=== PATIENT | female | born 1950 | race Caucasian/White ===

== ENCOUNTER 2020-04-20 20:45 | Emergency (ER) | payer MEDICARE, SELFPAY ==
--- NOTE | ~2020-04-20 | XR_ITS ---
EXAMINATION: XR chest 1V portable 04/20/2020 21:25 INDICATION: Dizziness. History of asthma. COPD. Hypertension. PROCEDURE: AP portable chest COMPARISON: Comparison to multiple prior studies sequentially, with oldest reviewed study dated 04/07. FINDINGS: The lungs are clear. Status post median sternotomy for CABG. The cardiomediastinal silhouet te is within normal limits. There are no pleural effusions. There is no pneumothorax suspected. IMPRESSION: 1: NO ACUTE CARDIOPULMONARY DISEASE. Reviewed, dictated and finalized at location A.
--- NOTE | ~2020-04-20 | CT_ITS ---
EXAMINATION: CT BRAIN W/O DATE: 04/20/2020 21:22 INDICATION: Dizziness TECHNIQUE: Computed tomography (CT) of the head was performed without intravenous contrast. The dose- length product was 605.33 mGy-cm. The mA was adjusted according to patient size. Iterative reconstruc tion technique was employed. COMPARISON: CT dated 10/24/2009 FINDINGS: Normal brain parenchymal volume for age. Normal soria-white differentiation. No acute intrac ranial hemorrhage, infarction, mass or mass effect. There is persistent cavum of septum pellucidum. No ventriculomegaly or midline shift. Midline sagittal images demonstrate a normal corpus callosum, c raniovertebral junction and sella turcica. Basilar cisterns are patent. There is intracranial atheros clerosis. Paranasal sinuses and mastoids are pneumatized. No depressed skull fractures. IMPRESSION: 1. No acute intracranial abnormality. Reviewed, dictated and finalized at location A.
[2020-04-20 20:48] VITALS: BP 115/81; PULSE 65; RESP 18; TEMP 35.9; O2SAT 97
[2020-04-20 20:59] VITALS: BP 154/85; PULSE 65; RESP 21; O2SAT 92
--- NOTE | 2020-04-20 21:01 | ECG_ITS ---
Measurements Intervals [place] Rate: 62 P: 0 CA: 162 QRS: -13 QRSD: 166 T: 57 QT: 487 QTc: 495 Interpretive Statements SINUS RHYTHM RIGHT BUNDLE BRANCH BLOCK BASELINE WANDER- I, II, III ABNORMAL ECG Electronically Signed On 04-21-2020 7:29:26 CDT by Jimbo Balderas D.O.
--- NOTE | 2020-04-20 21:03 | ED.DIZZY ---
HPI - Dizziness General Chief Complaint: Dizziness Stated Complaint: dizziness, nausea, double vision Time Seen by Provider: 04/20/20 20:56 Source: RN notes reviewed History of Present Illness HPI Narrative: Patient presents emergency department from home for dizziness. Patient states that this evening she had a short episode of shortness of breath that lasted approximately 2 to 3 minutes and resolved on its own patient states that approximately an hour after that she began to have an episode of dizziness patient states that she felt dizzy and lightheaded with near syncopal episode. States that with this she experienced double vision and a mild headache. Patient states symptoms are improved at this time though she still feels mildly dizzy she denies any fevers or chills numbness or tingling in the extremities chest pain abdominal pain vomiting or any other symptoms she does note mild nausea with the symptoms Related Data Home Medications Medication Instructions Recorded Confirmed albuterol sulfate 90 mcg/actuation 2 inhalation INHALATION Q4-6H gm 10/23/19 aerosol inhaler budesonide 90 mcg/actuation breath 1 inhalation INHALATION Q12H 10/23/19 activated powder inhaler carvedilol 6.25 mg tablet 6.25 mg PO BID tablet 10/23/19 cyanocobalamin (vitamin B-12) 1,000 mcg PO DAILY 10/23/19 1,000 mcg capsule epinephrine 0.3 mg/0.3 mL 0.3 mg IM ONCE 10/23/19 injection, auto-injector Allergies Allergy/AdvReac Type Severity Reaction Status Date / Time codeine Allergy Mild HIVES AND Verified 10/19/16 11:46 FACIAL SWELLING erythromycin base Allergy Mild HIVES Verified 10/19/16 11:46 oxycodone Allergy Mild HIVES Verified 10/19/16 11:46 propoxyphene Allergy Mild DOES NOT Verified 10/19/16 11:46 KNOW levofloxacin Allergy Unknown Unknown Verified 10/23/19 07:53 acetaminophen AdvReac Unknown Verified 10/23/19 07:54 BEE STINGS Allergy Severe Unknown Uncoded 10/23/19 07:53 PROPOXYPHENE HCL Allergy Unknown DOES NOT Uncoded 10/19/16 11:46 KNOW Review of Systems Review of Systems: Narrative: Gen.: Denies fevers or chills Eyes: Denies eye pain reports double vision ENT: Denies congestion Respiratory: Reports mild shortness of breath CV: Denies chest pain or palpitations GI: Denies abdominal pain emesis or diarrhea reports nausea denies burning, urgency, frequency or hematuria Musculoskeletal: Denies back pain or muscle pain Neuro: Denies numbness, tingling, weakness or focal weakness reports dizziness Skin: Denies rash Except as documented, all other systems reviewed and negative [facility] Past Medical History Medical History (Updated 04/21/20 @ 00:45 by Patrice Small DO) CAD (coronary artery disease) Chronic obstructive pulmonary disease, unspecified Diabetes mellitus Family History Family History (Updated 01/19/18 @ 09:38 by DOCTOR UNKNOWN) Mother Family history of malignant neoplasm Family history of lung cancer Family history of lymphoma Sibling Family history of diabetes mellitus in first degree relative Family history of malignant neoplasm Family history of heart disease in male family member before age 55 Father Hypertension Family history of cardiovascular disease Family history of primary malignant neoplasm of liver Family history of heart disease in male family member before age 55 Family history of congenital heart disease Other Carcinoma of colon Cerebrovascular accident Diabetes mellitus Family history of allergic disorder Family history of cardiac disorder Family history of emphysema Social History Social History Smoking status: Former smoker Smoking end date: 11/22/09 Alcohol intake: never Exam Narrative: Exam Narrative: APPEARANCE: No acute distress, nontoxic, resting in bed HEENT: Normocephalic, atraumatic, OMM, TMs clear bilaterally EYES: PERRL, EOMI NECK: Supple, nontender, full
[2020-04-20 21:29] LABS: Basophils Absolute Auto 0.1 K/mm3 (0.0-0.1); Basophils Percent Auto 0.9 % (0.2-1.2); Eosinophils Absolute Auto 0.4 K/mm3 (0-0.3); Eosinophils Percent Auto 6.2 % (0-4.4); Hematocrit 43.2 % (37.0-47.0); Hemoglobin 14.7 g/dL (12.0-15.0); Immature Granulocyte Absolute 0.04 K/mm3 (0.00-0.031); Immature Granulocyte Percent A 0.7 % (0-0.5); Lymphocytes Absolute Auto 2.03 K/mm3 (0.9-3.2); Mean Corpuscular Hemoglobin 30.8 pg (26-34); Mean Corpuscular Volume 90.4 fl (80-100); Mean Platelet Volume 9.7 fl (7.4-10.4); Monocytes Absolute Auto 0.4 K/mm3 (0.1-0.6); Monocytes Percent Auto 6.7 % (2.6-8.5); Neutrophils Absolute Auto 2.9 K/mm3 (1.3-6.7); Neutrophils Percent Auto 50.5 % (45.5-73.1); Platelet Count Result 199 k/mm3 (150-375); Red Blood Count 4.78 M/mm3 (4.2-5.4); Red Cell Distribution Width 13.1 % (11.5-14.5); White Blood Count 5.8 K/mm3 (4.5-10.0)
[2020-04-20 21:30] VITALS: BP 137/88; PULSE 62
[2020-04-20 21:32] VITALS: BP 145/94; PULSE 68
[2020-04-20 21:34] VITALS: BP 120/77; PULSE 79
[2020-04-20] MEDS: SODIUM CHLORIDE 0.9% IV 1,000 ML 999 ML IV CONT (21:35)
[2020-04-20 21:39] LABS: Prothrombin Time 12.6 Seconds (11.1-14.7)
[2020-04-20 21:40] LABS: Partial Thromboplastin Time 24.4 SECONDS (22.3-36.8)
[2020-04-20 21:41] LABS: Alanine Aminotransferase 26 U/L (4-35); Albumin Level 4.6 g/dL (3.5-5.1); Alkaline Phosphatase 74 U/L (38-126); Aspartate Amino Transferase 25 U/L (14-36); Bilirubin,Total 0.8 mg/dL (0.2-1.3); Blood Urea Nitrogen 22 mg/dL (7-17); Calcium 9.3 mg/dL (8.4-10.2); Carbon Dioxide 23 mmol/L (22-30); Chloride 108 mmol/L (98-107); Estimated CRCL calculation 71 ml/min; Estimated Glomerular Filt Rate > 60; Glucose 132 mg/dL (65-105); Potassium 3.9 mmol/L (3.4-5.0); Sodium 140 mmol/L (137-145)
[2020-04-20 21:45] LABS: Add Urine Microscopic? YES; Appearance Urine Clear (Clear); Bacteria Urine 2+ /hpf; Bilirubin Urine Negative (Negative); Blood Urine Negative (Negative); Color Urine Yellow (Yellow); Glucose Urine UA Negative (Negative); Ketones Urine Negative (Negative); Leukocyte Esterase Ur Negative LEU/UL (Negative); Mucus Urine Few /lpf; Nitrate Urine Positive (Negative); Protein Urine Negative (Negative); RBC Urine 0-2 /hpf (0-2); Specific Grav Ur 1.027 (1.001-1.035); Squamous Epithelial Cell Urine Many /hpf (Few); Urobilinogen Urine Negative mg/dL (<2.0); WBC Urine 0-3 /hpf
[2020-04-20 21:52] LABS: Troponin I < 0.012 ng/mL (0.000-0.034)
[2020-04-20 22:48] VITALS: BP 149/87; PULSE 57; RESP 15; TEMP 36.2; O2SAT 99
[2020-04-21 00:39] VITALS: BP 124/78; PULSE 55; RESP 18; O2SAT 100
[2020-04-21 00:39] LABS: Troponin I < 0.012 ng/mL (0.000-0.034)
[2020-04-21] MEDS: NITROFURANTOIN MONOHYD MACROCR 100 MG CAP PO (00:46)
[2020-04-21 00:47] VITALS: BP 124/78; PULSE 60; RESP 18; TEMP 37; O2SAT 100
== END 2020-04-21 00:48 | disposition home or self-care (01) ==
PROVIDERS: Emergency Provider Emergency Medicine
DX: R55 Syncope and collapse (principal); N39.0 Urinary tract infection, site not specified; E11.9 Type 2 diabetes mellitus without complications; I25.10 Atherosclerotic heart disease of native coronary artery without angina pectoris; J44.9 Chronic obstructive pulmonary disease, unspecified; Z87.891 Personal history of nicotine dependence
CPT/HCPCS: 36415; 70450; 71045; 80053; 81001; 84484; 85025; 85610; 85730; 93005; 96360; 99284; A9270; J7030

== ENCOUNTER 2020-06-13 07:51 | Outpatient (CLI) | payer MEDICARE, SELFPAY ==
--- NOTE | ~2020-06-13 | MM_ITS ---
EXAMINATION: MM screening dwaine BI w saul HISTORY: Screening TECHNIQUE: Craniocaudal and mediolateral oblique 3-D tomosynthesis images were obtained and synthetic 2-D images were generated. CAD analysis was submitted and interpreted. COMPARISON: No prior mammogram is available for comparison at this institution. BREAST PARENCHYMAL COMPOSITION: There are scattered areas of fibroglandular density. FINDINGS: There are developing asymmetries in the outer aspect of the right breast on CC view. The le ft breast is stable without evidence for malignancy. IMPRESSION: 1. Developing right breast asymmetries. 2. Additional mammographic views and possible breast ultrasound are recommended. BI-RADS Category 0: Incomplete: Needs additional imaging evaluation. Reviewed, dictated and finalized at location A. IMPRESSION: 1. Developing right breast asymmetries. 2. Additional mammographic views and possible breast ultrasound are recommended . BI-RADS Category 0: Incomplete: Needs additional imaging evaluation.
--- NOTE | ~2020-06-13 | DEXA_ITS ---
Bone Density Report Name: Ale Soto Age: 70 Sex: Female Ethnicity: White Date of : 1950 Indication: postmenopausal; prior fracture; asthma or emphysema; Referring Provider: Karen Coleman Study: Bone densitometry was performed. Exam Date: June 13, 2020 Accession number: [id number] Bone Density: Region BMD T-score Z-score Classification AP Spine (L1-L4) 1.183 1.2 3.4 Normal Femoral Neck (Left) 1.068 2.0 3.8 Normal Total Hip (Left) 1.253 2.5 4.1 Normal Total Hip Bilateral Avg 1.227 2.3 3.8 Normal Femoral Neck (Right) 0.973 1.1 2.9 Normal Total Hip (Right) 1.199 2.1 3.6 Normal World Health Organization criteria for BMD impression classify patients as: Normal (T-score at or above -1.0), Osteopenia (T-score between -1.0 and -2.5), or Osteoporosis (T-score at or below -2.5). 10-year Fracture Risk: FRAX not reported because: All T-scores for Spine Total, Hip Total, Femoral Neck at or above -1.0 Previous Exams: Region Exam Age BMD T-score BMD Change BMD Change Date g/cm2 vs Baseline vs Previous AP Spine(L1-L4) 06/13/2020 70 1.183 1.2 0.008(0.7%) 0.008(0.7%) 05/05/2017 67 1.175 1.2 Total Hip(Left) 06/13/2020 70 1.253 2.5 0.003(0.3%) 0.003(0.3%) 05/05/2017 67 1.249 2.5 Total Hip(Right) 06/13/2020 70 1.199 2.1 -0.102(-7.8%)* -0.102(-7.8%)* 05/05/2017 67 1.301 2.9 *Denotes significance at 95% confidence level, LSC for AP Spine = 0.022 g/cm2, LSC for Total Hip = 0.027 g/cm2 Clinical Information Provided by Patient: Has had a low trauma fracture Has used the following medications: Vitamin D Has the following medical conditions: Asthma or Emphysema Patient maximum height was 63.5 Menopause Age: 54 No regular weight bearing exercise Drinks caffeinated beverages Onset of menses at age 13 Number of children 4 Impression: The patient has normal bone mass. The patient has risk factors, including: previous fracture. The BMD for the Total Hip(Right) decreased, changing by -7.8% since the last DXA exam. Discussion: LOW RISK OF FRACTURE; BONE DENSITY IS WELL ABOVE THE MINIMUM DESIRABLE LEVEL AND ABOVE AVERAGE FOR AGE AND SEX AT ALL SKELETAL SITES TESTED. This person's bone density is above expected limits for age and sex. This is rarely clinically significant, but should be pursued if there are significant musculoskeletal complaints. The patient should follow a healthful lifestyle (good nutrition with adequate tad
== END 2020-06-13 07:52 | disposition home or self-care (01) ==
LOC: ANHIMG 07:53
PROVIDERS: PCP Family Medicine; Visit Provider Nurse Practitioner
DX: Z12.31 Encounter for screening mammogram for malignant neoplasm of breast (principal); Z78.0 Asymptomatic menopausal state; R92.8 Other abnormal and inconclusive findings on diagnostic imaging of breast
CPT/HCPCS: 77063; 77067; 77080

== ENCOUNTER 2020-07-05 13:31 | Outpatient (CLI) | payer MEDICARE, SELFPAY ==
--- NOTE | ~2020-07-05 | MMUS_ITS ---
EXAMINATION: MM diagnostic mammo unilat RT, US breast RT limited HISTORY: Follow-up right breast asymmetry TECHNIQUE: Additional 3-D tomosynthesis images of the right breast were performed and synthetic 2-D i mages were generated. CAD analysis was submitted and interpreted. High resolution right breast ultras ound was performed. COMPARISON: Comparison to multiple prior studies sequentially, with oldest reviewed study dated 06/2020. BREAST PARENCHYMAL COMPOSITION: Breast composed of scattered areas of fibroglandular density FINDINGS: MAMMOGRAPHIC FINDINGS: There is persistent focal asymmetry in the upper outer quadrant of the right breast. No discrete mass or abnormal cluster of calcifications. Right breast ultrasound: At 6:00, 1 cm from the nipple, there is an oval hypoechoic mass measuring 3 mm without posterior feat ures or significant internal vascularity. At 11:00, 2 cm from the nipple, there is a small oval hypoe choic mass with central echogenicity measuring 3.5 mm maximum dimension, likely an intramammary lymph node. IMPRESSION: 1. Probable benign right breast masses. 2. Recommend 6 month follow-up diagnostic right mammogram and ultrasound BI-RADS category 3, probably benign findings. Reviewed, dictated and finalized at location A. IMPRESSION: 1. Probable benign right breast masses. 2. Recommend 6 month follow-up diagnostic right mammogram and ultrasound BI-RADS category 3, probably benign findings.
== END 2020-07-05 13:32 | disposition home or self-care (01) ==
PROVIDERS: PCP Family Medicine; Visit Provider Nurse Practitioner Family
DX: R92.8 Other abnormal and inconclusive findings on diagnostic imaging of breast (principal)
CPT/HCPCS: 76642; 77065

== ENCOUNTER 2020-11-12 10:54 | Observation (INO) | payer MEDICARE, SELFPAY ==
[2020-11-12] VITALS (37 sets, daily range): BP systolic 102–139; BP diastolic 73–99; PULSE 54–69; RESP 11–26; TEMP 36–37.2; O2SAT 92–100; BMI 42.9
--- NOTE | ~2020-11-12 | XR_ITS ---
EXAMINATION: XR chest 2V DATE: 11/12/2020 11:31 INDICATION: Acute midsternal chest pain. TECHNIQUE: Frontal and lateral views of the chest were obtained on 3 radiographs. COMPARISON: Chest single view 04/20/2020 FINDINGS: A calcified right lung nodules consistent with old granulomatous disease. There is mild ate lectasis in left lower lung zone. No pleural effusion or pneumothorax. The heart size is normal. Ther e are prominent paracardial fat pads. Median sternotomy wires and mediastinal surgical clips are seen , likely from prior coronary artery bypass grafting. IMPRESSION: 1. Mild atelectasis in left lower lung zone. Reviewed, dictated and finalized at location A. 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
--- NOTE | 2020-11-12 11:00 | ECG_ITS ---
Measurements Intervals [place] Rate: 65 P: -12 [place]: 166 QRS: 9 QRSD: 154 T: 94 QT: 455 QTc: 475 Interpretive Statements SINUS RHYTHM RIGHT BUNDLE BRANCH BLOCK BASELINE ARTIFACT- I, II, III, AVF, V4-V6 ABNORMAL ECG Electronically Signed On 11-12-2020 14:40:03 STYRENE DEHYDRATION REACTOR OPERATOR by Jimbo Balderas D.O.
[2020-11-12] MEDS: ASPIRIN 81 MG CHEWABLE TABLET 324 MG PO (11:04)
[2020-11-12] MEDS: MORPHINE SULFATE (*CRX) 4 MG/ML INJ IV PUSH (11:18)
[2020-11-12 11:22] LABS: Basophils Absolute Auto 0.1 K/mm3 (0.0-0.1); Eosinophils Absolute Auto 0.3 K/mm3 (0-0.3); Eosinophils Percent Auto 6.5 % (0-4.4); Hematocrit 42.1 % (37.0-47.0); Hemoglobin 14.6 g/dL (12.0-15.0); Immature Granulocyte Absolute 0.03 K/mm3 (0.00-0.031); Immature Granulocyte Percent A 0.6 % (0-0.5); Lymphocytes Absolute Auto 1.58 K/mm3 (0.9-3.2); Mean Corpuscular HGB Conc 34.7 g/dl (32-36); Mean Corpuscular Hemoglobin 30.7 pg (26-34); Mean Corpuscular Volume 88.6 fl (80-100); Mean Platelet Volume 9.6 fl (7.4-10.4); Monocytes Absolute Auto 0.4 K/mm3 (0.1-0.6); Monocytes Percent Auto 7.7 % (2.6-8.5); Neutrophils Absolute Auto 2.7 K/mm3 (1.3-6.7); Neutrophils Percent Auto 53.2 % (45.5-73.1); Platelet Count Result 195 k/mm3 (150-375); Red Blood Count 4.75 M/mm3 (4.2-5.4); Red Cell Distribution Width 13.4 % (11.5-14.5); White Blood Count 5.1 K/mm3 (4.5-10.0)
[2020-11-12 11:32] LABS: INR 1.1; Prothrombin Time 14.3 Seconds (11.1-14.7)
[2020-11-12 11:33] LABS: Partial Thromboplastin Time 22.7 SECONDS (22.3-36.8)
[2020-11-12 11:34] LABS: Anion Gap 10 mmol/L (8-16); Blood Urea Nitrogen 23 mg/dL (7-17); Calcium 9.3 mg/dL (8.4-10.2); Carbon Dioxide 23 mmol/L (22-30); Chloride 106 mmol/L (98-107); Estimated CRCL calculation 70 ml/min; Estimated Glomerular Filt Rate > 60; Glucose 141 mg/dL (65-105); Potassium 4.4 mmol/L (3.4-5.0); Sodium 139 mmol/L (137-145)
[2020-11-12 11:46] LABS: Troponin I < 0.012 ng/mL (0.000-0.034)
--- NOTE | 2020-11-12 12:30 | PC.NURSE ---
C/o dizziness and nausea after Morphine. ERP aware.
[2020-11-12] MEDS: PROMETHAZINE HCL 25 MG/ML AMPUL 12.5 MG IV PUSH (13:01)
[2020-11-12] MEDS: MECLIZINE HCL 25 MG TABLET PO (13:54)
[2020-11-12 14:48] LABS: Troponin I < 0.012 ng/mL (0.000-0.034)
--- NOTE | 2020-11-12 15:23 | ED.CHESTPAIN ---
HPI - Chest Pain General Chief Complaint: Chest Pain Stated Complaint: CP Time Seen by Provider: 11/12/20 10:59 History of Present Illness HPI narrative: Patient is a 70-year-old female who presents to the ER with concerns for chest pain. She was sitting at her computer drinking some tea when she developed some discomfort in her left arm going into her neck. She then proceeded to develop some mild left chest pain. 2/10 and 3/10 in intensity. No resolution with nitroglycerin by EMS. No fevers or chills or sweats. No new diaphoresis or dyspnea with this. She is found no aggravating or alleviating factors. Has history of 5 vessel bypass. She sees Dr. Ryan with the [facility]. Related Data Home Medications Medication Instructions Recorded Confirmed albuterol sulfate 90 mcg/actuation 2 inhalation INHALATION Q4-6H gm 10/23/19 11/12/20 aerosol inhaler budesonide 90 mcg/actuation breath 1 inhalation INHALATION Q12H 10/23/19 11/12/20 activated powder inhaler carvedilol 6.25 mg tablet 6.25 mg PO BID tablet 10/23/19 11/12/20 amlodipine 5 mg PO DAILY 11/12/20 11/12/20 bupropion HCl 150 mg PO BID 11/12/20 11/12/20 citalopram 10 mg PO DAILY 11/12/20 11/12/20 lisinopril 10 mg PO DAILY 11/12/20 11/12/20 Allergies Allergy/AdvReac Type Severity Reaction Status Date / Time codeine Allergy Mild HIVES AND Verified 11/12/20 11:00 FACIAL SWELLING erythromycin base Allergy Mild HIVES Verified 11/12/20 11:00 oxycodone Allergy Mild HIVES Verified 11/12/20 11:00 propoxyphene Allergy Mild DOES NOT Verified 11/12/20 11:00 KNOW levofloxacin Allergy Unknown Unknown Verified 11/12/20 11:00 acetaminophen AdvReac Unknown Verified 11/12/20 11:00 BEE STINGS Allergy Severe Unknown Uncoded 04/24/20 09:01 Review of Systems Review of Systems: All systems reviewed & are unremarkable except as noted in HPI and below Constitutional: Constitutional: Denies chills, Denies fever(s) and Denies weakness ENT: Denies nasal congestion and Denies sore throat Cardiovascular: Cardiovascular: Reports chest pain, Denies rapid heart rate and Reports radiating jaw, neck or arm pain Respiratory: Respiratory: Denies cough, Denies dyspnea and Denies wheezing Gastrointestinal: Gastrointestinal: Denies abdominal pain, Denies nausea and Denies vomiting Neurologic: Denies focal weakness and Denies numbness PMF Past Medical History Medical History (Updated 11/12/20 @ 20:13 by Priyank Moreno MD) CAD (coronary artery disease) Chronic obstructive pulmonary disease, unspecified Diabetes mellitus Obstructive sleep apnea (adult) (pediatric) Surgical History Surgical History (Updated 11/12/20 @ 15:49 by Priyank Moreno MD) Hx of CABG Family History Family History Mother Family history of malignant neoplasm Family history of lung cancer Family history of lymphoma Sibling Family history of diabetes mellitus in first degree relative Family history of malignant neoplasm Family history of heart disease in male family member before age 55 Father Hypertension Family history of cardiovascular disease Family history of primary malignant neoplasm of liver Family history of heart disease in male family member before age 55 Family history of congenital heart disease Other Carcinoma of colon Cerebrovascular accident Diabetes mellitus Family history of allergic disorder Family history of cardiac disorder Family history of emphysema Social History Social History Smoking status: Former smoker Tobacco type: cigarettes Second hand tobacco smoke exposure: Yes Smoking end date: 11/22/09 Alcohol intake: never Substance use: never Substance use type: does not use Gender identity (if verbalized by the patient): Female Spiritual care concerns: No Exam Narrative: Exam Narrative: GENERAL: Well-a
[2020-11-12 17:49] LABS: Troponin I < 0.012 ng/mL (0.000-0.034)
--- NOTE | 2020-11-12 18:03 | ADMGEN ---
This patient, Ale Soto, was admitted to [facility]. Patient/family oriented to hospital policies and general routines including ID bracelet, bed and alarms, visiting hours, pain management, procedures, bathroom and other care routines, personal items, smoking policy, room service/diet, and visiting hours. Information on how to activate the Rapid Response Team has been discussed. Patient/Family are encouraged to report perceived risks to care and to ask questions if they do not understand what they are told or what they should do.
[2020-11-12] MEDS: ACETAMINOPHEN 325 MG TABLET 650 MG PO (20:11)
[2020-11-13] VITALS: PULSE 51
[2020-11-13 04:00] VITALS: PULSE 54
[2020-11-13 06:00] VITALS: BP 125/78; PULSE 53; RESP 16; TEMP 37.1; O2SAT 94
[2020-11-13 07:39] VITALS: BP 139/83; PULSE 54; RESP 16; TEMP 36.2; O2SAT 99
[2020-11-13 07:43] VITALS: PULSE 54; RESP 16; O2SAT 99
--- NOTE | 2020-11-13 08:04 | PM.IMHP ---
H&P: HPI History of Present Illness Date/Time: 11/13/20 08:04 Chief Complaint: Chest Pain Narrative: Ale Soto is a 70 year old female HPI narrative: Patient is a 70-year-old female who presents to the ER with concerns for chest pain. She was sitting at her computer drinking some tea when she developed some discomfort in her left arm going into her neck. She then proceeded to develop some mild left chest pain. 2/10 and 3/10 in intensity. No resolution with nitroglycerin by EMS. No fevers or chills or sweats. No new diaphoresis or dyspnea with this. She is found no aggravating or alleviating factors. Has history of 5 vessel bypass. She sees Dr. Ryan with the heart care [facility]. At present patient is feeling better and patient is pain-free. Patient denies any shortness of breath fever and chills. Patient does not have any swelling of the lower extremity and denies any abdominal pain nausea and vomiting. Review of Systems Review of Systems: All systems reviewed & are unremarkable except as noted in HPI and below Constitutional: Constitutional: Reports as per HPI Eyes: Eyes: Reports as per HPI ENT: Reports system reviewed and no additional complaints, except as documented Cardiovascular: Cardiovascular: Reports as per HPI Respiratory: Respiratory: Reports as per HPI Gastrointestinal: Gastrointestinal: Reports as per HPI Musculoskeletal: Musculoskeletal: Reports no additional musculoskeletal complaints Neurologic: Reports system reviewed and no additional complaints, except as documented and Reports as per HPI Psychiatric: Psychiatric: Reports no additional psychiatric complaints and Reports as per HPI Endocrine: Endocrine: Reports as per HPI [facility] Past Medical History Medical History CAD (coronary artery disease) Chronic obstructive pulmonary disease, unspecified Diabetes mellitus Obstructive sleep apnea (adult) (pediatric) Surgical History Surgical History (Updated 11/12/20 @ 15:49 by Priyank Moreno MD) Hx of CABG Family History Family History Mother Family history of malignant neoplasm Family history of lung cancer Family history of lymphoma Sibling Family history of diabetes mellitus in first degree relative Family history of malignant neoplasm Family history of heart disease in male family member before age 55 Father Hypertension Family history of cardiovascular disease Family history of primary malignant neoplasm of liver Family history of heart disease in male family member before age 55 Family history of congenital heart disease Other Carcinoma of colon Cerebrovascular accident Diabetes mellitus Family history of allergic disorder Family history of cardiac disorder Family history of emphysema Social History Social History Smoking status: Former smoker Tobacco type: cigarettes Second hand tobacco smoke exposure: Yes Smoking end date: 11/22/09 Alcohol intake: never Substance use: never Substance use type: does not use Gender identity (if verbalized by the patient): Female Spiritual care concerns: No Meds Home Medications and Allergies Home Medications Medication Instructions Recorded Confirmed Type albuterol sulfate 90 mcg/actuation 2 inhalation INHALATION Q4-6H gm 10/23/19 11/12/20 History aerosol inhaler budesonide 90 mcg/actuation breath 1 inhalation INHALATION Q12H 10/23/19 11/12/20 History activated powder inhaler carvedilol 6.25 mg tablet 6.25 mg PO BID tablet 10/23/19 11/12/20 History amlodipine 5 mg PO DAILY 11/12/20 11/12/20 History bupropion HCl 150 mg PO BID 11/12/20 11/12/20 History citalopram 10 mg PO DAILY 11/12/20 11/12/20 History lisinopril 10 mg PO DAILY 11/12/20 11/12/20 History Allergies Allergy/AdvReac Type Severity Reaction Status Date / Omid
[2020-11-13] MEDS: amLODIPine BESYLATE 5 MG TABLET PO (09:24)
[2020-11-13 09:25] VITALS: PULSE 60
[2020-11-13] MEDS: lisinopriL 10 MG TABLET PO (09:25)
[2020-11-13] MEDS: HEPARIN SODIUM 5,000 UNITS/ML VIAL 5000 UNITS SUB-Q (09:25)
[2020-11-13] MEDS: carvediloL 6.25 MG TABLET PO (09:25)
--- NOTE | 2020-11-13 09:45 | PM.CNCAR ---
Assessment and Plan Assessment and plan (1) Chest pain: Code(s): R07.9 - Chest pain, unspecified Status: Acute Assessment and Plan: Somewhat atypical, occurring at rest lasting 5-6 hours, mild in severity ruled out for myocardial infarction with negative serial enzymes, no significant new EKG changes. Known history of CAD with prior CABG without ischemic evaluation since 2013. Recommend outpatient ischemic evaluation Lexiscan nuclear stress test although patient reluctant due to history of transient AV block during prior stress testing. Continue home medical therapy. Symptoms were not relieved with nitroglycerin and have resolved completely. Offered ischemic evaluation prior to discharge and/or follow-up as an outpatient patient prefer to be discharged home to follow up for testing as an outpatient and follow up in our office. Stressed importance of compliance with follow-up and recommendations to reduce risk for cardiovascular complications including myocardial infarction as she has not been seen in our office since 2016. Patient verbalized understanding and agreed. S patient is completely asymptomatic, has ruled out for myocardial infarction and is otherwise stable she may be discharged home from a cardiovascular perspective per the hospitalist service. (2) CAD (coronary artery disease): Qualifiers: Coronary Disease-Associated Artery/Lesion type: [place] artery [place] vs. transplanted heart: [place] heart Associated angina: without angina Qualified Code(s): I25.10 - Atherosclerotic heart disease of [place] coronary artery without angina pectoris Code(s): I25.10 - Atherosclerotic heart disease of [place] coronary artery without angina pectoris Status: Acute Assessment and Plan: Aggressive medical therapy. Patient is statin intolerant due to myopathy unfortunately. Will discuss additional management options including PCSK9 inhibitor and or Zetia as an outpatient. (3) Diabetes mellitus: Code(s): E11.9 - Type 2 diabetes mellitus without complications Status: Acute (4) Dyslipidemia: Code(s): E78.5 - Hyperlipidemia, unspecified Status: Acute Assessment and Plan: As above. LDL April 2019 156 poorly controlled. 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 (6) Obstructive sleep apnea (adult) (pediatric): Code(s): G47.33 - Obstructive sleep apnea (adult) (pediatric) Status: Chronic Assessment and Plan: Compliance with CPAP. Follow-up with pulmonology as scheduled Dr. Montelongo (7) Chronic obstructive pulmonary disease, unspecified: Qualifiers: COPD type: unspecified COPD Qualified Code(s): J44.9 - Chronic obstructive pulmonary disease, unspecified Code(s): J44.9 - Chronic obstructive pulmonary disease, unspecified Status: Chronic Assessment and Plan: Follow-up with Dr. Montelongo. History of Present Illness History of Present Illness Consult date/time: Date of service: 11/13/20 09:45 Cardiology consultation at the request of Dr. Berkowitz of the [facility] service for our opinion regarding chest pain CAD history. Requesting physician: Doroteo Berkowitz MD Consult reason: chest pain Reason For Visit: Chest Pain/Vertigo Narrative: Patient is a very pleasant 70-year-old female with a past medical history significant for 4 vessel CABG with SAAVEDRA to LAD, SVG to diagonal, SVG to ramus and SVG to PDA and PLB 2005, hypertension, diabetes mellitus, dyslipidemia, history tobacco abuse, COPD, obstructive sleep apnea on CPAP, and obesity previously followed in our office but not seen since 2016 who presents the emergency department complaints of chest pain. Patient states she was seated to playing on her computer around 10:30 a.m. when she developed
--- NOTE | 2020-11-13 10:58 | PM.DS ---
DS: Admitting Diagnosis Admitting Diagnosis Admitting Diagnosis: 1. Chest pain DS: Discharge Diagnosis Discharge Diagnosis (1) Chest pain: Code(s): R07.9 - Chest pain, unspecified Status: Acute (2) Obstructive sleep apnea (adult) (pediatric): Code(s): G47.33 - Obstructive sleep apnea (adult) (pediatric) Status: Chronic (3) Chronic obstructive pulmonary disease, unspecified: Qualifiers: COPD type: unspecified COPD Qualified Code(s): J44.9 - Chronic obstructive pulmonary disease, unspecified Code(s): J44.9 - Chronic obstructive pulmonary disease, unspecified Status: Chronic (4) Diabetes mellitus: Code(s): E11.9 - Type 2 diabetes mellitus without complications Status: Acute (5) Chronic respiratory failure with hypoxia: Code(s): J96.11 - Chronic respiratory failure with hypoxia Status: Acute (6) Tobacco abuse: Code(s): Z72.0 - Tobacco use Status: Acute DS: Summary Hospital Course Reason for hospitalization: Chest pain Hospital Course: 70 years old female admitted with chest pain. Patient has history of coronary artery disease COPD diet-controlled diabetes. Patient was given rule out CT protocol and Cardiology was consulted. Patient cardiac enzymes are negative, after consultation with lead generation representative patient is discharged home in stable condition. Workup CAD as an outpatient. Time spent discussing smoking cessation with patient: 3 to 10 minutes Status at Discharge Cognitive/behavioral status at discharge: Stable Functional status at discharge: independent ambulation Overall status at discharge: patient is back to baseline Time Spent with Patient Time attestation: Total time spent providing and/or coordinating discharge services: Time spent: Less than 30 minutes Specific discharge activities: as tolerated Exam Const: General: cooperative and no acute distress Orientation/consciousness: oriented to person, oriented to place, oriented to time and patient oriented x3 HENMT: Head: normal to inspection Ears: hearing grossly normal bilaterally and external ears normal General nose exam: Normal external nose present Face and sinus: normal facial exam Mouth: Yes Normal oral and palatal mucosa present Eyes: General: appearance normal, both eyes and all related structures Neck: Neck: normal visual inspection and full ROM Chest: Chest palpation & inspection: normal inspection of the chest and normal palpation of entire chest wall Resp: Effort & Inspection: normal respiratory effort Auscultation: clear to auscultation bilaterally Cardio: Jugular venous distension: no JVD Palpation: normal PMI Rate: regular rate Heart sounds: S1 normal heart sound present and S2 normal heart sound present GI: Inspection: normal to inspection GI Palp: No abdominal tenderness Neuro: General: oriented to person, oriented to place, oriented to time and patient oriented x3 Cranial nerves: Yes CN's II-XII intact bilaterally Speech: normal speech Gait exam (Neuro): Normal gait present Motor exam (neuro): 5/5 motor strength present throughout Sensory Exam: normal sensation Psych: Appearance: grossly normal DS: Data Data Completed and Pending Labs on day of discharge: Labs from last 24 hours 11/12/20 11/12/20 11/12/20 17:19 14:18 11:18 WBC RBC Hgb Hct MCV MCH MCHC RDW Plt Count MPV Immature Gran % (Auto) Neut % (Auto) Lymph % (Auto) [place] % (Auto) Eos % (Auto) Baso % (Auto) Lymph # (Auto) [place] # (Auto) Eos # (Auto) Baso # (Auto) Abs Immat Gran (auto) Absolute Neuts (auto) Absolute Nucleated RBC Nucleated RBC % PT INR APTT Sodium 139 Potassium 4.4 Chloride 106 Carbon Dioxide 23 Anion Gap 10 BUN 23 H Creatinine 0.80 Estim Creat Clear Calc 70 Estimated GFR > 60 Glucose 141 H Calcium 9.3 Troponin I < 0.012 < 0.01
== END 2020-11-13 12:43 | disposition home or self-care (01) ==
LOC: ANHED 11:05 → ANHCPC 16:53
PROVIDERS: Admitting Provider Family Medicine; Emergency Provider Emergency Medicine; PCP Family Medicine; Visit Provider Internal Medicine
DX: R07.9 Chest pain, unspecified (principal); R42 Dizziness and giddiness; E66.9 Obesity, unspecified; E78.5 Hyperlipidemia, unspecified; E11.9 Type 2 diabetes mellitus without complications; G72.0 Drug-induced myopathy; G47.33 Obstructive sleep apnea (adult) (pediatric); I25.10 Atherosclerotic heart disease of native coronary artery without angina pectoris; J44.9 Chronic obstructive pulmonary disease, unspecified; J96.11 Chronic respiratory failure with hypoxia; T46.6X5A Adverse effect of antihyperlipidemic and antiarteriosclerotic drugs, initial encounter; Z95.1 Presence of aortocoronary bypass graft; Z87.891 Personal history of nicotine dependence; Z68.41 Body mass index [BMI] 40.0-44.9, adult
CPT/HCPCS: 36415; 71046; 80048; 84484; 85025; 85610; 85730; 93005; 96374; 96375; 99285; A9270; G0378; J1644; J2270; J2550

== ENCOUNTER 2021-04-11 13:34 | Emergency (ER) | payer MEDICARE, SELFPAY ==
--- NOTE | ~2021-04-11 | XR_ITS ---
XR knee RT 3V DATE: 04/11/2021 14:56 INDICATION: Fall. Inferomedial patellar area pain unstable feeling. TECHNIQUE: 3 views COMPARISON: 08/18/2017 right knee FINDINGS: There is tricompartment osteoarthritis, severe at the medial compartment where there is sev ere loss of joint space and mild periarticular spurring. There is moderate periarticular spurring of the patella and minimal periarticular spurring of the lateral tibial plateau. No fracture or dislocation, periosteal reaction or bone destruction. Mild suprapatellar knee joint ef fusion is suggested. Distal femoral and popliteal and trifurcation artery calcifications are noted. IMPRESSION: Tricompartment osteoarthritis, most prominent at the medial and then patellofemoral princess rtments Mild suprapatellar knee joint effusion Reviewed, dictated and finalized at location B. IMPRESSION: Tricompartment osteoarthritis, most prominent at the medial and the n patellofemoral compartments Mild suprapatellar knee joint effusion
[2021-04-11 13:45] VITALS: BP 145/82; PULSE 65; RESP 16; TEMP 36.4; O2SAT 97
--- NOTE | 2021-04-11 15:45 | PC.NURSE ---
Pt resting on stretcher with family at bedside. Awaiting further orders or disposition.
--- NOTE | 2021-04-11 16:07 | PC.NURSE ---
PA at bedside.
--- NOTE | 2021-04-11 16:15 | ED.LOWEXIN ---
HPI - Extremity Injury (Lower) General Chief Complaint: Extremity Injury, Lower Stated Complaint: ongoing right knee pain Time Seen by Provider: 04/11/21 14:42 Source: patient Mode of arrival: wheelchair Limitations: no limitations History of Present Illness HPI Narrative: Patient is a 70 year old female who presents complaining of right knee pain x 2 plus weeks. She denies injury. She reports using multiple over the counter medications without relief. She reports pain is 8/10. Patient has medical history that includes CA, COPD and DM. She also reports numerous medication allergies which she reports has been difficult to treat pain. She has not seen PCP in some time and reports PCP is Dr. Greene. Related Data Home Medications Medication Instructions Recorded Confirmed albuterol sulfate 90 mcg/actuation 2 inhalation INHALATION Q4-6H gm 10/23/19 11/12/20 aerosol inhaler budesonide 90 mcg/actuation breath 1 inhalation INHALATION Q12H 10/23/19 11/12/20 activated powder inhaler carvedilol 6.25 mg tablet 6.25 mg PO BID tablet 10/23/19 11/12/20 amlodipine 5 mg PO DAILY 11/12/20 11/12/20 bupropion HCl 150 mg PO BID 11/12/20 11/12/20 citalopram 10 mg PO DAILY 11/12/20 11/12/20 Allergies Allergy/AdvReac Type Severity Reaction Status Date / Time codeine Allergy Mild HIVES AND Verified 11/12/20 11:00 FACIAL SWELLING erythromycin base Allergy Mild HIVES Verified 11/12/20 11:00 oxycodone Allergy Mild HIVES Verified 11/12/20 11:00 propoxyphene Allergy Mild DOES NOT Verified 11/12/20 11:00 KNOW levofloxacin Allergy Unknown Unknown Verified 11/12/20 11:00 acetaminophen AdvReac Unknown Verified 11/12/20 11:00 BEE STINGS Allergy Severe Unknown Uncoded 04/24/20 09:01 Review of Systems Review of Systems: Narrative: CONSTITUTIONAL: Denies fever, chills, or sweats. EYES: Denies visual changes, redness, or discharge. ENT: Denies rhinorrhea, congestion, sore throat, or otalgia. CARDIOVASCULAR: Denies chest pain, palpitations, or edema. RESPIRATORY: Denies cough or dyspnea. GASTROINTESTINAL: Denies abdominal pain, nausea, vomiting, or diarrhea. GENITOURINARY: Denies dysuria or hematuria. SKIN: Denies rash or itching. MUSCULOSKELETAL: Reports right knee pain NEUROLOGIC: Denies headache, numbness, dizziness, or weakness. PSYCHIATRIC: Denies anxiety or depression. [facility] Past Medical History Medical History CAD (coronary artery disease) Chronic obstructive pulmonary disease, unspecified Diabetes mellitus Obstructive sleep apnea (adult) (pediatric) Surgical History Surgical History Hx of CABG Family History Family History Mother Family history of malignant neoplasm Family history of lung cancer Family history of lymphoma Sibling Family history of diabetes mellitus in first degree relative Family history of malignant neoplasm Family history of heart disease in male family member before age 55 Father Hypertension Family history of cardiovascular disease Family history of primary malignant neoplasm of liver Family history of heart disease in male family member before age 55 Family history of congenital heart disease Other Carcinoma of colon Cerebrovascular accident Diabetes mellitus Family history of allergic disorder Family history of cardiac disorder Family history of emphysema Social History Social History Smoking status: Former smoker Tobacco type: cigarettes Second hand tobacco smoke exposure: Yes Smoking end date: 11/22/09 Alcohol intake: never Substance use: never Substance use type: does not use Gender identity (if verbalized by the patient): Female Spiritual care concerns: No Comments At the time of signature, I have reviewed and agree with nursing
[2021-04-11] MEDS: KETOROLAC 30 MG/ML VIAL (*BKC) IM (16:33)
[2021-04-11 17:44] VITALS: BP 130/89; PULSE 61; RESP 18; O2SAT 97
== END 2021-04-11 17:45 | disposition home or self-care (01) ==
PROVIDERS: Emergency Provider Nurse Practitioner
DX: M17.11 Unilateral primary osteoarthritis, right knee (principal); J44.9 Chronic obstructive pulmonary disease, unspecified; E11.9 Type 2 diabetes mellitus without complications; I25.10 Atherosclerotic heart disease of native coronary artery without angina pectoris; G47.33 Obstructive sleep apnea (adult) (pediatric); Z95.1 Presence of aortocoronary bypass graft; Z87.891 Personal history of nicotine dependence; I10 Essential (primary) hypertension
CPT/HCPCS: 73562; 96372; 99283; J1885

== ENCOUNTER 2021-05-24 18:53 | Emergency (ER) | payer MEDICARE, MEDICAID, SELFPAY ==
--- NOTE | ~2021-05-24 | XR_ITS ---
EXAMINATION: XR chest 2V EXAM DATE: 05/24/2021 19:31 INDICATION: SOB; hx of COPD, bypass surg 12 yrs ago . TECHNIQUE: Frontal and lateral projections of the chest obtained and reviewed. Comparison is made to prior examination from 11/12/2020. FINDINGS: Sternotomy wires are present without findings to suggest sternal dehiscence. Heart is bord rama enlarged. There is aortic arteriosclerosis. There is tortuosity of the aorta. No confluent con solidation, pneumothorax or pleural effusion suspected. There are mild bony degenerative changes. IMPRESSION: Borderline cardiomegaly. Reviewed, dictated and finalized at location G. IMPRESSION: Borderline cardiomegaly.
[2021-05-24 19:04] VITALS: BP 129/80; PULSE 73; RESP 16; TEMP 37.1; O2SAT 97
--- NOTE | 2021-05-24 19:12 | ED.SOB ---
HPI - SOB/Dyspnea General Chief Complaint: Shortness of Breath/Dyspnea Stated Complaint: SOB Time Seen by Provider: 05/24/21 19:13 Source: patient and RN notes reviewed Mode of arrival: ambulatory Limitations: no limitations History of Present Illness HPI Narrative: 71-year-old female with history of COPD presents with concern for shortness of breath. Reports at baseline she occasionally has shortness of breath with exertion, reports her recovery time with those episodes is longer in the past several days. She reports over the last 2 to 3 days she has had the feeling of not being able to fully fill her lungs when she breathes. She denies new cough, fever, chills, body aches, sweats. She reports her CPAP machine is broken and she has not been able to use it in the past several days. Reports poor sleeping. MD elicited complaint: shortness of breath Related Data Home Medications Medication Instructions Recorded Confirmed albuterol sulfate 90 mcg/actuation 2 inhalation INHALATION Q4-6H gm 10/23/19 05/24/21 aerosol inhaler budesonide 90 mcg/actuation breath 1 inhalation INHALATION Q12H 10/23/19 05/24/21 activated powder inhaler carvedilol 6.25 mg tablet 6.25 mg PO BID tablet 10/23/19 05/24/21 amlodipine 5 mg PO DAILY 11/12/20 05/24/21 citalopram 10 mg PO DAILY 11/12/20 05/24/21 Allergies Allergy/AdvReac Type Severity Reaction Status Date / Time codeine Allergy Mild HIVES AND Verified 05/24/21 19:05 FACIAL SWELLING erythromycin base Allergy Mild HIVES Verified 05/24/21 19:05 oxycodone Allergy Mild HIVES Verified 05/24/21 19:05 propoxyphene Allergy Mild DOES NOT Verified 05/24/21 19:05 KNOW levofloxacin Allergy Unknown Unknown Verified 05/24/21 19:05 acetaminophen AdvReac Unknown Verified 05/24/21 19:05 BEE STINGS Allergy Severe Unknown Uncoded 05/24/21 19:05 Review of Systems Review of Systems: Narrative: CONSTITUTIONAL: Denies malaise, chills, sweats, or fever. EYES: Denies visual changes, redness, or discharge. ENT: Denies rhinorrhea, congestion, sinus pain, otalgia or sore throat. CARDIOVASCULAR: Denies chest pain, palpitations, or edema. RESPIRATORY: Denies cough. Reports dyspnea. MUSCULOSKELETAL: Denies myalgia. NEUROLOGIC: Denies numbness, weakness, or headache. All systems reviewed & are unremarkable except as noted in HPI and below PMFSH Past Medical History Medical History CAD (coronary artery disease) Chronic obstructive pulmonary disease, unspecified Diabetes mellitus Obstructive sleep apnea (adult) (pediatric) Surgical History Surgical History Hx of CABG Family History Family History Mother Family history of malignant neoplasm Family history of lung cancer Family history of lymphoma Sibling Family history of diabetes mellitus in first degree relative Family history of malignant neoplasm Family history of heart disease in male family member before age 55 Father Hypertension Family history of cardiovascular disease Family history of primary malignant neoplasm of liver Family history of heart disease in male family member before age 55 Family history of congenital heart disease Other Carcinoma of colon Cerebrovascular accident Diabetes mellitus Family history of allergic disorder Family history of cardiac disorder Family history of emphysema Social History Social History Smoking status: Former smoker Tobacco type: cigarettes Second hand tobacco smoke exposure: Yes Smoking end date: 11/22/09 Alcohol intake: never Substance use: never Substance use type: does not use Gender identity (if verbalized by the patient): Female Spiritual care concerns: No Comments At time of signature, agree with nursing past medical, surgi
== END 2021-05-24 19:49 | disposition home or self-care (01) ==
PROVIDERS: Emergency Provider Nurse Practitioner
DX: J44.1 Chronic obstructive pulmonary disease with (acute) exacerbation (principal); Z87.891 Personal history of nicotine dependence; I25.10 Atherosclerotic heart disease of native coronary artery without angina pectoris; E11.9 Type 2 diabetes mellitus without complications; G47.33 Obstructive sleep apnea (adult) (pediatric); Z95.1 Presence of aortocoronary bypass graft
CPT/HCPCS: 71046; 99213; G0463

== ENCOUNTER 2021-06-17 10:13 | Outpatient (CLI) | payer MEDICARE, MEDICAID, SELFPAY ==
[2021-06-17 10:41] LABS: Basophils Absolute Auto 0.1 K/mm3 (0.0-0.1); Basophils Percent Auto 0.9 % (0.2-1.2); Eosinophils Absolute Auto 0.5 K/mm3 (0-0.3); Hematocrit 42.7 % (37.0-47.0); Hemoglobin 14.3 g/dL (12.0-15.0); Immature Granulocyte Absolute 0.05 K/mm3 (0.00-0.031); Immature Granulocyte Percent A 0.9 % (0-0.5); Lymphocytes Absolute Auto 1.94 K/mm3 (0.9-3.2); Lymphocytes Percent Auto 33.6 % (18.3-44.2); Mean Corpuscular HGB Conc 33.5 g/dl (32-36); Mean Corpuscular Hemoglobin 30.3 pg (26-34); Mean Corpuscular Volume 90.5 fl (80-100); Mean Platelet Volume 9.3 fl (7.4-10.4); Monocytes Absolute Auto 0.5 K/mm3 (0.1-0.6); Monocytes Percent Auto 8.5 % (2.6-8.5); Neutrophils Absolute Auto 2.8 K/mm3 (1.3-6.7); Neutrophils Percent Auto 48.1 % (45.5-73.1); Platelet Count Result 210 k/mm3 (150-375); Red Blood Count 4.72 M/mm3 (4.2-5.4); Red Cell Distribution Width 13.4 % (11.5-14.5); White Blood Count 5.8 K/mm3 (4.5-10.0)
[2021-06-17 10:56] LABS: Hemoglobin A1C 6.4 % (<5.7)
[2021-06-17 10:58] LABS: Alanine Aminotransferase 25 U/L (4-35); Albumin Level 4.6 g/dL (3.5-5.1); Alkaline Phosphatase 67 U/L (38-126); Anion Gap 11 mmol/L (8-16); Aspartate Amino Transferase 25 U/L (14-36); Bilirubin,Total 0.8 mg/dL (0.2-1.3); Blood Urea Nitrogen 20 mg/dL (7-17); Calcium 9.4 mg/dL (8.4-10.2); Carbon Dioxide 23 mmol/L (22-30); Chloride 110 mmol/L (98-107); Cholesterol 208 mg/dL (0-200); Estimated Glomerular Filt Rate > 60; Glucose 120 mg/dL (65-110); HDL Direct 35 mg/dL; Potassium 4.5 mmol/L (3.4-5.0); Sodium 144 mmol/L (137-145); Triglycerides 145 mg/dL (<150)
[2021-06-17 11:09] LABS: LDL Cholesterol Direct 120 mg/dL
[2021-06-17 12:14] LABS: Vitamin D 25 Hydroxy 15.8 ng/mL
== END 2021-06-17 10:14 | disposition home or self-care (01) ==
LOC: ANHLAB 10:18
PROVIDERS: PCP Nurse Practitioner; Visit Provider Nurse Practitioner
DX: E78.5 Hyperlipidemia, unspecified (principal); E55.9 Vitamin D deficiency, unspecified; E11.9 Type 2 diabetes mellitus without complications; I10 Essential (primary) hypertension
CPT/HCPCS: 36415; 80053; 80061; 82306; 83036; 85025

== ENCOUNTER → 2021-07-10 12:39 | Outpatient (CLI) | payer MEDICARE, MEDICAID, SELFPAY ==
--- NOTE | ~2021-07-10 | MM_ITS ---
EXAMINATION: MM screening dwaine BI w saul HISTORY: Screening mammogram TECHNIQUE: Craniocaudal and mediolateral oblique 3-D tomosynthesis images were obtained and synthetic 2-D images were generated. CAD analysis was submitted and interpreted. COMPARISON: 07/05/2020, 06/13/2020, 05/12/2017, 05/05/1970 BREAST PARENCHYMAL COMPOSITION: There are scattered areas of fibroglandular density. FINDINGS: There is no evidence of suspicious mass, calcification, or architectural distortion to sugg est malignancy in either breast. Of note, patient was due for diagnostic mammogram six months ago. Th ere has been no suspicious interval change. IMPRESSION: 1. No mammographic evidence of malignancy. 2. Recommend routine screening mammography in one year. BI-RADS Category 1: Negative Reviewed, dictated and finalized at location A.
--- NOTE | ~2021-07-10 | US_ITS ---
EXAMINATION: US breast RT limited HISTORY: Six-month follow-up for probably benign right breast masses TECHNIQUE: Limited right breast ultrasound is performed. COMPARISON: 07/05/2020 FINDINGS: The previously described mass at the 6:00 location is no longer identified. There is a 2 mm round, circumscribed, hypoechoic mass with no posterior features or internal vascularity at the 11:0 0 location 2 cm from the nipple which is decreased in size since the comparison examination. IMPRESSION: Result mass at the 6:00 location and decrease in size of the 11:00 mass 2 cm from the nipple, consist ent with benign findings. Routine screening mammography is recommended. BI-RADS Category 2: Benign finding(s). Reviewed, dictated and finalized at location A. IMPRESSION: Result mass at the 6:00 location and decrease in size of the 11:00 mass 2 cm fr om the nipple, consistent with benign findings. Routine screening mammography i s recommended. BI-RADS Category 2: Benign finding(s).
== END ==
PROVIDERS: Visit Provider Nurse Practitioner
DX: Z12.31 Encounter for screening mammogram for malignant neoplasm of breast (principal); R92.8 Other abnormal and inconclusive findings on diagnostic imaging of breast
CPT/HCPCS: 76642; 77063; 77067

== ENCOUNTER 2021-09-21 12:35 | Emergency (ER) | payer MEDICARE, MEDICAID, SELFPAY ==
--- NOTE | ~2021-09-21 | XR_ITS ---
EXAMINATION: XR chest 2V EXAM DATE: 09/21/2021 13:12 INDICATION: Pain anterior chest, top of CABG (2016) scar;onset x 2 wks . TECHNIQUE: Frontal and lateral projections of the chest obtained and reviewed. Comparison is made to prior examination from 05/24/2021. FINDINGS: Sternotomy wires are present without findings to suggest sternal dehiscence. There is card iomegaly. No confluent consolidation, pneumothorax or pleural effusion suspected. There is aortic art eriosclerosis. There are cholecystectomy clips. There are mild bony degenerative changes. There is n o significant interval change. IMPRESSION: 1. Cardiomegaly. Reviewed, dictated and finalized at location A. IMPRESSION: 1. Cardiomegaly.
[2021-09-21 12:43] VITALS: BP 141/90; PULSE 70; RESP 20; TEMP 36.7; O2SAT 97
--- NOTE | 2021-09-21 13:06 | ED.GENADULT ---
HPI - General Adult General Chief complaint: Chest Pain Stated complaint: chest pain Time Seen by Provider: 09/21/21 12:48 Source: patient and RN notes reviewed Mode of arrival: ambulatory Limitations: no limitations History of Present Illness HPI narrative: Patient presents today with a 2-week history of pain in the superior for CABG scar. Denies any injury or trauma to the area. She describes the pain as searing . Pain also increases with movement of the arms and chest. She has tried no interventions for pain prior to arrival. States she touches the area and pain persist for at least 10 or 15 minutes afterwards. She believes it may have something to do with her sternotomy wires. She denies any shortness of breath or any additional symptoms. MD complaint: Chest tenderness Related Data Home Medications Medication Instructions Recorded Confirmed albuterol sulfate 90 mcg/actuation 2 inhalation INHALATION Q4-6H gm 10/23/19 06/17/21 aerosol inhaler carvedilol 6.25 mg tablet 6.25 mg PO BID tablet 10/23/19 06/17/21 amlodipine 5 mg PO DAILY 11/12/20 06/17/21 aspirin 81 mg tablet,delayed 81 mg PO DAILY 06/13/21 06/17/21 release fluticasone propionate 50 1 spray INTRANASAL DAILY 06/13/21 06/17/21 mcg/actuation nasal spray,suspension loratadine 10 mg tablet 10 mg PO DAILY 06/13/21 06/17/21 Allergies Allergy/AdvReac Type Severity Reaction Status Date / Time codeine Allergy Mild HIVES AND Verified 06/17/21 09:23 FACIAL SWELLING erythromycin base Allergy Mild HIVES Verified 06/17/21 09:23 oxycodone Allergy Mild HIVES Verified 06/17/21 09:23 propoxyphene Allergy Mild DOES NOT Verified 06/17/21 09:23 KNOW levofloxacin Allergy Unknown Unknown Verified 06/17/21 09:23 acetaminophen AdvReac Unknown Verified 06/17/21 09:23 BEE STINGS Allergy Severe Unknown Uncoded 06/17/21 09:23 Review of Systems Review of Systems: CONSTITUTIONAL: Denies body aches, fever, chills, or sweats. EYES: Denies visual changes, redness, or discharge. ENT: Denies rhinorrhea, congestion, sore throat, or otalgia. CARDIOVASCULAR: Denies pain, palpitations, or edema. RESPIRATORY: Denies cough or dyspnea. GASTROINTESTINAL: Denies abdominal pain, nausea, vomiting, or diarrhea. GENITOURINARY: Denies dysuria or hematuria. SKIN: Denies rash, itching, or wounds. + Chest tenderness MUSCULOSKELETAL: Denies back pain, joint pain, or myalgia. NEUROLOGIC: Denies headache, numbness, tingling, or weakness. PSYCH: Denies depression or anxiety. [facility] Past Medical History Medical History (Updated 09/21/21 @ 13:40 by Марина Martinez, MAHENDRA, BC) CAD (coronary artery disease) Chronic obstructive pulmonary disease, unspecified Chronic respiratory failure with hypoxia Diabetes mellitus Obstructive sleep apnea (adult) (pediatric) Statin myopathy Tobacco abuse Vertigo Surgical History Surgical History (Updated 09/21/21 @ 13:09 by Марина Martinez, MAHENDRA, BC) Hx of CABG Family History Family History Mother Family history of malignant neoplasm Family history of lung cancer Family history of lymphoma Sibling Family history of diabetes mellitus in first degree relative Family history of malignant neoplasm Family history of heart disease in male family member before age 55 Father Hypertension Family history of cardiovascular disease Family history of primary malignant neoplasm of liver Family history of heart disease in male family member before age 55 Family history of congenital heart disease Other Carcinoma of colon Cerebrovascular accident Diabetes mellitus Family history of allergic disorder Family history of cardiac disorder Family history of emphysema Social History Social History Smoking status: Former smoker Tobacco type: cigarettes Second hand tobacco smoke exposure: Yes Smoking end
== END 2021-09-21 13:47 | disposition home or self-care (01) ==
LOC: EXPGLEN 12:40
PROVIDERS: Emergency Provider Nurse Practitioner; PCP Nurse Practitioner
DX: R07.89 Other chest pain (principal); Z87.891 Personal history of nicotine dependence; I25.10 Atherosclerotic heart disease of native coronary artery without angina pectoris; J44.9 Chronic obstructive pulmonary disease, unspecified; E11.9 Type 2 diabetes mellitus without complications; G47.33 Obstructive sleep apnea (adult) (pediatric); Z95.1 Presence of aortocoronary bypass graft; Z79.82 Long term (current) use of aspirin
CPT/HCPCS: 71046; 99213; G0463

== ENCOUNTER → 2021-11-29 00:47 | Outpatient (CLI) | payer MEDICARE, MEDICAID, SELFPAY ==
[2021-11-30 16:24] LABS: SARS-CoV-2 RNA PCR Positive
== END ==
PROVIDERS: Visit Provider Nurse Practitioner
DX: U07.1 COVID-19 (principal)
CPT/HCPCS: C9803; U0003; U0005

== ENCOUNTER 2022-01-07 09:10 | Outpatient (CLI) | payer MEDICARE, MEDICAID, SELFPAY ==
[2022-01-07 09:31] LABS: Basophils Absolute Auto 0.1 K/mm3 (0.0-0.1); Basophils Percent Auto 0.9 % (0.2-1.2); Eosinophils Absolute Auto 0.4 K/mm3 (0-0.3); Eosinophils Percent Auto 5.5 % (0-4.4); Hematocrit 42.6 % (37.0-47.0); Hemoglobin 14.2 g/dL (12.0-15.0); Immature Granulocyte Absolute 0.07 K/mm3 (0.00-0.031); Immature Granulocyte Percent A 1.1 % (0-0.5); Lymphocytes Absolute Auto 2.05 K/mm3 (0.9-3.2); Lymphocytes Percent Auto 32.2 % (18.3-44.2); Mean Corpuscular HGB Conc 33.3 g/dl (32-36); Mean Corpuscular Hemoglobin 30.9 pg (26-34); Mean Corpuscular Volume 92.6 fl (80-100); Mean Platelet Volume 9.6 fl (7.4-10.4); Monocytes Absolute Auto 0.4 K/mm3 (0.1-0.6); Monocytes Percent Auto 6.9 % (2.6-8.5); Neutrophils Absolute Auto 3.4 K/mm3 (1.3-6.7); Neutrophils Percent Auto 53.4 % (45.5-73.1); Platelet Count Result 197 k/mm3 (150-375); Red Cell Distribution Width 13.5 % (11.5-14.5); White Blood Count 6.4 K/mm3 (4.5-10.0)
[2022-01-07 09:40] LABS: Alanine Aminotransferase 23 U/L (4-35); Albumin Level 4.6 g/dL (3.5-5.1); Alkaline Phosphatase 70 U/L (38-126); Anion Gap 8 mmol/L (8-16); Aspartate Amino Transferase 25 U/L (14-36); Bilirubin,Total 0.9 mg/dL (0.2-1.3); Blood Urea Nitrogen 19 mg/dL (7-17); Calcium 9.6 mg/dL (8.4-10.2); Carbon Dioxide 26 mmol/L (22-30); Chloride 109 mmol/L (98-107); Cholesterol 205 mg/dL (0-200); Estimated Glomerular Filt Rate > 60; Glucose 152 mg/dL (65-110); HDL Direct 34 mg/dL; Potassium 4.5 mmol/L (3.4-5.0); Sodium 143 mmol/L (137-145); Triglycerides 127 mg/dL (<150)
[2022-01-07 09:49] LABS: Hemoglobin A1C 6.2 % (<5.7)
[2022-01-07 09:51] LABS: LDL Cholesterol Direct 136 mg/dL
[2022-01-07 10:31] LABS: Creatinine Urine 151.8 mg/dL
[2022-01-07 10:36] LABS: MALB Creatinine Ratio 9.4 mg/g (0-30); Microalbumin Urine Random 14.2 mg/L (0-16.7)
== END 2022-01-07 09:11 | disposition home or self-care (01) ==
PROVIDERS: PCP Family Medicine; Visit Provider Nurse Practitioner
DX: E78.5 Hyperlipidemia, unspecified (principal); E11.9 Type 2 diabetes mellitus without complications; I10 Essential (primary) hypertension
CPT/HCPCS: 36415; 80053; 80061; 82043; 83036; 85025

== ENCOUNTER 2022-02-17 12:20 | Emergency (ER) | payer MEDICARE, MEDICAID, SELFPAY ==
--- NOTE | ~2022-02-17 | XR_ITS ---
EXAMINATION: XR knee LT min 4V DATE: 02/17/2022 12:51 INDICATION: Left knee pain. TECHNIQUE: 5 views of left knee including standing views were obtained. COMPARISON: Left knee radiographs 08/18/2017 FINDINGS: There is varus angulation at the knee. No fracture. There is severe osteoarthritis of media l compartment and mild osteoarthritis of lateral and patellofemoral compartments. There is a small kn ee joint effusion. There are surgical clips in the medial soft tissues. IMPRESSION: 1. Severe left knee osteoarthritis. 2. Small left knee joint effusion. Reviewed, dictated and finalized at location A.
--- NOTE | 2022-02-17 12:23 | ED.LOWEXIN ---
HPI - Extremity Injury (Lower) General Chief Complaint: Extremity Injury, Lower Stated Complaint: Left knee pain Time Seen by Provider: 02/17/22 12:23 Source: patient, family and RN notes reviewed History of Present Illness HPI Narrative: Patient is a 71-year-old female who presents the urgent care with her family member with complaints of left knee pain after hearing a pop last night . Reports that at the time she was attempting to climb into bed. Patient states that she does have osteoarthritis in the right knee. Patient states that she called her orthopedic, Dr. Faye, and he recommended that she come to the urgent care to get an x-ray and he will call her with results and a plan of care. Patient is currently on phentermine to get her BMI down in order to do the right knee surgery. Patient states that she is unable to bear weight on the knee without extreme pain. Patient did take a dose of her hydrocodone. No other acute complaints. No acute distress noted. Patient aware of the plan of care. Some parts of this dictation were generated by voice recognition software and may contain typographical and/or grammatical inaccuracies. Related Data Home Medications Medication Instructions Recorded Confirmed albuterol sulfate 90 mcg/actuation 2 inhalation INHALATION Q4-6H gm 10/23/19 02/16/22 aerosol inhaler amlodipine 5 mg PO DAILY 11/12/20 02/16/22 aspirin 81 mg tablet,delayed 81 mg PO DAILY 06/13/21 02/16/22 release fluticasone propionate 50 1 spray INTRANASAL DAILY 06/13/21 02/16/22 mcg/actuation nasal spray,suspension loratadine 10 mg tablet 10 mg PO DAILY 06/13/21 02/16/22 ezetimibe 10 mg tablet 10 mg PO DAILY tablet 12/12/21 02/16/22 citalopram 10 mg tablet 10 mg PO DAILY tablet 01/07/22 02/16/22 lisinopril 20 mg tablet 20 mg PO DAILY tablet 01/07/22 02/16/22 rosuvastatin 10 mg tablet 10 mg PO DAILY tablet 01/07/22 02/16/22 Allergies Allergy/AdvReac Type Severity Reaction Status Date / Time codeine Allergy Mild HIVES AND Verified 09/24/21 09:08 FACIAL SWELLING erythromycin base Allergy Mild HIVES Verified 09/24/21 09:08 oxycodone Allergy Mild HIVES Verified 09/24/21 09:08 propoxyphene Allergy Mild DOES NOT Verified 09/24/21 09:08 KNOW levofloxacin Allergy Unknown Unknown Verified 09/24/21 09:08 acetaminophen AdvReac Unknown Verified 09/24/21 09:08 BEE STINGS Allergy Severe Unknown Uncoded 09/24/21 09:08 Review of Systems Review of Systems: CONSTITUTIONAL: Denies fever, chills, or sweats. EYES: Denies visual changes, redness, or discharge. ENT: Denies rhinorrhea, congestion, sore throat, or otalgia. CARDIOVASCULAR: Denies chest pain, palpitations, or edema. RESPIRATORY: Denies cough or dyspnea. GASTROINTESTINAL: Denies abdominal pain, nausea, vomiting, or diarrhea. GENITOURINARY: Denies dysuria or hematuria. SKIN: Denies rash or itching. MUSCULOSKELETAL: Reports of left knee pain after hearing a pop NEUROLOGIC: Denies headache, numbness, or weakness. All other systems reviewed are negative, except as documented in HPI. [facility] Past Medical History Medical History CAD (coronary artery disease) Chronic obstructive pulmonary disease, unspecified Chronic respiratory failure with hypoxia Diabetes mellitus Obstructive sleep apnea (adult) (pediatric) Statin myopathy Tobacco abuse Vertigo Surgical History Surgical History Hx of CABG Family History Family History Mother Family history of malignant neoplasm Family history of lung cancer Family history of lymphoma Sibling Family history of diabetes mellitus in first degree relative Family history of malignant neoplasm Family history of heart disease in male family member before age 55 COVID Father Hypertension Family history of cardiovascular disease Family history of
[2022-02-17 12:26] VITALS: BP 162/95; PULSE 65; RESP 20; TEMP 35.7; O2SAT 98
== END 2022-02-17 13:12 | disposition home or self-care (01) ==
PROVIDERS: Emergency Provider Nurse Practitioner Family; PCP Family Medicine
DX: M25.462 Effusion, left knee (principal); M17.12 Unilateral primary osteoarthritis, left knee; Z87.891 Personal history of nicotine dependence; I25.10 Atherosclerotic heart disease of native coronary artery without angina pectoris; J44.9 Chronic obstructive pulmonary disease, unspecified; E11.9 Type 2 diabetes mellitus without complications; G47.30 Sleep apnea, unspecified; Z95.1 Presence of aortocoronary bypass graft
CPT/HCPCS: 73564; 99213; G0463

== ENCOUNTER 2022-04-16 06:09 | Emergency (ER) | payer MEDICARE, MEDICAID, SELFPAY ==
--- NOTE | ~2022-04-16 | XR_ITS ---
EXAMINATION: XR chest 2V DATE: 04/16/2022 06:49 INDICATION: Chest pain. TECHNIQUE: Frontal and lateral views of the chest were obtained. COMPARISON: Chest 2 views 09/21/2021, chest CT 01/12/2018 FINDINGS: There is mild atelectasis in the lower lung zones. No pleural effusion or pneumothorax. The heart size is normal. Median sternotomy wires and mediastinal surgical clips are seen, likely from p rior coronary artery bypass grafting. IMPRESSION: 1. Mild atelectasis in the lower lung zones. Reviewed, dictated and finalized at location A.
[2022-04-16 06:14] VITALS: BP 141/88; PULSE 78; RESP 14; TEMP 36.7; O2SAT 98
[2022-04-16] MEDS: methylPREDNISolone SOD SUCC 125 MG VIAL IV PUSH (06:26)
[2022-04-16] MEDS: FAMOTIDINE 20 MG/2 ML VIAL IV PUSH (06:27)
--- NOTE | 2022-04-16 06:28 | ED.ALLEREA ---
HPI - Allergic Reaction General Chief complaint: Allergic Reaction <Patrice Hodges MD - Last Filed: 04/16/22 06:33> Stated complaint: allergic reaction-swollen lips, itching <Patrice Hodges MD - Last Filed: 04/16/22 06:33> Time Seen by Provider: 04/16/22 06:21 <Patrice Hodges MD - Last Filed: 04/16/22 06:33> History of Present Illness HPI narrative: Patient is a 71-year-old female complaining of feels like my lip is swelling, I am itching all over accompanied by tightness in her chest, midsternal, moderate, nonradiating started after taking tramadol this morning which was recently prescribed to her for pain by her PCP. Patient denies any tongue, throat or facial swelling. Patient denies any shortness of breath, abdominal pain, nausea, vomiting, diaphoresis, fever or chills. <Patrice Hodges MD - Last Filed: 04/16/22 06:33> Related Data Home medications: Home Medications Medication Instructions Recorded Confirmed albuterol sulfate 90 mcg/actuation 2 inhalation inhalation Q4-6H 10/23/19 04/10/22 aerosol inhaler (ProAir HFA) amlodipine 5 mg tablet 5 mg PO DAILY 11/12/20 04/10/22 aspirin 81 mg tablet,delayed 81 mg PO DAILY 06/13/21 04/10/22 release fluticasone propionate 50 1 spray intranasal DAILY 06/13/21 04/10/22 mcg/actuation nasal spray,suspension (Flonase Allergy Relief) loratadine 10 mg tablet (Claritin) 10 mg PO DAILY 06/13/21 04/10/22 ezetimibe 10 mg tablet 10 mg PO DAILY 12/12/21 04/10/22 lisinopril 20 mg tablet 20 mg PO DAILY 01/07/22 04/10/22 rosuvastatin 10 mg tablet 10 mg PO DAILY 01/07/22 04/10/22 <Patrice Hodges MD - Last Filed: 04/16/22 06:33> Allergies/adverse reactions: Allergies Allergy/AdvReac Type Severity Reaction Status Date / Time codeine Allergy Mild HIVES AND Verified 04/16/22 06:19 FACIAL SWELLING erythromycin base Allergy Mild HIVES Verified 04/16/22 06:19 oxycodone Allergy Mild HIVES Verified 04/16/22 06:19 propoxyphene Allergy Mild DOES NOT Verified 04/16/22 06:19 KNOW levofloxacin Allergy Unknown Unknown Verified 04/16/22 06:19 acetaminophen AdvReac Unknown Verified 04/16/22 06:19 BEE STINGS Allergy Severe Unknown Uncoded 04/16/22 06:19 <Patrice Hodges MD - Last Filed: 04/16/22 06:33> Review of Systems Review of Systems: All systems reviewed & are unremarkable except as noted in HPI and below <Patrice Hodges MD - Last Filed: 04/16/22 06:33> Constitutional: Constitutional: Denies body ache(s), Denies chills, Denies excessive sweating, Denies fatigue, Denies fever(s), Denies headache(s), Denies lethargy, Denies malaise, Denies weakness and Denies weight loss <Patrice Hodges MD - Last Filed: 04/16/22 06:33> Eyes: Eyes: Denies blurry vision, Denies change in vision and Denies loss of vision <Patrice Hodges MD - Last Filed: 04/16/22 06:33> ENT: Denies dizziness, Denies ear discharge, Denies headache(s), Denies lip swelling, Denies epistaxis, Denies nasal congestion, Denies neck pain, Denies throat swelling and Denies tongue swelling <Patrice Hodges MD - Last Filed: 04/16/22 06:33> Cardiovascular: Cardiovascular: Denies chest pain with activity, Denies diaphoresis, Denies rapid heart rate, Denies edema, Denies irregular heart rhythm, Denies lightheadedness, Denies palpitations, Denies dyspnea and Denies dyspnea on exertion <Patrice Hodges MD - Last Filed: 04/16/22 06:33> Respiratory: Respiratory: Denies chest congestion, Denies cough, Denies hemoptysis, Denies dyspnea and Denies dyspnea on exertion <Patrice Hodges MD - Last Filed: 04/16/22 06:33> Gastrointestinal: Gastrointestinal: Denies abdominal pain, Denies melena, Denies hematochezia, Denies diarrhea, Denies nausea, Denies vomiting and Denies hematemesis <Patrice Hodges MD - Last Filed: 04/16/22 06:33> Musculoskeletal: Musculoskeletal: Denies abnormal gait, Denies deformity, Denies joint swelling, Denies limited rang
[2022-04-16] MEDS: ASPIRIN 81 MG CHEWABLE TABLET 324 MG PO (06:34)
[2022-04-16 06:42] LABS: Basophils Absolute Auto 0.1 K/mm3 (0.0-0.1); Eosinophils Absolute Auto 0.4 K/mm3 (0-0.3); Eosinophils Percent Auto 5.9 % (0-4.4); Hematocrit 44.2 % (37.0-47.0); Hemoglobin 14.5 g/dL (12.0-15.0); Immature Granulocyte Absolute 0.07 K/mm3 (0.00-0.031); Immature Granulocyte Percent A 1.2 % (0-0.5); Lymphocytes Absolute Auto 2.08 K/mm3 (0.9-3.2); Lymphocytes Percent Auto 35.1 % (18.3-44.2); Mean Corpuscular HGB Conc 32.8 g/dl (32-36); Mean Corpuscular Hemoglobin 30.5 pg (26-34); Mean Corpuscular Volume 93.1 fl (80-100); Mean Platelet Volume 9.7 fl (7.4-10.4); Monocytes Absolute Auto 0.6 K/mm3 (0.1-0.6); Monocytes Percent Auto 10.3 % (2.6-8.5); Neutrophils Absolute Auto 2.8 K/mm3 (1.3-6.7); Neutrophils Percent Auto 46.5 % (45.5-73.1); Platelet Count Result 223 k/mm3 (150-375); Red Blood Count 4.75 M/mm3 (4.2-5.4); Red Cell Distribution Width 13.7 % (11.5-14.5); White Blood Count 5.9 K/mm3 (4.5-10.0)
[2022-04-16 06:55] LABS: Anion Gap 11 mmol/L (8-16); Blood Urea Nitrogen 27 mg/dL (7-17); Calcium 9.7 mg/dL (8.4-10.2); Carbon Dioxide 24 mmol/L (22-30); Chloride 106 mmol/L (98-107); Estimated Glomerular Filt Rate > 60; Glucose 123 mg/dL (65-110); Potassium 4.6 mmol/L (3.4-5.0); Sodium 141 mmol/L (137-145)
[2022-04-16 07:00] VITALS: BP 131/82; PULSE 73; RESP 18; O2SAT 98
[2022-04-16 07:07] LABS: Troponin I < 0.012 ng/mL (0.000-0.034)
--- NOTE | 2022-04-16 07:10 | PC.NURSE ---
pt resting comfortably on stretcher. states is feeling better. denies difficulty breathing. room darkened for comfort.
[2022-04-16 08:33] VITALS: BP 154/93; PULSE 66; RESP 16; O2SAT 93
== END 2022-04-16 08:33 | disposition home or self-care (01) ==
PROVIDERS: Emergency Provider Emergency Medicine; PCP Family Medicine
DX: T78.40XA Allergy, unspecified, initial encounter (principal); R07.2 Precordial pain; I25.10 Atherosclerotic heart disease of native coronary artery without angina pectoris; J44.9 Chronic obstructive pulmonary disease, unspecified; J96.11 Chronic respiratory failure with hypoxia; E11.9 Type 2 diabetes mellitus without complications; G47.33 Obstructive sleep apnea (adult) (pediatric); Z95.1 Presence of aortocoronary bypass graft; Z79.82 Long term (current) use of aspirin; Z87.891 Personal history of nicotine dependence
CPT/HCPCS: 36415; 71046; 80048; 84484; 85025; 96374; 96375; 99284; A9270; J2930

== ENCOUNTER 2023-03-04 01:14 | Day surgery (SDC) | payer MEDICARE, SELFPAY ==
[2023-03-04] VITALS (20 sets, daily range): BP systolic 121–156; BP diastolic 39–90; PULSE 54–65; RESP 12–18; TEMP 36.3–36.5; O2SAT 95–100; BMI 42.7
[2023-03-04 07:40] LABS: Basophils Absolute Auto 0.1 K/mm3 (0.0-0.1); Basophils Percent Auto 0.9 % (0.2-1.2); Eosinophils Absolute Auto 0.6 K/mm3 (0-0.3); Eosinophils Percent Auto 9.9 % (0-4.4); Hematocrit 39.5 % (37.0-47.0); Hemoglobin 13.5 g/dL (12.0-15.0); Immature Granulocyte Absolute 0.05 K/mm3 (0.00-0.031); Immature Granulocyte Percent A 0.8 % (0-0.5); Lymphocytes Absolute Auto 1.85 K/mm3 (0.9-3.2); Mean Corpuscular HGB Conc 34.2 g/dl (32-36); Mean Corpuscular Hemoglobin 30.2 pg (26-34); Mean Corpuscular Volume 88.4 fl (80-100); Mean Platelet Volume 9.6 fl (7.4-10.4); Monocytes Absolute Auto 0.4 K/mm3 (0.1-0.6); Monocytes Percent Auto 5.6 % (2.6-8.5); Neutrophils Absolute Auto 3.4 K/mm3 (1.3-6.7); Neutrophils Percent Auto 53.8 % (45.5-73.1); Platelet Count Result 176 k/mm3 (150-375); Red Blood Count 4.47 M/mm3 (4.2-5.4); Red Cell Distribution Width 13.2 % (11.5-14.5); White Blood Count 6.4 K/mm3 (4.5-10.0)
[2023-03-04 07:52] LABS: Anion Gap 7 mmol/L (8-16); Blood Urea Nitrogen 20 mg/dL (7-17); Calcium 9.1 mg/dL (8.4-10.2); Carbon Dioxide 29 mmol/L (22-30); Chloride 105 mmol/L (98-107); Estimated CRCL calculation 74 ml/min; Estimated Glomerular Filt Rate > 60; Glucose 106 mg/dL (65-110); Potassium 4.1 mmol/L (3.4-5.0); Sodium 141 mmol/L (137-145)
--- NOTE | 2023-03-04 08:56 | WPDHPUPDATE1 ---
History and Physical Update Update Date/Time: 03/04/23 08:56 History and Physical has been reviewed, including an updated exam of the patient. There are NO changes in the patient's condition. Risks, benefits, and alternatives have been discussed and questions answered. Patient agrees to proceed with procedure.
--- NOTE | 2023-03-04 08:56 | WPDMODSED ---
Moderate Sedation Note-Pt Data Patient Data Diagnosis: Abnormal stress test, preoperative evaluation, history of CABG Present Complaint: none history and physical update: Patient is a very pleasant 72-year-old past medical history seen for hypertension dyslipidemia history of tobacco abuse status post 5 vessel CABG ta to LAD SVG to diagonal SVG to ramus SVG to PDA PL 2 6 patent grafts cardiac catheterization March 2012 who is considering elective knee replacement surgery with exertional dyspnea and underwent Lexiscan nuclear stress test which revealed EF 64% mid anteroseptal hypokinesis with small fixed apical anterior defect, mild mid and basal anterior ischemia, moderate size moderate to severe inferior fixed defect apex to the base possible diaphragmatic attenuation however prone imaging was not performed. Patient was subsequently referred for left heart catheterization for delineation of her coronary anatomy. Given her arthritis patient has poor exercise tolerance and reported exertional dyspnea although unchanged can not exclude anginal equivalent. Impression: -Abnormal stress test on preoperative basis with exertional dyspnea - CAD status post 5 vessel CABG - Hypertension - hyperlipidemia - history tobacco abuse plan of care: Coronary angiography with bypass graft angiography recommendations to follow. Procedure to be performed/Plan: left heart catheterization with selective left and right coronary angiography, bypass graft angiography, left ventriculography with hemodynamics Allergies Allergy/AdvReac Type Severity Reaction Status Date / Time codeine Allergy Mild HIVES AND Verified 03/04/23 07:20 FACIAL SWELLING erythromycin base Allergy Mild HIVES Verified 03/04/23 07:20 oxycodone Allergy Mild HIVES Verified 03/04/23 07:20 propoxyphene Allergy Mild DOES NOT Verified 03/04/23 07:20 KNOW levofloxacin Allergy Unknown Unknown Verified 03/04/23 07:20 tramadol Allergy Swelling Verified 03/04/23 07:20 of Lip/Tongue/Throat BEE STINGS Allergy Severe Unknown Uncoded 01/27/23 15:27 Home Medications Medication Instructions Recorded Confirmed Type aspirin 81 mg tablet,delayed 81 mg PO DAILY 06/13/21 03/04/23 History release epinephrine 0.3 mg/0.3 mL 0.3 mg (0.3 mL) IM ONCE #1 ea 06/13/21 03/04/23 Rx injection, auto-injector (EpiPen) loratadine 10 mg tablet (Claritin) 10 mg PO DAILY 06/13/21 03/04/23 History nitroglycerin 400 mcg/spray 1 spray translingual Q5M PRN chest 06/13/21 03/04/23 Rx translingual (Nitrolingual) pain #4.9 grams bupropion HCl 150 mg tablet,12 hr 150 mg PO BID #180 tabs 08/03/22 03/04/23 Rx sustained-release ezetimibe 10 mg tablet 10 mg PO DAILY #90 tabs 08/03/22 03/04/23 Rx lisinopril 20 mg tablet 20 mg PO DAILY #90 tabs 08/03/22 03/04/23 Rx rosuvastatin 10 mg tablet 10 mg PO DAILY #30 tabs 02/09/23 03/04/23 Rx citalopram 10 mg tablet 10 mg PO DAILY #90 tabs 02/22/23 03/04/23 Rx semaglutide 0.25 mg or 0.5 mg (2 0.25 mg (0.2 mL) subcut WEEKLY #3 02/26/23 03/04/23 Rx mg/1.5 mL) subcutaneous pen mL injector (Ozempic) Current Medications: Active Medications Sodium Chloride (Normal Saline Iv) 500 mls @ 100 mls/hr IV CONT .Q5H LIONEL Sedation/Anesthesia: No previous sedation/anesthesia problems (including family history). [facility] Past Medical History Medical History CAD (coronary artery disease) Chronic obstructive pulmonary disease, unspecified Chronic respiratory failure with hypoxia Diabetes mellitus Obstructive sleep apnea (adult) (pediatric) Statin myopathy Tobacco abuse Vertigo Surgical History Surgical History Hx of CABG (~2009) Family History Family History Mother Family history of malignant neoplasm Family history of lung cancer Family history of lymphom
--- NOTE | 2023-03-04 09:02 | PM.OP ---
Procedure Note - Brief Procedure Note - Brief Date of procedure: 03/04/23 Abnormal Stress Test, Pre-op Clearance Procedure performed: left heart catheterization with selective left and right coronary angiography, bypass graft angiography, left ventriculography with hemodynamics Surgeon: Srikanth Ryan MD Description of procedure: BRIEF HISTORY OF PRESENT ILLNESS: Patient is a very pleasant 72-year-old past medical history seen for hypertension dyslipidemia history of tobacco abuse status post 5 vessel CABG ta to LAD SVG to diagonal SVG to ramus SVG to PDA PL 2 6 patent grafts cardiac catheterization March 2012 who is considering elective knee replacement surgery with exertional dyspnea and underwent Lexiscan nuclear stress test which revealed EF 64% mid anteroseptal hypokinesis with small fixed apical anterior defect, mild mid and basal anterior ischemia, moderate size moderate to severe inferior fixed defect apex to the base possible diaphragmatic attenuation however prone imaging was not performed.? Patient was subsequently referred for left heart catheterization for delineation of her coronary anatomy. Given her arthritis patient has poor exercise tolerance and reported exertional dyspnea although unchanged can not exclude anginal equivalent. PROCEDURES PERFORMED: 1. Left heart catheterization 2. Selective left and right coronary angiography 3. Left ventriculography and hemodynamics 4. Moderate/conscious sedation administration 5. Bypass graft angiography CATHETERS UTILIZED: Left coronary system- 5 [place] JL4 catheter Right coronary system- 5 [place] JR4 catheter Left ventriculography and hemodynamics- 5 [place] angled pigtail catheter PROCEDURE IN DETAIL: After verbal and written informed consent was obtained the patient, risks, benefits, and alternatives explained in detail the patient agreed to proceed with the plan of care as outlined above. The patient was subsequently brought to the cardiac catheterization lab, placed on the cardiac catheterization table, and prepped and draped in the usual sterile fashion. Utilizing approximately 19cc of 1% subcutaneous Lidocaine, the right groin was then locally anesthetized. Utilizing the modified Seldinger technique, a 5 [place] arterial vascular access sheath was inserted in the right common femoral artery easily and without complications. Through this access, coronary angiography was subsequently obtained in multiple standard re-projections. of note there was difficulty advancing the guidewire initially secondary to marked tortuosity the distal and mid thoracic aorta. As result a Wooly wire was utilized to initially to traverse the ectatic aorta successfully. catheter exchanges were then performed over a long length exchange wire without difficulty. The [place] RCA and the SVG to RCA graft was easily cannulated with the 5 [place] FR4 catheter. 5 [place] LCB catheter was required to cannulate the SVG to ramus bypass graft without significant difficulty. However, despite multiple catheters including 5 [place] LCB, 5 [place] FR4 catheter, 5 [place] AL1 oral and successful. I discussed the case with Dr. Gutierrez my interventional colleague who also scrubbed and attempted to cannulate this vein graft with the 5 [place] LCB, 5 [place] FR4, 5 [place] Hola right all without success. Due to the difficulty with maneuvering the catheter and inability to adequately torque due to resistance secondary to the ectatic aorta further attempts were abandoned in the interest of safety. Following this, a 5 [place] KATIA catheter was attempted but despite multiple attempts unable to successfully traverse the subclavian artery due to lack of support again secondary to ectatic aorta. This was also abandoned in the interest of safety. Subsequently, a 5 [place] angled pigtail catheter was advanced retrograde across aortic valve into the cavity of the left ventricle. Left ventriculography was not performed to limited additi
[2023-03-04] MEDS: SODIUM CHLORIDE 0.9% IV 1,000 ML 175 ML IV CONT (13:27)
== END 2023-03-04 17:30 | disposition home or self-care (01) ==
PROVIDERS: PCP Family Medicine; Visit Provider Internal Medicine Cardiovascular Disease
PROC: 4A023N7 Measurement of Cardiac Sampling and Pressure, Left Heart, Percutaneous Approach (ICD-10-PCS; CPT 93459; principal; 2023-03-04 08:30)
DX: Z01.810 Encounter for preprocedural cardiovascular examination (principal); I25.10 Atherosclerotic heart disease of native coronary artery without angina pectoris; I25.810 Atherosclerosis of coronary artery bypass graft(s) without angina pectoris; R94.39 Abnormal result of other cardiovascular function study; I10 Essential (primary) hypertension; E78.5 Hyperlipidemia, unspecified; J44.9 Chronic obstructive pulmonary disease, unspecified; J96.11 Chronic respiratory failure with hypoxia; E11.9 Type 2 diabetes mellitus without complications; G47.33 Obstructive sleep apnea (adult) (pediatric); G72.0 Drug-induced myopathy; Z95.1 Presence of aortocoronary bypass graft; Z79.82 Long term (current) use of aspirin; Z79.899 Other long term (current) drug therapy; Z87.891 Personal history of nicotine dependence
CPT/HCPCS: 36415; 80048; 85025; 93459; C1769; C1887; C1894; J1644; J2250; J3010; J7030; J7040

== ENCOUNTER 2023-03-14 17:49 | Inpatient (IN) | payer MEDICARE, SELFPAY ==
--- NOTE | ~2023-03-14 | CT_ITS ---
EXAMINATION: CTA chest PE protocol DATE: 03/16/2023 09:01 INDICATION: Shortness of breath TECHNIQUE: Computed tomography angiography (CTA) of the chest was performed with 100 mL Omnipaque-350 intravenous contrast timed to evaluate the pulmonary arteries. Coronal maximum intensity projection 3D-reconstructions were created by the technologist. The dose-length product (DLP) was 919.66 mGy-cm. Automated exposure control and iterative reconstruction technique were employed. COMPARISON: 01/12/2018 FINDINGS: The pulmonary arteries are well-opacified. No pulmonary embolism is identified. There is mi ld atelectasis of the lung bases. No pleural effusion or pneumothorax. Changes of coronary artery byp ass grafting are noted. The heart size is normal. There are no pathologically enlarged thoracic lymph nodes. The gallbladder is surgically absent. There is severe thoracic spondylosis. IMPRESSION: 1. No pulmonary embolism or acute cardiopulmonary abnormality. Reviewed, dictated and finalized at location L.
--- NOTE | ~2023-03-14 | US_ITS ---
EXAMINATION: US venous doppler [facility] DATE: 03/16/2023 09:34 INDICATION: Lower limb swelling. TECHNIQUE: Grayscale ultrasound images without and with compression and Doppler ultrasound images of the bilateral lower extremity veins were obtained. COMPARISON: None. FINDINGS: The visualized portions of right common femoral vein, profunda (deep) femoral vein, femoral vein, pop liteal vein, peroneal veins, posterior tibial veins, and greater saphenous vein outflow are patent. The visualized portions of left common femoral vein, profunda femoral vein, femoral vein, popliteal v ein, peroneal veins, posterior tibial veins, and greater saphenous vein outflow are patent. IMPRESSION: 1. No deep venous thrombosis. Reviewed, dictated and finalized at location A.
--- NOTE | ~2023-03-14 | XR_ITS ---
EXAMINATION: XR chest 2V Exam Date/Time: 03/14/2023 18:05 CDT HISTORY: shortness of breath UPON EXERTION CAD COPD Comparison: 04/16/2022. RESULT: Lines, tubes, and devices: Intact sternotomy wires. Mediastinal surgical clips and ostial markers. A bandoned epicardial pacing wires. Lungs and pleura: Bibasilar scar/atelectasis. Cardiomediastinal silhouette: Stable. Other: No acute osseous or upper abdominal finding. IMPRESSION: No acute cardiopulmonary process. Reviewed, dictated and finalized at location K.
--- NOTE | 2023-03-14 17:51 | ECG_ITS ---
Measurements Intervals Raphine Rate: 70 P: 25 ID: 159 QRS: 6 QRSD: 152 T: 67 QT: 430 QTc: 465 Interpretive Statements SINUS RHYTHM RIGHT BUNDLE BRANCH BLOCK [120+ ms QRS DURATION, UPRIGHT V1, 40+ ms S IN I/aVL/V4/V5/V6] NONSPECIFIC T-WAVE ABNORMALITY ABNORMAL ECG COMPARED TO ECG 11/12/2020 10:57:49 NO SIGNIFICANT CHANGES Electronically Signed On 03-15-2023 7:05:47 CDT by Abhi Mata M.D.
[2023-03-14 17:53] VITALS: BP 142/78; PULSE 68; RESP 18; TEMP 36.1; O2SAT 97
[2023-03-14 18:15] VITALS: BP 153/88; PULSE 70; RESP 18; O2SAT 96
[2023-03-14 18:32] VITALS: BP 141/91; PULSE 70; RESP 17; O2SAT 96
[2023-03-14 18:43] LABS: Basophils Percent Auto 0.3 % (0.2-1.2); Eosinophils Absolute Auto 0.7 K/mm3 (0-0.3); Eosinophils Percent Auto 9.9 % (0-4.4); Hematocrit 39.4 % (37.0-47.0); Hemoglobin 13.4 g/dL (12.0-15.0); Immature Granulocyte Absolute 0.03 K/mm3 (0.00-0.031); Immature Granulocyte Percent A 0.4 % (0-0.5); Lymphocytes Absolute Auto 2.14 K/mm3 (0.9-3.2); Lymphocytes Percent Auto 31.5 % (18.3-44.2); Mean Corpuscular Hemoglobin 30.9 pg (26-34); Mean Platelet Volume 9.7 fl (7.4-10.4); Monocytes Absolute Auto 0.4 K/mm3 (0.1-0.6); Monocytes Percent Auto 5.4 % (2.6-8.5); Neutrophils Absolute Auto 3.6 K/mm3 (1.3-6.7); Neutrophils Percent Auto 52.5 % (45.5-73.1); Platelet Count Result 190 k/mm3 (150-375); Red Blood Count 4.33 M/mm3 (4.2-5.4); Red Cell Distribution Width 13.7 % (11.5-14.5); White Blood Count 6.8 K/mm3 (4.5-10.0)
[2023-03-14 19:00] LABS: Alanine Aminotransferase 19 U/L (6-35); Albumin Level 4.6 g/dL (3.5-5.1); Alkaline Phosphatase 64 U/L (38-126); Anion Gap 9 mmol/L (8-16); Aspartate Amino Transferase 21 U/L (14-36); Bilirubin,Total 1.1 mg/dL (0.2-1.3); Blood Urea Nitrogen 22 mg/dL (7-17); Calcium 9.4 mg/dL (8.4-10.2); Carbon Dioxide 24 mmol/L (22-30); Chloride 108 mmol/L (98-107); Estimated CRCL calculation 65 ml/min; Estimated Glomerular Filt Rate > 60; Glucose 127 mg/dL (65-110); Magnesium 2.1 mg/dL (1.6-2.3); Potassium 3.9 mmol/L (3.4-5.0); Sodium 141 mmol/L (137-145)
--- NOTE | 2023-03-14 19:05 | ED.GENADULT ---
HPI - General Adult General Chief complaint: Shortness of Breath/Dyspnea <Bonilla Carlson PA-C - Last Filed: 03/15/23 02:39> Stated complaint: short of breath <NIRAV Woods Last Filed: 03/15/23 02:39> Time Seen by Provider: 03/14/23 18:18 <Bonilla Carlson PA-C - Last Filed: 03/15/23 02:39> Source: patient <NIRAV Woods Last Filed: 03/15/23 02:39> Mode of arrival: ambulatory <NIRAV Woods Last Filed: 03/15/23 02:39> Limitations: no limitations <NIRAV Woods Last Filed: 03/15/23 02:39> History of Present Illness HPI narrative: This is a 72-year-old female with PMH of HTN, CAD, HLD, COPD, DM who presents to the ED with chief complaint of shortness of breath x1 week and worse today. Patient states she has trouble getting across the room before she gets too short of breath. Reports feeling fatigued. Also reports a 2 out of 10 chest pain in the central chest that radiates into the left breast area. States it has been constant for the past few days. She does feel that the shortness of breath and chest pain are worsened with exertion. Endorses some nausea. Denies sweats or lightheadedness. Denies cough, leg swelling, calf pain, abdominal pain, vomiting, diarrhea, fevers, chills. <NIRAV Woods Last Filed: 03/15/23 02:39> Related Data Home medications: Home Medications Medication Instructions Recorded Confirmed aspirin 81 mg tablet,delayed 81 mg PO DAILY 06/13/21 03/04/23 release loratadine 10 mg tablet (Claritin) 10 mg PO DAILY 06/13/21 03/04/23 <NIRAV Woods Last Filed: 03/15/23 02:39> Allergies/adverse reactions: Allergies Allergy/AdvReac Type Severity Reaction Status Date / Time codeine Allergy Mild HIVES AND Verified 03/15/23 17:23 FACIAL SWELLING erythromycin base Allergy Mild HIVES Verified 03/15/23 17:23 oxycodone Allergy Mild HIVES Verified 03/15/23 17:23 propoxyphene Allergy Mild DOES NOT Verified 03/15/23 17:23 KNOW levofloxacin Allergy Unknown Unknown Verified 03/15/23 17:23 tramadol Allergy Swelling Verified 03/15/23 17:23 of Lip/Tongue/Throat BEE STINGS Allergy Severe Unknown Uncoded 03/15/23 17:23 <Bonilla Carlson PA-C - Last Filed: 03/15/23 02:39> Review of Systems Review of Systems: CONSTITUTIONAL: Denies fever, chills, or sweats. EYES: Denies visual changes, redness, or discharge. ENT: Denies rhinorrhea, congestion, sore throat, or otalgia. CARDIOVASCULAR: See HPI RESPIRATORY: See HPI GASTROINTESTINAL: Denies abdominal pain, nausea, vomiting, or diarrhea. GENITOURINARY: Denies dysuria or hematuria. SKIN: Denies rash or itching. MUSCULOSKELETAL: Denies back pain, joint pain, or myalgia. NEUROLOGIC: Denies headache, numbness, dizziness, or weakness. PSYCHIATRIC: Denies anxiety or depression. <NIRAV Woods Last Filed: 03/15/23 02:39> [facility] Past Medical History Medical History: Medical History CAD (coronary artery disease) Chronic obstructive pulmonary disease, unspecified Chronic respiratory failure with hypoxia Diabetes mellitus Obstructive sleep apnea (adult) (pediatric) Statin myopathy Tobacco abuse Vertigo <NIRAV Woods Last Filed: 03/15/23 02:39> Surgical History Surgical History: Surgical History (Updated 03/15/23 @ 19:34 by Jes Díaz NP) H/O section History of laparoscopic cholecystectomy History of tonsillectomy Hx of CABG (~2009) S/P ORIF (open reduction internal fixation) fracture right ankle <Bonilla Carlson PA-C - Last Filed: 03/15/23 02:39> Family History Family History: Family History Mother Family history of malignant neoplasm Family history of lung cancer Family history of lymphoma Sibling Family history of diabetes mellitus in first degree relative Family history of malig
[2023-03-14 19:10] LABS: D Dimer 0.57 ug/mL (<0.48)
[2023-03-14 19:11] LABS: Troponin I < 0.012 ng/mL (0.000-0.034)
[2023-03-14 19:17] LABS: NT Pro B Type Natriuretic Pept 83 pg/mL (19.9-100)
[2023-03-14 19:32] VITALS: BP 130/78; PULSE 67; RESP 16; O2SAT 97
[2023-03-14] MEDS: ONDANSETRON INJ 4 MG/2 ML VIAL IV PUSH (19:45)
[2023-03-14 20:11] LABS: Appearance Urine Clear (Clear); Bacteria Urine 3+ /hpf; Bilirubin Urine Negative (Negative); Blood Urine Negative (Negative); Color Urine Yellow (Yellow); Glucose Urine UA Negative (Negative); Ketones Urine Negative (Negative); Leukocyte Esterase Ur Trace LEU/UL (Negative); Nitrate Urine Positive (Negative); Non Pathogenic Casts 0-2; Protein Urine Negative (Negative); RBC Urine 0-2 /hpf (0-2); Specific Grav Ur 1.025 (1.001-1.035); Squamous Epithelial Cell Urine Occasional /hpf (Few); WBC Urine 0-5 /hpf
[2023-03-14 20:15] LABS: Add Urine Microscopic? YES
[2023-03-14 21:02] VITALS: BP 125/74; PULSE 65; RESP 16; O2SAT 95
[2023-03-14 21:07] LABS: Troponin I 0.016 ng/mL (0.000-0.034)
--- NOTE | 2023-03-14 23:07 | PC.NURSE ---
Report received from FELICITAS Higgins. Assumed care of patient at this time.
[2023-03-14 23:12] VITALS: BP 128/89; PULSE 65; RESP 16; O2SAT 95
[2023-03-15] VITALS (47 sets, daily range): BP systolic 95–136; BP diastolic 52–90; PULSE 55–71; RESP 13–26; TEMP 36.5–36.6; O2SAT 89–100; BMI 43.0
[2023-03-15] MEDS: ASPIRIN 81 MG CHEWABLE TABLET 324 MG PO (00:21)
[2023-03-15] MEDS: buPROPion HCL SR (12 HR) 150 MG TAB PO ×2 (00:21→21:38)
[2023-03-15] MEDS: LORazepam (*CRX) 1 MG TABLET PO (05:28)
--- NOTE | 2023-03-15 09:30 | PC.NURSE ---
explained to the pt there were no beds at this time, would update her when possible.
[2023-03-15] MEDS: ACETAMINOPHEN 500 MG TABLET 1000 MG PO (17:23)
[2023-03-15] MEDS: CITALOPRAM HYDROBROMIDE 10 MG TABLET PO (17:24)
--- NOTE | 2023-03-15 17:40 | PC.NURSE ---
Corina with [place] [facility] called at this time for Triage update. Last set of vitals reported at this time. Pt condition stable at this time and Corina report no bed will be available today for pt.
--- NOTE | 2023-03-15 19:25 | PM.IMHP ---
H&P: HPI History of Present Illness Date/Time: 03/15/23 19:25 Chief Complaint: Shortness of breath Narrative: This is a 72-year-old female who has a history of hypertension, coronary artery disease, hyperlipidemia COPD and diabetes. This patient has been complaining of shortness of breath for 1 week and was worse yesterday. The patient was having difficulty walking across the room before she got too short of breath. The patient is feeling fatigued she also had chest pain 2/10. Radiated to her left breast area. This was going on for several days. She denies any dizziness. Her shortness of breath and chest pain is worse with exertion. She also endorsed some nausea. She denies any cough or calf pain or leg swelling. She denies any fever chills. Cardiology had been consulted due to the unstable angina. Patient has difficult anatomy and had inconclusive angiograms here in the past. Cardiology recommended that the patient be transferred to [place] or special unit. The transfer center was called at [facility] and the patient will be transferred. However no beds are available. Is reported to me that no beds will be available today. Cardiology has been consulted here. The patient was given an aspirin, Ativan, Celexa, Tylenol, and Zofran. Her D-dimer was noted to be 0.57. Her troponins are negative x2. Her urine was positive for nitrates. Trace leukocyte esterase. 3+ bacteria. The patient was started on Rocephin. Chest x-ray was read as no acute cardiopulmonary process. EKG was read as sinus rhythm right bundle branch block. The patient is being admitted to observation while awaiting transfer to [facility]. Date of service for admission status is 03/15/2023. Review of Systems Review of Systems: All systems reviewed & are unremarkable except as noted in HPI and below Constitutional: Constitutional: Reports as per HPI and Reports no additional constitutional complaints Eyes: Eyes: Reports as per HPI and Reports no additional eye complaints ENT: Reports system reviewed and no additional complaints, except as documented and Reports Normal hearing present Cardiovascular: Cardiovascular: Reports no additional cardiovascular complaints Respiratory: Respiratory: Reports no additional respiratory complaints and Reports no additional respiratory complaints Gastrointestinal: Gastrointestinal: Reports as per HPI and Reports no additional gastrointestinal complaints Musculoskeletal: Musculoskeletal: Reports no additional musculoskeletal complaints Integumentary/Breasts: Skin/Breast: Reports system reviewed and no additional complaints, except as docu and Reports as per HPI Neurologic: Reports system reviewed and no additional complaints, except as documented, Reports as per HPI and Reports Normal hearing present Psychiatric: Psychiatric: Reports no additional psychiatric complaints and Reports as per HPI Endocrine: Endocrine: Reports no additional endocrine complaints Hematologic/Lymphatic: Hematologic/Lymphatic: Reports no additional hematologic/lymphatic complaints Allergic/Immunologic: Allergic/Immunologic: Reports no additional allergic/immunologic complaints [facility] Past Medical History Medical History (Updated 03/15/23 @ 23:45 by Jes Díaz NP) Asthma CAD (coronary artery disease) Cataract Chronic obstructive pulmonary disease, unspecified Chronic respiratory failure with hypoxia Diabetes mellitus History of rheumatic fever Obstructive sleep apnea (adult) (pediatric) She denies any sleep apnea. Statin myopathy Tobacco abuse Vertigo Surgical History Surgical History (Updated 03/15/23 @ 23:39 by Jes Díaz NP) H/O section H/O colonoscopy History of appendectomy History of laparoscopic cholecystectomy History of tonsillectomy Hx of CABG (~2009) 5 vessel CABG S/P ORIF (open reduction internal fixation) fracture right ankle Family History Family History (Reviewed
[2023-03-15] MEDS: ONDANSETRON INJ 4 MG/2 ML VIAL IV PUSH (19:27)
[2023-03-15] MEDS: FLUCONAZOLE 100 MG TABLET PO (20:11)
--- NOTE | 2023-03-15 20:16 | ADMGEN ---
This patient, Ale Soto, was admitted to IMU Room 214-01. Patient/family oriented to hospital policies and general routines including ID bracelet, bed and alarms, visiting hours, pain management, procedures, bathroom and other care routines, personal items, smoking policy, room service/diet, and visiting hours. Information on how to activate the Rapid Response Team has been discussed. Patient/Family are encouraged to report perceived risks to care and to ask questions if they do not understand what they are told or what they should do.
[2023-03-16] VITALS (11 sets, daily range): BP systolic 105–147; BP diastolic 70–85; PULSE 55–80; RESP 18–20; TEMP 35.8–36.5; O2SAT 91–99
--- NOTE | 2023-03-16 | ECHO_ITS ---
Patient Info Name: Ale Soto Age: 72 years : 1950 Gender: Female Ht: 63 in Wt: 243 lbs BSA: 2.28 m2 HR: 60 bpm BP: 147 / 78 mmHg Heart Rhythm: Sinus Rhythm Technical Quality: Fair Exam Date: 03/16/2023 10:13 AM Exam Location: [facility] Pulmonary Patient Status: Outpatient Admit Date: 03/15/2023 Staff Ordering Physician: Jes Díaz NP Bone Process Operator: Sylvia Champion RDCS Attending Provider: Abhi Warren MD Referring Physician: Bre LAGUNAS; Exam Type: CA echo doppler color flow Study Info Indications - SOB Complete two-dimensional, color flow and Doppler transthoracic echocardiogram is performed. Summary 1. Complete two-dimensional, color flow and Doppler transthoracic echocardiogram is performed. 2. Left ventricular chamber dimension is normal. 3. Left ventricular systolic function is normal, estimated at 60-65%. 4. Left ventricular septal wall motion is abnormal with septal motion related to bundle branch block. 5. The left ventricular diastolic function is grade I diastolic dysfunction. 6. Right ventricular systolic function is normal. 7. There is mild aortic valve calcification. 8. There is mild aortic valve regurgitation. 9. The mitral valve annulus is moderately calcified. 10. There is trace mitral valve regurgitation. 11. There is trace tricuspid valve regurgitation. 12. There is mild pulmonic regurgitation. Left Ventricle Left ventricular chamber dimension is normal. Left ventricular systolic function is normal, estimated at 60-65%. Left ventricular septal wall motion is abnormal with septal motion related to bundle branch block. The left ventricular diastolic function is grade I diastolic dysfunction. Right Ventricle Right ventricular chamber dimension is normal. Right ventricular systolic function is normal. Left Atria Left atrial chamber dimension is normal. Right Atria Right atrial chamber dimension is normal. Atrial Septum Intact interatrial septum visualized by color flow imaging. Aortic Valve The aortic valve is trileaflet. There is no aortic valve stenosis. There is mild aortic valve regurgitation. There is mild aortic valve calcification. Pulmonic Valve The pulmonic valve is not well visualized. There is mild pulmonic regurgitation. Mitral Valve There is trace mitral valve regurgitation. The mitral valve annulus is moderately calcified. Tricuspid Valve There is trace tricuspid valve regurgitation. Pericardium/Pleural The pericardium appears epicardial fat pad. There is small anterior pericardial effusion. Inferior Vena Cava Normal inferior vena cava with >50% collapse upon inspiration consistent with normal right atrial pressure, 3 mmHg. Aorta The aortic root size at the sinus of Valsalva is normal. Left Ventricular Outflow Tract Name Value Normal LVOT 2D LVOT Diameter 2.1 cm LVOT Doppler LVOT Peak Gradient 5 mmHg LVOT Mean Gradient 2 mmHg LVOT VTI 20 cm LVOT VTI/AV VTI Ratio 0.5
[2023-03-16] MEDS: ALPRAZolam (*CRX) 0.125 MG TABLET PO (01:26)
[2023-03-16 05:16] LABS: Basophils Absolute Auto 0.1 K/mm3 (0.0-0.1); Basophils Percent Auto 0.9 % (0.2-1.2); Eosinophils Absolute Auto 0.6 K/mm3 (0-0.3); Hematocrit 40.5 % (37.0-47.0); Hemoglobin 13.6 g/dL (12.0-15.0); Immature Granulocyte Absolute 0.05 K/mm3 (0.00-0.031); Immature Granulocyte Percent A 0.9 % (0-0.5); Lymphocytes Absolute Auto 1.81 K/mm3 (0.9-3.2); Mean Corpuscular HGB Conc 33.6 g/dl (32-36); Mean Corpuscular Hemoglobin 30.6 pg (26-34); Mean Corpuscular Volume 91.2 fl (80-100); Mean Platelet Volume 9.5 fl (7.4-10.4); Monocytes Absolute Auto 0.4 K/mm3 (0.1-0.6); Monocytes Percent Auto 6.9 % (2.6-8.5); Neutrophils Absolute Auto 2.7 K/mm3 (1.3-6.7); Neutrophils Percent Auto 48.3 % (45.5-73.1); Platelet Count Result 193 k/mm3 (150-375); Red Blood Count 4.44 M/mm3 (4.2-5.4); Red Cell Distribution Width 13.5 % (11.5-14.5); White Blood Count 5.7 K/mm3 (4.5-10.0)
[2023-03-16 05:30] LABS: Lactic Acid Reflex 0.9 mmol/L (0.7-2.0)
[2023-03-16 05:35] LABS: Alanine Aminotransferase 17 U/L (6-35); Albumin Level 4.6 g/dL (3.5-5.1); Alkaline Phosphatase 54 U/L (38-126); Anion Gap 6 mmol/L (8-16); Aspartate Amino Transferase 24 U/L (14-36); Blood Urea Nitrogen 18 mg/dL (7-17); Calcium 9.2 mg/dL (8.4-10.2); Carbon Dioxide 29 mmol/L (22-30); Chloride 104 mmol/L (98-107); Estimated CRCL calculation 66 ml/min; Estimated Glomerular Filt Rate > 60; Glucose 106 mg/dL (65-110); Magnesium 2.2 mg/dL (1.6-2.3); Potassium 4.4 mmol/L (3.4-5.0); Sodium 139 mmol/L (137-145)
[2023-03-16 05:56] LABS: Hemoglobin A1C 5.6 % (<5.7)
[2023-03-16 07:51] LABS: Glucose Point of Care 109 mg/dl (65-105)
[2023-03-16] MEDS: CITALOPRAM HYDROBROMIDE 10 MG TABLET PO (08:25)
[2023-03-16] MEDS: buPROPion HCL SR (12 HR) 150 MG TAB PO ×2 (08:25→17:55)
[2023-03-16] MEDS: EZETIMIBE 10 MG TABLET PO (08:26)
[2023-03-16] MEDS: lisinopriL 20 MG TABLET PO (08:26)
[2023-03-16] MEDS: ROSUVASTATIN 10 MG TABLET PO (08:26)
[2023-03-16] MEDS: LORATADINE 10 MG TABLET PO (08:26)
[2023-03-16] MEDS: ASPIRIN 81 MG ENTERIC TABLET PO (08:26)
[2023-03-16] MEDS: NAPROXEN SODIUM 220 MG TABLET 440 MG PO ×2 (08:32→17:55)
[2023-03-16 09:21] LABS: Troponin I < 0.012 ng/mL (0.000-0.034)
--- NOTE | 2023-03-16 10:41 | PC.NURSE ---
1040-Марина from [facility] transfer center called for an update . Currently no beds available.
--- NOTE | 2023-03-16 11:06 | PM.IMPN ---
Progress Note: A&P Assessment and Plan (1) CAD (coronary artery disease): Qualifiers: Coronary Disease-Associated Artery/Lesion type: [place] artery [place] vs. transplanted heart: [place]ski heart Associated angina: without angina Qualified Code(s): I25.10 - Atherosclerotic heart disease of [place] coronary artery without angina pectoris Code(s): I25.10 - Atherosclerotic heart disease of [place] coronary artery without angina pectoris Status: Acute Assessment and Plan: The patient has a history of 5 vessel CABG An echo has been ordered Cardiology has been consulted Cardiac enzymes have been negative x2. Patient is awaiting transfer to [facility]. P.r.n. nitro. Daily aspirin Continue with Crestor (2) Dyslipidemia: Code(s): E78.5 - Hyperlipidemia, unspecified Status: Acute Assessment and Plan: Continue with Crestor and Zetia Heart healthy diet (3) HTN (hypertension): Qualifiers: Hypertension type: primary hypertension Qualified Code(s): I10 - Essential (primary) hypertension Code(s): I10 - Essential (primary) hypertension Status: Acute Assessment and Plan: Continue with lisinopril (4) Depression: Qualifiers: Depression Type: unspecified Qualified Code(s): F32.9 - Major depressive disorder, single episode, unspecified Code(s): F32.9 - Major depressive disorder, single episode, unspecified Status: Acute Assessment and Plan: Continue with bupropion (5) Anxiety: Code(s): F41.9 - Anxiety disorder, unspecified Status: Acute Assessment and Plan: Continue with Celexa (6) Diabetes mellitus: Qualifiers: Diabetes mellitus type: type 2 Diabetes mellitus shelter insulin use: with intermission coordinator use Diabetes mellitus complication status: without complication Qualified Code(s): E11.9 - Type 2 diabetes mellitus without complications; 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 Patient is typically on weekly Ozempic. (7) Asthma: Code(s): J45.909 - Unspecified asthma, uncomplicated Status: Acute Assessment and Plan: Continue with inhalers (8) UTI (urinary tract infection): Code(s): N39.0 - Urinary tract infection, site not specified Status: Acute Assessment and Plan: The patient was started on Rocephin Urine and blood cultures are pending Tailor antibiotics according to cultures and sensitivities. Subjective Date/time seen: 03/16/23 11:06 Chest pain has resolved. Exam Const: General: cooperative, healthy appearing, comfortable, no acute distress, well developed, awake, Physically active, average body habitus and well nourished Nutritional Appearance: average body habitus and well nourished Orientation/consciousness: oriented to person, oriented to place, oriented to time and patient oriented x3 Limitations: no limitations HENMT: Head: normal to inspection, No palpable skull fracture present, normocephalic, atraumatic and abrasion Ears: hearing grossly normal bilaterally and external ears normal Face/Nose/Sinus: Normal external nose present and Normal nares present Eyes: General: appearance normal, both eyes and all related structures Alignment and Position: alignment normal Periorbital: periorbital findings normal Eyelids: eyelids normal Sclera: sclerae normal Pupils: Equal, round and reactive pupils present EOM: EOMs intact bilaterally Neck: Neck: normal visual inspection, full ROM, no lymphadenopathy, trachea midline and supple Chest: Chest palpation & inspection: normal inspection of the chest Resp: Effort & Inspection: normal respiratory effort Auscultation: clear to auscultation bilaterally Percussion: percussion normal
--- NOTE | 2023-03-16 12:16 | ECG_ITS ---
Measurements Intervals [place] Rate: 63 P: 36 PA: 172 QRS: -2 QRSD: 145 T: 36 QT: 460 QTc: 474 Interpretive Statements SINUS RHYTHM RIGHT BUNDLE BRANCH BLOCK [120+ ms QRS DURATION, UPRIGHT V1, 40+ ms S IN I/aVL/V4/V5/V6] MODERATE T-WAVE ABNORMALITY, CONSIDER LATERAL ISCHEMIA [-0.1+ mV T WAVE IN I/aVL/V5/V6] ABNORMAL ECG COMPARED TO ECG 03/14/2023 17:59:09 NO SIGNIFICANT CHANGES Electronically Signed On 03-16-2023 14:43:23 CDT by Mele Nj M.D.
--- NOTE | 2023-03-16 12:19 | PC.NURSE ---
1210- Patient c/o 3/10 chest pain to right upper chest region, states it feels like heavy pressure . Dr Warren notified , stat EKG ordered , prn nitro spray administered.
[2023-03-16 12:39] LABS: Glucose Point of Care 118 mg/dl (65-105)
--- NOTE | 2023-03-16 14:16 | PM.CNCAR ---
Assessment and Plan Assessment and plan (1) Chest pain: Code(s): R07.9 - Chest pain, unspecified Status: Acute Assessment and Plan: Significant history of CAD with previous CABG as detailed in the HPI. She presents now with a complaint of shortness of breath and chest pain. She has had these complaints for several weeks and has undergone both nuclear stress testing and coronary angiogram. She had been scheduled for coronary CTA this week at [place]. She reports her chest pain at a 2/10 but had some slightly worse pain on Wednesday which prompted her presentation to the hospital. Her cardiac workup thus far has been negative. She has been placed on the transfer list to [place] for possible repeat angiogram. She is not a candidate for coronary intervention at this hospital due to her history of CABG with multiple grafts. Continue statin, ASA. Her blood pressure is adequate, will initiate Imdur for additional anti-anginal therapy. History of Present Illness History of Present Illness Consult date/time: 03/16/23 14:16 Requesting physician: Bonilla Carlson PA-C Consult reason: Other (unstable angina) Reason For Visit: Unstable Angina Narrative: Patient is a 72-year-old female with a past medical history of hypertension, dyslipidemia, history of tobacco abuse, coronary artery disease status post 5 vessel CABG (SAAVEDRA to LAD SVG to diagonal SVG to ramus SVG to PDA PL 2) She underwent a cardiac cath in 2011 that revealed 6 patent grafts. She had a repeat angiogram here at [place] a couple of weeks ago because she is considering undergoing elective knee replacement surgery. She was complaining of exertional dyspnea and underwent Lexiscan nuclear stress test which revealed EF 64%, mid anteroseptal hypokinesis with small fixed apical anterior defect, mild mid and basal anterior ischemia, moderate size moderate to severe inferior fixed defect apex to the base. Patient was subsequently referred for left heart catheterization for delineation of her coronary anatomy. Unfortunately, not all grafts were able to be accessed and patient was then recommended to have coronary CTA which is scheduled later this week at [facility]. She presents now with a complaint of chest pain and shortness of breath. Neither of these complaints are new, but patient states on Wednesday she felt her chest pain was more intense than usual. Her troponins here have been negative and she had no ischemic ST changes on initial EKG. She has been placed on the transfer list to [place] for further evaluation. Review of Systems Review of Systems: All systems reviewed & are unremarkable except as noted in HPI and below PMFSH Past Medical History Medical History Asthma CAD (coronary artery disease) Cataract Chronic obstructive pulmonary disease, unspecified Chronic respiratory failure with hypoxia Diabetes mellitus History of rheumatic fever Obstructive sleep apnea (adult) (pediatric) She denies any sleep apnea. Statin myopathy Tobacco abuse Vertigo Surgical History Surgical History H/O section H/O colonoscopy History of appendectomy History of laparoscopic cholecystectomy History of tonsillectomy Hx of CABG (~2009) 5 vessel CABG S/P ORIF (open reduction internal fixation) fracture right ankle Family History Family History Mother Family history of malignant neoplasm Family history of lung cancer Family history of lymphoma Sibling Family history of diabetes mellitus in first degree relative Family history of malignant neoplasm Family history of heart disease in male family member before age 55 COVID Adrenal mass Adrenal nodule Father Hypertension Family history of cardiovascular disease Family history of primary malignant neoplasm of liver Family history of heart disease in or
[2023-03-16 16:31] LABS: Glucose Point of Care 110 mg/dl (65-105)
[2023-03-16 20:38] LABS: Glucose Point of Care 107 mg/dl (65-105)
[2023-03-17] VITALS: PULSE 65
[2023-03-17 04:00] VITALS: PULSE 53
[2023-03-17 08:00] VITALS: BP 112/69; PULSE 64; PULSE 70; RESP 16; TEMP 36.3; O2SAT 97
[2023-03-17] MEDS: CITALOPRAM HYDROBROMIDE 10 MG TABLET PO (08:53)
[2023-03-17] MEDS: ASPIRIN 81 MG ENTERIC TABLET PO (08:53)
[2023-03-17] MEDS: ROSUVASTATIN 10 MG TABLET PO (08:53)
[2023-03-17] MEDS: LORATADINE 10 MG TABLET PO (08:53)
[2023-03-17] MEDS: lisinopriL 20 MG TABLET PO (08:54)
[2023-03-17] MEDS: ISOSORBIDE MONONITRATE 30 MG TAB.ER.24H PO (08:54)
[2023-03-17] MEDS: buPROPion HCL SR (12 HR) 150 MG TAB PO ×2 (08:54→16:53)
[2023-03-17] MEDS: NAPROXEN SODIUM 220 MG TABLET 440 MG PO ×2 (08:54→16:53)
[2023-03-17] MEDS: EZETIMIBE 10 MG TABLET PO (08:54)
--- NOTE | 2023-03-17 09:10 | PM.PNCARD ---
Progress Note: A&P Assessment and Plan (1) Chest pain: Code(s): R07.9 - Chest pain, unspecified Status: Acute Assessment and Plan: Significant history of CAD with previous CABG as detailed in the HPI. She presents now with a complaint of shortness of breath and chest pain. She has had these complaints for several weeks and has undergone both nuclear stress testing and coronary angiogram. She had been scheduled for coronary CTA this week at [place]. She reports her chest pain at a / but had some slightly worse pain on Wednesday which prompted her presentation to the hospital. Her cardiac workup thus far has been negative. She is not a candidate for coronary intervention at this hospital due to her history of CABG with multiple grafts. Continue statin, ASA. Continue Imdur, statin, aspirin. Awaiting transfer to [place] Subjective Date/time seen: 03/17/23 09:10 Interval history: 72-year-old with chest pain and known CAD. Date of service 03/17/2023: No chest pain yet today. She did have intermittent chest pain yesterday. No significant shortness breath at rest Review of Systems Review of Systems: All systems reviewed & are unremarkable except as noted in HPI and below Cardiovascular: Cardiovascular: Reports chest pain Respiratory: Respiratory: Denies dyspnea Gastrointestinal: Gastrointestinal: Denies abdominal pain Exam Const: General: comfortable, no acute distress, alert and awake Orientation/consciousness: patient oriented x3 HENMT: Head: normal to inspection Eyes: General: appearance normal, both eyes and all related structures Pupils: Equal, round and reactive pupils present Neck: Neck: normal visual inspection, supple and no JVD Carotids: normal carotid upstroke Resp: Effort & Inspection: normal respiratory effort Auscultation: clear to auscultation bilaterally Cardio: Rate: regular rate Rhythm: regular rhythm Heart sounds: S1 normal heart sound present, S2 normal heart sound present and no murmurs GI: Auscultation: normal bowel sounds Skin: General skin exam: normal color Neuro: General: patient oriented x3 Cranial nerves: Yes Equal, round and reactive pupils present Extrem: General: normal to inspection Psych: Appearance: grossly normal Mental Status: mental status grossly normal Objective Data Vital Signs Vital Signs: Vital Signs - 24 hr 03/16/23 12:15 03/16/23 10:00 03/16/23 12:00 Temperature 35.8 C L Pulse Rate 65 61 62 Respiratory Rate 18 Blood Pressure 115/70 Pulse Oximetry 95 Oxygen Delivery 03/16/23 16:00 03/16/23 16:00 03/16/23 20:00 Temperature 36.4 C L Pulse Rate 62 62 78 Respiratory Rate 20 Blood Pressure 127/71 Pulse Oximetry 97 Oxygen Delivery Room Air 03/16/23 20:00 03/16/23 20:00 03/16/23 23:46 Temperature 36.4 C 36.4 C Pulse Rate 65 65 80 Respiratory Rate 18 18 Blood Pressure 105/75 130/85 Pulse Oximetry 95 91 Oxygen Delivery 03/17/23 00:00 03/17/23 04:00 Temperature Pulse Rate 65 53 L Respiratory Rate Blood Pressure Pulse Oximetry Oxygen Delivery Intake/Output Intake/Output: Intake & Output 03/14/23 03/15/23 03/16/23 03/17/23 23:59 23:59 23:59 23:59 Intake Total 50 1560 1100 Output Total 1750 900 Balance 50 -190 200 Meds/Results Medications: Active Medications Generic Name Dose Route Start Last Admin Trade Name Freq PRN Reason Stop Dose Admin Aspirin 81 mg 03/16/23 09:00 03/17/23 08:53 Aspirin 81 Mg Enteric Tablet PO 81 mg DAILY LIONEL Administration Bupropion HCl 150 mg 03/16/23 09:00 03/17/23 08:54 Bupropion Hcl Sr (12 Hr) 150 Mg Tab PO 150 mg BID LIONEL Administration Citalopram Hydrobromide 10 mg 03/16/23 09:00 03/17/23 08:53 Citalopram Hydrobromide 10 Mg Tablet PO 10 mg DAILY LIONEL Administration Dextrose 12.5 gm 03/15/23 23:50 Dextrose 50% 25 Gm/50 Ml Syringe IV PUSH PRN PRN Hypoglycemia Protoco
[2023-03-17 12:00] VITALS: PULSE 69
[2023-03-17 12:10] LABS: Glucose Point of Care 95 mg/dl (65-105)
--- NOTE | 2023-03-17 12:52 | PC.NURSE ---
Patient informed me of multiple episodes of chest pain this morning. This is relieved with nitro spray. Still awaiting transfer from [place]. Dr. Nj aware.
--- NOTE | 2023-03-17 14:35 | PM.IMPN ---
Progress Note: A&P Assessment and Plan (1) Chest pain: Code(s): R07.9 - Chest pain, unspecified Status: Acute Plan 72-year-old female who has a history of hypertension, coronary artery disease, hyperlipidemia COPD and diabetes presented with SOB, Chest pain. 1)Coronary Artery Disease: Appreciate Cardiology help She is not a candidate for coronary intervention at this hospital due to her history of CABG with multiple grafts.? Await transfer to [place] Continue statin, ASA.? Continue Imdur, statin, aspirin. 2)uTI: c/w ceftriaxone Await urine culture 3)Diabetes Mellitus: BG check TID AC and HS c/w SS insulin Adjust dose as needed 4)DVT ppx: Hep SQ 5)Code:Full 6)Dispo:Await transfer to [place] Time Spent With Patient Time with patient: 15 - 25 minutes Subjective Date/time seen: 03/17/23 14:35 Interval history: no acute events overnight Review of Systems Review of Systems: All systems reviewed & are unremarkable except as noted in HPI and below Exam Const: General: comfortable HENMT: Mouth: Yes moist mucous membranes Eyes: General: appearance normal, both eyes and all related structures Neck: Neck: supple Resp: Effort & Inspection: normal respiratory effort Auscultation: clear to auscultation bilaterally Cardio: Rate: regular rate Rhythm: regular rhythm GI: GI Palp: Yes Soft to palpation Auscultation: normal bowel sounds Skin: General skin exam: normal color Extrem: General: normal to inspection Psych: Mental Status: mental status grossly normal Objective Data Vital Signs Vital Signs: Vital Signs - 24 hr 03/16/23 16:00 03/16/23 16:00 03/16/23 20:00 Temperature 97.5 F L Pulse Rate 62 62 78 Respiratory Rate 20 Blood Pressure 127/71 Pulse Oximetry 97 Oxygen Delivery Room Air 03/16/23 20:00 03/16/23 20:00 03/16/23 23:46 Temperature 97.6 F 97.6 F Pulse Rate 65 65 80 Respiratory Rate 18 18 Blood Pressure 105/75 130/85 Pulse Oximetry 95 91 Oxygen Delivery 03/17/23 00:00 03/17/23 04:00 03/17/23 08:00 Temperature Pulse Rate 65 53 L 70 Respiratory Rate Blood Pressure Pulse Oximetry Oxygen Delivery 03/17/23 08:00 03/17/23 08:00 03/17/23 12:00 Temperature 97.3 F L Pulse Rate 70 64 69 Respiratory Rate 16 Blood Pressure 112/69 Pulse Oximetry 97 Oxygen Delivery Room Air Intake/Output Intake/Output: Intake & Output 03/14/23 03/15/23 03/16/23 03/17/23 23:59 23:59 23:59 23:59 Intake Total 50 1560 1580 Output Total 1750 900 Balance 50 -190 680 Meds/Results Medications: Active Medications Generic Name Dose Route Start Last Admin Trade Name Freq PRN Reason Stop Dose Admin Aspirin 81 mg 03/16/23 09:00 03/17/23 08:53 Aspirin 81 Mg Enteric Tablet PO 81 mg DAILY LIONEL Administration Bupropion HCl 150 mg 03/16/23 09:00 03/17/23 08:54 Bupropion Hcl Sr (12 Hr) 150 Mg Tab PO 150 mg BID LIONEL Administration Citalopram Hydrobromide 10 mg 03/16/23 09:00 03/17/23 08:53 Citalopram Hydrobromide 10 Mg Tablet PO 10 mg DAILY LIONEL Administration Dextrose 12.5 gm 03/15/23 23:50 Dextrose 50% 25 Gm/50 Ml Syringe IV PUSH PRN PRN Hypoglycemia Protocol Ezetimibe 10 mg 03/16/23 09:00 03/17/23 08:54 Ezetimibe 10 Mg Tablet PO 10 mg DAILY LIONEL Administration Glucagon 1 mg 03/15/23 23:50 Glucagon For Inj 1 Mg Vial IM PRN PRN Hypoglycemia Protocol Glucose 15 gm 03/15/23 23:50 Glucose Oral Gel 15 Gm Of Glucse In 37.5 Gm Tube PO PRN PRN Hypoglycemia Protocol Ceftriaxone Sodium 1 gm in 50 mls @ 100 mls/hr 03/15/23 21:00 03/16/23 21:09 Rocephin 1 Gm/Ns 50 Ml IVPB 100 mls/hr Q24H LIONEL Administration Dextrose 1,000 mls @ 100 mls/hr 03/15/23 23:50 Dextrose 5% 1,000 Ml IVPB PRN PRN Hypoglycemia Protocol Insulin Aspart 2 - 5 units 03/16/23 08:00 03/17/23 12:19 Insulin Aspart (*B
[2023-03-17 15:54] LABS: Glucose Point of Care 116 mg/dl (65-105)
[2023-03-17 16:00] VITALS: BP 102/68; PULSE 65; PULSE 67; RESP 16; TEMP 35.8; O2SAT 98
--- NOTE | 2023-03-17 19:55 | PC.NURSE ---
Patient discharged to [facility] via [facility]. All personal belongings and medical records sent with patient.
[2023-03-18 06:24] LABS: Glucose Point of Care 131 mg/dl (65-105)
--- NOTE | 2023-03-18 12:19 | PM.TDS ---
Transfer Discharge Sum: Prov Provider Date of admission: 03/16/23 15:01 Primary care physician: Nancy Albrecht MD Admitting clinician: Abhi Warren MD Consults: 03/15/23 17:27 Consult to Physician Routine Comment: Consulting Provider: Abhi Mata Reason for consultation: unstable angina, pending transfer to [place] Has provider been notified: Yes DS: Admitting Diagnosis Discharge Date 03/17/23 Admitting Diagnosis SOB Chest Pain DS: Discharge Diagnosis Discharge Diagnosis (1) Chest pain: Code(s): R07.9 - Chest pain, unspecified Status: Acute (2) UTI (urinary tract infection): Code(s): N39.0 - Urinary tract infection, site not specified Status: Acute (3) CAD (coronary artery disease): Qualifiers: Coronary Disease-Associated Artery/Lesion type: [place] artery [place] vs. transplanted heart: [place] heart Associated angina: without angina Qualified Code(s): I25.10 - Atherosclerotic heart disease of [place] coronary artery without angina pectoris Code(s): I25.10 - Atherosclerotic heart disease of [place] coronary artery without angina pectoris Status: Acute Transfer Discharge Sum: Med Medications Active and Home Medications: Home Medications aspirin 81 mg tablet,delayed release 81 mg PO DAILY 06/13/21 [History Confirmed 03/15/23] loratadine 10 mg tablet (Claritin) 10 mg PO DAILY 06/13/21 [History Confirmed 03/15/23] nitroglycerin 400 mcg/spray translingual (Nitrolingual) 1 spray translingual Q5M PRN chest pain #4.9 grams 06/13/21 [Rx Confirmed 03/15/23] bupropion HCl 150 mg tablet,12 hr sustained-release 150 mg PO BID #180 tabs 08/03/22 [Rx Confirmed 03/15/23] lisinopril 20 mg tablet 20 mg PO DAILY #90 tabs 08/03/22 [Rx Confirmed 03/15/23] rosuvastatin 10 mg tablet 10 mg PO DAILY #30 tabs 02/09/23 [Rx Confirmed 03/15/23] citalopram 10 mg tablet 10 mg PO DAILY #90 tabs 02/22/23 [Rx Confirmed 03/15/23] semaglutide 0.25 mg or 0.5 mg (2 mg/1.5 mL) subcutaneous pen injector (Ozempic) 0.25 mg (0.2 mL) subcut WEEKLY #3 mL 02/26/23 [Rx Confirmed 03/15/23] ezetimibe 10 mg tablet 10 mg PO DAILY #90 tabs 03/12/23 [Rx Confirmed 03/15/23] epinephrine 0.3 mg/0.3 mL injection, auto-injector (EpiPen) 0.3 mg IM ONCE PRN Anaphylaxis 03/15/23 [History Confirmed 03/15/23] naproxen sodium 220 mg capsule (Aleve) 440 mg PO BID 03/15/23 [History Confirmed 03/15/23] Transfer Discharge Sum: Hosp Hospital Course Hospital course: 72-year-old female who has a history of hypertension, coronary artery disease, hyperlipidemia COPD and diabetes presented with SOB, Chest pain. Cardiology was consulted, givn her complex history of CABG with multiple grafts, she was not a candidate for coronary intervention at this hospital. Was transferred to [place]. Treated with ceftriaxone for UTI. Time Spent with Patient Time attestation: Total time spent providing and/or coordinating transfer services:34 mins Exam Const: General: comfortable HENMT: Mouth: Yes moist mucous membranes Eyes: General: appearance normal, both eyes and all related structures Neck: Neck: supple Resp: Effort & Inspection: normal respiratory effort Auscultation: clear to auscultation bilaterally Cardio: Rate: regular rate Rhythm: regular rhythm GI: GI Palp: Yes Soft to palpation Auscultation: normal bowel sounds Skin: General skin exam: normal color Extrem: General: normal to inspection Psych: Mental Status: mental status grossly normal DS: Data Data Completed and Pending Labs on day of discharge: Labs from last 24 hours 03/17/23 03/17/23 15:49 08:01 POC Capillary Glucose 116 H 131 H Preliminary micro results at discharge 03/16/23 00:16 Blood Culture - Preliminary Blood 03/16/23 00:16 Blood Culture - Preliminary Blood
== END 2023-03-17 19:54 | disposition short-term general hospital (02) | DRG 303 ==
LOC: ANHED 18:23 → ANHIMU 03-15 19:39
PROVIDERS: Emergency Medicine; Nurse Practitioner; Admitting Provider Chiropractor; Emergency Provider Physician Assistant; PCP Family Medicine; Visit Provider Internal Medicine
DX: I25.110 Atherosclerotic heart disease of native coronary artery with unstable angina pectoris (principal); J96.11 Chronic respiratory failure with hypoxia; N39.0 Urinary tract infection, site not specified; I10 Essential (primary) hypertension; E78.5 Hyperlipidemia, unspecified; J44.9 Chronic obstructive pulmonary disease, unspecified; E11.8 Type 2 diabetes mellitus with unspecified complications; G47.33 Obstructive sleep apnea (adult) (pediatric); F32.A Depression, unspecified; F41.9 Anxiety disorder, unspecified; Z79.82 Long term (current) use of aspirin; Z90.49 Acquired absence of other specified parts of digestive tract; Z95.1 Presence of aortocoronary bypass graft; Z87.891 Personal history of nicotine dependence; Z79.4 Long term (current) use of insulin
CPT/HCPCS: 36415; 71046; 71275; 80053; 81001; 82948; 83036; 83605; 83735; 83880; 84443; 84484; 85025; 85380; 87040; 87086; 87088; 93005; 93306; 93970; 96374; 99285; A9270; G0378; J0696; J2405; Q9967

== ENCOUNTER 2023-04-06 08:56 | Outpatient (CLI) | payer MEDICARE, SELFPAY ==
--- NOTE | ~2023-04-06 | US_ITS ---
Ultrasound of the Abdominal Aorta INDICATION: Coronary artery disease, abdominal aortic aneurysm TECHNIQUE: Grayscale, color Doppler, and pulsed Doppler images of the aorta and common iliac arteries were obtained. COMPARISON: 02/06/2009 FINDINGS: Maximum vascular dimensions are as follows: Proximal aorta: 2.2 cm Mid aorta: 2.7 cm Distal aorta: 4.2 cm Right common iliac artery: 1.2 cm Left common iliac artery: 1.4 cm Distal abdominal aortic aneurysm is present measuring 4.2 cm in maximum diameter. IMPRESSION: Distal abdominal aortic aneurysm measures up to 4.2 cm in maximum diameter. Consider CT to further ev aluate, as indicated. Reviewed, dictated and finalized at location . IMPRESSION: Distal abdominal aortic aneurysm measures up to 4.2 cm in maximum diameter. 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
== END 2023-04-06 08:57 | disposition home or self-care (01) ==
PROVIDERS: PCP Family Medicine; Visit Provider Nurse Practitioner Adult Health
DX: I25.118 Atherosclerotic heart disease of native coronary artery with other forms of angina pectoris (principal); Z82.49 Family history of ischemic heart disease and other diseases of the circulatory system; I71.40 Abdominal aortic aneurysm, without rupture, unspecified
CPT/HCPCS: 76706

== ENCOUNTER 2023-04-13 07:01 | Outpatient (CLI) | payer MEDICARE, SELFPAY ==
--- NOTE | ~2023-04-13 | CT_ITS ---
EXAMINATION: CTA chest abdomen pelvis DATE: 04/13/2023 07:50 INDICATION: Abdominal aortic aneurysm TECHNIQUE: Computed tomographic angiography (CTA) of the chest, abdomen, and pelvis was performed wit hout and with 100 mL Omnipaque-350 intravenous contrast. Volume-rendered 3D-reconstructions of the ao rta and large arteries were constructed by the technologist on a separate workstation. Automated expo sure control and iterative reconstruction technique were employed. The dose-length product was 1623.6 5 mGy-cm. COMPARISON: Chest CT dated 03/16/2023 and 01/12/[address] abdomen and pelvis dated 03/24/2016 FINDINGS: Chest: Small amount of peripheral linear opacities at the bilateral lung bases which could represent atelect asis and/or minimal ulnar edema. No pneumonia, suspicious pulmonary nodules or pleural effusion. Hear t size is normal. Mediastinum wires and changes of prior coronary artery bypass grafting. Fusiform an eurysm of the ascending thoracic aorta which measures up to 4.3 x 4.1 cm in maximal diameter measured orthogonal to the axis of flow on sagittal and coronal imaging respectively. This tapers to a normal caliber of 3.1 x 2.8 cm in diameter immediately following the takeoff of the left subclavian artery and remains normal in caliber throughout the remainder of the descending thoracic aorta. Normal anato james variant common origin of the innominate and left common carotid arteries. No dissection. No patho logically enlarged thoracic lymphadenopathy. Small sliding-type hiatal hernia. Severe thoracic spondy losis. Abdomen and pelvis: Cholecystectomy clips at the gallbladder fossa. Liver, spleen, pancreas and right adrenal gland are n ormal. Unchanged 2.2 cm left adrenal adenoma with characteristic low attenuation on prior noncontrast chest CT dated 01/12/2018. Bilateral kidneys are normal with small bilateral accessory renal artery s upplying portions of the lower poles of both kidneys. Mild scattered colonic diverticulosis without a djacent from 3 change to suggest diverticulitis. No bowel obstruction. Bladder is normal. Calcified u terine fibroid. More distally at the fundus is a 1.3 cm hypoechoic region which could represent an ad ditional fibroid or focal thickening of the endometrial complex. No free intraperitoneal gas or fluid . No pathologically enlarged abdominal or pelvic lymphadenopathy. Fusiform aneurysm of the infrarenal abdominal aorta which measures up to 3.7 x 3.3 cm in maximal diameter. Calcified atherosclerotic indira que resulting in severe stenosis at the origin of the left common iliac artery. Additional atheroscle rotic plaque with moderate stenosis at the distal right common femoral and proximal most right superf icial femoral artery. Moderate to severe lower lumbar facet osteoarthritis. IMPRESSION: 1. Fusiform aortic aneurysms measuring 4.3 x 4.1 cm at the ascending thoracic aorta and 3.7 x 3.3 cm infrarenal abdominal aorta. 2. Calcified uterine fibroid with additional 1.3 cm hypoechoic region centrally at the fundus which c ould represent an additional fibroid or potentially focal thickening of the endometrial complex. Deya elate for abnormal uterine bleeding and consider pelvic ultrasound for further evaluation. 3. Scattered atherosclerotic disease with severe stenosis at the origin of the right common iliac art sudhakar and moderate stenosis at the distal right common femoral and proximal most right superficial femo ral arteries. Reviewed, dictated and finalized at location A. IMPRESSION: 1. Fusiform aortic aneurysms measuring 4.3 x 4.1 cm at the ascending thoracic a mara and 3.7 x 3.3 cm infrarenal abdominal aorta. 2. Calcified uterine fibroid with additional 1.3 cm hypoechoic region centrally at the fundus which could represent an additional fibroid or potentially focal thicken
== END 2023-04-13 07:02 | disposition home or self-care (01) ==
PROVIDERS: PCP Family Medicine; Visit Provider Nurse Practitioner Adult Health
DX: I71.40 Abdominal aortic aneurysm, without rupture, unspecified (principal); D25.9 Leiomyoma of uterus, unspecified; I25.10 Atherosclerotic heart disease of native coronary artery without angina pectoris
CPT/HCPCS: 71275; 74174; Q9967

== ENCOUNTER 2023-06-14 13:55 | Emergency (ER) | payer MEDICARE, SELFPAY ==
[2023-06-14] VITALS (13 sets, daily range): BP systolic 134–148; BP diastolic 79–87; PULSE 59–78; RESP 11–24; TEMP 37.2; O2SAT 96–98
--- NOTE | ~2023-06-14 | XR_ITS ---
XR abdomen/kub 1V 06/14/2023 14:51 INDICATION: Constipation TECHNIQUE: KUB COMPARISON: None FINDINGS: Bowel gas pattern is normal. There is no evidence of free air, mass, organomegaly, ascites or obstruction. No abnormal calculi are seen. The bones appear intact. There is calcification of t he splenic artery. There are cholecystectomy clips. There is a calcification in the pelvis, likely ca lcified uterine fibroid. IMPRESSION: 1: No acute abdominal abnormality identified. Reviewed, dictated and finalized at location A.
--- NOTE | ~2023-06-14 | XR_ITS ---
XR chest 2V DATE: 06/14/2023 14:50 INDICATION: Shortness of breath. Knee joint replacement on 06/04/2023 TECHNIQUE: AP and lateral views COMPARISON: 04/13/2023 CTA chest abdomen pelvis FINDINGS: Status post sternotomy and coronary artery bypass graft surgery. Heart size is within rosalie l limits. Aortic arch calcification. Thoracic aortic tortuosity. No hilar or mediastinal enlargement is evident. No pulmonary infiltrate or consolidation, pleural effusion or pulmonary vascular congestion or pneumo thorax is noted. Degenerative spurring of the thoracic spine. Osteopenia. IMPRESSION: No active cardiopulmonary disease; negative chest does not exclude the possibility of pul monary embolism in the recent postoperative patient. Aortic atherosclerosis and tortuosity Reviewed, dictated and finalized at location B. IMPRESSION: No active cardiopulmonary disease; negative chest does not exclude the possibility of pulmonary embolism in the recent postoperative patient. Aortic atherosclerosis and tortuosity
--- NOTE | 2023-06-14 14:20 | ECG_ITS ---
Measurements Intervals [place] Rate: 60 P: -18 MO: 168 QRS: 7 QRSD: 132 T: 82 QT: 471 QTc: 473 Interpretive Statements SINUS RHYTHM RIGHT BUNDLE BRANCH BLOCK BASELINE WANDER- III, V4 ABNORMAL ECG COMPARED TO ECG 03/16/2023 12:24:54 NO SIGNIFICANT CHANGES Electronically Signed On 06-14-2023 14:43:36 CDT by Jimbo Balderas D.O.
--- NOTE | 2023-06-14 14:26 | ED.GENADULT ---
HPI - General Adult General Chief complaint: Shortness of Breath/Dyspnea Stated complaint: dizzy/lightheaded Time Seen by Provider: 06/14/23 14:17 History of Present Illness HPI narrative: Pt had recent knee replacement and was at PT when she felt a little dizzy and lightheaded. They check her BP and her SBP was 180. Rechecked a couple of times and remained elevated. Pt felt a little SOB and thought she was wheezing so did her inhaler and that has resolved. Pt has no SOB or CP now. Pt has also been a little constipated from her pain meds but this is improving. Related Data Home Medications Medication Instructions Recorded Confirmed aspirin 81 mg tablet,delayed 81 mg PO DAILY 06/13/21 03/15/23 release loratadine 10 mg tablet (Claritin) 10 mg PO DAILY 06/13/21 03/15/23 epinephrine 0.3 mg/0.3 mL 0.3 mg IM ONCE PRN Anaphylaxis 03/15/23 03/15/23 injection, auto-injector (EpiPen) albuterol sulfate 90 mcg/actuation 1 puff inhalation Q4H PRN 03/29/23 aerosol inhaler buspirone 5 mg tablet 5 mg PO BID 03/29/23 carvedilol 6.25 mg tablet 6.25 mg PO Q12H 03/29/23 citalopram 40 mg tablet 40 mg PO DAILY 03/29/23 diclofenac sodium 1 % topical gel 2 g topical QID 03/29/23 fluticasone propionate 50 2 spray intranasal DAILY PRN 03/29/23 mcg/actuation nasal spray,suspension (Children's Flonase Allergy Relief) isosorbide mononitrate 30 mg 30 mg PO DAILY 03/29/23 tablet,extended release 24 hr Allergies Allergy/AdvReac Type Severity Reaction Status Date / Time codeine Allergy Mild HIVES AND Verified 04/13/23 11:17 FACIAL SWELLING erythromycin base Allergy Mild HIVES Verified 04/13/23 11:17 oxycodone Allergy Mild HIVES Verified 04/13/23 11:17 propoxyphene Allergy Mild DOES NOT Verified 04/13/23 11:17 KNOW levofloxacin Allergy Unknown Unknown Verified 04/13/23 11:17 tramadol Allergy Swelling Verified 04/13/23 11:17 of Lip/Tongue/Throat BEE STINGS Allergy Severe Unknown Uncoded 04/13/23 11:17 Review of Systems Review of Systems: All systems reviewed & are unremarkable except as noted in HPI and below PMFSH Past Medical History Medical History Asthma CAD (coronary artery disease) Cataract Chronic obstructive pulmonary disease, unspecified Chronic respiratory failure with hypoxia Diabetes mellitus History of rheumatic fever Obstructive sleep apnea (adult) (pediatric) She denies any sleep apnea. Statin myopathy Tobacco abuse Vertigo Surgical History Surgical History H/O section H/O colonoscopy History of appendectomy History of laparoscopic cholecystectomy History of tonsillectomy Hx of CABG (~2009) 5 vessel CABG S/P ORIF (open reduction internal fixation) fracture right ankle Family History Family History Mother Family history of malignant neoplasm Family history of lung cancer Family history of lymphoma Sibling Family history of diabetes mellitus in first degree relative Family history of malignant neoplasm Family history of heart disease in male family member before age 55 COVID Adrenal mass Adrenal nodule Father Hypertension Family history of cardiovascular disease Family history of primary malignant neoplasm of liver Family history of heart disease in male family member before age 55 Family history of congenital heart disease Daughter Adrenal mass Other Diabetes mellitus Other Carcinoma of colon Cerebrovascular accident Family history of allergic disorder Family history of cardiac disorder Family history of emphysema Social History Social History (System 04/13/23 @ 11:17 by Kayla Mazariegos) Social History: Caffeine-coffee occasionally she lives home alone. She is . She has 4 children. 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 Code
[2023-06-14 14:41] LABS: Basophils Percent Auto 0.5 % (0.2-1.2); Eosinophils Absolute Auto 0.5 K/mm3 (0-0.3); Eosinophils Percent Auto 8.2 % (0-4.4); Hematocrit 30.9 % (37.0-47.0); Hemoglobin 10.3 g/dL (12.0-15.0); Immature Granulocyte Absolute 0.15 K/mm3 (0.00-0.031); Immature Granulocyte Percent A 2.3 % (0-0.5); Mean Corpuscular HGB Conc 33.3 g/dl (32-36); Mean Corpuscular Hemoglobin 31.1 pg (26-34); Mean Corpuscular Volume 93.4 fl (80-100); Monocytes Absolute Auto 0.5 K/mm3 (0.1-0.6); Monocytes Percent Auto 8.3 % (2.6-8.5); Neutrophils Absolute Auto 3.9 K/mm3 (1.3-6.7); Neutrophils Percent Auto 60.7 % (45.5-73.1); Platelet Count Result 203 k/mm3 (150-375); Red Blood Count 3.31 M/mm3 (4.2-5.4); Red Cell Distribution Width 13.4 % (11.5-14.5); White Blood Count 6.5 K/mm3 (4.5-10.0)
[2023-06-14 14:57] LABS: Alanine Aminotransferase 20 U/L (6-35); Albumin Level 4.1 g/dL (3.5-5.1); Alkaline Phosphatase 56 U/L (38-126); Anion Gap 9 mmol/L (8-16); Aspartate Amino Transferase 21 U/L (14-36); Bilirubin,Total 1.1 mg/dL (0.2-1.3); Blood Urea Nitrogen 26 mg/dL (7-17); Calcium 8.8 mg/dL (8.4-10.2); Carbon Dioxide 26 mmol/L (22-30); Chloride 105 mmol/L (98-107); Estimated CRCL calculation 66 ml/min; Estimated Glomerular Filt Rate > 60; Glucose 104 mg/dL (65-110); Sodium 140 mmol/L (137-145)
[2023-06-14 15:03] LABS: Potassium 4.5 mmol/L (3.4-5.0)
== END 2023-06-14 17:28 | disposition home or self-care (01) ==
PROVIDERS: Emergency Provider Emergency Medicine; PCP Family Medicine
DX: R42 Dizziness and giddiness (principal); I25.10 Atherosclerotic heart disease of native coronary artery without angina pectoris; J44.9 Chronic obstructive pulmonary disease, unspecified; J96.11 Chronic respiratory failure with hypoxia; E11.9 Type 2 diabetes mellitus without complications; G47.33 Obstructive sleep apnea (adult) (pediatric); Z90.49 Acquired absence of other specified parts of digestive tract; Z95.1 Presence of aortocoronary bypass graft; Z87.891 Personal history of nicotine dependence; Z79.82 Long term (current) use of aspirin; Z79.85 Long-term (current) use of injectable non-insulin antidiabetic drugs; I45.10 Unspecified right bundle-branch block
CPT/HCPCS: 36415; 71046; 74018; 80053; 85025; 93005; 99284

== ENCOUNTER 2023-06-30 11:01 | Outpatient (CLI) | payer MEDICARE, SELFPAY ==
[2023-06-30 18:22] LABS: Basophils Absolute Auto 0.1 K/mm3 (0.0-0.1); Basophils Percent Auto 0.8 % (0.2-1.2); Eosinophils Absolute Auto 0.9 K/mm3 (0-0.3); Eosinophils Percent Auto 15.5 % (0-4.4); Hematocrit 37.4 % (37.0-47.0); Hemoglobin 12.2 g/dL (12.0-15.0); Immature Granulocyte Absolute 0.03 K/mm3 (0.00-0.031); Immature Granulocyte Percent A 0.5 % (0-0.5); Lymphocytes Absolute Auto 1.89 K/mm3 (0.9-3.2); Lymphocytes Percent Auto 31.5 % (18.3-44.2); Mean Corpuscular HGB Conc 32.6 g/dl (32-36); Mean Corpuscular Hemoglobin 30.7 pg (26-34); Mean Corpuscular Volume 94.2 fl (80-100); Mean Platelet Volume 9.6 fl (7.4-10.4); Monocytes Absolute Auto 0.5 K/mm3 (0.1-0.6); Monocytes Percent Auto 7.5 % (2.6-8.5); Neutrophils Absolute Auto 2.7 K/mm3 (1.3-6.7); Neutrophils Percent Auto 44.2 % (45.5-73.1); Platelet Count Result 215 k/mm3 (150-375); Red Blood Count 3.97 M/mm3 (4.2-5.4); Red Cell Distribution Width 14.2 % (11.5-14.5)
[2023-06-30 18:58] LABS: Alanine Aminotransferase 17 U/L (6-35); Albumin Level 4.5 g/dL (3.5-5.1); Alkaline Phosphatase 55 U/L (38-126); Anion Gap 5 mmol/L (8-16); Aspartate Amino Transferase 25 U/L (14-36); Blood Urea Nitrogen 29 mg/dL (7-17); Calcium 9.8 mg/dL (8.4-10.2); Carbon Dioxide 30 mmol/L (22-30); Chloride 102 mmol/L (98-107); Estimated Glomerular Filt Rate 54; Glucose 119 mg/dL (65-110); Potassium 4.8 mmol/L (3.4-5.0); Sodium 137 mmol/L (137-145)
[2023-07-03 22:59] LABS: Vitamin D 1,25 (OH)2 Total 39 pg/mL (18-72); Vitamin D2 1,25 (OH)2 <8 pg/mL; Vitamin D3 1,25 (OH)2 39 pg/mL
== END 2023-06-30 11:02 | disposition home or self-care (01) ==
PROVIDERS: PCP Family Medicine; Visit Provider Nurse Practitioner Family
DX: E11.9 Type 2 diabetes mellitus without complications (principal); D64.9 Anemia, unspecified; E55.9 Vitamin D deficiency, unspecified
CPT/HCPCS: 36415; 80053; 82652; 85025

== ENCOUNTER 2023-12-14 14:02 | Outpatient (CLI) | payer MEDICARE, SELFPAY ==
[2023-12-14 14:51] LABS: Alanine Aminotransferase 15 U/L (6-35); Albumin Level 4.5 g/dL (3.5-5.1); Alkaline Phosphatase 68 U/L (38-126); Anion Gap 10 mmol/L (8-16); Aspartate Amino Transferase 22 U/L (14-36); Bilirubin,Total 1.7 mg/dL (0.2-1.3); Blood Urea Nitrogen 23 mg/dL (7-17); Calcium 9.4 mg/dL (8.4-10.2); Carbon Dioxide 25 mmol/L (22-30); Chloride 107 mmol/L (98-107); Estimated Glomerular Filt Rate > 60; Glucose 103 mg/dL (65-110); Potassium 4.5 mmol/L (3.4-5.0); Sodium 142 mmol/L (137-145)
== END 2023-12-14 14:03 | disposition home or self-care (01) ==
LOC: ANHLAB 14:06
PROVIDERS: PCP Family Medicine; Visit Provider Family Medicine
DX: E11.9 Type 2 diabetes mellitus without complications (principal)
CPT/HCPCS: 36415; 80053; 83036

== ENCOUNTER 2023-12-24 01:39 | Emergency (ER) | payer MEDICARE, SELFPAY ==
[2023-12-24] VITALS (9 sets, daily range): BP systolic 135–168; BP diastolic 68–96; PULSE 58–64; RESP 15–21; TEMP 36.6–36.9; O2SAT 96–100
--- NOTE | ~2023-12-24 | CT_ITS ---
CT of the Abdomen and Pelvis: Indication: Abdominal pain Technique: 2.5 mm axial scans were obtained through the abdomen and pelvis following intravenous adm inistration of 100 cc of Omnipaque 350. Dose reduction technique was used on this scan by utilizing a utomated exposure control and iterative reconstruction technique. The dose-length product (DLP) was 1 528.06 mGy-cm. COMPARISON: 04/13/2023 Findings: Scans through the lung bases are unremarkable. The liver, spleen, pancreas, right adrenal gland, and kidneys are within normal limits. Cholecystecto my clips are present. Stable 2 cm left adrenal nodule present. There are atherosclerotic calcificatio ns of the aorta. There is aneurysmal dilatation of the distal abdominal aorta to 3.8 cm in maximum di ameter. No lymphadenopathy. No bowel obstruction or bowel wall thickening. There is no evidence to suggest acute appendicitis. Images through the pelvis were performed. Urinary bladder unremarkable. Small uterine fibroid present . Possible prominent endometrial stripe versus hypodense fibroid, unchanged. No ascites. Impression: No acute abnormality evident. 3.8 cm infrarenal abdominal aortic aneurysm. Stable 2 cm left adrenal nodule, most compatible with adenoma. Possible focal prominence of the endometrium versus hypodense fibroid, similar to prior exam. Reviewed, dictated and finalized at [facility]. 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 3.8 cm infrarenal abdominal aortic aneurysm. Stable 2 cm left adrenal nodule, most compatible with adenoma. Possible focal prominence of the endometrium versus hypodense fibroid, similar to prior exam.
--- NOTE | ~2023-12-24 | XR_ITS ---
Clinical Indication: Shortness of breath PA and lateral views of the chest: Comparison: 06/14/2023 Findings: The lungs are clear, without evidence of focal consolidation or pleural effusion. Cardiome diastinal silhouette is stable, status post CABG. Bones and soft tissues are unremarkable. Impression: Clear lungs. Reviewed, dictated and finalized at location . DISTRIBUTOR Impression: Clear lungs.
--- NOTE | 2023-12-24 01:44 | ECG_ITS ---
Measurements Intervals [place] Rate: 59 P: 21 CT: 181 QRS: -5 QRSD: 146 T: 48 QT: 463 QTc: 462 Interpretive Statements SINUS BRADYCARDIA RIGHT BUNDLE BRANCH BLOCK [120+ ms QRS DURATION, UPRIGHT V1, 40+ ms S IN I/aVL/V4/V5/V6] ABNORMAL ECG COMPARED TO ECG 06/14/2023 14:33:22 NO DIFFERENCE Electronically Signed On 12-24-2023 7:14:11 AIRSET CASTER by Abhi Mata M.D.
[2023-12-24 02:12] LABS: Basophils Percent Auto 0.6 % (0.2-1.2); Eosinophils Absolute Auto 0.5 K/mm3 (0-0.3); Eosinophils Percent Auto 8.5 % (0-4.4); Hematocrit 39.2 % (37.0-47.0); Immature Granulocyte Absolute 0.03 K/mm3 (0.00-0.031); Immature Granulocyte Percent A 0.6 % (0-0.5); Lymphocytes Absolute Auto 1.84 K/mm3 (0.9-3.2); Lymphocytes Percent Auto 33.9 % (18.3-44.2); Mean Corpuscular HGB Conc 33.2 g/dl (32-36); Mean Corpuscular Hemoglobin 30.1 pg (26-34); Mean Corpuscular Volume 90.7 fl (80-100); Mean Platelet Volume 9.6 fl (7.4-10.4); Monocytes Absolute Auto 0.5 K/mm3 (0.1-0.6); Monocytes Percent Auto 8.3 % (2.6-8.5); Neutrophils Absolute Auto 2.6 K/mm3 (1.3-6.7); Neutrophils Percent Auto 48.1 % (45.5-73.1); Platelet Count Result 157 k/mm3 (150-375); Red Blood Count 4.32 M/mm3 (4.2-5.4); Red Cell Distribution Width 13.7 % (11.5-14.5); White Blood Count 5.4 K/mm3 (4.5-10.0)
[2023-12-24 02:25] LABS: Alanine Aminotransferase 14 U/L (6-35); Albumin Level 4.3 g/dL (3.5-5.1); Alkaline Phosphatase 69 U/L (38-126); Anion Gap 12 mmol/L (8-16); Aspartate Amino Transferase 21 U/L (14-36); Bilirubin,Total 0.9 mg/dL (0.2-1.3); Blood Urea Nitrogen 23 mg/dL (7-17); Calcium 9.6 mg/dL (8.4-10.2); Carbon Dioxide 21 mmol/L (22-30); Chloride 108 mmol/L (98-107); Estimated CRCL calculation 64 ml/min; Estimated Glomerular Filt Rate > 60; Glucose 120 mg/dL (65-110); Potassium 4.4 mmol/L (3.4-5.0); Sodium 141 mmol/L (137-145)
[2023-12-24 03:04] LABS: Troponin I < 0.012 ng/mL (0.000-0.034)
[2023-12-24 03:29] LABS: Influenza A QL RT-PCR Negative (Negative); Influenza B QL RT-PCR Negative (Negative); RSV RNA, RT-PCR Negative (Negative); SARS-CoV-2 RNA PCR Negative (Negative)
--- NOTE | 2023-12-24 05:32 | ED.SOB ---
HPI - SOB/Dyspnea General Chief Complaint: Shortness of Breath/Dyspnea Stated Complaint: sob, chest pressure Time Seen by Provider: 12/24/23 02:57 History of Present Illness HPI Narrative: Patient is a 73-year-old female with a history of CAD, hypertension, COPD, diabetes presenting with shortness of breath and abdominal pain. Patient states that she was sleeping and she was having a dream that she was having trouble breathing. She woke up and she continued to feel like she was short of breath. States that she had lower chest/ upper abdominal discomfort. She used her inhaler which didn't really help so she came in for evaluation. States that her shortness of breath has resolved and she no longer has chest discomfort but she feels very bloated and nauseated. States that she now has right-sided abdominal pain. She denies fevers, cough, leg swelling, dysuria, hematuria. States that she feels like she is about to have diarrhea. Related Data Home Medications Medication Instructions Recorded Confirmed aspirin 81 mg tablet,delayed 81 mg PO DAILY 06/13/21 12/14/23 release loratadine 10 mg tablet (Claritin) 10 mg PO DAILY 06/13/21 12/14/23 epinephrine 0.3 mg/0.3 mL 0.3 mg IM ONCE PRN Anaphylaxis 03/15/23 12/14/23 injection, auto-injector (EpiPen) albuterol sulfate 90 mcg/actuation 1 puff inhalation Q4H PRN 03/29/23 12/14/23 aerosol inhaler carvedilol 6.25 mg tablet 6.25 mg PO Q12H 03/29/23 12/14/23 fluticasone propionate 50 2 spray intranasal DAILY PRN 03/29/23 12/14/23 mcg/actuation nasal spray,suspension (Children's Flonase Allergy Relief) isosorbide mononitrate 30 mg 30 mg PO DAILY 03/29/23 12/14/23 tablet,extended release 24 hr acetaminophen 500 mg tablet 2,000 mg PO BID PRN 06/30/23 12/14/23 (Tylenol Extra Strength) celecoxib 200 mg capsule 200 mg PO BID 06/30/23 12/14/23 cholecalciferol (vitamin D3) 125 125 mcg PO DAILY 06/30/23 12/14/23 mcg (5,000 unit) capsule rosuvastatin 10 mg tablet 10 mg PO DAILY 06/30/23 12/14/23 vitamin B complex 1 tablet PO BID 06/30/23 12/14/23 Allergies Allergy/AdvReac Type Severity Reaction Status Date / Time codeine Allergy Mild HIVES AND Verified 12/14/23 13:16 FACIAL SWELLING erythromycin base Allergy Mild HIVES Verified 12/14/23 13:16 oxycodone Allergy Mild HIVES Verified 12/14/23 13:16 propoxyphene Allergy Mild DOES NOT Verified 12/14/23 13:16 KNOW levofloxacin Allergy Unknown Unknown Verified 12/14/23 13:16 tramadol Allergy Swelling Verified 12/14/23 13:16 of Lip/Tongue/Throat BEE STINGS Allergy Severe Unknown Uncoded 12/14/23 13:16 Review of Systems Review of Systems: All systems reviewed & are unremarkable except as noted in HPI and below PMFSH Past Medical History Medical History AAA (abdominal aortic aneurysm) Ascending aortic aneurysm Asthma CAD (coronary artery disease) Cataract Chronic obstructive pulmonary disease, unspecified Chronic respiratory failure with hypoxia Diabetes mellitus History of rheumatic fever Obstructive sleep apnea (adult) (pediatric) She denies any sleep apnea. Statin myopathy Tobacco abuse Vertigo Surgical History Surgical History H/O section H/O colonoscopy History of appendectomy History of laparoscopic cholecystectomy History of tonsillectomy Hx of CABG (~2009) 5 vessel CABG S/P ORIF (open reduction internal fixation) fracture right ankle Family History Family History Mother Family history of malignant neoplasm Family history of lung cancer Family history of lymphoma Sibling Family history of diabetes mellitus in first degree relative Family history of malignant neoplasm Family history of heart disease in male family member before age 55 COVID Adrenal mass Adrenal nodule Father Hyperte
[2023-12-24] MEDS: ONDANSETRON INJ 4 MG/2 ML VIAL IV PUSH (05:48)
[2023-12-24] MEDS: SODIUM CHLORIDE 0.9% IV 1,000 ML 999 ML IV CONT (05:48)
--- NOTE | 2023-12-24 05:49 | ECG_ITS ---
Measurements Intervals [place] Rate: 56 P: 17 SD: 181 QRS: 2 QRSD: 141 T: 49 QT: 487 QTc: 472 Interpretive Statements SINUS BRADYCARDIA RIGHT BUNDLE BRANCH BLOCK [120+ ms QRS DURATION, UPRIGHT V1, 40+ ms S IN I/aVL/V4/V5/V6] ABNORMAL ECG COMPARED TO ECG 12/24/2023 01:46:24 NO SIGNIFICANT CHANGES Electronically Signed On 12-24-2023 7:17:39 FREELANCE GRAPHIC DESIGNER by Abhi Mata M.D.
[2023-12-24] MEDS: SIMETHICONE 80 MG TAB.CHEW PO (06:39)
[2023-12-24 07:04] LABS: Lipase 127 U/L (23-300)
[2023-12-24 07:16] LABS: Troponin I < 0.012 ng/mL (0.000-0.034)
[2023-12-24 07:21] LABS: Appearance Urine Clear (Clear); Bacteria Urine 4+ /hpf; Bilirubin Urine Negative (Negative); Blood Urine Negative (Negative); Color Urine Yellow (Yellow); Glucose Urine UA Negative (Negative); Ketones Urine Negative (Negative); Leukocyte Esterase Ur Negative LEU/UL (Negative); Nitrate Urine Positive (Negative); Non Pathogenic Casts 0-2; Protein Urine Negative (Negative); RBC Urine 0-2 /hpf (0-2); Squamous Epithelial Cell Urine Occasional /hpf (Few); WBC Urine 0-5 /hpf; pH Urine 5.5 (5.0-9.0)
[2023-12-24 07:46] LABS: Add Urine Microscopic? YES; Specific Grav Ur 1.073 (1.001-1.035)
== END 2023-12-24 07:45 | disposition home or self-care (01) ==
PROVIDERS: Emergency Provider Emergency Medicine; PCP Family Medicine
DX: R06.02 Shortness of breath (principal); R10.9 Unspecified abdominal pain; R11.0 Nausea; Z20.822 Contact with and (suspected) exposure to COVID-19; I25.10 Atherosclerotic heart disease of native coronary artery without angina pectoris; I10 Essential (primary) hypertension; E11.9 Type 2 diabetes mellitus without complications; J44.9 Chronic obstructive pulmonary disease, unspecified; J96.11 Chronic respiratory failure with hypoxia; G47.33 Obstructive sleep apnea (adult) (pediatric); Z95.1 Presence of aortocoronary bypass graft; Z87.891 Personal history of nicotine dependence; Z90.49 Acquired absence of other specified parts of digestive tract; Z79.82 Long term (current) use of aspirin; Z79.85 Long-term (current) use of injectable non-insulin antidiabetic drugs; I71.43 Infrarenal abdominal aortic aneurysm, without rupture; E27.8 Other specified disorders of adrenal gland; R93.89 Abnormal findings on diagnostic imaging of other specified body structures; R00.1 Bradycardia, unspecified; I45.10 Unspecified right bundle-branch block
CPT/HCPCS: 36415; 71046; 74177; 80053; 81001; 83690; 84484; 85025; 87637; 93005; 96361; 96374; 99284; A9270; J2405; J7030; Q9967

== ENCOUNTER 2024-07-23 12:09 | Emergency (ER) | payer MEDICARE, SELFPAY ==
[2024-07-23 12:26] VITALS: BP 131/106; PULSE 68; RESP 16; TEMP 35.8; O2SAT 97
--- NOTE | 2024-07-23 12:33 | ED.URI ---
HPI - URI/Sore Throat General Chief Complaint: Upper Respiratory Infection Stated Complaint: Sore Throat/Bodyaches Time Seen by Provider: 07/23/24 12:34 Source: patient and RN notes reviewed Mode of arrival: ambulatory Limitations: no limitations History of Present Illness HPI Narrative: 74-year-old female with hx DM, CAD, AAA presented for complaint headache, body aches, sinus pressure/congestion, cough, fever/chills. Onset 4 days. Endorses she is more short of breath than normal. Denies wheezing, chest pain, palpitations, or vomiting. Takes antihistamine and tylenol. MD elicited complaint: cough Related Data Home Medications Medication Instructions Recorded Confirmed aspirin 81 mg tablet,delayed 81 mg PO DAILY 06/13/21 07/23/24 release loratadine 10 mg tablet (Claritin) 10 mg PO DAILY 06/13/21 07/23/24 epinephrine 0.3 mg/0.3 mL 0.3 mg IM ONCE PRN Anaphylaxis 03/15/23 07/23/24 injection, auto-injector (EpiPen) albuterol sulfate 90 mcg/actuation 1 puff inhalation Q4H PRN Dyspnea 03/29/23 07/23/24 aerosol inhaler carvedilol 6.25 mg tablet 6.25 mg PO Q12H 03/29/23 07/23/24 fluticasone propionate 50 2 spray intranasal DAILY PRN 03/29/23 04/11/24 mcg/actuation nasal spray,suspension (Children's Flonase Allergy Relief) isosorbide mononitrate 30 mg 30 mg PO DAILY 03/29/23 07/23/24 tablet,extended release 24 hr acetaminophen 500 mg tablet 2,000 mg PO BID PRN Pain 06/30/23 07/23/24 (Tylenol Extra Strength) celecoxib 200 mg capsule 200 mg PO BID 06/30/23 07/23/24 cholecalciferol (vitamin D3) 125 125 mcg PO DAILY 06/30/23 07/23/24 mcg (5,000 unit) capsule vitamin B complex 1 tablet PO BID 06/30/23 07/23/24 Allergies Allergy/AdvReac Type Severity Reaction Status Date / Time codeine Allergy Mild HIVES AND Verified 07/23/24 12:33 FACIAL SWELLING erythromycin base Allergy Mild HIVES Verified 07/23/24 12:33 oxycodone Allergy Mild HIVES Verified 07/23/24 12:33 propoxyphene Allergy Mild DOES NOT Verified 07/23/24 12:33 KNOW levofloxacin Allergy Unknown Unknown Verified 07/23/24 12:33 tramadol Allergy Swelling Verified 07/23/24 12:33 of Lip/Tongue/Throat BEE STINGS Allergy Severe Unknown Uncoded 04/11/24 09:16 Review of Systems Review of Systems: CONSTITUTIONAL: Endorses malaise, chills, sweats, fever EYES: Denies visual changes, redness, or discharge ENT: Reports rhinorrhea, congestion, denies otalgia, sore throat CARDIOVASCULAR: Denies chest pain, palpitations, edema RESPIRATORY: Reports cough, post nasal drainage. Denies dyspnea GASTROINTESTINAL: Denies abdominal pain, nausea, vomiting, reports diarrhea MUSCULOSKELETAL: Endorses myalgia NEUROLOGIC: endorses headache PMFSH Past Medical History Medical History AAA (abdominal aortic aneurysm) Ascending aortic aneurysm Asthma CAD (coronary artery disease) Cataract Chronic obstructive pulmonary disease, unspecified Chronic respiratory failure with hypoxia Diabetes mellitus History of rheumatic fever Obstructive sleep apnea (adult) (pediatric) She denies any sleep apnea. Statin myopathy Tobacco abuse Vertigo Surgical History Surgical History H/O section H/O colonoscopy History of appendectomy History of laparoscopic cholecystectomy History of tonsillectomy Hx of CABG (~2009) 5 vessel CABG S/P ORIF (open reduction internal fixation) fracture right ankle Family History Family History Mother Family history of malignant neoplasm Family history of lung cancer Family history of lymphoma Sibling Family history of diabetes mellitus in first degree relative Family history of malignant neoplasm Family history of heart disease in male family member before age 55 COVID Adrenal mass Adrenal nodule Father Hypertension Family history o
[2024-07-23 12:35] VITALS: BP 131/106; PULSE 68; RESP 16; TEMP 35.8; O2SAT 97
[2024-07-23 12:57] LABS: EDSTREPNEGPOS1 Negative
== END 2024-07-23 12:59 | disposition home or self-care (01) ==
PROVIDERS: Emergency Provider Nurse Practitioner Family; PCP Family Medicine
DX: J06.9 Acute upper respiratory infection, unspecified (principal); Z20.822 Contact with and (suspected) exposure to COVID-19; Z87.891 Personal history of nicotine dependence; I25.10 Atherosclerotic heart disease of native coronary artery without angina pectoris; J44.9 Chronic obstructive pulmonary disease, unspecified; Z95.1 Presence of aortocoronary bypass graft; Z79.82 Long term (current) use of aspirin
CPT/HCPCS: 87081; 87426; 87880; 99213; G0463

== ENCOUNTER 2024-07-25 09:06 | Outpatient (CLI) | payer MEDICARE, SELFPAY ==
[2024-07-25 10:39] LABS: Alanine Aminotransferase 13 U/L (6-35); Albumin Level 4.3 g/dL (3.5-5.1); Alkaline Phosphatase 60 U/L (38-126); Anion Gap 8 mmol/L (4-12); Aspartate Amino Transferase 23 U/L (14-36); Bilirubin,Total 1.2 mg/dL (0.2-1.3); Blood Urea Nitrogen 22 mg/dL (7-17); Carbon Dioxide 29 mmol/L (22-30); Chloride 105 mmol/L (98-107); Estimated Glomerular Filt Rate > 60; Glucose 93 mg/dL (65-110); Potassium 4.3 mmol/L (3.4-5.0); Sodium 142 mmol/L (137-145)
[2024-07-25 10:54] LABS: Hemoglobin A1C 5.9 % (<5.7)
== END 2024-07-25 09:07 | disposition home or self-care (01) ==
PROVIDERS: PCP Family Medicine; Visit Provider Family Medicine
DX: E11.9 Type 2 diabetes mellitus without complications (principal); I10 Essential (primary) hypertension; Z79.4 Long term (current) use of insulin
CPT/HCPCS: 36415; 80053; 83036

== ENCOUNTER 2025-07-17 18:14 | Emergency (ER) | payer MEDICARE, SELFPAY ==
--- NOTE | ~2025-07-17 | CT_ITS ---
EXAMINATION: CT abdomen pelvis w con DATE: 07/17/2025 19:30 INDICATION: Abdominal pain, nausea and vomiting TECHNIQUE: Computed tomography (CT) of the abdomen and pelvis was performed with 100 mL Omnipaque-350 intravenous contrast. Automated exposure control and iterative reconstruction technique were employed. The dose-length product was 1329.52 mGy-cm. COMPARISON: None FINDINGS: No significant change in mild irregular septal line thickening at the bilateral lung bases which could be due to mild chronic interstitial fibrosis, atelectasis or less likely mild pulmonary edema. Heart size normal. Atherosclerotic coronary artery calcification with change of prior median sternotomy and coronary artery bypass grafting. Aortic valve and mitral annular calcifications. Cholecystectomy clips at gallbladder fossa. Liver, spleen, pancreas and right adrenal gland are normal. No significant interval change since 2016 and a 2 cm left adrenal nodule most consistent with an adenoma. A few bilateral subcentimeter low-attenuation renal cysts. Mild diverticulosis at the descending and sigmoid colon. There is new subtle inflammatory stranding along the sigmoid colon suspicious for either diverticulitis or distal colitis. Calcified degenerated uterine fibroid at the anteverted uterus. There appears be thickening of the endometrial complex measuring approximately 1.4 similar and sagittal imaging. Bladder is normal. No abscess or free intraperitoneal gas or fluid. No pathologically enlarged abd ominal or pelvic lymphadenopathy. There is calcified atherosclerosis of the aorta and many of the other arteries. 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 Mild fusiform aneurysm of the infrarenal aorta measuring up to 3.9 x 3.6 cm. Severe thoracic and mild lumbar spondylosis. IMPRESSION: 1. Stranding about the mid sigmoid colon where there are multiple diverticula which could be due to diverticulitis or distal colitis. 2. Fibroid uterus with suggestion of thickening of the endometrial complex which raises some concern for endometrial carcinoma with differential including endometrial hyperplasia, polyp or submucosal fibroid. Correlate for abnormal uterine bleeding and would recommend follow-up pelvic ultrasound for further evaluation. 3. 3.9 cm infrarenal abdominal aortic aneurysm. 4. 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 Reviewed, dictated and finalized at location A. IMPRESSION: 1. Stranding about the mid sigmoid colon where there are multiple diverticula w hich could be due to diverticulitis or distal colitis. 2. Fibroid uterus with suggestion of thickening of the endometrial complex whic h raises some concern for endometrial carcinoma with differential including end ometrial hyperplasia, polyp or submucosal fibroid. Correlate for abnormal uteri ne bleeding and would recommend follow-up pelvic ultrasound for further evaluat ion. 3. 3.9 cm infrarenal abdominal aortic aneurysm. 4. 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
--- OUTSIDE RECORDS SUMMARY | 2025-07-17 18:16 | XMS_ITS | Patient Health Record ---
Author Organization [email or web address] Address [address] [facility] [address] [address] Care Team Providers Care Abstractor Name Role Phone Vitaly Reddy Unavailable [phone] Reason For Referral No Information Plan Of Treatment No Information
--- OUTSIDE RECORDS SUMMARY | 2025-07-17 18:16 | XMS_ITS | Clinical Summary ---
Author Organization [facility] Care Team Providers Care Sales Agent Insurance Name Role Phone Unavailable Primary Care Provider Unavailabl e Social History Tobacco Use Types Packs/Day Years Used Date Smoking Tobacco: Never Assessed Comments Unknown Sex and Gender Information Value Date Recorded Sex Assigned at Not on file Legal Sex Female 2:30 PM CDT Gender Identity Not on file Sexual Orientation Not on file Plan of Treatment Health Maintenance Due Date Last Done Comments Hepatitis C Virus (HCV) Screening 1950 TdaP Immunization 1950 Cologuard 1995 Colonoscopy 1995 Colorectal Cancer Screening 1995 Immunochemical Fecal Occult Blood 1995 Pneumococcal Immunization (5 0+ years) (1 of 1 - PCV) 2000 Zoster Immunization (1 of 2) 2000 SARS-COV-2 Immunization (1 - 2023- season) 2024 Respiratory Syncytial Virus (RSV) Immunization (Adult) (1 - 1-dose 75+ series) 2025 Influenza Immunization (#1) 2025 Hepatitis B Immunization Aged Out No longer eligible based on patient's age to complete this topic Human Papillomavirus (HPV) Immunization Aged Out No longer eligible b ased on patient's age to complete this topic Meningococcal Immunization (ACWY) Aged Out No longer eligible based on patient's age to complete this topic Rotavirus Immunization Aged Out No lo nger eligible based on patient's age to complete this topic
--- OUTSIDE RECORDS SUMMARY | 2025-07-17 18:16 | XMS_ITS | Clinical Summary ---
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
--- OUTSIDE RECORDS SUMMARY | 2025-07-17 18:16 | XMS_ITS | Clinical Summary ---
Author Organization [facility] [address] Address [address] [place] [address] Care Team Providers Care Jira Developer Name Role Phone Howie Vazquez MD Unavailable [phone] Bebeto Figueroa MD Primary Care Provider Allergies Active Allergy Reactions Criticality Noted Date Comments Codeine Propoxyphene-Acetamino phen Hives,Itching Medium 12/05/2020 Erythromycin Levofloxacin Unknown High 05/28/2008 Oxycodone Oxycodone-Acetaminophe n Other (See comments) Low 12/05/2020 Reaction: Propoxyphene Bwkkagq-Rwi-Xvz Reductase Inhibitors Unknown Low Pt does not recall specifically and is not sure if she had issues. Streptomycin Unknown High 05/28/2008 Venom-Honey Bee Vision changes Medium 12/05/2020 Medications citalopram (CeleXA) 40 mg tablet take 1 tablet (40MG) by oral route every day 0 01/07/20 12 Active albuterol (PROVENTIL,VENT LISA) 90 mcg/actuation inhaler Take as directed 0 0 02/02/20 09 Active buPROPion SR (WELLBUTRIN SR) 150 mg 12 hr tablet Take 1 tablet (150 mg total) by mouth 2 (two) times a day 01/07/20 21 Active aspirin (Adult Low Dose Aspirin) 81 mg enteric coated tablet Take 1 tablet (81 mg total) by mouth daily 10/09/20 21 Active Additional Information Patient taking differently:81 mg oral2 times daily, chewable, Reported on 07/11/2025 ezetimibe (ZETIA) 10 mg tablet TAKE 1 TABLET(10 MG) BY MOUTH DAILY 90 tablet 2 09/29/20 22 Active lisinopriL (PRINIVIL,ZESTR IL) 20 mg tablet TAKE 1 TABLET(20 MG) BY MOUTH DAILY 90 tablet 2 09/29/20 22 Active nitroglycerin (NITROSTAT) 0.4 mg SL tabletIndicatio ns:acute episode of anginal pain Place 1 tablet (0.4 mg total) under the tongue every 5 (five) minutes as needed for chest pain 30 tablet 3 08/11/20 24 Active levocetirizine (XYZAL) 5 mg tablet Take 1 tablet (5 mg total) by mouth every evening Active Ozempic 1 mg/dose (4 mg/3 mL) pen injector injection 02/03/20 25 Active rosuvastatin (CRESTOR) 10 mg tablet Take 1 tablet (10 mg total) by mouth daily 12/12/19 25 Active carvediloL (COREG) 6.25 mg tabletIndicatio ns:Coronary artery disease involving southern ute coronary artery of southern ute heart without angina pectoris Take 1 tablet (6.25 mg total) by mouth 2 (two) times a day with meals 180 tablet 3 02/13/20 25 Active isosorbide mononitrate ER (IMDUR) 60 mg 24 hr tablet TAKE 1 TABLET BY MOUTH EVERY DAY 90 tablet 1 06/18/20 25 Active isosorbide mononitrate ER (IMDUR) 60 mg 24 hr tabletIndicatio ns:prevention of anginal pain in coronary artery disease Take 1 tablet (60 mg total) by mouth daily 90 tablet 3 08/11/20 24 025 Discontinued Active Problems Problem Noted Date Diagnosed Date Severe obesity 02/12/2025 Infrarenal abdominal aortic aneurysm (AAA) witho ut rupture 06/04/2023 Assessment & Plan (07/13/2025 11:44 AM CDT): Currently measuring 4.1 cm. Continue annual surveillance with aortic duplex. Continue good blood pressure control aspirin statin therapy. Assessment & Plan (06/04/2023 1:14 PM CDT): 3.7 cm AAA, discussed the importance of ongoing surveillance. Aortoiliac duplex ordered for 1 year. Continue statin therapy in good blood pressure control. PVD (peripheral vascular disease) 05/14/2023 Assessment & Plan (05/14/2023 1:36 PM CDT): Lower extremities warm well perfused palpable distal pulses left lower extremity. Right distal signals obtained. She denies any claudication symptoms or rest pain. No open ulcerations to the right foot. Plan: Obtain a lower extremity arterial Doppler. Dilation of aorta 04/15/2023 Assessment & Plan (05/14/2023 1:32 PM CDT): History of ascending aortic aneurysms measuring 4.3 cm infrarenal abdominal aortic aneurysm measuring 3.7 cm. She denies any symptoms of abdominal flank or back pain. Denies any claudication pain. She was unable to bring the disc with her but states she is able to bring it with her at her next visit. Discussed the patient with Dr. Konx. Plan: Obtain images from the outside facility or the disc and upload to PACS. If This is unable to be obtained repeat CTA. Assessment & Plan (04/15/2023 10:18 PM CDT): Abdominal aortic ultrasound noted a 4.2 cm aneurysm. She underwent a CT scan for more accurate measurement and awaiting final interpretation. Continue good blood pressure in heart rate control. Intolerant to statins in the past. Awaiting Repatha approval. Will continue routine monitoring with local manager simulation. We will have films placed in our system. Body mass index 40.0-44.9, adult (CMS/HCC) 01/28 Statin myopathy 04/04/2021 Drug intolerance 10/05/2016 Overview (02/26/2017): Statin intolerance Body mass index 40+ - severely obese 04/16/2016 Overview (02/26/2017): Morbid obesity with BMI of 40.0-44.9, adult Hypertension associated with diabetes 04/16/2016 Overview (06/04/2023): Assessment & Plan (06/04/2023 1:15 PM CDT): Stable continue lisinopril 20 mg. Assessment & Plan (04/15/2023 10:14 PM CDT): Blood pressure appropriately controlled. Reports occasional episodes of lightheadedness/dizziness with positional changes. Continue current regimen with carvedilol and lisinopril. Continue to keep blood pressure diary. If antihypertensive medications need adjustment due to low blood pressure then would recommend decreasing lisinopril first as carvedilol and Imdur are also being utilized as antianginals. Assessment & Plan (03/18/2023 10:34 AM CDT): -BP at goal -Carvedilol 6.25 mg BID -resume lisinopril -Titrate regimen as needed Mixed diabetic hyperlipidemi a associated with type 2 diabetes mellitus 04/16/2016 Overview (06/04/2023): Assessment & Plan (06/04/2023 1:15 PM CDT): Stable continue Crestor 20 mg. Assessment & Plan (04/15/2023 10:14 PM CDT): Intolerant to multiple statins. Awaiting Repatha approval. Assessment & Plan (03/18/2023 10:34 AM CDT): -Has been intolerant to multiple statins; currently on ezetimibe 10 mg daily, will need to consider PCSK9 inhibition Right fascicular block 04/16/2016 Overview (02/26/2017): Right bundle branch block Chronic obstructive pulmonary disease 04/16/2016 Overview (02/26/2017): Chronic obstructive pulmonary disease, unspecified COPD type Assessment & Plan (03/18/2023 10:35 AM CDT): -Albuterol PRN Recurrent major depressive disorder 04/16/2016 Overview (02/26/2017): Recurrent major depressive disorder, remission status unspecified Assessment & Plan (03/18/2023 10:32 AM CDT): -Continue home medication regimen: Wellbutrin, Buspar, Celexa Coronary arteriosclerosis in southern ute artery 04/16 Overview (02/26/2017): Coronary artery disease involving southern ute coronary artery of southern ute heart with other form of angina pectoris Preoperative state 04/16/2016 Overview (02/26/2017): Preoperative cardiovascular examination Coronary artery disease invo lving southern ute coronary artery of southern ute heart without angina pectoris 04/07/2014 Overview (02/26/2017): Coronary artery disease Assessment & Plan (04/15/2023 10:11 PM CDT): LHC on 03/08/23 at [facility] showing severe three vessel southern ute disease and patent SVG-ramus and SVG-PDA/PLV, but they were unable to cannulate the SAAVEDRA-LAD or SVG-diagonal grafts. Followed by a heart CTA on 03/18/2023 revealing patent grafts to the to SAAVEDRA-LAD and SVG-diagonal grafts. Recently started on Imdur with significant improvement in her symptoms. Continue aspirin, carvedilol, Zetia, lisinopril, Imdur and PRN SL Nitro. Intolerant to multiple statins and currently awaiting Repatha approval. Patient at acceptable risk to proceed with knee surgery. Left heart catheterization film to be scanned in to our system. Assessment & Plan (03/18/2023 10:51 AM CDT): -S/P CABG in 2005 (SAAVEDRA-LAD, SVG-diagonal, SVG-ramus, SVG-PDA/PLV) -Unable to cannulate all grafts on recent LHC -Will need to obtain coronary angiograms from 02/2023 and from 2011 to assess graft anatomy in case of repeat coronary angiography -Will need to determine best plan for assessment of CAD; CTA heart ordered as OP today, will re-order for inpatient. -Will make NPO in case of procedures -ASA 81 mg daily -Carvedilol 6.25 mg BID -Has been intolerant to multiple statins; currently on ezetimibe 10 mg daily, will need to consider PCSK9 inhibition Resolved Problems Problem Noted Date Diagnosed Date Resolved Date Morbid obesity with BMI of 45.0-49.9, adult 04/04/2021 06/08/2023 Dyslipidemia associated with type 2 diabetes mellitus (CMS/HCC) 10/05/2016 10/09/2021 Overview (02/26/2017): DM type 2 with diabetic dyslipidemia Encounters Date Type Department Care Team Description 07/12/2025 Orders Only [facility] Vascular at [address] [place] [phone] Lorena Knox MD Infrarenal abdominal aortic aneurysm (AAA) without rupture (Primary Dx) 07/11/2025 9:15 AM CDT Office Visit [facility] at [address] [place] [address] Mattie Resendiz NP Mixed diabetic hyperlipidemia associated with type 2 diabetes mellitus (HCC) (Primary Dx); Hypertension associated with diabetes (HCC); Infrarenal abdominal aortic aneurysm (AAA) without rupture 07/02/2025 10:00 AM CDT Ancillary Procedure [facility] V[facility] and Vein Surgery at [address] [place] [phone] Infrarenal abdominal aortic aneurysm (AAA) without rupture 05/07/2025 10:15 AM CDT Office Visit [facility] Cardiology [address] [facility] [address] [place] [address] Hypertension associated with diabetes (HCC) (Primary Dx) from Last 3 Months Surgical History Surgery Date Site/Laterality Comments CORONARY ARTERY BYPASS GRAFT Coronary Artery Bypass Graft APPENDECTOMY ANKLE SURGERY SECTION CHOLECYSTECTOMY REPLACEMENT TOTAL KNEE 06/04/2023 CARDIAC CATHETERIZATION Medical History Medical History Date Comments Cardiovascular disease Coronary Artery Disease Hypertension Hypertension Adiposity Obesity Anxiety Heart attack (HCC) Cataracts, bilateral COPD (chronic obstructive pulmonary disease) Asthma Arthritis Obesity Sinusitis Wears dentures Family History Medical History Relation Name Comments Arrhythmia Brother 2 Arrhythmias; Heart attack Brother 2 Adrenal disorder Daughter Coronary artery disease Father Rabia nary Artery Bypass Graft; Liver cancer Father Diabetes type I Grandchild Cancer Mother Sudden Paternal Grandfather Sudden ; Coronary artery disease Sister 1 1 Rabia nary Artery Bypass Graft; Coronary artery disease Sister 2 2 Rabia nary Artery Bypass Graft; Valvular heart disease Sister 3 3 Valvu lar Heart Disease; Relation Name Status Comments Brother 1 Alive Brother 2 Daughter Alive Father Alive Grandchild Alive Mother Alive Paternal Grandfather Alive Sister 1 1 Alive Sister 2 2 Alive Sister 3 3 Alive Social History Tobacco Use Types Packs/Day Years Used Date Smoking Tobacco: Former Smokeless Tobacco: Never Tobacco Cessation:Counseling Given: Not Answered Alcohol Use Standard Drinks/Week Comments No 0 (1 standard drink = 0.6 oz pur e alcohol) PHQ-2 Answer Date Recorded PHQ-2 Total Score (If total score is 3 or more points, staff should administer the PHQ-9) 1 03/17/2023 Personal Safety Answer Date Recorded Have you ever been in or are you currently in a harmful physical or emotional relationship or is someone making you feel afraid or unsafe? 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 Gender Identity Not on file Sexual Orientation Not on file Obstetrics History Last Filed Vital Signs Vital Sign Reading Time Taken Comments Blood Pressure 161/92 07/11/2025 9:36 AM CDT Pulse 68 07/11/2025 9:36 AM CDT Temperature 37.1 C (98.8 F) 08/14/2024 9:53 AM CDT Respiratory Rate 18 03/19/2023 2:44 PM CDT Oxygen Saturation 95% 07/11/2025 9:36 AM CDT Inhaled Oxygen Concentration - - Weight 106.6 kg (235 lb) 07/11/2025 9:36 AM CDT Height 160 cm (5' 3) 07/11/2025 9:36 AM CDT Body Mass Index 41.63 07/11/2025 9:36 AM CDT Plan of Treatment Health Maintenance Due Date Last Done Comments Albumin Creatinine Ratio, Urine 1950 Colon Cancer Screening-Colonoscopy 1950 Hepatitis C Screening 1950 Osteoporosis Screening-Bone Density Scan 1950 Dilated Eye Exam 1950 Foot Exam 1950 DTaP/Tdap/Td Vaccine (1 - Tdap) 1961 Hepatitis B Screening 1968 Pneumococcal vaccine 65+ (1 of 2 - PCV) 1969 Zoster Vaccine (1 of 2) 2000 Well Visit 65+ 2015 Hemoglobin A1C 12/06/2023 06/05/2023, 02/21, 01/21/2023 Depression Screening 03/14/2024 03/14/2023, 03/14/20 Fall Risk Assessment 03/19/2024 03/19/2023 eGFR 03/19/2024 03/19/2023, 03/17/2023 Influenza Vaccine (#1) 2025 Lipid Panel 08/11/2025 08/11/2024, 02/21, 01/28/2023, Additional history exists Procedures Procedure Name Priority Date/Time Associated Diagnosis Comments US DUPLEX SCAN AORTA, IVC ILIAC COMPLETE Schedule Routine, Read Routine (OP Routine) 07/02/2025 10:16 AM CDT Infrarenal abdominal aortic aneurysm (AAA) without rupture POCT LIPID PANEL Routine 08/11/2024 3:35 PM CDT Coronary artery disease involving southern ute coronary artery of southern ute heart without angina pectoris EGFR Routine 03/19/2023 5:06 AM CDT HEMOGLOBIN A1C Timed 03/17/2023 10:22 PM CDT from Last 3 Months or Most Recently Relevant to Health Maintenance Results * US Duplex Scan Aorta, IVC Iliac Complete (07/02/2025 10:16 AM CDT) Anatomical Region Laterality Modality Vascular N/A Ultrasound 07/02/2025 9:55 AM CDT Narrative 07/04/2025 8:54 AM CDT Vascular & Vein Surgery [address] [facility] [facility] [place] [address] Abdominal Aortic Duplex Ultrasound Report Patient Name: SIDNEYMaryALE M : 1950 Study Date: 07/02/2025 9:55:33 AM Gender: F Carroter: Location: [facility] Ref Provider: LORENA KNOX Quality: Adequate Order Provider: LORENA KNOX PROCEDURES: Arterial Report: Duplex ultrasound imaging of the abdominal aorta. INDICATIONS: Follow up AAA. COMPARISONS: The previous exam was completed on 07/12/24: AAA 3.8 cm, RCIA 50-75. Compared to prior there is increase in diameter of AAA. STENTS: Velocities Value Aorta Prx PSV 72.00 cm/sec Aorta Mid PSV 72.00 cm/sec Aorta Dst PSV 40.00 cm/sec Rt Com Iliac Prx PSV 254.00 cm/sec Lt Com Iliac Prx PSV 148.00 cm/sec BYPASS: Velocities Value Aorta Prx AP Dim 3.06 cm Aorta Prx Trans Dim 2.96 cm Aorta Mid AP Dim 2.49 cm Aorta Mid Trans Dim 2.27 cm Aorta Dst AP Dim 4.12 cm Aorta Dst Trans Dim 3.67 cm Rt Com Iliac Prx AP Dim 1.41 cm Rt Com Iliac Prx Trans Dim 1.48 cm Lt Com Iliac Prx AP Dim 0.97 cm Lt Com Iliac Prx Trans Dim 1.14 cm MEASUREMENTS: FINDINGS: Study Quality: Limited. Patient not NPO. Abdominal Aorta: Infrarenal abdominal aortic aneurysm measurin.12 x 3.67 cm. Atherosclerotic plaque noted. Elevated PSV 254 cm/s noted at right common iliac artery. Limited visualization of bilateral common iliac arteries due to overlying bowel. CONCLUSIONS: 1. Increasing size of an abdominal aortic aneurysm now measuring 4.12 cm. Right common iliac artery with moderate 50-75% stenosis. ATTESTATION: I have reviewed and interpreted the pertinent images and measurements of this study. I attest to the conclusions in the final report that is provided above. Electronically Signed By: Lorena Knox MD 07/04/2025 8:46:16 AM CDT Procedure Note Lorena Knox MD - 07/04/2025 Vascular & Vein Surgery [address] [place] [id number] Abdominal Aortic Duplex Ultrasound Report Patient Name: ALE UPTON M : 1950 Study Date: 07/02/2025 9:55:33 AM Gender: F Carroter: Location: [facility] Ref Provider: LORENA KNOX Quality: Adequate Order Provider: LORENA KNOX PROCEDURES: Arterial Report: Duplex ultrasound imaging of the abdominal aorta. INDICATIONS: Follow up AAA. COMPARISONS: The previous exam was completed on 07/12/24: AAA 3.8 cm, RCIA 50-75. Compared to prior there is increase in diameter of AAA. STENTS: Velocities Value Aorta Prx PSV 72.00 cm/sec Aorta Mid PSV 72.00 cm/sec Aorta Dst PSV 40.00 cm/sec Rt Com Iliac Prx PSV 254.00 cm/sec Lt Com Iliac Prx PSV 148.00 cm/sec BYPASS: Velocities Value Aorta Prx AP Dim 3.06 cm Aorta Prx Trans Dim 2.96 cm Aorta Mid AP Dim 2.49 cm Aorta Mid Trans Dim 2.27 cm Aorta Dst AP Dim 4.12 cm Aorta Dst Trans Dim 3.67 cm Rt Com Iliac Prx AP Dim 1.41 cm Rt Com Iliac Prx Trans Dim 1.48 cm Lt Com Iliac Prx AP Dim 0.97 cm Lt Com Iliac Prx Trans Dim 1.14 cm MEASUREMENTS: FINDINGS: Study Quality: Limited. Patient not NPO. Abdominal Aorta: Infrarenal abdominal aortic aneurysm measurin.12 x 3.67 cm.Atherosclerotic plaque noted. Elevated PSV 254 cm/s noted at right common iliac artery. Limitedvisualization of bilateral common iliac arteries due to overlying bowel. CONCLUSIONS: 1. Increasing size of an abdominal aortic aneurysm now measuring 4.12 cm.Right common iliac artery with moderate 50-75% stenosis. ATTESTATION: I have reviewed and interpreted the pertinent images and measurements ofthis study. I attest to the conclusions in the final report that is provided above. Electronically Signed By: Lorena Knox MD 07/04/2025 8:46:16 AM CDT Lorena Knox MD [facility] US PROCEDURES Final Result * POCT lipid panel (08/11/2024 3:35 PM CDT) Cholesterol, POC 126 mg/dL Comment:GLU = 147 HDL, POC 33 mg/dL Triglycerides, POC 196 mg/dL LDL Cholesterol POC 55 mg/dL Chol/HDL Ratio, POC 1.7 Non-HDL Cholesterol, POC 94 mg/dL Cholesterol Total, POC 126 mg/dL Capillary blood 08/11/2024 3 :35 PM CDT us Prince Gutierrez MD POINT OF CARE TEST TOÑITO CRUZ Final Result * (ABNORMAL) eGFR (03/19/2023 5:06 AM CDT) eGFR 67(L) 90 - 130 mL/min/1. 73 m2 [facility] Comment: Interpretive Data Reference Interval Normal >/= 90 mL/min/1.73m2 Mildly decreased* 60 - 89 mL/min/1.73m2 Mildly to moderately decreased 45 - 59 mL/min/1.73m2 Moderately to severely decreased 30 - 44 mL/min/1.73m2 Severely decreased 15 - 29 mL/min/1.73m2 Kidney Failure < 15 mL/min/1.73m2 *Relative to young adult level Estimated glomerular filtration rate is determined by the 2020 CKD-EPI equation recommended by the National Kidney Foundation (A Unifying Approach to GFR Estimation: Recommendations of the NKF-ASK Task Force on Reassessing the Inclusion of Race in Diagnosing Kidney Disease, JASN 2020). The CKD-EPI equation should not be used for patients with unstable renal function and has not been validated in children and those over 70. Current interpretive data was last reviewed 2021. Blood 03/19/2023 5:06 AM CDT 03/19/2023 5:52 AM CDT Daria Lopes [facility] LAB BLOOD ORDERABLES Final R esult [facility] Department [place] [address] * (ABNORMAL) Hemoglobin A1c (03/17/2023 10:22 PM CDT) Hgb A1C 5.8(H) 4.0 - 5.6 % [facility] Estimated Average Glucose 120 mg/dL [facility] Comment: The ADA recommends reporting an estimated Average Glucose (eAG) with all Hemoglobin A1c results using the equation derived from a study of 507 normal and diabetic adults. Minority populations were underrepresented and children were not included. (Diabetes Care 2020; 43(S1): S66-S73). The eAG is not equivalent to a fasting glucose. Blood 03/17/2023 10:2 2 PM CDT 03/17/2023 10:43 PM CDT Anil Meredith MD LAB BLOOD ORDERABLES Final Result [facility] Department [place] [address] from Last 3 Months or Most Recently Relevant to Health Maintenance Insurance MEDICARE MEDICARE [facility] MEDICARE [place] [address] MEDICARE FORMERLY [facility] Advance Directives For more information, please contact: [phone] * Full Code (Latest Code Status on File) Date Activated Date Inactivated Comments 03/17/2023 9:26 PM 03/19/2023 9:42 PM Care Teams Jira Developer Relationship Specialty Start Date End Date Bebeto Figueroa MD [address] [facility] [address] [place] [address] PCP - General Family Medicine 10/13/23 Howie Vazquez MD Consulting Physician Cardiology 03/19/23
[2025-07-17 18:20] VITALS: BP 173/64; PULSE 69; RESP 16; TEMP 36.8; O2SAT 95
--- NOTE | 2025-07-17 18:47 | PC.NURSE ---
Pt attempted to provide urine sample and states she missed the cup. Will try again in a little while
[2025-07-17 19:03] LABS: Hematocrit 41.1 % (37.0-47.0); Hemoglobin 13.6 g/dL (12.0-15.0); Immature Granulocyte Percent A 0.4 % (0-0.5); Lymphocytes Absolute Auto 2.96 K/mm3 (0.9-3.2); Mean Corpuscular HGB Conc 33.1 g/dl (32-36); Mean Corpuscular Hemoglobin 30.5 pg (26-34); Mean Corpuscular Volume 92.2 fl (80-100); Nucleated Red Blood Cells Absolute Auto 0.000 K/mm3 (0.0-0.012); Nucleated Red Blood Cells Perc 0.0 % (0.0-0.2); Platelet Count Result 200 k/mm3 (150-375); Red Blood Count 4.46 M/mm3 (4.2-5.4); White Blood Count 13.8 K/mm3 (4.5-10.0)
[2025-07-17 19:08] LABS: Alanine Aminotransferase 15 U/L (6-35); Albumin Level 4.7 g/dL (3.5-5.1); Alkaline Phosphatase 67 U/L (38-126); Anion Gap 12 mmol/L (4-12); Aspartate Amino Transferase 22 U/L (14-36); Bilirubin,Total 1.8 mg/dL (0.2-1.3); Blood Urea Nitrogen 22 mg/dL (7-17); Calcium 9.8 mg/dL (8.4-10.2); Carbon Dioxide 24 mmol/L (22-30); Chloride 103 mmol/L (98-107); Estimated CRCL calculation 53 ml/min; Estimated Glomerular Filt Rate 57; Glucose 134 mg/dL (65-110); Lipase 82 U/L (23-300); Potassium 4.2 mmol/L (3.4-5.0); Sodium 139 mmol/L (137-145); Total Protein 8.1 g/dL (6.3-8.2)
--- NOTE | 2025-07-17 19:14 | PC.NURSE ---
Received report from FELICITAS Manzo for cont. of care. Pt AOX4 sitting on stretcher, respirations even and unlabored. Pt requesting water in order to provide urine sample, pt made aware unable to provide water until imaging is done.
[2025-07-17 19:16] VITALS: TEMP 37.1
--- NOTE | 2025-07-17 19:17 | PC.NURSE ---
Pt taken to CT in stretcher, respirations even and unlabored.
--- OUTSIDE RECORDS SUMMARY | 2025-07-17 19:39 | XMS_ITS | Clinical Summary ---
Author Organization [facility] [employer] Address [address] [place] [address] Care Team Providers Care Licensed Funeral Director Name Role Phone Srikanth Ryan MD Unavailable [phone] Ranjit Knox MD Unavailable [phone] Nancy Albrecht MD Primary Care Provider Source Comments [facility],non-owned Affiliates and Associated Physician Practices is amultiple site organization consisting of ambulatory clinics and hospital sitesin [place], [place], [place] and [place]. This disclosure is being madepursuant to the Care Everywhere program and may not contain all information available regarding this patient. Last updated 18.[facility] Allergies Active Allergy Reactions Criticality Noted Date Comments Bee Venom Anaphylaxis High 01/21/2023 Carries epipen Codeine Itching,Skin Reactions Medium 05/28/2008 Erythromycin Unknown 10/13/2022 Food Itching,Headache 01/21/2023 Cee, coconut, eggplant Also get confusion and tunnel vision Levofloxacin Unknown High 05/28/2008 Streptomycin Unknown High 05/28/2008 Tramadol Swelling 10/13/2022 Medications * Be aware that medications may not be up to date on this document. Alwaysverify current medications with the patient. buPROPion SR 12hr (Wellbutrin-SR) 150 MG tabletIndicatio ns:Major Depressive Disorder Take 1 tablet by mouth 2 times daily Reasons: Major Depressive Disorder 08/03/20 Active citalopram (CeleXA) 10 MG tabletIndicatio ns:Major Depressive Disorder Take 1 tablet by mouth once daily Reasons: Major Depressive Disorder 09/19/20 22 Active ezetimibe (Zetia) 10 MG tabletIndicatio ns:Hyperlipidem ia Take 1 tablet by mouth once daily Reasons: High Amount of Fats in the Blood 09/28/20 22 Active fluticasone propionate (Flonase) 50 MCG/ACT nasal sprayIndication s:Nasal Congestion [place] 1 (one) spray into the nose once daily Reasons: Stuffy Nose Active lisinopril (Prinivil; Zestril) 20 MG tabletIndicatio ns:Hypertension Take 1 tablet by mouth once daily Reasons: High Blood Pressure Disorder 09/20/20 22 Active semaglutide (Ozempic, 0.25 or 0.5 MG/DOSE,) 2 MG/1.5ML penIndications: Type 2 Diabetes Mellitus Inject 0.5 mg subcutaneously every 7 days On mondays Reasons: Type 2 Diabetes Active carvedilol (Coreg) 6.25 MG tabletIndicatio ns:Hypertension Take 1 tablet by mouth 2 times daily with morning and evening meal Reasons: High Blood Pressure Disorder 04/05/20 23 Active loratadine (Claritin) 10 MG tabletIndicatio ns:Rhinorrhea Take 1 tablet by mouth once daily Reasons: Runny Nose Active isosorbide mononitrate CR 24hr (Imdur) 30 MG tabletIndicatio ns:Stable Angina Pectoris Take 1 tablet by mouth once daily Reasons: Stable Angina Pectoris 04/15/20 23 Active rosuvastatin (Crestor) 20 MG tabletIndicatio ns:Hyperlipidem ia Take 1 tablet by mouth once daily Reasons: High Amount of Fats in the Blood 03/29/20 23 Active Loperamide (Imodium) 2 MG tabletIndicatio ns:Diarrhea Take 1 tablet by mouth 4 times daily as needed for Diarrhea Reasons: Diarrhea Active ALBUTEROL INIndications:C OPD Inhale 2 puffs by mouth as needed Reasons: COPD Active oxyCODONE, immediate release, (Roxicodone) 5 MG tabletIndicatio ns:Acute Pain Take 1 (one) tablet to 2 (two) tablets by mouth every 6 hours as needed for Pain Reasons: Acute Pain 56 tablet 06/15/20 23 Active Active Problems Problem Noted Date Diagnosed Date Primary osteoarthritis of both knees 11/05/2022 Statin myopathy 04/04/2021 Chronic obstructive pulmonary disease 04/16/2016 Overview (10/13/2022): Chronic obstructive pulmonary disease, unspecified COPD type Hypertension associated with diabetes 04/16/2016 Overview (10/13/2022): HTN (hypertension), benign Hyperlipidemia associated with type 2 diabetes m ellitus 04/16/2016 Overview (10/13/2022): Mixed dyslipidemia Atherosclerosis of coronary artery bypass graft 05/28/2008 Depression 05/28/2008 Social History Tobacco Use Types Packs/Day Years Used Date Smoking Tobacco: Former Cigarettes Smokeless Tobacco: Never Tobacco Cessation:Counseling Given: Not Answered Alcohol Use Standard Drinks/Week Comments Not Currently 0 (1 standard drink = 0.6 oz pur e alcohol) OASIS D0700: Social Isolation Answer Da te Recorded Frequency of experiencing loneliness or isolatio n Never 06/29/2023 OASIS A1250: Transportation Answer Date Recorded Lack of Transportation (Medical) No 06/29/2023 Lack of Transportation (Non-Medical) No 06/29/2023 Patient Unable or Declines to Respond No 06/29/2023 OASIS B1300: Health Literacy Answer Wiliam e Recorded Frequency of needing help to read materials from doctor or pharmacy Never 06/29/2023 AUDIT-C Answer Date Recorded Q1: How often do you have a drink containing alcohol? Never 06/04/2023 Q2: How many drinks containi ng alcohol do you have on a typical day when you are drinking? Patient does not drink Q3: How often do you have si x or more drinks on one occasion? Never 06/04/2023 Comments Unknown Sex and Gender Information Value Date Recorded Sex Assigned at Not on file Legal Sex Female 8:51 AM CDT Gender Identity Not on file Sexual Orientation Not on file Last Filed Vital Signs Vital Sign Reading Time Taken Comments Blood Pressure 116/66 06/29/2023 12:54 PM CDT Pulse 58 06/29/2023 12:54 PM CDT Temperature 37.1 C (98.7 F) 06/29/2023 12:54 PM CDT Respiratory Rate 17 06/29/2023 12:54 PM CDT Oxygen Saturation 98% 06/29/2023 12:54 PM CDT Inhaled Oxygen Concentration - - Weight 107.5 kg (237 lb) 06/04/2023 9:07 AM CDT Height 160 cm (5' 3) 06/04/2023 9:07 AM CDT Body Mass Index 41.98 06/04/2023 9:07 AM CDT Plan of Treatment Health Maintenance Due Date Last Done Comments BONE DENSITY TESTING 1950 COLOGUARD (AGES 45-75) - COLON CA SCREENING 1950 COLON MONITORING 1950 COLONOSCOPY - COLON CA SCREENING 1950 CT COLONOGRAPHY - COLON CA SCREENING 1950 Colorectal Cancer Screening 1950 FIT - COLON CA SCREENING 1950 FLEX SIG - COLON CA SCREENING 1950 MAMMOGRAM 1950 MEDICARE AWV 12 MONTHS 1950 HEPATITIS C SCREENING 05/01/1968 DTAP/TDAP/TD VACCINES (1 - Tdap) 1969 PNEUMOCOCCAL VACCINE 50+ (1 of 2 - PCV) 1969 ZOSTER VACCINE (1 of 2) 2000 DIABETES RETINOPATHY SCREENING 10/13/2022 DIABETES-FOOT EXAM WITH MONOFILAMENT 10/13/2022 DIABETES-HGB A1C 12/06/2023 06/05/2023, , 01/21/2023 DIABETES-SERUM CREATININE 05/10/20242022, 03/19/2023, 03/19/2023, Additional history exists COVID-19 VACCINE ( season) 2024 DEPRESSION SCREENING 11/22/2024 DIABETES - URINE PROTEIN SCREENING 11/22/2024 Respiratory Syncytial Virus (RSV) Vaccine Pt: or over 60 yrs (1 - 1-dose 75+ series) 2025 INFLUENZA VACCINE (#1) 2025 HEPATITIS B VACCINE Aged Out No longe r eligible based on patient's age to complete this topic HIB VACCINE Aged Out No longer eligi ble based on patient's age to complete this topic HPV VACCINE Aged Out No longer eligi ble based on patient's age to complete this topic MENINGOCOCCAL (Group B) VACCINE SHARED DECISION-MAKING Aged Out No longer eligible based on patient's age to complete this topic MENINGOCOCCAL GROUPS A/C/Y/W VACCINE Aged Out No longer eligible based on patient's age to complete this topic Medical Devices Implanted Type Area Contact Lens Cutter Device Identifier Shelf Expiration Date Model / Serial / Lot Cmpnt Fem Kn Rt Cr Cmnt Prm Vngrd Intlk Implanted:Qty: 1 on 06/04/2023 by Keyur Jacobo MD at [facility] Right: Knee [employer] 10/08/2032 [id number] / / [id number] Tray Tib 75mm Kn Cocr I Beam Implanted:Qty: 1 on 06/04/2023 by Keyur Jacobo MD at [facility] Right: Knee [employer] 03/25/2033 [id number] / / [id number] Cmpnt Ptlr Std 28mm 3 Pg Kn Ser A Implanted:Qty: 1 on 06/04/2023 by Keyur Jacobo MD at [facility] Right: Knee [employer] 09/09/2027 [id number] / / [id number] Cmnt Bone Plc R 40gm Grn Implanted:Qty: 1 on 06/04/2023 by Keyur Jacobo MD at [facility] Right: Knee [employer] 10/21/2025 [id number] / / [id number] Brng [id number] Vngrd Arcm Kn Ant Stab Implanted:Qty: 1 on 06/04/2023 by Keyur Jacobo MD at [facility] Right: Knee [employer] 05/22/2026 [id number] / / [id number] Procedures Procedure Name Priority Date/Time Associated Diagnosis Comments HEMOGLOBIN A1C Routine 06/05/2023 12:14 AM CDT Hypertension associated with diabetes COMPREHENSIVE METABOLIC PANEL STAT 05/10/2023 7:42 AM CDT Preoperative examination from Last 3 Months or Most Recently Relevant to Health Maintenance Results * (ABNORMAL) HEMOGLOBIN A1C (06/05/2023 12:14 AM CDT) Hemoglobin A1c 5.7(H) <5.7 % 06/05/2023 12:42 AM CDT [facility] Estimated Average Glucose 117 mg/dL 06/05/2023 12:42 AM CDT [facility] Blood BLOOD SPECIMEN / Unknown Venipuncture / Unknown 06/05/2023 12:14 AM CDT 06/05/2023 12:20 AM CDT Narrative [facility] - 06/05/2023 12:42 AM CDT HbA1c Interpretation: Normal: < 5.7% Pre-diabetes: 5.7-6.4% Diabetes: Equal to or greater than 6.5% Test results diagnostic of diabetes should be repeated for confirmation. Treatment target values recommended by ADA and other clinical organizations should be used to evaluate metabolic control in patients. This test should not replace glucose testing for patients with Type 1 diabetes, pediatric patients, or women. Falsely low HbA1c results may be observed in patients with clinical conditions that shorten erythrocyte life span or decrease mean erythrocyte age such as the presence of unstable hemoglobin variants, elevated hemoglobin F level or other causes of hemolytic anemia. HbA1c may not accurately reflect glycemic control when clinical conditions that affect erythrocyte survival are present. Severe Iron deficiency anemia may yield falsely high results. Hemoglobin A1c assay should not be used to diagnose or monitor diabetes in patients with malignancy, recent blood transfusion, chronic kidney or liver disease. This method may yield falsely low results when hemoglobin (HbF) exceeds 5% in the specimen. The [employer] Analyst assay for the measurement of HbA1c is a National Glycohemoglobin Standardization Program (NGSP) certified method. us Jossie Greer MD LAB - CHEMISTRY ORDERABLES Final Result [facility] [address] [place] [address] * (ABNORMAL) COMPREHENSIVE METABOLIC PANEL (05/10/2023 7:42 AM CDT) Glucose 102 70 - 105 mg/dL 05/10/2023 8:08 AM CDT [facility] Sodium 138 136 - 145 mmol/L 05/10/2023 8:08 AM CDT [facility] Potassium 4.5 3.5 - 5.1 mmol/L 05/10/2023 8:08 AM [facility] Chloride 111(H) 98 - 107 mmol/L 05/10/2023 8:08 AM CDT [facility] CO2 20(L) 23 - 31 mmol/L 05/10/2023 8:08 AM CDT [facility] Calcium 9.6 8.4 - 10.4 mg/dL 05/10/2023 8:08 AM T [facility] Anion Gap 7(L) 8 - 18 mmol/L 05/10/2023 8:08 AM T [facility] BUN 44(H) 9.8 - 20.1 mg/dL 05/10/2023 8:08 AM T [facility] Creatinine 1.28(H) 0.57 - 1.11 mg/dL 05/10/2023 8:08 AM [facility] Alkaline Phosphatase 66 40 - 150 U/L 05/10/2023 8:08 AM CDT [facility] ALT 12 0 - 61 U/L 05/10/2023 8:08 AM CDT [facility] AST 14 5 - 34 U/L 05/10/2023 8:08 AM T [facility] Protein Total 7.4 6.4 - 8.3 gm/dL 05/10/2023 8:08 AM [facility] Albumin 4.4 3.2 - 4.6 gm/dL 05/10/2023 8:08 AM T [facility] Bilirubin Total 0.8 0.2 - 1.2 mg/dL 05/10/2023 8:08 AM [facility] eGFR by CKD-EPI 44(L) >=90 mL/min/1.7 3 m2 05/10/2023 8:08 AM T [facility] Blood BLOOD SPECIMEN / Unknown Venipuncture / Unknown 05/10/2023 7:42 AM CDT 05/10/2023 7:49 AM CDT us Susana Simons TERRITORY SALES PROFESSIONAL-[employer]JUST[employer] LAB - CHEMISTRY ORDE ANTHONY Final Result [facility] [address] [place] [address] from Last 3 Months or Most Recently Relevant to Health Maintenance [place] [address] MEDICARE [facility] Advance Directives * Full Code (Latest Code Status on File) Date Activated Date Inactivated Comments 06/04/2023 1:57 PM 06/05/2023 3:31 PM Care Teams Licensed Funeral Director Relationship Specialty Start Date End Date Nancy Albrecht MD [address] [place] [address] PCP - General Family Medicine 05/26/23 Srikanth Ryan MD [address] [facility] [address] [place] [address] Cardiovascular Disease 01/21/23 Ranjit Knox MD [address] [place] [phone] Vascular Surgery 05/19/23
--- OUTSIDE RECORDS SUMMARY | 2025-07-17 19:39 | XMS_ITS | Clinical Summary ---
Author Organization [facility] Care Team Providers Care Basket Mender Name Role Phone Unavailable Primary Care Provider [...]
--- OUTSIDE RECORDS SUMMARY | 2025-07-17 19:39 | XMS_ITS | Clinical Summary ---
Author Organization [facility] Address [address] [place] [address] Care Team Providers Care Corn Press Operator Name Role Phone Unavailable Primary Care Provider Unavailabl e Social History Tobacco Use Types Packs/Day Years Used Date Smoking Tobacco: Never Assessed Comments Unknown Sex and Gender Information Value Date Recorded Sex Assigned at Not on file Legal Sex Female 3:03 PM EASTER BUNNY Gender Identity Not on file Sexual Orientation [...]
--- OUTSIDE RECORDS SUMMARY | 2025-07-17 19:39 | XMS_ITS | Clinical Summary ---
Author Organization [facility] [place] [place] [address] Address [address] [place] [address] Care Team Providers Care Ppap Coordinator Name Role Phone Howie Vazquez MD Unavailable [phone] Bebeto Figueroa MD Primary Care Provider Allergies Active Allergy Reactions Criticality Noted Date Comments Codeine Propoxyphene-Acetamino phen Hives,Itching Medium 12/05/2020 Erythromycin Levofloxacin Unknown High 05/28/2008 Oxycodone Oxycodone-Acetaminophe n Other (See comments) Low 12/05/2020 Reaction: Propoxyphene Htfazoq-Dkb-Ozc Reductase Inhibitors Unknown Low Pt does not [...] 6.25 mg tabletIndicatio ns:Coronary artery disease involving [place]on coronary artery of [place]on heart without angina pectoris Take 1 tablet [...] next visit. Discussed the patient with Dr. Knox. Plan: Obtain images from the outside facility [...] approval. Will continue routine monitoring with local commercial portfolio manager. We will have films placed in our [...] regimen: Wellbutrin, Buspar, Celexa Coronary arteriosclerosis in angoon artery 04/16 Overview (02/26/2017): Coronary artery disease involving an[place]on coronary artery of [place]goon heart with other form of angina pectoris Preoperative state 04/16/2016 Overview (02/26/2017): Preoperative cardiovascular examination Coronary artery disease invo lving an[place]on coronary artery of [place] heart without angina pectoris 04/07/2014 Overview (02/26/2017): Coronary artery disease Assessment & Plan (04/15/2023 10:11 PM CDT): LHC on 03/08/23 at [facility] showing severe three vessel [place]on disease and patent SVG-ramus and SVG-PDA/PLV, but [...] Department Care Team Description 07/12/2025 Orders Only [facility] Vascular at [address] [place] [phone] Lorena Knox MD Infrarenal abdominal aortic aneurysm (AAA) without rupture (Primary Dx) 07/11/2025 9:15 AM CDT Office Visit [facility] Vascular at [address] [place] [address] Mattie Resendiz NP Mixed diabetic hyperlipidemia associated with type 2 diabetes mellitus (HCC) (Primary Dx); Hypertension associated with diabetes (HCC); Infrarenal abdominal aortic aneurysm (AAA) without rupture 07/02/2025 10:00 AM CDT Ancillary Procedure [facility] Vascular and Vein Surgery at [address] [place] [phone] Infrarenal abdominal aortic aneurysm (AAA) without rupture 05/07/2025 10:15 AM CDT Office Visit [facility] Cardiology [address] [facility] [address] [place] [address] Hypertension associated with diabetes (HCC) [...] on file Legal Sex Female 12:57 AM PULMONARY PHYSICAL THERAPIST Gender Identity Not on file Sexual Orientation [...] 3:35 PM CDT Coronary artery disease involving [place]on coronary artery of [place] heart without angina pectoris EGFR Routine 03/19/2023 5:06 AM CDT HEMOGLOBIN A1C Timed 03/17/2023 10:22 PM CDT from Last 3 Months or Most Recently Relevant to Health Maintenance Results * US Duplex Scan Aorta, IVC Iliac Complete (07/02/2025 10:16 AM CDT) Anatomical Region Laterality Modality Vascular N/A Ultrasound 07/02/2025 9:55 AM CDT Narrative 07/04/2025 8:54 AM CDT Vascular & Vein Surgery [address] [facility] [place] [address] Abdominal Aortic Duplex Ultrasound Report Patient Name: SIDNEYMaryALE M : 1950 Study Date: 07/02/2025 9:55:33 AM Gender: F Associate Theatre Professor: Location: [facility] Ref Provider: LORENA KNOX Quality: [...] MD - 07/04/2025 Vascular & Vein Surgery [address] [place] [address] Abdominal Aortic Duplex Ultrasound Report Patient Name: ALE UPTON M : 1950 Study Date: 07/02/2025 9:55:33 AM Gender: F Associate Theatre Professor: Location: [facility] Ref Provider: LORENA KNOX Quality: [...] 07/04/2025 8:46:16 AM CDT Lorena Knox MD [facility] [place] Final Result [...] 67(L) 90 - 130 mL/min/1. 73 m2 [facility] Comment: Interpretive Data Reference Interval Normal >/= [...] CDT 03/19/2023 5:52 AM CDT Daria Lopes [facility] LAB BLOOD ORDERABLES Final R esult [facility] [place] [address] * (ABNORMAL) Hemoglobin A1c (03/17/2023 10:22 PM CDT) Hgb A1C 5.8(H) 4.0 - 5.6 % [facility] Estimated Average Glucose 120 mg/dL [facility] Comment: The ADA recommends reporting an estimated Average Glucose (eAG) with all Hemoglobin A1c results using the equation derived from a study of 507 normal and diabetic adults. Minority populations were underrepresented and children were not included. (Diabetes Care 2020; 43(S1): S66-S72). The eAG is not equivalent to a fasting glucose. Blood 03/17/2023 10:2 2 PM CDT 03/17/2023 10:43 PM CDT Anil Meredith MD LAB BLOOD ORDERABLES Final Result [facility] [place] [address] from Last 3 Months or Most Recently Relevant to Health Maintenance Insurance MEDICARE MEDICARE [facility] MEDICARE [place] [address] MEDICARE [facility] Advance Directives For more information, please contact: [phone] * Full Code (Latest Code Status on File) Date Activated Date Inactivated Comments 03/17/2023 9:26 PM 03/19/2023 9:42 PM Care Teams Ppap Coordinator Relationship Specialty Start Date End Date Bebeto Figueroa MD [address] [facility] [address] [place] [address] PCP - General Family Medicine 10/13/23 Howie Vazquez MD Consulting Physician Cardiology 03/19/23
[2025-07-17 19:42] VITALS: BP 132/73; PULSE 62; RESP 16; O2SAT 95
--- NOTE | 2025-07-17 19:51 | ED.ABDPAIN ---
HPI - Abdominal Pain General Chief Complaint: Abdominal Pain Stated Complaint: abd pain Time Seen by Provider: 07/17/25 19:06 History of Present Illness HPI narrative: Patient is a 75-year-old female who presents to the emergency department this evening complaining of constipation. Patient states she has been constipated since last and for the past 4 days she has been taking MiraLax. Patient states that this has caused her to have some stool but states that it is very small and hard and she feels that she is not actually emptying her bowel. States she is not taking anything else including any stool softeners. Admits to some nausea no vomiting episodes. Denies any additional symptoms or concerns at this time. Related Data Home Medications ?Medication ?Instructions ?Recorded ?Confirmed ?Last Taken ?Type aspirin 81 mg tablet,delayed 81 mg PO DAILY 06/13/21 07/09/25 03/14/23 History release loratadine 10 mg tablet (Claritin) 10 mg PO DAILY 06/13/21 07/09/25 03/14/23 History epinephrine 0.3 mg/0.3 mL 0.3 mg IM ONCE PRN Anaphylaxis 03/15/23 07/09/25 Unknown History injection, auto-injector (EpiPen) albuterol sulfate 90 mcg/actuation 1 puff inhalation Q4H PRN Dyspnea 03/29/23 07/09/25 Unknown History aerosol inhaler carvedilol 6.25 mg tablet 6.25 mg PO Q12H 03/29/23 07/09/25 Unknown History fluticasone propionate 50 2 spray intranasal DAILY PRN nasal 03/29/23 07/09/25 Unknown History mcg/actuation nasal congestion spray,suspension (Children's Flonase Allergy Relief) isosorbide mononitrate 30 mg 30 mg PO DAILY 03/29/23 07/09/25 Unknown History tablet,extended release 24 hr acetaminophen 500 mg tablet 2,000 mg PO BID PRN Pain 06/30/23 07/09/25 Unknown History (Tylenol Extra Strength) celecoxib 200 mg capsule 200 mg PO BID 06/30/23 07/09/25 Unknown History cholecalciferol (vitamin D3) 125 125 mcg PO DAILY 06/30/23 07/09/25 Unknown History mcg (5,000 unit) capsule vitamin B complex 1 tablet PO BID 06/30/23 07/09/25 Unknown History Allergies Allergy/AdvReac Type Severity Reaction Status Date / Time codeine Allergy Mild HIVES AND Verified 07/17/25 18:26 FACIAL SWELLING erythromycin base Allergy Mild HIVES Verified 07/17/25 18:26 oxycodone Allergy Mild HIVES Verified 07/17/25 18:26 propoxyphene Allergy Mild DOES NOT Verified 07/17/25 18:26 KNOW levofloxacin Allergy Unknown Unknown Verified 07/17/25 18:26 tramadol Allergy Swelling Verified 07/17/25 18:26 of Lip/Tongue/Throat BEE STINGS Allergy Severe Unknown Uncoded 07/17/25 18:26 Review of Systems Review of Systems: All systems are reviewed and are negative unless stated otherwise in the HPI. [facility], [facility] Past Medical History Medical History Ascending aortic aneurysm AAA (abdominal aortic aneurysm) Asthma History of rheumatic fever Cataract Statin myopathy Vertigo CAD (coronary artery disease) Diabetes mellitus Chronic obstructive pulmonary disease, unspecified Chronic respiratory failure with hypoxia Obstructive sleep apnea (adult) (pediatric) She denies any sleep apnea. Tobacco abuse Surgical History Surgical History H/O colonoscopy History of appendectomy S/P ORIF (open reduction internal fixation) fracture right ankle History of tonsillectomy H/O section History of laparoscopic cholecystectomy Hx of CABG (~2009) 5 vessel CABG Family History Family History Mother Family history of malignant neoplasm Family history of lung cancer Family history of lymphoma Sibling Family history of diabetes mellitus in first degree relative Family history of malignant neoplasm Family history of heart disease in male family member before age 55 COVID Adrenal mass Adrenal nodule Father Hypertension Family history of cardiovascular disease Family history of primary malignant neoplasm of liver Family history of heart disease in male family member before age 55 Family history of congenital heart disease Daughter Adrenal mass Other Diabetes mellitus Other Carcinoma of colon Cerebrovascular accident Family history of allergic disorder Family history of cardiac disorder Family history of emphysema Social History Social History Social History: Caffeine-coffee occasionally she lives home alone. She is . She has 4 children. 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 Code status full code Smoking packs per day: 1 Smoking cigarettes per day: 20.0 Years smoked: 48 Smoking pack-years: 48.00 Smoking status: Never smoker Tobacco type: cigarettes Second hand tobacco smoke exposure: Yes Smoking end date: 11/22/09 Alcohol intake: former Substance use: never Substance use type: does not use Other substance usage details: topical on knees Lack of Transportation: No Lack of Food: Never True Current Housing: I Have Housing Concerned About Future Housing: No Difficulty Paying Gas/Electric Bills: No Difficulty Paying for Meds: No Currently Unemployed: No Education: Bachelor's Degree Difficulty w/ Childcare or Family Care: No Living arrangements: alone Gender identity (if verbalized by the patient): Female Spiritual care concerns: No Exam Narrative: General: Alert, awake, afebrile, in no acute distress. HEENT: PERRL, no rhinorrhea, no post nasal drip, oropharynx clear. Neck: Trachea midline, no JVD, no lymphadenopathy. Cardiovascular: Regular rate and rhythm, no murmurs, rubs or gallops, no peripheral edema. Respiratory: Clear to auscultation bilaterally, no tachypnea, no wheezing, no rhonchi, no rubs, no respiratory distress. Abdomen: Soft, mild tenderness to the bilateral lower quadrant, nondistended, no rebound, no guarding, no peritoneal signs. Musculoskeletal: No joint swelling or deformity, normal muscle tone. Skin: No rashes or petechia, no signs of infection. Psychiatric: Alert and oriented, normal behavior and judgment for situation. Neurological: Alert and oriented to person, place, and time. Follows all commands. No focal deficits, speech is clear and fluent. Course Vital Signs Vital signs: Vital Signs Temperature 98.3 F 07/17/25 18:20 Pulse Rate 69 07/17/25 18:20 Respiratory Rate 16 07/17/25 18:20 Blood Pressure 173/64 H 07/17/25 18:20 Pulse Oximetry 95 07/17/25 18:20 Temperature 98.7 F 07/17/25 19:16 Pulse Rate 62 07/17/25 19:42 Respiratory Rate 16 07/17/25 19:42 Blood Pressure 132/73 07/17/25 19:42 Pulse Oximetry 95 08/26/25 19:42 MDM - Abdominal Pain MDM Narrative Medical decision making narrative: The patient was evaluated by myself in the emergency department. History is obtained from patient who is an independent historian and physical exam was performed. External medical records were reviewed at this time. IV was established and pertinent tests were ordered. Patient was administered 4 mg IV Zofran for nausea. Laboratory results obtained revealing a leukocytosis of 13.8 otherwise unremarkable. Imaging studies obtained included CT abdomen pelvis with IV contrast which was independently interpreted by me revealing: IMPRESSION: 1. Stranding about the mid sigmoid colon where there are multiple diverticula which could be due to diverticulitis or distal colitis. 2. Fibroid uterus with suggestion of thickening of the endometrial complex which raises some concern for endometrial carcinoma with differential including endometrial hyperplasia, polyp or submucosal fibroid. Correlate for abnormal uterine bleeding and would recommend follow-up pelvic ultrasound for further evaluation. 3. 3.9 cm infrarenal abdominal aortic aneurysm. 4. 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 Patient was informed of these findings at bedside. She is aware of her abdominal aortic aneurysm, was informed of her moderate to severe stenosis in the right common iliac artery, instructed to follow-up with her PCP/OBGYN for pelvic ultrasound to rule out cancer. CT was compared to previous CT from December of this year revealing similar findings. Differential diagnosis considerations include constipation, bowel obstruction, gastroenteritis, dehydration, electrolyte derangements. Comorbidities impacting this visit include none. I have evaluated and discussed social determinants of health with the patient that could potentially impact subsequent diagnosis and treatment plans. On repeat assessment of the patient, reevaluation revealed that the patient is doing well and is in no acute distress. Patient symptoms have improved since she arrived to our emergency department. Repeat vital signs were all reviewed and noted to be stable. Differential diagnosis and treatment plan were discussed with the patient at bedside. Patient agrees with discussion and after shared medical decision making agrees with discharge. All questions were answered to the patient's satisfaction. Patient will follow up with her PCP/OB in 3-5 days. Script for Augmentin, [place] and mid Zofran was sent to patient's pharmacy to take as prescribed. Patient was provided with strict return precautions and instructed to return to the emergency department if any new or worsening symptoms develop. The patient was discharged in stable condition. Lab Data 07/17/25 18:48 07/17/25 18:48 Labs: Lab Results 07/17/25 Range/Units 18:48 WBC 13.8 H (4.5-10.0) K/mm3 RBC 4.46 (4.2-5.4) M/mm3 Hgb 13.6 (12.0-15.0) g/dL Hct 41.1 (37.0-47.0) % MCV 92.2 (80-100) fl MCH 30.5 (26-34) pg MCHC 33.1 (32-36) g/dl RDW 13.4 (11.5-14.5) % Plt Count 200 (150-375) k/mm3 MPV 9.8 (7.4-10.4) fl Immature Gran % (Auto) 0.4 (0-0.5) % Neut % (Auto) 64.8 (45.5-73.1) % Lymph % (Auto) 21.5 (18.3-44.2) % Bell % (Auto) 7.7 (2.6-8.5) % Eos % (Auto) 5.2 H (0-4.4) % Baso % (Auto) 0.4 (0.2-1.2) % Lymph # (Auto) 2.96 (0.9-3.2) K/mm3 Bell # (Auto) 1.1 H (0.1-0.6) K/mm3 Eos # (Auto) 0.7 H (0-0.3) K/mm3 Baso # (Auto) 0.1 (0.0-0.1) K/mm3 Abs Immat Gran (auto) 0.06 H (0.00-0.031) K/mm3 Absolute Neuts (auto) 8.9 H (1.3-6.7) K/mm3 Absolute Nucleated RBC 0.000 (0.0-0.012) K/mm3 Nucleated RBC % 0.0 (0.0-0.2) % Sodium 139 (137-145) mmol/L Potassium 4.2 (3.4-5.0) mmol/L Chloride 103 (98-107) mmol/L Carbon Dioxide 24 (22-30) mmol/L Anion Gap 12 (4-12) mmol/L BUN 22 H (7-17) mg/dL Creatinine 0.95 (0.7-1.0) mg/dL Estim Creat Clear Calc 53 ml/min Estimated GFR 57 L (59 - ) Glucose 134 H (65-110) mg/dL Calcium 9.8 (8.4-10.2) mg/dL Magnesium Pending Total Bilirubin 1.8 H (0.2-1.3) mg/dL AST 22 (14-36) U/L ALT 15 (6-35) U/L Alkaline Phosphatase 67 (38-126) U/L Total Protein 8.1 (6.3-8.2) g/dL Albumin 4.7 (3.5-5.1) g/dL Lipase 82 (23-300) U/L Imaging Data Radiologist's impression: ITS Impressions Abdomen/Pelvis CT 07/17/25 19:37 IMPRESSION: 1. Stranding about the mid sigmoid colon where there are multiple diverticula which could be due to diverticulitis or distal colitis. 2. Fibroid uterus with suggestion of thickening of the endometrial complex which raises some concern for endometrial carcinoma with differential including endometrial hyperplasia, polyp or submucosal fibroid. Correlate for abnormal uterine bleeding and would recommend follow-up pelvic ultrasound for further evaluation. 3. 3.9 cm infrarenal abdominal aortic aneurysm. 4. 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 Discharge Plan Discharge Clinical Impression: Abdominal pain, Diverticulitis Patient Disposition: Home Condition: Improved Instructions: Antibiotic Form, Diverticulitis (ED), Abdominal Pain (ED) Additional Instructions: Please follow-up with your family doctor within the next 3-5 days. Return to ED if any new or worsening symptoms develop. Take the prescribed antibiotics as instructed for your diverticulitis. You also instructed regarding your uterine fibroids and recommendation for additional imaging/testing to rule out cancer. Your provided with an OBGYN to follow up with. Return to the ED if any new or worsening symptoms develop. Patient Language: Sudanese Prescriptions: New hydrocodone-acetaminophen 5-325 mg tablet 1 tablet PO Q8H PRN (Reason: pain) Qty: 10 0RF amoxicillin-pot clavulanate 875-125 mg tablet 1 tablet PO Q12H 10 Days Qty: 20 0RF ondansetron 4 mg tablet,disintegrating 4 mg PO Q8H PRN (Reason: nausea and vomiting) Qty: 10 0RF No Action citalopram 10 mg tablet 10 mg PO DAILY Qty: 90 2RF loratadine [Claritin] 10 mg tablet 10 mg PO DAILY aspirin 81 mg tablet,delayed release (DR/EC) 81 mg PO DAILY nitroglycerin [Nitrolingual] 400 mcg/spray spray,non-aerosol 1 spray translingual Q5M PRN (Reason: chest pain) Qty: 4.9 1RF Rx Instructions: do not exceed 3 doses per episode albuterol sulfate 90 mcg/actuation HFA aerosol inhaler 1 puff inhalation Q4H PRN (Reason: Dyspnea) carvedilol 6.25 mg tablet 6.25 mg PO Q12H Rx Instructions: must administer with a meal/food isosorbide mononitrate 30 mg tablet extended release 24 hr 30 mg PO DAILY fluticasone propionate [Children's Flonase Allergy Rlf] 50 mcg/actuation spray,suspension 2 spray intranasal DAILY PRN (Reason: nasal congestion) Rx Instructions: administer into each nostril vitamin B complex Tablet 1 tablet PO BID Patient Comments: not taking acetaminophen [Tylenol Extra Strength] 500 mg tablet 2,000 mg PO BID PRN (Reason: Pain) Patient Comments: not taking celecoxib 200 mg capsule 200 mg PO BID Patient Comments: not taking cholecalciferol (vitamin D3) 125 mcg (5,000 unit) capsule 125 mcg PO DAILY Patient Comments: not taking buspirone 5 mg tablet 5 mg PO BID Qty: 60 5RF ondansetron 4 mg tablet,disintegrating 4 mg PO Q8H PRN (Reason: nausea and vomiting) Qty: 10 0RF Patient Comments: not taking epinephrine [EpiPen] 0.3 mg/0.3 mL auto-injector 0.3 mg IM ONCE PRN (Reason: Anaphylaxis) Rx Instructions: as a single dose; may repeat once ezetimibe 10 mg tablet 10 mg PO DAILY Qty: 90 1RF lisinopril 20 mg tablet 20 mg PO DAILY Qty: 90 3RF bupropion HCl 150 mg tablet sustained-release 12 hr See Rx Instructions .ROUTE .COMPLEX Qty: 180 3RF Dose Instruction: TAKE 1 TABLET BY MOUTH TWICE A DAY. NEEDS APPOINTMENT FOR FURTHER REFILLS Rx Instructions: TAKE 1 TABLET BY MOUTH TWICE A DAY. semaglutide 1 mg/dose (4 mg/3 mL) pen injector 1 mg subcut WEEKLY Qty: 3 5RF Patient Comments: not taking rosuvastatin 10 mg tablet 10 mg PO DAILY Qty: 90 2RF sodium,potassium,mag sulfates [Suprep Bowel Prep Kit] 17.5-3.13-1.6 gram recon soln See Rx Instructions PO .COMPLEX Qty: 354 0RF Rx Instructions: Take as directed per written instructions that were emailed Follow-up/Referrals: Bebeto Figueroa MD [Primary Care Provider, Family Practice] - 3 Days García Samuel MD [Physician, THERMAL INTELLIGENCE ANALYST] - 3 Days Time of Disposition: 20:18
[2025-07-17] MEDS: ONDANSETRON INJ 4 MG/2 ML VIAL IV PUSH (20:14)
[2025-07-17 20:25] LABS: Magnesium 2.0 mg/dL (1.6-2.3)
[2025-07-17 20:38] VITALS: BP 124/76; PULSE 67; RESP 16; O2SAT 95
== END 2025-07-17 20:35 | disposition home or self-care (01) ==
PROVIDERS: Emergency Medicine; Emergency Provider Emergency Medicine; PCP Family Medicine
DX: K57.32 Diverticulitis of large intestine without perforation or abscess without bleeding (principal); I25.10 Atherosclerotic heart disease of native coronary artery without angina pectoris; E11.9 Type 2 diabetes mellitus without complications; J44.9 Chronic obstructive pulmonary disease, unspecified; G47.30 Sleep apnea, unspecified
CPT/HCPCS: 36415; 74177; 80053; 83690; 83735; 85025; 96374; 99284; J2405; Q9967

== ENCOUNTER 2025-07-20 10:55 | Inpatient (IN) | payer MEDICARE, SELFPAY ==
--- NOTE | ~2025-07-20 | US_ITS ---
EXAMINATION: US pelvic complete w TV INDICATION: Pelvic pain Comparison:CT abdomen and pelvis 07/20/[address] abdomen and pelvis 07/17/2025 TECHNIQUE: Multiple transabdominal and endovaginal sonographic images of the pelvis performed. FINDINGS: The uterus is heterogeneous and measures 3.5 x 3.3 x 4.3. Endometrium was not adequately visualized for evaluation. There is a 1.5 x 1.6 x 1.5 cm heterogeneous masslike structure in the posterior body of the uterus possibly a uterine fibroid. There is a 1.4 x 1.5 x 1.7 cm submucosal heterogeneous masslike structure possibly a uterine fibroid in the lower uterine segment. Right ovary was not visualized. Left ovary measures 1.1 x 1.4 x 1.8 cm. There is no free fluid in the pelvis. Small amount of fluid in the endometrial cavity. There are a few probable nabothian cysts in the cervix. The study is limited due to the patient's condition. IMPRESSION: 1. Limited study as above. 2. Right ovary was not visualized. 3. Endometrium was not adequately visualized for evaluation. Uterus is heterogeneous. Consider a pelvic MRI for further assessment. 4. There is a 1.5 x 1.6 x 1.5 cm heterogeneous masslike structure in the posterior body of the uterus possibly a uterine fibroid. 5. There is a 1.4 x 1.5 x 1.7 cm submucosal heterogeneous masslike structure possibly a uterine fibroid in the lower uterine segment. 6. Small amount of nonspecific fluid in the endometrial canal. Reviewed, dictated and finalized at location Q. IMPRESSION: 1. Limited study as above. 2. Right ovary was not visualized. 3. Endometrium was not adequately visualized for evaluation. Uterus is heteroge neous. Consider a pelvic MRI for further assessment. 4. There is a 1.5 x 1.6 x 1.5 cm heterogeneous masslike structure in the lidar technician ior body of the uterus possibly a uterine fibroid. 5. There is a 1.4 x 1.5 x 1.7 cm submucosal heterogeneous masslike structure po ssibly a uterine fibroid in the lower uterine segment. 6. Small amount of nonspecific fluid in the endometrial canal.
--- NOTE | ~2025-07-20 | CT_ITS ---
EXAMINATION: CT abdomen pelvis w con DATE: 07/20/2025 12:49 INDICATION: Diverticulitis TECHNIQUE: Computed tomography (CT) of the abdomen and pelvis was performed with intravenous contrast. The dose-length product was 1112.29 mGy-cm. COMPARISON: CT abdomen and pelvis 07/17/2025; CT abdomen and pelvis 03/24/2016 FINDINGS: Heart is mildly enlarged with a few coronary artery calcifications. There are a few small reticular opacities in the lower lungs, unchanged. Cholecystectomy. Liver, spleen, right adrenal gland are unremarkable. Pancreas is unremarkable. Stable 3.9 x 3.6 cm infrarenal abdominal aortic aneurysm.No enlarged lymph nodes in the abdomen or pelvis. Stable 2.5 cm left adrenal nodule dating back to 2015. Bladder is unremarkable. No enlarged lymph nodes in the abdomen or pelvis. Fat stranding about the mid and distal sigmoid colon with a few scattered diverticuli. The finding are suggestive acute diverticulitis. Fibroid uterus with suggestion of thickening of endometrial complex which raises the concern for endometrial cancer with differential including endometrial hyperplasia, polyp or submucosal fibroid. A pelvic ultrasound is recommended. 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 Bones appear osteopenic multilevel degenerative change in the visualized spine similar to the prior study. IMPRESSION: 1. Fat stranding about the mid and distal sigmoid colon with a few scattered diverticuli. There is segmental asymmetric thickening of the cooley of the mid and distal sigmoid colon. The finding are suggestive acute diverticulitis. Recommend follow-up to resolution to exclude an underlying mass. 2. Fibroid uterus with suggestion of thickening of endometrial complex which raises the concern for endometrial cancer with differential including endometrial hyperplasia, polyp or submucosal fibroid. A pelvic ultrasound is recommended. 3. Stable 3.9 x 3.6 cm infrarenal abdominal aortic aneurysm. 4. Cholecystectomy Reviewed, dictated and finalized at location Q. IMPRESSION: 1. Fat stranding about the mid and distal sigmoid colon with a few scattered di verticuli. There is segmental asymmetric thickening of the cooley of the mid and distal sigmoid colon. The finding are suggestive acute diverticulitis. Recomme nd follow-up to resolution to exclude an underlying mass. 2. Fibroid uterus with suggestion of thickening of endometrial complex which ra ises the concern for endometrial cancer with differential including endometrial hyperplasia, polyp or submucosal fibroid. A pelvic ultrasound is recommended. 3. Stable 3.9 x 3.6 cm infrarenal abdominal aortic aneurysm. 4. Cholecystectomy
--- NOTE | ~2025-07-20 | MR_ITS ---
EXAMINATION: MR pelvis wo/w con DATE: 07/21/2025 16:55 INDICATION: Uterine mass TECHNIQUE: Magnetic resonance imaging (MRI) of the pelvis was performed without and with 20 mL Multihance intravenous contrast. Full-field sequences of the pelvis included axial and coronal T2-weighted SS FSE, coronal 2D FIESTA, axial T1-weighted FSPGR, axial dual-echo T1-weighted FSPGR and axial T1 weighted LAVA. Small field of view sequences included axial, sagittal and coronal T2-weighted FSE centered on the uterus and adnexa. Postcontrast sequences included a time course axial T1-weighted LAVA with full-field of view of the pelvis. COMPARISON: CT dated 07/20/2025 FINDINGS: Again seen is wall thickening along a significant length of the sigmoid colon with some surrounding inflammatory stranding which could be due to acute diverticulitis or localized colitis. Bilateral kidneys are normal. Bladder is normal. Fibroid uterus with 3 low signal intensity uterine fibroids measuring between 1.4 cm and 1.0 cm. There is thickening of the endometrial complex which measures up to 1.6 cm with increased T2 signal but without enhancement consistent with fluid. The likely section scar along the anterior wall of the lower uterine segment. Bilateral adnexa are unremarkable. No free fluid in the pelvis. No pathologically enlarged pelvic or inguinal lymphadenopathy. IMPRESSION: 1. Thickened endometrial complex measuring up to 1.6 cm which appears primarily due to nonenhancing fluid, potentially hemorrhage related to several uterine fibroids. Could consider hysteroscopy for further evaluation as clinically indicated. 2. Prominent wall thickening along a significant length of the sigmoid colon with some surrounding inflammatory stranding suggestive of either diverticulitis or focal colitis. Reviewed, dictated and finalized at location A. IMPRESSION: 1. Thickened endometrial complex measuring up to 1.6 cm which appears primarily due to nonenhancing fluid, potentially hemorrhage related to several uterine f ibroids. Could consider hysteroscopy for further evaluation as clinically indic ated. 2. Prominent wall thickening along a significant length of the sigmoid colon wi th some surrounding inflammatory stranding suggestive of either diverticulitis or focal colitis.
--- OUTSIDE RECORDS SUMMARY | 2025-07-20 10:58 | XMS_ITS | Clinical Summary ---
Author Organization [facility] Address [address] [place] [id number] Care Team Providers Care Ict Support And Test Engineers Name Role Phone Unavailable Primary Care Provider Unavailabl e Social History Tobacco Use Types Packs/Day Years Used Date Smoking Tobacco: Never Assessed Comments Unknown Sex and Gender Information Value Date Recorded Sex Assigned at Not on file Legal Sex Female 6:37 PM CDT Gender Identity Not on file Sexual Orientation Not on file Plan of Treatment Health Maintenance Due Date Last Done Comments Colorectal Cancer Screening Colonoscopy (10 Years) 1950 Hepatitis C 1968 DTaP, Tdap and Td Vaccines ( 1 - Tdap) 1969 Pneumococcal Vaccine: 50+ Ye ars (1 of 1 - PCV) 2000 Zoster Vaccines (1 of 2) 2000 Dexa Scan (General) 2015 COVID-19 Vaccine ( - 2023-2 5 season) 2024 RSV Immunization or 60+ Years (1 - 1-dose 75+ series) 2025 Meningococcal B Vaccine Aged Out No l onger eligible based on patient's age to complete this topic Meningococcal Vaccine Aged Out No dianne dominic eligible based on patient's age to complete this topic RSV Immunizations Under 20 Months Aged Out No longer eligible based on patient's age to complete this topic
--- OUTSIDE RECORDS SUMMARY | 2025-07-20 10:58 | XMS_ITS | Clinical Summary ---
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
--- OUTSIDE RECORDS SUMMARY | 2025-07-20 10:58 | XMS_ITS | Clinical Summary ---
Author Organization [facility] Care Team Providers Care Costumed Character Entertainer Name Role Phone Unavailable Primary Care Provider [...]
--- OUTSIDE RECORDS SUMMARY | 2025-07-20 10:58 | XMS_ITS | Clinical Summary ---
Author Organization [facility] Address [address] [facility] [place] [address] Care Team Providers Care Textile Broker Name Role Phone Srikanth Ryan MD Unavailable [phone] Ranjit Knox MD Unavailable [phone] Nancy Albrecht MD Primary Care Provider Source Comments [facility],non-owned Affiliates and Associated Physician Practices is amultiple site organization consisting of ambulatory clinics and hospital sitesin [place], [place], [place] and [place]. This disclosure is being madepursuant to the Care Everywhere program and may not contain all information available regarding this patient. Last updated 18.[facility] Allergies Active Allergy Reactions Criticality Noted [...] (Flonase) 50 MCG/ACT nasal sprayIndication s:Nasal Congestion [place] 1 (one) spray into the nose once [...] this topic Medical Devices Implanted Type Area Milk Receiver Tank Truck Device Identifier Shelf Expiration Date Model / Serial / Lot Cmpnt Fem Kn Rt Cr Cmnt Prm Vngrd Intlk Implanted:Qty: 1 on 06/04/2023 by Kyeur Jacobo MD at [facility] Right: Knee [employer] 10/08/2032 [id number] / / [id number] Tray Tib 75mm Kn Cocr I Beam Implanted:Qty: 1 on 06/04/2023 by Keyur Jacobo MD at [facility] Right: Knee [employer] 03/25/2033 [id number] / / [id number] Cmpnt Ptlr Std 28mm 3 Pg Kn Ser A Implanted:Qty: 1 on 06/04/2023 by Keyur Jacobo MD at [facility] Right: Knee [employer] 09/09/2027 [id number] / / [id number] Cmnt Bone Plc R 40gm Grn Implanted:Qty: 1 on 06/04/2023 by Keyur Jacobo MD at [facility] Right: Knee [employer] 10/21/2025 [id number] / / [id number] Brng [id number] Vngrd Arcm Kn Ant Stab Implanted:Qty: 1 on 06/04/2023 by Keyur Jacobo MD at [facility] Right: Knee [employer] 05/22/2026 [id number] / / [id number] Procedures Procedure Name Priority Date/Time Associated Diagnosis Comments HEMOGLOBIN A1C Routine 06/05/2023 12:14 AM CDT Hypertension associated with diabetes COMPREHENSIVE METABOLIC PANEL STAT 05/10/2023 7:42 AM CDT Preoperative examination from Last 3 Months or Most Recently Relevant to Health Maintenance Results * (ABNORMAL) HEMOGLOBIN A1C (06/05/2023 12:14 AM CDT) Hemoglobin A1c 5.7(H) <5.7 % 06/05/2023 12:42 AM CDT [facility] Estimated Average Glucose 117 mg/dL 06/05/2023 12:42 AM CDT [facility] Blood BLOOD SPECIMEN / Unknown Venipuncture / Unknown 06/05/2023 12:14 AM CDT 06/05/2023 12:20 AM CDT Narrative [facility] - 06/05/2023 12:42 AM [...] exceeds 5% in the specimen. The [employer] Superintendent assay for the measurement of HbA1c is a National Glycohemoglobin Standardization Program (NGSP) certified method. us Jossie Greer MD LAB - CHEMISTRY ORDERABLES Final Result [facility] [address] [place] [address] * (ABNORMAL) COMPREHENSIVE METABOLIC PANEL (05/10/2023 7:42 AM CDT) Glucose 102 70 - 105 mg/dL 05/10/2023 8:08 AM CDT [facility] Sodium 138 136 - 145 mmol/L 05/10/2023 8:08 AM CDT [facility] Potassium 4.5 3.5 - 5.1 mmol/L 05/10/2023 8:08 AM [facility] Chloride 111(H) 98 - 107 mmol/L 05/10/2023 8:08 AM CDT [facility] CO2 20(L) 23 - 31 mmol/L 05/10/2023 8:08 AM CDT [facility] Calcium 9.6 8.4 - 10.4 mg/dL 05/10/2023 8:08 AM T [facility] Anion Gap 7(L) 8 - 18 mmol/L 05/10/2023 8:08 AM T [facility] BUN 44(H) 9.8 - 20.1 mg/dL 05/10/2023 8:08 AM T [facility] Creatinine 1.28(H) 0.57 - 1.11 mg/dL 05/10/2023 8:08 AM [facility] Alkaline Phosphatase 66 40 - 150 U/L 05/10/2023 8:08 AM CDT [facility] ALT 12 0 - 61 U/L 05/10/2023 8:08 AM CDT [facility] AST 14 5 - 34 U/L 05/10/2023 8:08 AM T [facility] Protein Total 7.4 6.4 - 8.3 gm/dL 05/10/2023 8:08 AM [facility] Albumin 4.4 3.2 - 4.6 gm/dL 05/10/2023 8:08 AM T [facility] Bilirubin Total 0.8 0.2 - 1.2 mg/dL 05/10/2023 8:08 AM [facility] eGFR by CKD-EPI 44(L) >=90 mL/min/1.7 3 m2 05/10/2023 8:08 AM T [facility] Blood BLOOD SPECIMEN / Unknown Venipuncture / Unknown 05/10/2023 7:42 AM CDT 05/10/2023 7:49 AM CDT us Susana Simons LINUX SERVER ENGINEER-CLIMATOLOGY PROFESSOR LAB - CHEMISTRY ORDE ANTHONY Final Result [facility] [address] [place] [address] from Last 3 Months or Most Recently Relevant to Health Maintenance [place] [address] MEDICARE [facility] Advance Directives * Full Code (Latest Code Status on File) Date Activated Date Inactivated Comments 06/04/2023 1:57 PM 06/05/2023 3:31 PM Care Teams Textile Broker Relationship Specialty Start Date End Date Nancy Albrecht MD [address] [place] [address] PCP - General Family Medicine 05/26/23 Srikanth Ryan MD [address] [facility] [address] [place] [address] Cardiovascular Disease 01/21/23 Ranjit Knox MD [address] [place] [phone] Vascular Surgery 05/19/23
--- OUTSIDE RECORDS SUMMARY | 2025-07-20 10:58 | XMS_ITS | Patient Health Record ---
Author Organization [facility] [employer] Address [address] [facility] [address] [address] Care Team Providers Care Electrical Maintenance Engineer Name Role Phone Vitaly Reddy Unavailable [phone] Reason For Referral No Information Plan Of Treatment No Information
--- OUTSIDE RECORDS SUMMARY | 2025-07-20 10:58 | XMS_ITS | Clinical Summary ---
Author Organization [facility] [address] Address [address] [place] [address] Care Team Providers Care Hydraulic Controls Technician Name Role Phone Howie Vazquez MD Unavailable Bebeto Figueroa MD Primary Care Provider Allergies Active Allergy Reactions Criticality Noted Date Comments Codeine Propoxyphene-Acetamino phen Hives,Itching Medium 12/05/2020 Erythromycin Levofloxacin Unknown High 05/28/2008 Oxycodone Oxycodone-Acetaminophe n Other (See comments) Low 12/05/2020 Reaction: Propoxyphene Ktwiulc-Gua-Aby Reductase Inhibitors Unknown Low Pt does not recall specifically and is not sure if she had issues. Streptomycin Unknown High 05/28/2008 Venom-Honey Bee Vision changes Medium 12/05/2020 Medications citalopram (CeleXA) 40 mg tablet take 1 tablet (40MG) by oral route every day 0 2 Active albuterol (PROVENTIL,PATSY DYAN) 90 mcg/actuation inhaler Take as directed 0 0 9 Active buPROPion SR (WELLBUTRIN SR) 150 mg 12 hr tablet Take 1 tablet (150 mg total) by mouth 2 (two) times a day 1 Active aspirin (Adult Low Dose Aspirin) 81 mg enteric coated tablet Take 1 tablet (81 mg total) by mouth daily 1 Active Additional Information Patient taking differently:81 mg oral2 times daily, chewable, Reported on 07/11/2025 ezetimibe (ZETIA) 10 mg tablet TAKE 1 TABLET(10 MG) BY MOUTH DAILY 90 tablet 2 2 Active lisinopriL (PRINIVIL,ZESTRI L) 20 mg tablet TAKE 1 TABLET(20 MG) BY MOUTH DAILY 90 tablet 2 2 Active nitroglycerin (NITROSTAT) 0.4 mg SL tabletIndication s:acute episode of anginal pain Place 1 tablet (0.4 mg total) under the tongue every 5 (five) minutes as needed for chest pain 30 tablet 3 4 Active levocetirizine (XYZAL) 5 mg tablet Take 1 tablet (5 mg total) by mouth every evening Active Ozempic 1 mg/dose (4 mg/3 mL) pen injector injection 5 Active rosuvastatin (CRESTOR) 10 mg tablet Take 1 tablet (10 mg total) by mouth daily 5 Active carvediloL (COREG) 6.25 mg tabletIndication s:Coronary artery disease involving [place] coronary artery of [place] heart without angina pectoris Take 1 tablet (6.25 mg total) by mouth 2 (two) times a day with meals 180 tablet 3 5 Active isosorbide mononitrate ER (IMDUR) 60 mg 24 hr tablet TAKE 1 TABLET BY MOUTH EVERY DAY 90 tablet 1 5 Active Active Problems Problem Noted Date Diagnosed [...] approval. Will continue routine monitoring with local teller vault. We will have films placed in our system. 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 Drug intolerance 10/05/2016 [...] regimen: Wellbutrin, Buspar, Celexa Coronary arteriosclerosis in [place] artery 04/16 Overview (02/26/2017): Coronary artery disease involving [place] coronary artery of [place] heart with other form of angina pectoris Preoperative state 04/16/2016 Overview (02/26/2017): Preoperative cardiovascular examination Coronary artery disease invo lving [place] coronary artery of [place] heart without angina pectoris 04/07/2014 Overview (02/26/2017): Coronary artery disease Assessment & Plan (04/15/2023 10:11 PM CDT): LHC on 03/08/23 at [facility] showing severe three vessel [place] disease and patent SVG-ramus and SVG-PDA/PLV, but [...] (03/18/2023 10:51 AM CDT): -S/P CABG in 2006 (SAAVEDRA-LAD, SVG-diagonal, SVG-ramus, SVG-PDA/PLV) -Unable to cannulate [...] Department Care Team Description 07/12/2025 Orders Only [facility] at [address] [place] [address] Lorena Knox MD Infrarenal abdominal aortic aneurysm (AAA) without rupture (Primary Dx) 07/11/2025 9:15 AM CDT Office Visit [facility] at [address] [place] [phone] Mattie Resendiz NP Mixed diabetic hyperlipidemia associated with type 2 diabetes mellitus (HCC) (Primary Dx); Hypertension associated with diabetes (HCC); Infrarenal abdominal aortic aneurysm (AAA) without rupture 07/02/2025 10:00 AM CDT Ancillary Procedure [facility] and Vein Surgery at [address] [place] [address] Infrarenal abdominal aortic aneurysm (AAA) without rupture 05/07/2025 10:15 AM CDT Office Visit [facility] [address] [facility] [address] [place] [phone] Hypertension associated with diabetes (HCC) (Primary Dx) [...] on file Legal Sex Female 12:57 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 [address] Abdominal Aortic Duplex Ultrasound Report Patient Name: ALE UPTON M : 1950 Study Date: 07/02/2025 9:55:33 AM Gender: F Technology Infusion Specialist: Location: [facility] Ref Provider: LORENA KNOX Quality: [...] MD - 07/04/2025 Vascular & Vein Surgery [address] [place] [address] Abdominal Aortic Duplex Ultrasound Report Patient Name: ALE UPTON M : 1950 Study Date: 07/02/2025 9:55:33 AM Gender: F Technology Infusion Specialist: Location: [facility] Ref Provider: LORENA KNOX Quality: Adequate Order [...] 07/04/2025 8:46:16 AM CDT Lorena Knox MD IM US PROCEDURES Final Result * POCT lipid [...] * (ABNORMAL) eGFR (03/19/2023 5:06 AM CDT) [facility] eGFR 67(L) 90 - 130 mL/min/1. 73 m2 [facility] Comment: Interpretive Data Reference Interval Normal >/= [...] 5:06 AM CDT 03/19/2023 5:52 AM CDT us Daria Lopes [facility] LAB BLOOD ORDERABLES Final R esult [facility] [place] [address] * (ABNORMAL) Hemoglobin A1c (03/17/2023 10:22 PM CDT) Hgb A1C 5.8(H) 4.0 - 5.6 % [facility] Estimated Average Glucose 120 mg/dL [facility] Comment: The ADA recommends reporting an estimated Average Glucose (eAG) with all Hemoglobin A1c results using the equation derived from a study of 507 normal and diabetic adults. Minority populations were underrepresented and children were not included. (Diabetes Care 2020; 43(S1): S66-S76). The eAG is not equivalent to a fasting glucose. Blood 03/17/2023 10:2 2 PM CDT 03/17/2023 10:43 PM CDT us Anil Meredith MD LAB BLOOD ORDERABLES Final Result [facility] [place] [address] from Last 3 Months or Most Recently Relevant to Health Maintenance Insurance MEDICARE MEDICARE [facility] MEDICARE [place] [address] MEDICARE [facility] Advance Directives For more information, please contact: [phone] * Full Code (Latest Code Status on File) Date Activated Date Inactivated Comments 03/17/2023 9:26 PM 03/19/2023 9:42 PM Care Teams Hydraulic Controls Technician Relationship Specialty Start Date End Date Bebeto Figueroa MD [address] [facility] [address] [place] [address] PCP - General Family Medicine 10/13/23 Howie Vazquez MD Consulting Physician Cardiology 03/19/23
[2025-07-20 11:19] VITALS: BP 133/75; PULSE 68; RESP 15; TEMP 36.5; O2SAT 96
--- NOTE | 2025-07-20 11:22 | ECG_ITS ---
Test Date: 2025-07-20 11:26:24 Measurements Intervals [place] Rate: 67 P: 32 NE: 188 QRS: -22 QRSD: 169 T: 29 QT: 475 QTc: 502 Interpretive Statements SINUS RHYTHM RIGHT BUNDLE BRANCH BLOCK ABNORMAL ECG No previous ECG available for comparison Electronically Signed On 07-20-2025 12:07:31 CDT by Jimbo Balderas D.O.
[2025-07-20 11:35] LABS: Hematocrit 39.2 % (37.0-47.0); Hemoglobin 13.2 g/dL (12.0-15.0); Immature Granulocyte Percent A 0.6 % (0-0.5); Lymphocytes Absolute Auto 2.27 K/mm3 (0.9-3.2); Mean Corpuscular HGB Conc 33.7 g/dl (32-36); Mean Corpuscular Hemoglobin 30.7 pg (26-34); Mean Corpuscular Volume 91.2 fl (80-100); Nucleated Red Blood Cells Absolute Auto 0.000 K/mm3 (0.0-0.012); Nucleated Red Blood Cells Perc 0.0 % (0.0-0.2); Platelet Count Result 248 k/mm3 (150-375); Red Blood Count 4.30 M/mm3 (4.2-5.4); White Blood Count 13.2 K/mm3 (4.5-10.0)
[2025-07-20 11:51] LABS: Alanine Aminotransferase 17 U/L (6-35); Albumin Level 4.3 g/dL (3.5-5.1); Alkaline Phosphatase 58 U/L (38-126); Anion Gap 10 mmol/L (4-12); Aspartate Amino Transferase 25 U/L (14-36); Bilirubin,Total 2.1 mg/dL (0.2-1.3); Blood Urea Nitrogen 26 mg/dL (7-17); Calcium 9.1 mg/dL (8.4-10.2); Carbon Dioxide 24 mmol/L (22-30); Chloride 103 mmol/L (98-107); Estimated CRCL calculation 57 ml/min; Estimated Glomerular Filt Rate 58; Glucose 137 mg/dL (65-110); Lipase 40 U/L (23-300); Potassium 3.9 mmol/L (3.4-5.0); Sodium 137 mmol/L (137-145); Total Protein 7.9 g/dL (6.3-8.2)
--- OUTSIDE RECORDS SUMMARY | 2025-07-20 12:13 | XMS_ITS | Clinical Summary ---
Author Organization [facility] [address] Address [address] [place] [address] Care Team Providers Care Strategic Planning Director Name Role Phone Howie Vazquez MD Unavailable Bebeto Figueroa MD Primary Care Provider Allergies Active Allergy Reactions Criticality Noted Date Comments Codeine Propoxyphene-Acetamino phen Hives,Itching Medium 12/05/2020 Erythromycin Levofloxacin Unknown High 05/28/2008 Oxycodone Oxycodone-Acetaminophe n Other (See comments) Low 12/05/2020 Reaction: Propoxyphene Zgowwxr-Bat-Yft Reductase Inhibitors Unknown Low Pt does not [...] 6.25 mg tabletIndication s:Coronary artery disease involving [place] coronary artery of [place] heart without angina pectoris Take 1 tablet [...] approval. Will continue routine monitoring with local seismograph shooter. We will have films placed in our system. 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 Drug intolerance 10/05/2016 [...] regimen: Wellbutrin, Buspar, Celexa Coronary arteriosclerosis in [place] artery 04/16 Overview (02/26/2017): Coronary artery disease involving [place] coronary artery of [place] heart with other form of angina pectoris Preoperative state 04/16/2016 Overview (02/26/2017): Preoperative cardiovascular examination Coronary artery disease invo lving [place] coronary artery of [place] heart without angina pectoris 04/07/2014 Overview (02/26/2017): Coronary artery disease Assessment & Plan (04/15/2023 10:11 PM CDT): LHC on 03/08/23 at [facility] showing severe three vessel [place] disease and patent SVG-ramus and SVG-PDA/PLV, but [...] Department Care Team Description 07/12/2025 Orders Only [facility] at [address] [place] [address] Lorena Knox MD Infrarenal abdominal aortic aneurysm (AAA) without rupture (Primary Dx) 07/11/2025 9:15 AM CDT Office Visit [facility] at [address] [place] [phone] Mattie Resendiz NP Mixed diabetic hyperlipidemia associated with type 2 diabetes mellitus (HCC) (Primary Dx); Hypertension associated with diabetes (HCC); Infrarenal abdominal aortic aneurysm (AAA) without rupture 07/02/2025 10:00 AM CDT Ancillary Procedure [facility] and Vein Surgery at [address] [place] [address] Infrarenal abdominal aortic aneurysm (AAA) without rupture 05/07/2025 10:15 AM CDT Office Visit [facility] [address] [facility] [address] [place] [phone] Hypertension associated with diabetes (HCC) (Primary Dx) [...] on file Legal Sex Female 12:57 AM PRESSER ALL AROUND Gender Identity Not on file Sexual Orientation [...] 3:35 PM CDT Coronary artery disease involving [place] coronary artery of [place] heart without angina pectoris EGFR Routine 03/19/2023 5:06 AM CDT HEMOGLOBIN A1C Timed 03/17/2023 10:22 PM CDT from Last 3 Months or Most Recently Relevant to Health Maintenance Results * US Duplex Scan Aorta, IVC Iliac Complete (07/02/2025 10:16 AM CDT) Anatomical Region Laterality Modality Vascular N/A Ultrasound 07/02/2025 9:55 AM CDT Narrative 07/04/2025 8:54 AM CDT Vascular & Vein Surgery [facility] [place] [address] Abdominal Aortic Duplex Ultrasound Report Patient Name: ALE UPTON M : 1950 Study Date: 07/02/2025 9:55:33 AM Gender: F Golf Course Patroller: Location: [facility] Ref Provider: LORENA KNOX Quality: [...] MD - 07/04/2025 Vascular & Vein Surgery [address] [place] [address] Abdominal Aortic Duplex Ultrasound Report Patient Name: ALE UPTON M : 1950 Study Date: 07/02/2025 9:55:33 AM Gender: F Golf Course Patroller: Location: [facility] Ref Provider: LORENA KNOX Quality: [...] * (ABNORMAL) eGFR (03/19/2023 5:06 AM CDT) [facility] eGFR 67(L) 90 - 130 mL/min/1. 73 m2 [facility] Comment: Interpretive Data Reference Interval Normal [...] 03/19/2023 5:52 AM CDT us Daria Lopes [facility] LAB BLOOD ORDERABLES Final R esult [facility] One [facility] [place] [address] * (ABNORMAL) Hemoglobin A1c (03/17/2023 10:22 PM [...] BLOOD ORDERABLES Final Result [facility] [place] [address] from Last 3 Months or Most Recently Relevant to Health Maintenance Insurance MEDICARE MEDICARE [facility] [place]IC[place] [address] MEDICARE [facility] Advance Directives For more information, please contact: [phone] * Full Code (Latest Code Status on File) Date Activated Date Inactivated Comments 03/17/2023 9:26 PM 03/19/2023 9:42 PM Care Teams Strategic Planning Director Relationship Specialty Start Date End Date Bebeto Figueroa MD [address] [facility] [address] [place] [address] PCP - General Family Medicine 10/13/23 Howie Vazquez MD Consulting Physician Cardiology 03/19/23
--- OUTSIDE RECORDS SUMMARY | 2025-07-20 12:13 | XMS_ITS | Clinical Summary ---
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
--- OUTSIDE RECORDS SUMMARY | 2025-07-20 12:13 | XMS_ITS | Clinical Summary ---
Author Organization [facility] Care Team Providers Care Licensed Professional Counselor Name Role Phone Unavailable Primary Care Provider [...]
--- OUTSIDE RECORDS SUMMARY | 2025-07-20 12:13 | XMS_ITS | Clinical Summary ---
Author Organization [facility] Address [address] [place] [address] Care Team Providers Care Manager Farm Name Role Phone Unavailable Primary Care Provider [...]
--- OUTSIDE RECORDS SUMMARY | 2025-07-20 12:13 | XMS_ITS | Clinical Summary ---
Author Organization [facility] Address [address] [place] [address] Care Team Providers Care Regional Operations Director Name Role Phone Srikanth Ryan MD Unavailable [phone] Ranjit Knox MD Unavailable [phone] Nancy Albrecht MD Primary Care Provider Source Comments [facility],non-owned Affiliates and Associated Physician Practices is amultiple site organization consisting of ambulatory clinics and hospital sitesin [place], [place], [place] and [place]. This disclosure is being madepursuant to the Care Everywhere program and may not contain all information available regarding this patient. Last updated 18.[facility] Allergies Active Allergy Reactions Criticality Noted [...] (Flonase) 50 MCG/ACT nasal sprayIndication s:Nasal Congestion [place] 1 (one) spray into the nose once [...] this topic Medical Devices Implanted Type Area Garment Worker Device Identifier Shelf Expiration Date Model / Serial / Lot Cmpnt Fem Kn Rt Cr Cmnt Prm Vngrd Intlk Implanted:Qty: 1 on 06/04/2023 by Keyur Jacobo MD at [facility] Right: Knee [employer] 10/08/2032 [id number] / / [id number] Tray Tib 75mm Kn Cocr I Beam Implanted:Qty: 1 on 06/04/2023 by Keyur Jacobo MD at [facility] Right: Knee [employer] 03/25/2033 [id number] / / [id number] Cmpnt Ptlr Std 28mm 3 Pg Kn Ser A Implanted:Qty: 1 on 06/04/2023 by Keyur Jacobo MD at [facility] Right: Knee [employer] 09/09/2027 [id number] / / [id number] Cmnt Bone Plc R 40gm Grn Implanted:Qty: 1 on 06/04/2023 by Keyur Jacobo MD at [facility] Right: Knee [employer] 10/21/2025 [id number] / / [id number] Brng [id number] Vngrd Arcm Kn Ant Stab Implanted:Qty: 1 on 06/04/2023 by Keyur Jacobo MD at [facility] Right: Knee [employer] 05/22/2026 [id number] / / [id number] Procedures Procedure Name Priority Date/Time Associated Diagnosis Comments HEMOGLOBIN A1C Routine 06/05/2023 12:14 AM CDT Hypertension associated with diabetes COMPREHENSIVE METABOLIC PANEL STAT 05/10/2023 7:42 AM CDT Preoperative examination from Last 3 Months or Most Recently Relevant to Health Maintenance Results * (ABNORMAL) HEMOGLOBIN A1C (06/05/2023 12:14 AM CDT) Hemoglobin A1c 5.7(H) <5.7 % 06/05/2023 12:42 AM CDT [facility] Estimated Average Glucose 117 mg/dL 06/05/2023 12:42 AM CDT [facility] Blood BLOOD SPECIMEN / Unknown Venipuncture / Unknown 06/05/2023 12:14 AM CDT 06/05/2023 12:20 AM CDT Narrative [facility] - 06/05/2023 12:42 AM CDT [...] exceeds 5% in the specimen. The [employer] assay for the measurement of HbA1c is a National Glycohemoglobin Standardization Program (NGSP) certified method. us Jossie Greer MD LAB - CHEMISTRY ORDERABLES Final Result [facility] [address] [place] [address] * (ABNORMAL) COMPREHENSIVE METABOLIC PANEL (05/10/2023 7:42 AM CDT) Glucose 102 70 - 105 mg/dL 05/10/2023 8:08 AM CDT [facility] Sodium 138 136 - 145 mmol/L 05/10/2023 8:08 AM CDT [facility] Potassium 4.5 3.5 - 5.1 mmol/L 05/10/2023 8:08 AM [facility] Chloride 111(H) 98 - 107 mmol/L 05/10/2023 8:08 AM CDT [facility] CO2 20(L) 23 - 31 mmol/L 05/10/2023 8:08 AM CDT [facility] Calcium 9.6 8.4 - 10.4 mg/dL 05/10/2023 8:08 AM T [facility] Anion Gap 7(L) 8 - 18 mmol/L 05/10/2023 8:08 AM T [facility] BUN 44(H) 9.8 - 20.1 mg/dL 05/10/2023 8:08 AM T [facility] Creatinine 1.28(H) 0.57 - 1.11 mg/dL 05/10/2023 8:08 AM [facility] Alkaline Phosphatase 66 40 - 150 U/L 05/10/2023 8:08 AM CDT [facility] ALT 12 0 - 61 U/L 05/10/2023 8:08 AM CDT [facility] AST 14 5 - 34 U/L 05/10/2023 8:08 AM T [facility] Protein Total 7.4 6.4 - 8.3 gm/dL 05/10/2023 8:08 AM [facility] Albumin 4.4 3.2 - 4.6 gm/dL 05/10/2023 8:08 AM T [facility] Bilirubin Total 0.8 0.2 - 1.2 mg/dL 05/10/2023 8:08 AM [facility] eGFR by CKD-EPI 44(L) >=90 mL/min/1.7 3 m2 05/10/2023 8:08 AM T [facility] Blood BLOOD SPECIMEN / Unknown Venipuncture / Unknown 05/10/2023 7:42 AM CDT 05/10/2023 7:49 AM CDT us Susana Simons [employer] C[employer]ODIAN LAB - CHEMISTRY ORDE ANTHONY Final Result [facility] [address] [place] [address] from Last 3 Months or Most Recently Relevant to Health Maintenance [place] [address] [place] [address] MED[facility]ARE [facility] Address: [facility] [id number] [place] [address] Advance Directives * Full Code (Latest Code Status on File) Date Activated Date Inactivated Comments 06/04/2023 1:57 PM 06/05/2023 3:31 PM Care Teams Regional Operations Director Relationship Specialty Start Date End Date Nancy Albrecht MD [address] [place] [address] PCP - General Family Medicine 05/26/23 Srikanth Ryan MD [address] [facility] [address] [place] [address] Cardiovascular Disease 01/21/23 Ranjit Knox MD [address] [place] [phone] Vascular Surgery 05/19/23
--- NOTE | 2025-07-20 12:22 | ED.ABDPAIN ---
HPI - Abdominal Pain General Chief Complaint: Abdominal Pain Stated Complaint: abdominal pain - diverticulitis Time Seen by Provider: 07/20/25 12:03 Source: patient Mode of arrival: ambulatory History of Present Illness HPI narrative: 75 years old white female came to the hospital from home with her 2 daughters complaining of severe diffuse abdominal pain with nausea started 7 days ago, was seen in our facility 3 days ago and was discharged on Augmentin. Patient denies radiation pain,, reports trouble having bowel movement for the last 7 days, Related Data Home Medications ?Medication ?Instructions ?Recorded ?Confirmed ?Last Taken ?Type aspirin 81 mg tablet,delayed 81 mg PO DAILY 06/13/21 07/09/25 03/14/23 History release loratadine 10 mg tablet (Claritin) 10 mg PO DAILY 06/13/21 07/09/25 03/14/23 History epinephrine 0.3 mg/0.3 mL 0.3 mg IM ONCE PRN Anaphylaxis 03/15/23 07/09/25 Unknown History injection, auto-injector (EpiPen) albuterol sulfate 90 mcg/actuation 1 puff inhalation Q4H PRN Dyspnea 03/29/23 07/09/25 Unknown History aerosol inhaler carvedilol 6.25 mg tablet 6.25 mg PO Q12H 03/29/23 07/09/25 Unknown History fluticasone propionate 50 2 spray intranasal DAILY PRN nasal 03/29/23 07/09/25 Unknown History mcg/actuation nasal congestion spray,suspension (Children's Flonase Allergy Relief) isosorbide mononitrate 30 mg 30 mg PO DAILY 03/29/23 07/09/25 Unknown History tablet,extended release 24 hr acetaminophen 500 mg tablet 2,000 mg PO BID PRN Pain 06/30/23 07/09/25 Unknown History (Tylenol Extra Strength) celecoxib 200 mg capsule 200 mg PO BID 06/30/23 07/09/25 Unknown History cholecalciferol (vitamin D3) 125 125 mcg PO DAILY 06/30/23 07/09/25 Unknown History mcg (5,000 unit) capsule vitamin B complex 1 tablet PO BID 06/30/23 07/09/25 Unknown History Allergies Allergy/AdvReac Type Severity Reaction Status Date / Time codeine Allergy Mild HIVES AND Verified 07/20/25 14:23 FACIAL SWELLING erythromycin base Allergy Mild HIVES Verified 07/20/25 14:23 oxycodone Allergy Mild HIVES Verified 07/20/25 14:23 propoxyphene Allergy Mild DOES NOT Verified 07/20/25 14:23 KNOW levofloxacin Allergy Unknown Unknown Verified 07/20/25 14:23 tramadol Allergy Swelling Verified 07/20/25 14:23 of Lip/Tongue/Throat BEE STINGS Allergy Severe Unknown Uncoded 07/20/25 14:23 Review of Systems Review of Systems: All systems reviewed & are unremarkable except as noted in HPI and below PMFSH Past Medical History Medical History Ascending aortic aneurysm AAA (abdominal aortic aneurysm) Asthma History of rheumatic fever Cataract Statin myopathy Vertigo CAD (coronary artery disease) Diabetes mellitus Chronic obstructive pulmonary disease, unspecified Chronic respiratory failure with hypoxia Obstructive sleep apnea (adult) (pediatric) She denies any sleep apnea. Tobacco abuse Surgical History Surgical History H/O colonoscopy History of appendectomy S/P ORIF (open reduction internal fixation) fracture right ankle History of tonsillectomy H/O section History of laparoscopic cholecystectomy Hx of CABG (~2009) 5 vessel CABG Family History Family History Mother Family history of malignant neoplasm Family history of lung cancer Family history of lymphoma Sibling Family history of diabetes mellitus in first degree relative Family history of malignant neoplasm Family history of heart disease in male family member before age 55 COVID Adrenal mass Adrenal nodule Father Hypertension Family history of cardiovascular disease Family history of primary malignant neoplasm of liver Family history of heart disease in male family member before age 55 Family history of congenital heart disease Daughter Adrenal mass Other Diabetes mellitus Other Carcinoma of colon Cerebrovascular accident Family history of allergic disorder Family history of cardiac disorder Family history of emphysema Social History Social History Social History: Caffeine-coffee occasionally she lives home alone. She is . She has 4 children. 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 Code status full code Smoking packs per day: 1 Smoking cigarettes per day: 20.0 Years smoked: 48 Smoking pack-years: 48.00 Smoking status: Never smoker Tobacco type: cigarettes Second hand tobacco smoke exposure: Yes Smoking end date: 11/22/09 Alcohol intake: former Substance use: never Substance use type: does not use Other substance usage details: topical on knees Lack of Transportation: No Lack of Food: Never True Current Housing: I Have Housing Concerned About Future Housing: No Difficulty Paying Gas/Electric Bills: No Difficulty Paying for Meds: No Currently Unemployed: No Education: Bachelor's Degree Difficulty w/ Childcare or Family Care: No Living arrangements: alone Gender identity (if verbalized by the patient): Female Spiritual care concerns: No Exam Narrative: General appearance: Well-developed, well-nourished, restless, angry Skin: Normal color Head: Normocephalic, nontraumatic Eyes: Clear conjunctiva ENT: Oropharynx normal, ears normal, nose normal Neck: Supple, nontender Chest and respiratory: Airway patent, no respiratory distress, no accessory muscle use Heart: Regular rate/rhythm Abdomen: Soft, diffuse abdominal tenderness, no guarding or rebound, no organomegaly, quiet bowel sounds Vascular: Normal peripheral pulses, normal capillary refill. Musculoskeletal: Normal range of motion, nontender back Neurologic: Alert and oriented ?3, DEVELOPMENT ADMINISTRATOR is normal as tested, no gross motor deficit Course Vital Signs Vital signs: Vital Signs Temperature 36.5 C 07/20/25 11:19 Pulse Rate 68 07/20/25 11:19 Respiratory Rate 15 07/20/25 11:19 Blood Pressure 133/75 07/20/25 11:19 Pulse Oximetry 96 07/20/25 11:19 Oxygen Delivery Room Air 07/20/25 11:19 Temperature 36.5 C 07/20/25 11:19 Pulse Rate 68 07/20/25 11:19 Respiratory Rate 15 07/20/25 11:19 Blood Pressure 133/75 07/20/25 11:19 Pulse Oximetry 96 07/20/25 11:19 Oxygen Delivery Room Air 07/20/25 11:19 MDM - Abdominal Pain MDM Narrative Medical decision making narrative: Patient came with abdominal pain, recently was seen in the ED 3 days ago and was discharged on Augmentin for diverticulitis Vital signs: Insignificant abnormality Physical examination: Diffuse abdominal tenderness, restlessness, Differential diagnosis include failed outpatient treatment of diverticulitis, diverticulitis with perforation, urinary tract infection, anxiety, uterine malignancy, Blood workup today includes CBC, CMP, lipase showed WBC 13.2, BUN 26, total bilirubin 2.1, otherwise within normal limit CT abdomen and pelvis with IV contrast showed diverticulitis, questionable uterine malignancy Pelvic ultrasound ordered Patient started on Zosyn in the ED, Admit to hospitalist. Differential Diagnosis Differential diagnosis: Likely other (As above) Medical Records Attestation: I reviewed the patient's medical records. Lab Data Attestation: I reviewed the patient's lab results. 07/20/25 11:29 07/20/25 11:29 Labs: Lab Results 07/20/25 Range/Units 11:29 WBC 13.2 H (4.5-10.0) K/mm3 RBC 4.30 (4.2-5.4) M/mm3 Hgb 13.2 (12.0-15.0) g/dL Hct 39.2 (37.0-47.0) % MCV 91.2 (80-100) fl MCH 30.7 (26-34) pg MCHC 33.7 (32-36) g/dl RDW 13.5 (11.5-14.5) % Plt Count 248 (150-375) k/mm3 MPV 9.8 (7.4-10.4) fl Immature Gran % (Auto) 0.6 H (0-0.5) % Neut % (Auto) 72.1 (45.5-73.1) % Lymph % (Auto) 17.2 L (18.3-44.2) % Milam % (Auto) 8.0 (2.6-8.5) % Eos % (Auto) 1.7 (0-4.4) % Baso % (Auto) 0.4 (0.2-1.2) % Lymph # (Auto) 2.27 (0.9-3.2) K/mm3 [place] # (Auto) 1.1 H (0.1-0.6) K/mm3 Eos # (Auto) 0.2 (0-0.3) K/mm3 Baso # (Auto) 0.1 (0.0-0.1) K/mm3 Abs Immat Gran (auto) 0.08 H (0.00-0.031) K/mm3 Absolute Neuts (auto) 9.5 H (1.3-6.7) K/mm3 Absolute Nucleated RBC 0.000 (0.0-0.012) K/mm3 Nucleated RBC % 0.0 (0.0-0.2) % PT 14.2 (11.1-14.7) Seconds INR 1.1 APTT 27.1 (22.3-36.8) Seconds Sodium 137 (137-145) mmol/L Potassium 3.9 (3.4-5.0) mmol/L Chloride 103 (98-107) mmol/L Carbon Dioxide 24 (22-30) mmol/L Anion Gap 10 (4-12) mmol/L BUN 26 H (7-17) mg/dL Creatinine 0.94 (0.7-1.0) mg/dL Estim Creat Clear Calc 57 ml/min Estimated GFR 58 L (59 - ) Glucose 137 H (65-110) mg/dL Calcium 9.1 (8.4-10.2) mg/dL Total Bilirubin 2.1 H (0.2-1.3) mg/dL AST 25 (14-36) U/L ALT 17 (6-35) U/L Alkaline Phosphatase 58 (38-126) U/L Troponin I < 0.012 (0.000-0.034) ng/mL Total Protein 7.9 (6.3-8.2) g/dL Albumin 4.3 (3.5-5.1) g/dL Lipase 40 (23-300) U/L Imaging Data Radiologist's impression: ITS Impressions Abdomen/Pelvis CT 07/20/25 12:53 IMPRESSION: 1. Fat stranding about the mid and distal sigmoid colon with a few scattered diverticuli. There is segmental asymmetric thickening of the cooley of the mid and distal sigmoid colon. The finding are suggestive acute diverticulitis. Recommend follow-up to resolution to exclude an underlying mass. 2. Fibroid uterus with suggestion of thickening of endometrial complex which raises the concern for endometrial cancer with differential including endometrial hyperplasia, polyp or submucosal fibroid. A pelvic ultrasound is recommended. 3. Stable 3.9 x 3.6 cm infrarenal abdominal aortic aneurysm. 4. Cholecystectomy Critical Care Time Critical Care Time Critical Care Time: Yes Total Critical Care Time: 30 Discharge Plan Discharge Clinical Impression: Diverticulitis Patient Disposition: Still a Patient Condition: Guarded Prognosis Patient Language: Macanese Prescriptions: No Action citalopram 10 mg tablet 10 mg PO DAILY Qty: 90 2RF loratadine [Claritin] 10 mg tablet 10 mg PO DAILY aspirin 81 mg tablet,delayed release (DR/EC) 81 mg PO DAILY nitroglycerin [Nitrolingual] 400 mcg/spray spray,non-aerosol 1 spray translingual Q5M PRN (Reason: chest pain) Qty: 4.9 1RF Rx Instructions: do not exceed 3 doses per episode albuterol sulfate 90 mcg/actuation HFA aerosol inhaler 1 puff inhalation Q4H PRN (Reason: Dyspnea) carvedilol 6.25 mg tablet 6.25 mg PO Q12H Rx Instructions: must administer with a meal/food isosorbide mononitrate 30 mg tablet extended release 24 hr 30 mg PO DAILY fluticasone propionate [Children's Flonase Allergy Rlf] 50 mcg/actuation spray,suspension 2 spray intranasal DAILY PRN (Reason: nasal congestion) Rx Instructions: administer into each nostril vitamin B complex Tablet 1 tablet PO BID Patient Comments: not taking acetaminophen [Tylenol Extra Strength] 500 mg tablet 2,000 mg PO BID PRN (Reason: Pain) Patient Comments: not taking celecoxib 200 mg capsule 200 mg PO BID Patient Comments: not taking cholecalciferol (vitamin D3) 125 mcg (5,000 unit) capsule 125 mcg PO DAILY Patient Comments: not taking buspirone 5 mg tablet 5 mg PO BID Qty: 60 5RF ondansetron 4 mg tablet,disintegrating 4 mg PO Q8H PRN (Reason: nausea and vomiting) Qty: 10 0RF Patient Comments: not taking hydrocodone-acetaminophen 5-325 mg tablet 1 tablet PO Q8H PRN (Reason: pain) Qty: 10 0RF amoxicillin-pot clavulanate 875-125 mg tablet 1 tablet PO Q12H 10 Days Qty: 20 0RF ondansetron 4 mg tablet,disintegrating 4 mg PO Q8H PRN (Reason: nausea and vomiting) Qty: 10 0RF epinephrine [EpiPen] 0.3 mg/0.3 mL auto-injector 0.3 mg IM ONCE PRN (Reason: Anaphylaxis) Rx Instructions: as a single dose; may repeat once ezetimibe 10 mg tablet 10 mg PO DAILY Qty: 90 1RF lisinopril 20 mg tablet 20 mg PO DAILY Qty: 90 3RF bupropion HCl 150 mg tablet sustained-release 12 hr See Rx Instructions .ROUTE .COMPLEX Qty: 180 3RF Dose Instruction: TAKE 1 TABLET BY MOUTH TWICE A DAY. NEEDS APPOINTMENT FOR FURTHER REFILLS Rx Instructions: TAKE 1 TABLET BY MOUTH TWICE A DAY. semaglutide 1 mg/dose (4 mg/3 mL) pen injector 1 mg subcut WEEKLY Qty: 3 5RF Patient Comments: not taking rosuvastatin 10 mg tablet 10 mg PO DAILY Qty: 90 2RF sodium,potassium,mag sulfates [Suprep Bowel Prep Kit] 17.5-3.13-1.6 gram recon soln See Rx Instructions PO .COMPLEX Qty: 354 0RF Rx Instructions: Take as directed per written instructions that were emailed Follow-up/Referrals: Bebeto Figueroa MD [Primary Care Provider, Family Practice]
[2025-07-20 13:09] LABS: INR 1.1; Prothrombin Time 14.2 Seconds (11.1-14.7)
[2025-07-20 13:10] LABS: Partial Thromboplastin Time 27.1 Seconds (22.3-36.8)
[2025-07-20] MEDS: SODIUM CHLORIDE 0.9% IV 1,000 ML 999 ML IV CONT (13:14)
[2025-07-20] MEDS: ONDANSETRON INJ 4 MG/2 ML VIAL IV PUSH (13:14)
[2025-07-20 13:22] LABS: Troponin I < 0.012 ng/mL (0.000-0.034)
[2025-07-20 14:00] VITALS: BP 122/77; PULSE 68; RESP 20; O2SAT 95
--- NOTE | 2025-07-20 14:31 | P.HP_ITS ---
H&P: HPI History of Present Illness Date/Time: 07/20/25 14:31 Chief Complaint: Abdominal pain Narrative: 75-year-old female ascending aortic aneurysm, ACS status post CABG, diabetes, COPD, and SATURNINO who presents the hospital with abdominal pain. On 07/17/2025 she presented to the emergency room with abdominal pain she was found to have diverticulitis and was sent home on outpatient antibiotics Augmentin. She p resents back to the hospital today complaining of not being of the eat, abdominal pain and constipation. Patient also complained dose of for generalized abdominal pain which is increased since she left the hospital. At that time there were fibroids in the uterus concerning for possible cancer with recommendations for ultrasound. Patient was recommended to follow-up with primary care provider and OB in the next week. Due to pain complaining of severe pain despite antibiotics we will also do the vaginal ultrasound. Patient has leukocytosis at 13.2, she has had no improvement in her white count since being on antibiotics, BUN 26, GFR 58, glucose 137, total bili 2.1, lipase 40. CT abdomen pelvis show Fat stranding about the mid and distal sigmoid colon with a few scattered diverticuli. There is segmental asymmetric thickening of the cooley of the mid and distal sigmoid colon and Fibroid uterus with suggestion of thickening of endometrial complex which raises the concern for endometrial cancer with differential including endometrial hyperplasia, polyp or submucosal fibroid, and Stable 3.9 x 3.6 cm infrarenal abdominal aortic aneurysm. Review of Systems Review of Systems: 12 systems were reviewed and are negativ e except for as per HPI. [facility] Past Medical History Medical History Ascending aortic aneurysm AAA (abdominal aortic aneurysm) Asthma History of rheumatic fever Cataract Statin myopathy Vertigo CAD (coronary artery disease) Diabetes mellitus Chronic obstructive pulmonary disease, unspecified Chronic respiratory failure with hypoxia Obstructive sleep apnea (adult) (pediatric) She denies any sleep apnea. Tobacco abuse Surgical History Surgical History H/O colonoscopy History of appendectomy S/P ORIF (open reduction internal fixation) fracture right ankle History of tonsillectomy H/O section History of laparoscopic cholecystectomy Hx of CABG (~2009) 5 vessel CABG Family History Family History (Updated 08/29/25 @ 17:45 by Jeovanny Michele RN) Mother Family history of malignant neoplasm Family history of lung cancer Family history of lymphoma Sibling COVID Family history of heart disease in male family member before age 55 Family history of malignant neoplasm Adrenal nodule Family history of diabetes mellitus in first degree relative Adrenal mass Father Family history of primary malignant neoplasm of liver Family history of heart disease in male family member before age 55 Family history of cardiovascular disease Family history of congenital heart disease Hypertension Daughter Adrenal mass Other Diabetes mellitus Social History Social History Social History: Caffeine-coffee occasionally she lives home alone. She is . She has 4 children. 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 Code status full code Smoking packs per day: 1.5 Smoking cigarettes per day: 30.0 Years smoked: 50 Smoking pack-years: 75.00 Smoking status: Former smoker Tobacco type: cigarettes Second hand tobacco smoke exposure: Yes Smoking end date: 11/22/14 Alcohol intake: never Substance use: never Substance use type: does not use Other substance usage details: topical on knees Lack of Transportation: No Lack of Food: Never True Current Housing: I Have Housing Concerned About Future Housing: No Difficulty Paying Gas/Electric Bills: No Difficulty Paying for Meds: No Currently Unemployed: No Education: Bachelor's Degree Difficulty w/ Childcare or Family Care: No Living arrangements: alone Gender identity (if verbalized by the patient): Female Spiritual care concerns: No Meds Home Medications and Allergies Home Medications ?Medication ?Instructions ?Recorded ?Confirmed ?Type aspirin 81 mg tablet,delayed 81 mg PO DAILY 06/13/21 0 07/20/25 History release loratadine 10 mg tablet (Claritin) 10 mg PO DAILY 05/2307/20/25 History nitroglycerin 400 mcg/spray 1 spray translingual Q5M P RN chest 06/13/21 07/20/25 Rx translingual (Nitrolingual) pain #4.9 grams ezetimibe 10 mg tablet 10 mg PO DAILY #90 tabs 02/2107/20/25 Rx epinephrine 0.3 mg/0.3 mL 0.3 mg IM ONCE PRN Anaphylax is 03/15/23 07/20/25 History injection, auto-injector (EpiPen) albuterol sulfate 90 mcg/actuation 1 puff inhalation Q 4H PRN Dyspnea 03/29/23 07/20/25 History aerosol inhaler carvedilol 6.25 mg tablet 6.25 mg PO Q12H 03/29/23 History fluticasone propionate 50 2 spray intranasal DAILY PRN nasal 03/29/23 07/20/25 History mcg/actuation nasal congestion spray,suspension (Children's Flonase Allergy Relief) isosorbide mononitrate 30 mg 30 mg PO DAILY 03/29/23 0 07/20/25 History tablet,extended release 24 hr celecoxib 200 mg capsule 200 mg PO BID 06/30/2307/20 History vitamin B complex 1 tablet PO BID 06/30/23 History ondansetron 4 mg disintegrating 4 mg PO Q8H PRN nausea and 12/24/23 07/20/25 Rx tablet vomiting #10 tabs citalopram 10 mg tablet 10 mg PO DAILY #90 tabs 09/0 02/1207/20/25 Rx bupropion HCl 150 mg tablet,12 hr See Rx Instructions .Route 12/13/24 07/20/25 Rx sustained-release .COMPLEX #180 tabs lisinopril 20 mg tablet 20 mg PO DAILY #90 tabs 11/2307/20/25 Rx semaglutide 1 mg/dose (4 mg/3 mL) 1 mg (0.75 mL) subcu t WEEKLY #3 mL 02/02/25 07/20/25 Rx subcutaneous pen injector rosuvastatin 10 mg tablet 10 mg PO DAILY #90 tabs 02/2107/20/25 Rx buspirone 5 mg tablet 5 mg PO BID #60 tabs 5 07/20/25 Rx sodium,potassium,mag sulfates 17.5 See Rx Instructions PO .COMPLEX 05/02/25 07/20/25 Rx gram-3.13 gram-1.6 gram oral soln #354 mL (Suprep Bowel Prep Kit) amoxicillin 875 mg-potassium 1 tablet PO Q12H 10 days #20 tabs 07/17/25 07/20/25 Rx clavulanate 125 mg tablet hydrocodone 5 mg-acetaminophen 325 1 tablet PO Q8H PRN pain #10 tabs 07/17/25 07/20/25 Rx mg tablet Allergies Allergy/AdvReac Type Severity Reaction Status Date / Time codeine Allergy Mild HIVES AND Verified 07/20/25 17:24 FACIAL SWELLING erythromycin base Allergy Mild HIVES Verified 07/20/25 17:24 oxycodone Allergy Mild HIVES Verified 07/20/25 17:24 propoxyphene Allergy Mild DOES NOT Verified 07/20/25 17:24 KNOW levofloxacin Allergy Unknown Unknown Verified 07/20/25 17:24 tramadol Allergy Swelling Verified 07/20/25 17:24 of Lip/Tongue/Throat BEE STINGS Allergy Severe Unknown Uncoded 07/20/25 17:24 Vital Signs Vital Signs - 24 hr 07/20/25 11:19 Temperature 97.7 F Pulse Rate 68 Respiratory Rate 15 Blood Pressure 133/75 Pulse Oximetry 96 Oxygen Delivery Room Air Exam Narrative: General: well appearing, appears stated age. HEENT: normocephalic, atraumatic. Mucous membranes moist. EOMI, PERRLA, bilateral sclera anicteric, no conjunctival injection. Neck supple without JVD, lymphadenopathy, or bruit. Respiratory: clear to ascultation bilaterally. No rales/rhonic/wheezes. Cardiovascular: Regular rate and rhythm, normal S1-S2 upon ascultation. No murmurs, rubs, or clicks. PMI is nondisplaced, capillary refill less than 3 second. Abdomen: Obese Soft, round, no pulsatile masses, nondistended and . No rebound, no guarding. No CVA tenderness, no hepatosplenomegaly. Bowel sounds present to all four quadrants. No high pitch or tinkling sounds, resonant to percussion. Mild tenderness to left upper quadrant Extremities: No cyanosis, clubbing, or edema present. Pulses are palpable 2/2. Active ROM to all four extremities. Neuro: Alert and orientated x 4. PERRLA. Cranial nerves 2-12 intact without focal deficit. Skin: Warm, dry, and intact, without rash, erythema, or lesion. Psych: pleasant, cooperative, normal speech, normal affect, no hallucinations, no dysarthia H&P: Results Labs Labs: Short CBC 07/20/25 Range/Units 11:29 WBC 13.2 H (4.5-10.0) K/mm3 Hgb 13.2 (12.0-15.0) g/dL Hct 39.2 (37.0-47.0) % Plt Count 248 (150-375) k/mm3 BMP 07/20/25 11:29 Sodium 137 Potassium 3.9 Chloride 103 Carbon Dioxide 24 BUN 26 H Creatinine 0.94 Glucose 137 H Calcium 9.1 Cardiac Enzymes 07/20/25 Range/Units 11:29 Troponin I < 0.012 (0.000-0.034) ng/mL Liver Function 07/20/25 Range/Units 11:29 Total Bilirubin 2.1 H (0.2-1.3) mg/dL AST 25 (14-36) U/L ALT 17 (6-35) U/L Alkaline Phosphatase 58 (38-126) U/L Albumin 4.3 (3.5-5.1) g/dL Assessment and Plan Assessment and plan (1) Diverticulitis: Code(s): K57.92 - Diverticulitis of intestine, part unspecified, without perforation or abscess without bleeding Status: Acute Assessment and Plan: Failed outpatient Augmentin Surgery consulted IVF NPO (2) Abnormal CT scan: Code(s): R93.89 - Abnormal findings on diagnostic imaging of other specified body structures Status: Acute Assessment and Plan: Fibroid uterus with suggestion of thickening of endometrial complex which raises the concern for endometrial cancer with differential including endometrial hyperplasia, polyp or submucosal fibroid. A pelvic ultrasound is recommended. Transvaginal ultrasound recommending MR MRI pending (3) Constipation: Code(s): K59.00 - Constipation, unspecified Status: Acute Assessment and Plan: Likely induced from pain medication Aggressive bowel protocol (4) Diabetes mellitus: Qualifiers: Diabetes mellitus complication status: without complication Diabetes mellitus supervisor prep insulin use: with supervisor prep use Diabetes mellitus type: type 2 Qualified Code(s): E11.9 - Type 2 diabetes mellitus without complications; Z79.4 - issuer (current) use of insulin Code(s): E11.9 - Type 2 diabetes mellitus without complications Status: Acute Assessment and Plan: Patient will need diabetic diet once tolerating food [facility] [facility] Hold home diabetes medications (5) Anxiety: Code(s): F41.9 - Anxiety disorder, unspecified Status: Acute Assessment and Plan: Citalopram and buspirone (6) HTN (hypertension): Qualifiers: Hypertension type: primary hypertension Qualified Code(s): I10 - Essential (primary) hypertension Code(s): I10 - Essential (primary) hypertension Status: Acute Assessment and Plan: Lisinopril (7) CAD (coronary artery disease): Qualifiers: Associated angina: without angina Coronary Disease-Associated Artery/Lesion type: [place] artery [place] vs. transplanted heart: [place] heart Qualified Code(s): I25.10 - Atherosclerotic heart disease of [place] coronary artery without angina pectoris Code(s): I25.10 - Atherosclerotic heart disease of [place] coronary artery without angina pectoris Status: Acute Assessment and Plan: Continue aspirin, carvedilol, Zetia, Imdur, and Crestor (8) Dyslipidemia: Code(s): E78.5 - Hyperlipidemia, unspecified Status: Acute Assessment and Plan: Continue Crestor Quality VTE Prophylaxis VTE prophylaxis: mechanical ordered and pharmacologic ordered Hospitalist MIPS Advance Care Plan I have confirmed that the patient's Advanced Care Plan is present, code status i s documented, or surrogate decision maker is listed in patient medical record.: Yes Medication Reconciliation I have utilized all available resources to obtain, update and review the patients current medications (includes all prescriptions, OTC, herbals, cannabis, and nutritional supplements).: Yes
--- NOTE | 2025-07-20 14:41 | PC.NURSE ---
Patient refuses tylenol stating that will do nothing for me. Will make provider aware. Patent to US at this time
[2025-07-20] MEDS: PIPERACILLIN/TAZOBACTAM SOD 3.375 GM in SODIUM CHLORIDE 0.9% IV 50 ML 100 ML IVPB ×2 (15:26→20:49)
[2025-07-20] MEDS: SODIUM CHLORIDE 0.9% IV 1,000 ML 150 ML IV CONT ×2 (15:26→18:09)
--- NOTE | 2025-07-20 15:33 | PC.NURSE ---
clear liquid diet tray ordered by RN.
[2025-07-20] MEDS: KETOROLAC 15 MG/ML VIAL (*BKC) IV PUSH ×2 (15:34→20:48)
[2025-07-20 16:02] LABS: Add Urine Microscopic? YES; Appearance Urine Cloudy (Clear); Glucose Urine UA Negative (Negative); Leukocyte Esterase Ur Trace LEU/UL (Negative); Need Manual Microscopic Reviewed; Nitrate Urine Negative (Negative); Non Pathogenic Casts 0-2; Specific Grav Ur > 1.045 (1.001-1.035)
--- NOTE | 2025-07-20 17:30 | ADMGEN ---
This patient, Ale Soto, was admitted to Medical Room 250-01. Patient/family oriented to hospital policies and general routines including ID bracelet, bed and alarms, visiting hours, pain management, procedures, bathroom and other care routines, personal items, smoking policy, room service/diet, and visiting hours. Information on how to activate the Rapid Response Team has been discussed. Patient/Family are encouraged to report perceived risks to care and to ask questions if they do not understand what they are told or what they should do.
[2025-07-20 17:53] VITALS: BP 151/79; PULSE 71; RESP 18; TEMP 36.6; O2SAT 98
[2025-07-20 21:42] VITALS: BP 141/68; PULSE 69; RESP 16; TEMP 36.6; O2SAT 98
[2025-07-20 23:00] VITALS: PULSE 73; RESP 25; O2SAT 96
[2025-07-20 23:02] VITALS: PULSE 69
[2025-07-20] MEDS: buPROPion HCL SR (12 HR) 150 MG TAB BY MOUTH (23:03)
[2025-07-21] VITALS (7 sets, daily range): BP systolic 129–154; BP diastolic 66–86; PULSE 56–70; RESP 16–22; TEMP 36.4–36.7; O2SAT 95–99
[2025-07-21] MEDS: SODIUM CHLORIDE 0.9% IV 1,000 ML 150 ML IV CONT ×2 (01:58→08:50)
[2025-07-21] MEDS: KETOROLAC 15 MG/ML VIAL (*BKC) IV PUSH ×2 (02:00→08:46)
[2025-07-21] MEDS: PIPERACILLIN/TAZOBACTAM SOD 3.375 GM in SODIUM CHLORIDE 0.9% IV 50 ML 100 ML IVPB ×4 (02:00→21:59)
[2025-07-21 04:40] LABS: Hematocrit 33.3 % (37.0-47.0); Hemoglobin 10.9 g/dL (12.0-15.0); Immature Granulocyte Percent A 0.6 % (0-0.5); Lymphocytes Absolute Auto 2.11 K/mm3 (0.9-3.2); Mean Corpuscular HGB Conc 32.7 g/dl (32-36); Mean Corpuscular Hemoglobin 30.4 pg (26-34); Mean Corpuscular Volume 92.8 fl (80-100); Nucleated Red Blood Cells Absolute Auto 0.000 K/mm3 (0.0-0.012); Nucleated Red Blood Cells Perc 0.0 % (0.0-0.2); Platelet Count Result 172 k/mm3 (150-375); Red Blood Count 3.59 M/mm3 (4.2-5.4); White Blood Count 8.7 K/mm3 (4.5-10.0)
[2025-07-21 05:09] LABS: Anion Gap 6 mmol/L (4-12); Blood Urea Nitrogen 23 mg/dL (7-17); Calcium 8.4 mg/dL (8.4-10.2); Carbon Dioxide 23 mmol/L (22-30); Chloride 108 mmol/L (98-107); Estimated CRCL calculation 61 ml/min; Estimated Glomerular Filt Rate > 60; Glucose 105 mg/dL (65-110); Potassium 3.7 mmol/L (3.4-5.0); Sodium 137 mmol/L (137-145)
[2025-07-21] MEDS: CITALOPRAM HYDROBROMIDE 10 MG TABLET PO (08:45)
[2025-07-21] MEDS: ASPIRIN 81 MG ENTERIC TABLET PO (08:45)
[2025-07-21] MEDS: CELECOXIB 200 MG CAPSULE PO ×2 (08:45→16:58)
[2025-07-21] MEDS: ISOSORBIDE MONONITRATE 30 MG TAB.ER.24H PO (08:45)
[2025-07-21] MEDS: EZETIMIBE 10 MG TABLET PO (08:45)
[2025-07-21] MEDS: buPROPion HCL SR (12 HR) 150 MG TAB BY MOUTH ×2 (08:45→21:53)
[2025-07-21] MEDS: ROSUVASTATIN 10 MG TABLET PO (08:45)
[2025-07-21] MEDS: KCL 20MEQ/0.9% SOD CHL 1,000 ML 100 ML IV CONT ×2 (11:21→21:59)
--- NOTE | 2025-07-21 12:15 | PC.NURSE ---
pt c/o chest pain in sternum, vitals stable. MD notified and stat EKG ordered.
--- NOTE | 2025-07-21 12:18 | ECG_ITS ---
Test Date: 2025-07-21 12:36:14 Measurements Intervals [place] Rate: 57 P: 37 ND: 208 QRS: -4 QRSD: 146 T: 45 QT: 488 QTc: 478 Interpretive Statements SINUS BRADYCARDIA RIGHT BUNDLE BRANCH BLOCK BASELINE WANDER- V1 ABNORMAL ECG Compared to ECG 07/20/2025 11:26:24 HEART RATE HAS DECREASED Electronically Signed On 07-21-2025 15:36:04 CDT by Jimbo Balderas D.O.
[2025-07-21] MEDS: ONDANSETRON INJ 4 MG/2 ML VIAL IV PUSH (12:25)
--- NOTE | 2025-07-21 13:22 | P.PNIM_ITS ---
Progress Note: A&P Assessment and Plan (1) Diverticulitis: Code(s): K57.92 - Diverticulitis of intestine, part unspecified, without perforation or abscess without bleeding Status: Acute Assessment and Plan: Patient presented 07/17 to ED and found to have diverticulitis. She was treated with Augmentin but failed outpatient treatment CT Abd/Pelvis with contrast showing fat stranding about the mid and distal si gmoid colon with a few scattered diverticuli. There is segmental asymmetric thickening of the cooley of the mid and distal sigmoid colon. She was started on Zosyn. General Surgery consulted IVF started. NPO Abd pain better. Change to prn Toradol Will need colonoscopy once improved. (2) Uterine fibroid: Code(s): D25.9 - Leiomyoma of uterus, unspecified Status: Acute Assessment and Plan: CT scan showing fibroid uterus with suggestion of thickening of endometrial complex which raises the concern for endometrial cancer Transvaginal ultrasound was limited but probably uterine fibroids. Endometrium wsa not well visualized and MR recommended. MRI ordered (3) Constipation: Code(s): K59.00 - Constipation, unspecified Status: Acute Assessment and Plan: Patient was having explosive diarrhea after she took Ozempic but she is off this medication now No ribbon stools or change in bowel pattern since being off the Ozempic. Will need colonoscopy to exclude malignancy (4) Diabetes mellitus: Qualifiers: Diabetes mellitus complication status: without complication Diabetes mellitus care home insulin use: with care home use Diabetes mellitus type: type 2 Qualified Code(s): E11.9 - Type 2 diabetes mellitus without complications; Z79.4 - intermediate manager (current) use of insulin Code(s): E11.9 - Type 2 diabetes mellitus without complications Status: Acute Assessment and Plan: The patient's blood glucose was reviewed on 07/21 Glucose remains well controlled. Continue AccuCheks covering with sliding scale. Hypoglycemia protocol available as needed. Continue to monitor (5) Anxiety: Code(s): F41.9 - Anxiety disorder, unspecified Status: Acute Assessment and Plan: Mood stable. Citalopram and buspirone resumed After the visit, she was having chest pain that she felt related to her anxiety. EKG showing no change. Follow. Ativan prn (6) HTN (hypertension): Qualifiers: Hypertension type: primary hypertension Qualified Code(s): I10 - Essential (primary) hypertension Code(s): I10 - Essential (primary) hypertension Status: Acute Assessment and Plan: Patient's blood pressure was reviewed on 07/21 Blood pressure remains well controlled. Will continue to monitor (7) CAD (coronary artery disease): Qualifiers: Associated angina: without angina Coronary Disease-Associated Artery/Lesion type: [place] artery [place] vs. 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 Repeat EKG showing similar findings. Will continue aspirin, carvedilol, Zetia, Imdur, and Crestor (8) Dyslipidemia: Code(s): E78.5 - Hyperlipidemia, unspecified Status: Acute Assessment and Plan: LFTs okay. Continue Crestor and Zetia Plan DVT Prophylaxis - Lovenox Code status - full Subjective Date/time seen: 07/21/25 13:22 Interval history: 75yo female with an ascending aortic aneurysm, CAD status post CABG, DM, COPD, and SATURNINO who presents the hospital with abdominal pain. patient slept well. Abdominal pain is much improved. Did wear her BiPAP last night. Never had diverticulitis. She has known history diverticulosis by colonoscopy 7 years ago. She is due for colonoscopy and was supposed to have this next week. She does feel hungry. She complains of some upper abdominal discomfort that she feels is related to hunger Exam Narrative: AF 98.0 136/66 60 20 97% Gen - NARD Chest - CTA bilaterally, nml RR CV - RRR S1/S2 Abd - Soft, NT/ND, Positive BS Ext - Nonpitting pedal edema Neuro - Alert and oriented. Nonfocal exam. Psych - Nml mood and affect Skin - Warm and dry Objective Data Vital Signs Vital Signs: Vital Signs - 24 hr 07/20/25 14:00 07/20/25 17:53 07/20/25 20:38 Temperature 97.9 F Pulse Rate 68 71 Respiratory Rate 20 18 Blood Pressure 122/77 151/79 H Pulse Oximetry 95 98 Oxygen Delivery Room Air 07/20/25 21:42 07/20/25 23:00 07/20/25 23:02 Temperature 97.8 F Pulse Rate 69 73 69 Respiratory Rate 16 25 H Blood Pressure 141/68 H Pulse Oximetry 98 96 Oxygen Delivery CPAP 07/21/25 02:13 07/21/25 07:00 07/21/25 08:22 Temperature 98.0 F Pulse Rate 70 60 Respiratory Rate 22 H 16 20 Blood Pressure 136/66 Pulse Oximetry 95 97 Oxygen Delivery CPAP Room Air 07/21/25 08:48 Temperature Pulse Rate 60 Respiratory Rate Blood Pressure Pulse Oximetry Oxygen Delivery Intake/Output Intake/Output: Intake & Output 07/18/25 07/19/25 07/20/25 07/21/25 23:59 23:59 23:59 23:59 Intake Total 1457.5 0 Balance 1457.5 2049 Meds/Results Medications: Active Medications Generic Name Dose Route Start Last Admin Trade Name Freq PRN Reason Stop Dose Admin Acetaminophen 650 mg 07/20/25 14:34 Acetaminophen 325 Mg Tablet PO Q4H PRN Mild Pain (1-3) or Fever Albuterol 1 puff 07/20/25 20:57 Albuterol Sulfate (*Sp) Aerosol 1 Puff INHALATION Q4H PRN Dyspnea Aspirin 81 mg 07/21/25 09:00 07/21/25 08:45 Aspirin 81 Mg Enteric Tablet PO 81 mg DAILY LIONEL Administration Bupropion HCl 150 mg 07/20/25 21:00 07/21/25 08:45 Bupropion Hcl Sr (12 Hr) 150 Mg Tab BY MOUTH 150 mg Q12HR LIONEL Administration Buspirone HCl 5 mg 07/20/25 21:10 07/21/25 08:45 Buspirone Hcl 5 Mg Tablet PO 5 mg BID LIONEL Administration Carvedilol 6.25 mg 07/20/25 21:00 07/21/25 08:48 Carvedilol 6.25 Mg Tablet PO 6.25 mg Q12H LIONEL Administration Celecoxib 200 mg 07/21/25 09:00 07/21/25 08:45 Celecoxib 200 Mg Capsule PO 200 mg BID LIONEL Administration Citalopram Hydrobromide 10 mg 07/21/25 09:00 07/21/25 08:45 Citalopram Hydrobromide 10 Mg Tablet PO 10 mg DAILY LIONEL Administration Dextrose 12.5 gm 07/20/25 14:50 Dextrose 50% 25 Gm/50 Ml Syringe IV PUSH PRN PRN Hypoglycemia Protocol Ezetimibe 10 mg 07/21/25 09:00 07/21/25 08:45 Ezetimibe 10 Mg Tablet PO 10 mg DAILY LIONEL Administration Enoxaparin Sodium 30 mg 07/20/25 21:00 07/21/25 09:06 Enoxaparin 30 Mg/0.3 Ml Syringe SUB-Q Not Given Q12HR LIONEL Glucagon 1 mg 07/20/25 14:50 Glucagon For Inj 1 Mg Vial IM PRN PRN Hypoglycemia Protocol Glucose 15 gm 07/20/25 14:50 Glucose Oral Gel 15 Gm Of Glucse In 37.5 Gm Tube PO PRN PRN Hypoglycemia Protocol Piperacillin Sod/Tazobactam 50 mls @ 100 mls/hr 07/20/25 21:00 07/21/25 08:47 Sod 3.375 gm/ Sodium Chloride IVPB 100 mls/hr Q6H LIONEL Administration Dextrose 1,000 mls @ 100 mls/hr 07/20/25 14:50 Dextrose 5% 1,000 Ml IVPB PRN PRN Hypoglycemia Protocol Potassium Chloride/Sodium Chloride 1,000 mls @ 100 mls/hr 07/21/25 10:30 0 07/21/25 11:21 Kcl 20 Meq/Ns IV CONT 100 mls/hr .Q10H LIONEL Administration Insulin Aspart 2 - 5 units 07/20/25 17:00 07/21/25 12:25 Insulin Aspart (*Bkc) 100 Units/Ml SUB-Q Not Given TIDWM [facility] Protocol Insulin Aspart 1 - 2 units 07/20/25 21:00 07/20/25 22:16 Insulin Aspart (*Bkc) 100 Units/Ml SUB-Q Not Given HS [facility] Protocol Isosorbide Mononitrate 30 mg 07/21/25 09:00 07/21/25 08:45 Isosorbide Mononitrate 30 Mg Tab.Er.24h PO 30 mg DAILY LIONEL Administration Ketorolac Tromethamine 15 mg 07/20/25 15:00 07/21/25 08:46 Ketorolac 15 Mg/Ml Vial (*Bkc) IV PUSH 15 mg Q6H LIONEL Administration Lisinopril 20 mg 07/21/25 09:00 07/21/25 08:46 Lisinopril 20 Mg Tablet PO 20 mg DAILY LIONEL Administration Morphine Sulfate 2 mg 07/20/25 17:31 Morphine Sulfate (*Crx) 2 Mg/Ml Inj IV PUSH Q2H PRN Breakthrough Pain Rated 4-6 or NPO Morphine Sulfate 4 mg 07/20/25 17:31 Morphine Sulfate (*Crx) 4 Mg/Ml Inj IV PUSH Q2H PRN Breakthrough Pain Rated 7-10 or NPO Naloxone HCl 0.1 mg 07/20/25 17:31 Naloxone Hcl 0.4 Mg/Ml Vial IV PUSH Q2M PRN Opiate Reversal Ondansetron HCl 4 mg 07/20/25 17:31 07/21/25 12:25 Ondansetron Inj 4 Mg/2 Ml Vial IV PUSH 4 mg Q4H PRN Administration Nausea And Vomiting Rosuvastatin Calcium 10 mg 07/21/25 09:00 07/21/25 08:45 Rosuvastatin 10 Mg Tablet PO 10 mg DAILY LIONEL Administration Radiology Results: ITS Impressions Abdomen/Pelvis CT 07/20/25 12:53 IMPRESSION: 1. Fat stranding about the mid and distal sigmoid colon with a few scattered diverticuli. There is segmental asymmetric thickening of the cooley of the mid and distal sigmoid colon. The finding are suggestive acute diverticulitis. Recommend follow-up to resolution to exclude an underlying mass. 2. Fibroid uterus with suggestion of thickening of endometrial complex which raises the concern for endometrial cancer with differential including endometrial hyperplasia, polyp or submucosal fibroid. A pelvic ultrasound is recommended. 3. Stable 3.9 x 3.6 cm infrarenal abdominal aortic aneurysm. 4. Cholecystectomy Pelvic/Transvag US 07/20/25 15:43 IMPRESSION: 1. Limited study as above. 2. Right ovary was not visualized. 3. Endometrium was not adequately visualized for evaluation. Uterus is heteroge neous. Consider a pelvic MRI for further assessment. 4. There is a 1.5 x 1.6 x 1.5 cm heterogeneous masslike structure in the posterior body of the uterus possibly a uterine fibroid. 5. There is a 1.4 x 1.5 x 1.7 cm submucosal heterogeneous masslike structure possibly a uterine fibroid in the lower uterine segment. 6. Small amount of nonspecific fluid in the endometrial canal. Labs Labs: Laboratory Results - last 24 hr 07/20/25 07/20/25 07/20/25 11:29 15:36 17:56 WBC RBC Hgb Hct MCV MCH MCHC RDW Plt Count MPV Immature Gran % (Auto) Neut % (Auto) Lymph % (Auto) [place] % (Auto) Eos % (Auto) Baso % (Auto) Lymph # (Auto) [place] # (Auto) Eos # (Auto) Baso # (Auto) Abs Immat Gran (auto) Absolute Neuts (auto) Absolute Nucleated RBC Nucleated RBC % Sodium Potassium Chloride Carbon Dioxide Anion Gap BUN Creatinine Estim Creat Clear Calc Estimated GFR Glucose POC Capillary Glucose 126 H Calcium Troponin I < 0.012 Urine Color Yellow Urine Appearance Cloudy H Urine pH 5.5 Ur Specific [place] > 1.045 H Urine Protein 1+ H Urine Glucose (UA) Negative Urine Ketones Negative Ur Blood (Man) 3+ H Urine Nitrate Negative Urine Bilirubin Negative Urine Urobilinogen 1.0 Add Ur Microanalysis Reviewed Leukocyte Esterase Rfl Trace H Urine RBC 51-100 H Urine WBC 0-5 Ur Squamous Epith Cells Few Urine Bacteria 4+ H Urine Casts 0-2 07/20/25 07/21/25 07/21/25 21:51 02:10 04:29 WBC 8.7 RBC 3.59 L Hgb 10.9 L Hct 33.3 L MCV 92.8 MCH 30.4 MCHC 32.7 RDW 13.2 Plt Count 172 MPV 9.6 Immature Gran % (Auto) 0.6 H Neut % (Auto) 63.7 Lymph % (Auto) 24.3 [place] % (Auto) 7.1 Eos % (Auto) 3.8 Baso % (Auto) 0.5 Lymph # (Auto) 2.11 [place] # (Auto) 0.6 Eos # (Auto) 0.3 Baso # (Auto) 0.0 Abs Immat Gran (auto) 0.05 H Absolute Neuts (auto) 5.6 Absolute Nucleated RBC 0.000 Nucleated RBC % 0.0 Sodium 137 Potassium 3.7 Chloride 108 H Carbon Dioxide 23 Anion Gap 6 BUN 23 H Creatinine 0.87 Estim Creat Clear Calc 61 Estimated GFR > 60 Glucose 105 POC Capillary Glucose 93 106 H Calcium 8.4 Troponin I Urine Color Urine Appearance Urine pH Ur Specific [place] Urine Protein Urine Glucose (UA) Urine Ketones Ur Blood (Man) Urine Nitrate Urine Bilirubin Urine Urobilinogen Add Ur Microanalysis Leukocyte Esterase Rfl Urine RBC Urine WBC Ur Squamous Epith Cells Urine Bacteria Urine Casts 07/21/25 07/21/25 07:49 11:52 WBC RBC Hgb Hct MCV MCH MCHC RDW Plt Count MPV Immature Gran % (Auto) Neut % (Auto) Lymph % (Auto) [place] % (Auto) Eos % (Auto) Baso % (Auto) Lymph # (Auto) [place] # (Auto) Eos # (Auto) Baso # (Auto) Abs Immat Gran (auto) Absolute Neuts (auto) Absolute Nucleated RBC Nucleated RBC % Sodium Potassium Chloride Carbon Dioxide Anion Gap BUN Creatinine Estim Creat Clear Calc Estimated GFR Glucose POC Capillary Glucose 102 93 Calcium Troponin I Urine Color Urine Appearance Urine pH Ur Specific [place] Urine Protein Urine Glucose (UA) Urine Ketones Ur Blood (Man) Urine Nitrate Urine Bilirubin Urine Urobilinogen Add Ur Microanalysis Leukocyte Esterase Rfl Urine RBC Urine WBC Ur Squamous Epith Cells Urine Bacteria Urine Casts
[2025-07-21] MEDS: LOPERAMIDE HCL 2 MG CAPSULE PO ×2 (14:12→21:53)
[2025-07-21] MEDS: CALCIUM CARBONATE (TUMS) 500 MG (200 MG ELEMENTAL) PO (14:12)
--- NOTE | 2025-07-21 17:28 | PM.CNGS ---
Assessment and Plan Assessment and plan (1) Sigmoid diverticulitis: Code(s): K57.32 - Diverticulitis of large intestine without perforation or abscess without bleeding Status: Acute Assessment and Plan: initial episode of acute diverticulitis. Judging by patient's symptoms and improvement in her physical exam, it seems this episode is responding well to medical treatment. I will go ahead and start her on clear liquids. Continue IV Zosyn antibiotics. She still has 15 pills of Augmentin at home and can probably go back to taking Augmentin on discharge. I agree she does need a colonoscopy. Typically we wait 4-6 weeks for that after the acute episode of diverticulitis. Fortunately she already has a colonoscopy scheduled in that time frame for August. If she continues to improve, plan to discharge her on low-fiber diet and see her again in the office 2 weeks after discharge for follow-up. Thank you for asking me to see this patient in consultation. (2) Abnormal CT scan, pelvis: Code(s): R93.5 - Abnormal findings on diagnostic imaging of other abdominal regions, including retroperitoneum Status: Acute Assessment and Plan: Concerning for endometrial cancer. Evaluation in progress. (3) Peripheral vascular disease of extremity: Code(s): I73.9 - Peripheral vascular disease, unspecified Status: Acute Assessment and Plan: Significant right sided lower extremity inflow disease noted on this CT scan as well as a CTA of the chest and abdomen she had in 2022. Not sure if this is symptomatic. (4) CAD (coronary artery disease): Qualifiers: Coronary Disease-Associated Artery/Lesion type: [place] artery [place] vs. transplanted heart: [place] heart Associated angina: without angina Qualified Code(s): I25.10 - Atherosclerotic heart disease of [place] coronary artery without angina pectoris Code(s): I25.10 - Atherosclerotic heart disease of [place] coronary artery without angina pectoris Status: Chronic (5) AAA (abdominal aortic aneurysm): Qualifiers: Abdominal aorta location: infrarenal aorta Presence of rupture: without rupture Qualified Code(s): I71.43 - Infrarenal abdominal aortic aneurysm, without rupture Code(s): I71.40 - Abdominal aortic aneurysm, without rupture, unspecified Status: Chronic (6) Ascending aortic aneurysm: Qualifiers: Presence of rupture: without rupture Qualified Code(s): I71.21 - Aneurysm of the ascending aorta, without rupture Code(s): I71.21 - Aneurysm of the ascending aorta, without rupture Status: Chronic (7) Diabetes mellitus: Qualifiers: Diabetes mellitus type: type 2 Diabetes mellitus 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 Evaluation there showed tenderness in the lower abdomen. Patient was mainly complaining of constipation and been taking MiraLax for at least the last 4 days. White blood cell count was [id number] scan showed some stranding in the area of the sigmoid colon but difficult to say this was diverticulitis or colitis. She was discharged on Augmentin. Unfortunately, her pain got worse and she returned on 07/20/25. she was even more tender and painful than before. Her white count was still 13,000. CT scan now was much more indicative of acute diverticulitis. No evidence of abscess or free air. She has been admitted and I was asked to see her in consultation regarding her diverticulitis. She also was noted to have abnormalities of her uterus suggesting potential uterine malignancy. This is being evaluated by pelvic ultrasound and now an MRI scan. Patient has a history of significant vascular disease with coronary bypass grafting coronary artery disease, iliac artery stenosis on the right as well as ascending and infrarenal aortic aneurysm. She has non insulin-dependent diabetes and hypertension. She tells me that she has never had diverticulitis in the past. She is scheduled for a colonoscopy in mid August as a follow-up surveillance colonoscopy. Previous abdominal surgery includes laparoscopic appendectomy, appendectomy, section. Review of Systems Review of Systems: All systems reviewed & are unremarkable except as noted in HPI and below ( Per HPI) FOR[facility]LY [facility] Past Medical History Medical History Ascending aortic aneurysm AAA (abdominal aortic aneurysm) Asthma History of rheumatic fever Cataract Statin myopathy Vertigo CAD (coronary artery disease) Diabetes mellitus Chronic obstructive pulmonary disease, unspecified Chronic respiratory failure with hypoxia Obstructive sleep apnea (adult) (pediatric) She denies any sleep apnea. Tobacco abuse Surgical History Surgical History H/O colonoscopy History of appendectomy S/P ORIF (open reduction internal fixation) fracture right ankle History of tonsillectomy H/O section History of laparoscopic cholecystectomy Hx of CABG (~2009) 5 vessel CABG Family History Family History Mother Family history of malignant neoplasm Family history of lung cancer Family history of lymphoma Sibling COVID Family history of heart disease in male family member before age 55 Family history of malignant neoplasm Adrenal nodule Family history of diabetes mellitus in first degree relative Adrenal mass Father Family history of primary malignant neoplasm of liver Family history of heart disease in male family member before age 55 Family history of cardiovascular disease Family history of congenital heart disease Hypertension Daughter Adrenal mass Other Diabetes mellitus Social History Social History Social History: Caffeine-coffee occasionally she lives home alone. She is . She has 4 children. 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 Code status full code Smoking packs per day: 1.5 Smoking cigarettes per day: 30.0 Years smoked: 50 Smoking pack-years: 75.00 Smoking status: Former smoker Tobacco type: cigarettes Second hand tobacco smoke exposure: Yes Smoking end date: 11/22/14 Alcohol intake: never Substance use: never Substance use type: does not use Other substance usage details: topical on knees Lack of Transportation: No Lack of Food: Never True Current Housing: I Have Housing Concerned About Future Housing: No Difficulty Paying Gas/Electric Bills: No Difficulty Paying for Meds: No Currently Unemployed: No Education: Bachelor's Degree Difficulty w/ Childcare or Family Care: No Living arrangements: alone Gender identity (if verbalized by the patient): Female Spiritual care concerns: No Meds Home Medications and Allergies Home Medications ?Medication ?Instructions ?Recorded ?Confirmed ?Type aspirin 81 mg tablet,delayed 81 mg PO DAILY 06/13/21 07/20/25 History release loratadine 10 mg tablet (Claritin) 10 mg PO DAILY 06/13/21 07/20/25 History nitroglycerin 400 mcg/spray 1 spray translingual Q5M PRN chest 06/13/21 07/20/25 Rx translingual (Nitrolingual) pain #4.9 grams ezetimibe 10 mg tablet 10 mg PO DAILY #90 tabs 03/12/23 07/20/25 Rx epinephrine 0.3 mg/0.3 mL 0.3 mg IM ONCE PRN Anaphylaxis 03/15/23 07/20/25 History injection, auto-injector (EpiPen) albuterol sulfate 90 mcg/actuation 1 puff inhalation Q4H PRN Dyspnea 03/29/23 07/20/25 History aerosol inhaler carvedilol 6.25 mg tablet 6.25 mg PO Q12H 03/29/23 07/20/25 History fluticasone propionate 50 2 spray intranasal DAILY PRN nasal 03/29/23 07/20/25 History mcg/actuation nasal congestion spray,suspension (Children's Flonase Allergy Relief) isosorbide mononitrate 30 mg 30 mg PO DAILY 03/29/23 07/20/25 History tablet,extended release 24 hr celecoxib 200 mg capsule 200 mg PO BID 06/30/23 07/20/25 History vitamin B complex 1 tablet PO BID 06/30/23 07/20/25 History ondansetron 4 mg disintegrating 4 mg PO Q8H PRN nausea and 12/24/23 07/20/25 Rx tablet vomiting #10 tabs citalopram 10 mg tablet 10 mg PO DAILY #90 tabs 07/25/24 07/20/25 Rx bupropion HCl 150 mg tablet,12 hr See Rx Instructions .Route 12/13/24 07/20/25 Rx sustained-release .COMPLEX #180 tabs lisinopril 20 mg tablet 20 mg PO DAILY #90 tabs 12/13/24 07/20/25 Rx semaglutide 1 mg/dose (4 mg/3 mL) 1 mg (0.75 mL) subcut WEEKLY #3 mL 02/02/25 07/20/25 Rx subcutaneous pen injector rosuvastatin 10 mg tablet 10 mg PO DAILY #90 tabs 03/12/25 07/20/25 Rx buspirone 5 mg tablet 5 mg PO BID #60 tabs 04/11/25 07/20/25 Rx sodium,potassium,mag sulfates 17.5 See Rx Instructions PO .COMPLEX 05/02/25 07/20/25 Rx gram-3.13 gram-1.6 gram oral soln #354 mL (Suprep Bowel Prep Kit) amoxicillin 875 mg-potassium 1 tablet PO Q12H 10 days #20 tabs 07/17/25 07/20/25 Rx clavulanate 125 mg tablet hydrocodone 5 mg-acetaminophen 325 1 tablet PO Q8H PRN pain #10 tabs 07/17/25 07/20/25 Rx mg tablet Allergies Allergy/AdvReac Type Severity Reaction Status Date / Time codeine Allergy Mild HIVES AND Verified 07/20/25 17:24 FACIAL SWELLING erythromycin base Allergy Mild HIVES Verified 07/20/25 17:24 oxycodone Allergy Mild HIVES Verified 07/20/25 17:24 propoxyphene Allergy Mild DOES NOT Verified 07/20/25 17:24 KNOW levofloxacin Allergy Unknown Unknown Verified 07/20/25 17:24 tramadol Allergy Swelling Verified 07/20/25 17:24 of Lip/Tongue/Throat BEE STINGS Allergy Severe Unknown Uncoded 07/20/25 17:24 Vital Signs Vital Signs - 24 hr 07/20/25 17:53 07/20/25 20:38 07/20/25 21:42 Temperature 36.6 C 36.6 C Pulse Rate 71 69 Respiratory Rate 18 16 Blood Pressure 151/79 H 141/68 H Pulse Oximetry 98 98 Oxygen Delivery Room Air 07/20/25 23:00 07/20/25 23:02 07/21/25 02:13 Temperature Pulse Rate 73 69 Respiratory Rate 25 H 22 H Blood Pressure Pulse Oximetry 96 Oxygen Delivery CPAP CPAP 07/21/25 07:00 07/21/25 08:00 07/21/25 08:22 Temperature 36.7 C Pulse Rate 70 60 Respiratory Rate 16 20 Blood Pressure 136/66 Pulse Oximetry 95 97 Oxygen Delivery Room Air Room Air 07/21/25 08:48 07/21/25 13:31 Temperature Pulse Rate 60 56 L Respiratory Rate 18 Blood Pressure 129/68 Pulse Oximetry 97 Oxygen Delivery Exam Const: General: cooperative, comfortable, no acute distress, alert and awake Nutritional Appearance: overweight Orientation/consciousness: patient oriented x3 HENMT: Head: normocephalic and atraumatic Mouth: Yes Normal oral and palatal mucosa present Eyes: Conjunctivae: conjunctivae normal Pupils: Equal, round and reactive pupils present EOM: EOMs intact bilaterally Neck: Neck: normal visual inspection, no lymphadenopathy and nontender Resp: Effort & Inspection: normal respiratory effort Auscultation: clear to auscultation bilaterally Cardio: Rate: regular rate Rhythm: regular rhythm Heart sounds: no gallops, no murmurs and no rubs GI: Inspection: normal to inspection, non-distended and scar ( laparoscopic trocar sites) GI Palp: Yes Soft to palpation, Yes Tenderness to palpation present (GI) ( only to deep palpation, left lower quadrant), No Guarding due to palpation present (GI), No Hepatomegaly present, No Splenomegaly present, No Hernia present, No Palpable mass present and No Rebound tenderness present Auscultation: normal bowel sounds Skin: Lesions: no lesions Rashes: no rashes Neuro: General: no focal motor deficits and CN's II-XI intact bilaterally Cranial nerves: Yes Equal, round and reactive pupils present, Yes Bilaterally intact EOM present, Yes facial symmetry and Yes Midline tongue present Speech: normal speech Motor exam (neuro): 5/5 motor strength present throughout and Motor abnormalities not present Extrem: General: no clubbing, cyanosis or edema and edema Psych: Affect: normal affect Thought process: Normal thought process present Insight: Good insight present (Psych) Results Labs 07/21/25 04:29 07/21/25 04:29 Labs: Abnormal lab results 07/20/25 07/21/25 07/21/25 Range/Units 17:56 02:10 04:29 RBC 3.59 L (4.2-5.4) M/mm3 Hgb 10.9 L (12.0-15.0) g/dL Hct 33.3 L (37.0-47.0) % Immature Gran % (Auto) 0.6 H (0-0.5) % Abs Immat Gran (auto) 0.05 H (0.00-0.031) K/mm3 Chloride 108 H (98-107) mmol/L BUN 23 H (7-17) mg/dL POC Capillary Glucose 126 H 106 H (65-105) mg/dl Diabetes panel 07/21/25 Range/Units 04:29 Sodium 137 (137-145) mmol/L Potassium 3.7 (3.4-5.0) mmol/L Chloride 108 H (98-107) mmol/L Carbon Dioxide 23 (22-30) mmol/L BUN 23 H (7-17) mg/dL Creatinine 0.87 (0.7-1.0) mg/dL Glucose 105 (65-110) mg/dL Calcium 8.4 (8.4-10.2) mg/dL Calcium panel 07/21/25 Range/Units 04:29 Calcium 8.4 (8.4-10.2) mg/dL Pituitary panel 07/21/25 Range/Units 04:29 Sodium 137 (137-145) mmol/L Potassium 3.7 (3.4-5.0) mmol/L Chloride 108 H (98-107) mmol/L Carbon Dioxide 23 (22-30) mmol/L BUN 23 H (7-17) mg/dL Creatinine 0.87 (0.7-1.0) mg/dL Glucose 105 (65-110) mg/dL Calcium 8.4 (8.4-10.2) mg/dL Adrenal panel 07/21/25 Range/Units 04:29 Sodium 137 (137-145) mmol/L Potassium 3.7 (3.4-5.0) mmol/L Chloride 108 H (98-107) mmol/L Carbon Dioxide 23 (22-30) mmol/L BUN 23 H (7-17) mg/dL Creatinine 0.87 (0.7-1.0) mg/dL Glucose 105 (65-110) mg/dL Calcium 8.4 (8.4-10.2) mg/dL All other labs normal.
[2025-07-21] MEDS: ENOXAPARIN 30 MG/0.3 ML SYRINGE SUB-Q (21:54)
[2025-07-22] MEDS: PIPERACILLIN/TAZOBACTAM SOD 3.375 GM in SODIUM CHLORIDE 0.9% IV 50 ML 100 ML IVPB ×4 (03:09→20:38)
[2025-07-22 04:57] LABS: Hematocrit 31.5 % (37.0-47.0); Hemoglobin 10.4 g/dL (12.0-15.0); Mean Corpuscular HGB Conc 33.0 g/dl (32-36); Mean Corpuscular Hemoglobin 30.5 pg (26-34); Mean Corpuscular Volume 92.4 fl (80-100); Platelet Count Result 144 k/mm3 (150-375); Red Blood Count 3.41 M/mm3 (4.2-5.4); White Blood Count 5.7 K/mm3 (4.5-10.0)
[2025-07-22 05:07] LABS: Anion Gap 8 mmol/L (4-12); Blood Urea Nitrogen 16 mg/dL (7-17); Calcium 8.2 mg/dL (8.4-10.2); Carbon Dioxide 21 mmol/L (22-30); Chloride 109 mmol/L (98-107); Estimated CRCL calculation 69 ml/min; Estimated Glomerular Filt Rate > 60; Glucose 102 mg/dL (65-110); Potassium 3.7 mmol/L (3.4-5.0); Sodium 138 mmol/L (137-145)
[2025-07-22 05:15] LABS: Hemoglobin A1C 6.2 % (<5.7)
[2025-07-22 06:00] VITALS: BP 146/74; PULSE 66; RESP 16; TEMP 36.6; O2SAT 97
[2025-07-22 06:22] LABS: Vitamin B12 189.0 pg/mL (239-931)
[2025-07-22] MEDS: KCL 20MEQ/0.9% SOD CHL 1,000 ML 100 ML IV CONT (08:35)
[2025-07-22] MEDS: buPROPion HCL SR (12 HR) 150 MG TAB BY MOUTH ×2 (08:36→20:45)
[2025-07-22 08:37] VITALS: PULSE 61
[2025-07-22] MEDS: CITALOPRAM HYDROBROMIDE 10 MG TABLET PO (08:37)
[2025-07-22] MEDS: EZETIMIBE 10 MG TABLET PO (08:37)
[2025-07-22] MEDS: ISOSORBIDE MONONITRATE 30 MG TAB.ER.24H PO (08:37)
[2025-07-22] MEDS: ROSUVASTATIN 10 MG TABLET PO (08:37)
[2025-07-22] MEDS: ASPIRIN 81 MG ENTERIC TABLET PO (08:37)
[2025-07-22] MEDS: CELECOXIB 200 MG CAPSULE PO ×2 (08:37→17:40)
[2025-07-22] MEDS: CYANOCOBALAMIN INJ 1,000 MCG/ML VIAL 1000 MCG IM (08:40)
[2025-07-22] MEDS: CALCIUM CARBONATE (TUMS) 500 MG (200 MG ELEMENTAL) PO ×2 (10:40→17:53)
--- NOTE | 2025-07-22 12:48 | PM.IMPN ---
Progress Note: A&P Assessment and Plan (1) Diverticulitis: Code(s): K57.92 - Diverticulitis of intestine, part unspecified, without perforation or abscess without bleeding Status: Acute Assessment and Plan: Patient presents with abdominal pain to ED 07/17 and found to have diverticulitis. She was treated with Augmentin but failed outpatient treatment. She returned and was admitted on 07/20 CT Abd/Pelvis with contrast showing fat stranding about the mid and distal sigmoid colon with a few scattered diverticuli. There is segmental asymmetric thickening of the cooley of the mid and distal sigmoid colon. She was started on Zosyn. General Surgery consulted IVF started and made NPO Abd pain better. Clear liquid diet started. Continue IV abx. Will need colonoscopy once improved. Advance diet per GenSur recommendations. (2) Uterine fibroid: Code(s): D25.9 - Leiomyoma of uterus, unspecified Status: Acute Assessment and Plan: CT scan showing fibroid uterus with suggestion of thickening of endometrial complex which raises the concern for endometrial cancer Transvaginal ultrasound was limited but probably uterine fibroids. Endometrium was not well visualized and MR recommended. MRI pending Per patient, she is set up to see CLAIM PROCESSOR after discharge. 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 Continue AccuCheks covering with sliding scale. Hypoglycemia protocol available as needed. Continue to monitor (5) Anxiety: Code(s): F41.9 - Anxiety disorder, unspecified Status: Acute Assessment and Plan: Mood stable. Citalopram, Wellbutrin and buspirone resumed Follow. Ativan prn (6) HTN (hypertension): Qualifiers: Hypertension type: primary hypertension Qualified Code(s): I10 - Essential (primary) hypertension Code(s): I10 - Essential (primary) hypertension Status: Acute Assessment and Plan: Patient's blood pressure was reviewed on 07/22 Blood pressure remains reasobaly well controlled. Will continue to monitor (7) CAD (coronary artery disease): Qualifiers: Coronary Disease-Associated Artery/Lesion type: [place] artery [place] vs. 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 Repeat EKG showing similar findings. Will continue aspirin, carvedilol, Zetia, Imdur, and Crestor (8) Dyslipidemia: Code(s): E78.5 - Hyperlipidemia, unspecified Status: Acute Assessment and Plan: LFTs okay. Continue Crestor and Zetia (9) B12 deficiency: Code(s): E53.8 - Deficiency of other specified B group vitamins Status: Acute Assessment and Plan: Hx of B12 deficiency. Not on treatment on admission. B12 level here is 189. B12 replacement ordered. Plan DVT Prophylaxis - Lovenox Code status - full Subjective Date/time seen: 07/22/25 12:48 Interval history: 75yo female with an ascending aortic aneurysm, CAD status post CABG, DM, COPD, and SATURNINO who presents the hospital with abdominal pain. Patient tolerating clear liquid diet. No n/v. Abd pain controlled. +flatus and frequent BMs yesterday with soft and liquid stools. Also with ribbon stools. Exam Narrative: AF 97.8 146/74 61 16 97% ra Gen - NARD Chest - CTA bilaterally, nml RR CV - RRR S1/S2 Abd - Soft, NT/ND, Positive BS Ext - Nonpitting pedal edema Psych - Nml mood and affect Skin - Warm and dry Objective Data Vital Signs Vital Signs: Vital Signs - 24 hr 07/21/25 13:31 07/21/25 21:30 07/21/25 21:40 Temperature Pulse Rate 56 L Respiratory Rate 18 Blood Pressure 129/68 Pulse Oximetry 97 Oxygen Delivery CPAP Room Air 07/21/25 21:46 07/21/25 21:53 07/22/25 06:00 Temperature 97.6 F 97.8 F Pulse Rate 60 60 66 Respiratory Rate 16 16 Blood Pressure 154/86 H 146/74 H Pulse Oximetry 99 97 Oxygen Delivery 07/22/25 08:30 07/22/25 08:37 Temperature Pulse Rate 61 Respiratory Rate Blood Pressure Pulse Oximetry Oxygen Delivery Room Air Intake/Output Intake/Output: Intake & Output 07/19/25 07/20/25 07/21/25 07/22/25 23:59 23:59 23:59 23:59 Intake Total 1457.5 3660 1550 Balance 1457.5 3660 1550 Meds/Results Medications: Active Medications Generic Name Dose Route Start Last Admin Trade Name Freq PRN Reason Stop Dose Admin Acetaminophen 650 mg 07/20/25 14:34 Acetaminophen 325 Mg Tablet PO Q4H PRN Mild Pain (1-3) or Fever Albuterol 1 puff 07/20/25 20:57 Albuterol Sulfate (*Sp) Aerosol 1 Puff INHALATION Q4H PRN Dyspnea Aspirin 81 mg 07/21/25 09:00 07/22/25 08:37 Aspirin 81 Mg Enteric Tablet PO 81 mg DAILY LIONEL Administration Bupropion HCl 150 mg 07/20/25 21:00 07/22/25 08:36 Bupropion Hcl Sr (12 Hr) 150 Mg Tab BY MOUTH 150 mg Q12HR LIONEL Administration Buspirone HCl 5 mg 07/20/25 21:10 07/22/25 08:36 Buspirone Hcl 5 Mg Tablet PO 5 mg BID LIONEL Administration Calcium Carbonate 200 mg 07/21/25 13:47 07/22/25 10:40 Calcium Carbonate (Tums) 500 Mg (200 Mg Elemental) PO 200 mg Q6H PRN Administration Indigestion Carvedilol 6.25 mg 07/20/25 21:00 07/22/25 08:37 Carvedilol 6.25 Mg Tablet PO 6.25 mg Q12H LIONEL Administration Celecoxib 200 mg 07/21/25 09:00 07/22/25 08:37 Celecoxib 200 Mg Capsule PO 200 mg BID LIONEL Administration Citalopram Hydrobromide 10 mg 07/21/25 09:00 07/22/25 08:37 Citalopram Hydrobromide 10 Mg Tablet PO 10 mg DAILY LIONEL Administration Cyanocobalamin 1,000 mcg 07/22/25 09:00 07/22/25 08:40 Cyanocobalamin Inj 1,000 Mcg/Ml Vial IM 07/24/25 09:01 1,000 mcg DAILY LIONEL Administration Dextrose 12.5 gm 07/20/25 14:50 Dextrose 50% 25 Gm/50 Ml Syringe IV PUSH PRN PRN Hypoglycemia Protocol Ezetimibe 10 mg 07/21/25 09:00 07/22/25 08:37 Ezetimibe 10 Mg Tablet PO 10 mg DAILY LIONEL Administration Enoxaparin Sodium 30 mg 07/20/25 21:00 07/22/25 08:51 Enoxaparin 30 Mg/0.3 Ml Syringe SUB-Q Not Given Q12HR LIONEL Glucagon 1 mg 07/20/25 14:50 Glucagon For Inj 1 Mg Vial IM PRN PRN Hypoglycemia Protocol Glucose 15 gm 07/20/25 14:50 Glucose Oral Gel 15 Gm Of Glucse In 37.5 Gm Tube PO PRN PRN Hypoglycemia Protocol Piperacillin Sod/Tazobactam 50 mls @ 100 mls/hr 07/20/25 21:00 07/22/25 08:39 Sod 3.375 gm/ Sodium Chloride IVPB 100 mls/hr Q6H LIONEL Administration Dextrose 1,000 mls @ 100 mls/hr 07/20/25 14:50 Dextrose 5% 1,000 Ml IVPB PRN PRN Hypoglycemia Protocol Potassium Chloride/Sodium Chloride 1,000 mls @ 80 mls/hr 07/21/25 10:30 07/22/25 08:35 Kcl 20 Meq/Ns IV CONT 100 mls/hr .[id number] LIONEL Administration Insulin Aspart 2 - 5 units 07/20/25 17:00 07/22/25 12:37 Insulin Aspart (*Bkc) 100 Units/Ml SUB-Q Not Given TIDWM [facility] Protocol Insulin Aspart 1 - 2 units 07/20/25 21:00 07/21/25 21:52 Insulin Aspart (*Bkc) 100 Units/Ml SUB-Q Not Given HS [facility] Protocol Isosorbide Mononitrate 30 mg 07/21/25 09:00 07/22/25 08:37 Isosorbide Mononitrate 30 Mg Tab.Er.24h PO 30 mg DAILY LIONEL Administration Ketorolac Tromethamine 15 mg 07/21/25 13:45 Ketorolac 15 Mg/Ml Vial (*Bkc) IV PUSH Q6H PRN Pain Rated 4-6 Lisinopril 20 mg 07/21/25 09:00 07/22/25 08:37 Lisinopril 20 Mg Tablet PO 20 mg DAILY LIONEL Administration Loperamide HCl 2 mg 07/21/25 13:47 07/21/25 21:53 Loperamide Hcl 2 Mg Capsule PO 2 mg PRN PRN Administration Diarrhea Lorazepam 0.5 mg 07/21/25 13:43 Lorazepam (*Crx) 0.5 Mg Tablet PO Q6H PRN Anxiety Morphine Sulfate 2 mg 07/20/25 17:31 Morphine Sulfate (*Crx) 2 Mg/Ml Inj IV PUSH Q2H PRN Pain Rated 7-10 Naloxone HCl 0.1 mg 07/20/25 17:31 Naloxone Hcl 0.4 Mg/Ml Vial IV PUSH Q2M PRN Opiate Reversal Ondansetron HCl 4 mg 07/20/25 17:31 07/21/25 12:25 Ondansetron Inj 4 Mg/2 Ml Vial IV PUSH 4 mg Q4H PRN Administration Nausea And Vomiting Rosuvastatin Calcium 10 mg 07/21/25 09:00 07/22/25 08:37 Rosuvastatin 10 Mg Tablet PO 10 mg DAILY LIONEL Administration Radiology Results: ITS Impressions Abdomen/Pelvis CT 07/20/25 12:53 IMPRESSION: 1. Fat stranding about the mid and distal sigmoid colon with a few scattered diverticuli. There is segmental asymmetric thickening of the cooley of the mid and distal sigmoid colon. The finding are suggestive acute diverticulitis. Recommend follow-up to resolution to exclude an underlying mass. 2. Fibroid uterus with suggestion of thickening of endometrial complex which raises the concern for endometrial cancer with differential including endometrial hyperplasia, polyp or submucosal fibroid. A pelvic ultrasound is recommended. 3. Stable 3.9 x 3.6 cm infrarenal abdominal aortic aneurysm. 4. Cholecystectomy Pelvic/Transvag US 07/20/25 15:43 IMPRESSION: 1. Limited study as above. 2. Right ovary was not visualized. 3. Endometrium was not adequately visualized for evaluation. Uterus is heterogeneous. Consider a pelvic MRI for further assessment. 4. There is a 1.5 x 1.6 x 1.5 cm heterogeneous masslike structure in the posterior body of the uterus possibly a uterine fibroid. 5. There is a 1.4 x 1.5 x 1.7 cm submucosal heterogeneous masslike structure possibly a uterine fibroid in the lower uterine segment. 6. Small amount of nonspecific fluid in the endometrial canal. Labs Labs: Laboratory Results - last 24 hr 07/21/25 07/21/25 07/22/25 17:30 21:50 03:12 WBC RBC Hgb Hct MCV MCH MCHC RDW Plt Count MPV Sodium Potassium Chloride Carbon Dioxide Anion Gap BUN Creatinine Estim Creat Clear Calc Estimated GFR Glucose POC Capillary Glucose 82 86 89 Hemoglobin A1c Calcium Vitamin B12 Folate 07/22/25 07/22/25 07/22/25 04:30 07:50 11:31 WBC 5.7 RBC 3.41 L Hgb 10.4 L Hct 31.5 L MCV 92.4 MCH 30.5 MCHC 33.0 RDW 13.2 Plt Count 144 L MPV 9.8 Sodium 138 Potassium 3.7 Chloride 109 H Carbon Dioxide 21 L Anion Gap 8 BUN 16 Creatinine 0.77 Estim Creat Clear Calc 69 Estimated GFR > 60 Glucose 102 POC Capillary Glucose 94 94 Hemoglobin A1c 6.2 H Calcium 8.2 L Vitamin B12 189.0 L Folate 10.9
[2025-07-22 13:06] VITALS: BP 114/66; PULSE 51; RESP 16; TEMP 36.6; O2SAT 98
--- NOTE | 2025-07-22 13:59 | P.PNGS_ITS ---
Progress Note: A&P Assessment and Plan (1) Sigmoid diverticulitis: Code(s): K57.32 - Diverticulitis of large intestine without perforation or abscess without bleeding Status: Acute Assessment and Plan: continues to improve. Tolerated liquids well. Labs look better. Abdomen essentially nontender. Advanced to low-fiber diet. If tolerates well, can probably change to oral Augmentin tomorrow. (2) Abnormal CT scan, pelvis: Code(s): R93.5 - Abnormal findings on diagnostic imaging of other abdominal regions, including retroperitoneum Status: Acute Assessment and Plan: MRI has been done and awaiting the reading. (3) Peripheral vascular disease of extremity: Code(s): I73.9 - Peripheral vascular disease, unspecified Status: Acute Assessment and Plan: Severe stenosis right common iliac on CT scan from the emergency room. (4) Ascending aortic aneurysm: Qualifiers: Presence of rupture: without rupture Qualified Code(s): I71.21 - Aneurysm of the ascending aorta, without rupture Code(s): I71.21 - Aneurysm of the ascending aorta, without rupture Status: Chronic (5) AAA (abdominal aortic aneurysm): Qualifiers: Abdominal aorta location: infrarenal aorta Presence of rupture: without rupture Qualified Code(s): I71.43 - Infrarenal abdominal aortic aneurysm, without rupture Code(s): I71.40 - Abdominal aortic aneurysm, without rupture, unspecified Status: Chronic (6) CAD (coronary artery disease): Qualifiers: Coronary Disease-Associated Artery/Lesion type: [place] artery [place] vs. 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 Code(s): E11.9 - Type 2 diabetes mellitus without complications Status: Chronic Subjective Subjective Date/Time Seen: 07/22/25 13:59 Patient reports: feels better, pain is less, bowel movement and afebrile Review of Systems Review of Systems: All systems reviewed & are unremarkable except as noted in HPI and below ( HPI) Exam Const: General: comfortable, alert and awake GI: Inspection: non-distended and no visible herniation GI Palp: Yes Soft to palpation, No Tenderness to palpation present (GI), No Guarding due to palpation present (GI) and No Palpable mass present Auscultation: normal bowel sounds Objective Data Vital Signs Vital Signs: Vital Signs - 24 hr 07/21/25 21:30 07/21/25 21:40 07/21/25 21:46 Temperature 36.4 C Pulse Rate 60 Respiratory Rate 16 Blood Pressure 154/86 H Pulse Oximetry 99 Oxygen Delivery CPAP Room Air 07/21/25 21:53 07/22/25 06:00 07/22/25 08:30 Temperature 36.6 C Pulse Rate 60 66 Respiratory Rate 16 Blood Pressure 146/74 H Pulse Oximetry 97 Oxygen Delivery Room Air 07/22/25 08:37 07/22/25 13:06 Temperature 36.6 C Pulse Rate 61 51 L Respiratory Rate 16 Blood Pressure 114/66 Pulse Oximetry 98 Oxygen Delivery Intake/Output Intake/Output: Intake & Output 07/19/25 07/20/25 07/21/25 07/22/25 23:59 23:59 23:59 23:59 Intake Total 1457.5 3660 1550 Balance 1457.5 3660 1550 Meds/Results Medications: Active Medications Generic Name Dose Route Start Last Admin Trade Name Freq PRN Reason Stop Dose Admin Acetaminophen 650 mg 07/20/25 14:34 Acetaminophen 325 Mg Tablet PO Q4H PRN Mild Pain (1-3) or Fever Albuterol 1 puff 07/20/25 20:57 Albuterol Sulfate (*Sp) Aerosol 1 Puff INHALATION Q4H PRN Dyspnea Aspirin 81 mg 07/21/25 09:00 07/22/25 08:37 Aspirin 81 Mg Enteric Tablet PO 81 mg DAILY LIONEL Administration Bupropion HCl 150 mg 07/20/25 21:00 07/22/25 08:36 Bupropion Hcl Sr (12 Hr) 150 Mg Tab BY MOUTH 150 mg Q12HR LIONEL Administration Buspirone HCl 5 mg 07/20/25 21:10 07/22/25 08:36 Buspirone Hcl 5 Mg Tablet PO 5 mg BID LIONEL Administration Calcium Carbonate 200 mg 07/21/25 13:47 07/22/25 10:40 Calcium Carbonate (Tums) 500 Mg (200 Mg Elemental) PO 200 mg Q6H PRN Administration Indigestion Carvedilol 6.25 mg 07/20/25 21:00 07/22/25 08:37 Carvedilol 6.25 Mg Tablet PO 6.25 mg Q12H LIONEL Administration Celecoxib 200 mg 07/21/25 09:00 07/22/25 08:37 Celecoxib 200 Mg Capsule PO 200 mg BID LIONEL Administration Citalopram Hydrobromide 10 mg 07/21/25 09:00 07/22/25 08:37 Citalopram Hydrobromide 10 Mg Tablet PO 10 mg DAILY LIONEL Administration Cyanocobalamin 1,000 mcg 07/22/25 09:00 07/22/25 08:40 Cyanocobalamin Inj 1,000 Mcg/Ml Vial IM 07/24/25 09:01 1,000 mcg DAILY LIONEL Administration Dextrose 12.5 gm 07/20/25 14:50 Dextrose 50% 25 Gm/50 Ml Syringe IV PUSH PRN PRN Hypoglycemia Protocol Ezetimibe 10 mg 07/21/25 09:00 07/22/25 08:37 Ezetimibe 10 Mg Tablet PO 10 mg DAILY LIONEL Administration Enoxaparin Sodium 30 mg 07/20/25 21:00 07/22/25 08:51 Enoxaparin 30 Mg/0.3 Ml Syringe SUB-Q Not Given Q12HR LIONEL Glucagon 1 mg 07/20/25 14:50 Glucagon For Inj 1 Mg Vial IM PRN PRN Hypoglycemia Protocol Glucose 15 gm 07/20/25 14:50 Glucose Oral Gel 15 Gm Of Glucse In 37.5 Gm Tube PO PRN PRN Hypoglycemia Protocol Piperacillin Sod/Tazobactam 50 mls @ 100 mls/hr 07/20/25 21:00 07/22/25 08:39 Sod 3.375 gm/ Sodium Chloride IVPB 100 mls/hr Q6H LIONEL Administration Dextrose 1,000 mls @ 100 mls/hr 07/20/25 14:50 Dextrose 5% 1,000 Ml IVPB PRN PRN Hypoglycemia Protocol Potassium Chloride/Sodium Chloride 1,000 mls @ 80 mls/hr 07/21/25 10:30 07/22/25 08:35 Kcl 20 Meq/Ns IV CONT 100 mls/hr .[id number] LIONEL Administration Insulin Aspart 2 - 5 units 07/20/25 17:00 07/22/25 12:37 Insulin Aspart (*Bkc) 100 Units/Ml SUB-Q Not Given TIDWM [facility] Protocol Insulin Aspart 1 - 2 units 07/20/25 21:00 07/21/25 21:52 Insulin Aspart (*Bkc) 100 Units/Ml SUB-Q Not Given HS [facility] Protocol Isosorbide Mononitrate 30 mg 07/21/25 09:00 07/22/25 08:37 Isosorbide Mononitrate 30 Mg Tab.Er.24h PO 30 mg DAILY LIONEL Administration Ketorolac Tromethamine 15 mg 07/21/25 13:45 Ketorolac 15 Mg/Ml Vial (*Bkc) IV PUSH Q6H PRN Pain Rated 4-6 Lisinopril 20 mg 07/21/25 09:00 07/22/25 08:37 Lisinopril 20 Mg Tablet PO 20 mg DAILY LIONEL Administration Loperamide HCl 2 mg 07/21/25 13:47 07/21/25 21:53 Loperamide Hcl 2 Mg Capsule PO 2 mg PRN PRN Administration Diarrhea Lorazepam 0.5 mg 07/21/25 13:43 Lorazepam (*Crx) 0.5 Mg Tablet PO Q6H PRN Anxiety Morphine Sulfate 2 mg 07/20/25 17:31 Morphine Sulfate (*Crx) 2 Mg/Ml Inj IV PUSH Q2H PRN Pain Rated 7-10 Naloxone HCl 0.1 mg 07/20/25 17:31 Naloxone Hcl 0.4 Mg/Ml Vial IV PUSH Q2M PRN Opiate Reversal Ondansetron HCl 4 mg 07/20/25 17:31 07/21/25 12:25 Ondansetron Inj 4 Mg/2 Ml Vial IV PUSH 4 mg Q4H PRN Administration Nausea And Vomiting Rosuvastatin Calcium 10 mg 07/21/25 09:00 07/22/25 08:37 Rosuvastatin 10 Mg Tablet PO 10 mg DAILY LIONEL Administration Radiology Results: ITS Impressions Abdomen/Pelvis CT 07/20/25 12:53 IMPRESSION: 1. Fat stranding about the mid and distal sigmoid colon with a few scattered diverticuli. There is segmental asymmetric thickening of the cooley of the mid and distal sigmoid colon. The finding are suggestive acute diverticulitis. Recommend follow-up to resolution to exclude an underlying mass. 2. Fibroid uterus with suggestion of thickening of endometrial complex which raises the concern for endometrial cancer with differential including endometrial hyperplasia, polyp or submucosal fibroid. A pelvic ultrasound is recommended. 3. Stable 3.9 x 3.6 cm infrarenal abdominal aortic aneurysm. 4. Cholecystectomy Pelvic/Transvag US 07/20/25 15:43 IMPRESSION: 1. Limited study as above. 2. Right ovary was not visualized. 3. Endometrium was not adequately visualized for evaluation. Uterus is heterogeneous. Consider a pelvic MRI for further assessment. 4. There is a 1.5 x 1.6 x 1.5 cm heterogeneous masslike structure in the posterior body of the uterus possibly a uterine fibroid. 5. There is a 1.4 x 1.5 x 1.7 cm submucosal heterogeneous masslike structure possibly a uterine fibroid in the lower uterine segment. 6. Small amount of nonspecific fluid in the endometrial canal. Labs Labs: Laboratory Results - last 24 hr 07/21/25 07/21/25 07/22/25 17:30 21:50 03:12 WBC RBC Hgb Hct MCV MCH MCHC RDW Plt Count MPV Sodium Potassium Chloride Carbon Dioxide Anion Gap BUN Creatinine Estim Creat Clear Calc Estimated GFR Glucose POC Capillary Glucose 82 86 89 Hemoglobin A1c Calcium Vitamin B12 Folate 07/22/25 07/22/25 07/22/25 04:30 07:50 11:31 WBC 5.7 RBC 3.41 L Hgb 10.4 L Hct 31.5 L MCV 92.4 MCH 30.5 MCHC 33.0 RDW 13.2 Plt Count 144 L MPV 9.8 Sodium 138 Potassium 3.7 Chloride 109 H Carbon Dioxide 21 L Anion Gap 8 BUN 16 Creatinine 0.77 Estim Creat Clear Calc 69 Estimated GFR > 60 Glucose 102 POC Capillary Glucose 94 94 Hemoglobin A1c 6.2 H Calcium 8.2 L Vitamin B12 189.0 L Folate 10.9
[2025-07-22 19:54] VITALS: BP 120/73; PULSE 57; RESP 20; TEMP 36.7; O2SAT 99
[2025-07-22 20:45] VITALS: PULSE 57
[2025-07-22] MEDS: ACETAMINOPHEN 325 MG TABLET 650 MG PO (20:49)
[2025-07-23] VITALS: BP 140/74; PULSE 54; RESP 20; TEMP 36.5; O2SAT 96
[2025-07-23] MEDS: PIPERACILLIN/TAZOBACTAM SOD 3.375 GM in SODIUM CHLORIDE 0.9% IV 50 ML 100 ML IVPB ×2 (02:11→09:56)
[2025-07-23 04:37] LABS: Hematocrit 31.7 % (37.0-47.0); Hemoglobin 10.7 g/dL (12.0-15.0); Mean Corpuscular HGB Conc 33.8 g/dl (32-36); Mean Corpuscular Hemoglobin 30.8 pg (26-34); Mean Corpuscular Volume 91.4 fl (80-100); Platelet Count Result 163 k/mm3 (150-375); Red Blood Count 3.47 M/mm3 (4.2-5.4); White Blood Count 5.6 K/mm3 (4.5-10.0)
[2025-07-23 04:59] LABS: Anion Gap 7 mmol/L (4-12); Blood Urea Nitrogen 15 mg/dL (7-17); Calcium 8.3 mg/dL (8.4-10.2); Carbon Dioxide 23 mmol/L (22-30); Chloride 109 mmol/L (98-107); Estimated CRCL calculation 66 ml/min; Estimated Glomerular Filt Rate > 60; Glucose 108 mg/dL (65-110); Potassium 3.7 mmol/L (3.4-5.0); Sodium 139 mmol/L (137-145)
[2025-07-23 05:02] VITALS: BP 158/88; PULSE 59; RESP 20; TEMP 36.5; O2SAT 96
[2025-07-23] MEDS: LORazepam (*CRX) 0.5 MG TABLET PO (05:17)
[2025-07-23 09:51] VITALS: PULSE 68
[2025-07-23] MEDS: ASPIRIN 81 MG ENTERIC TABLET PO (09:51)
[2025-07-23] MEDS: buPROPion HCL SR (12 HR) 150 MG TAB BY MOUTH (09:51)
[2025-07-23] MEDS: EZETIMIBE 10 MG TABLET PO (09:52)
[2025-07-23] MEDS: ROSUVASTATIN 10 MG TABLET PO (09:52)
[2025-07-23] MEDS: CITALOPRAM HYDROBROMIDE 10 MG TABLET PO (09:52)
[2025-07-23] MEDS: ACETAMINOPHEN 325 MG TABLET 650 MG PO (09:52)
[2025-07-23] MEDS: ISOSORBIDE MONONITRATE 30 MG TAB.ER.24H PO (09:52)
[2025-07-23] MEDS: CELECOXIB 200 MG CAPSULE PO (09:52)
[2025-07-23] MEDS: CYANOCOBALAMIN INJ 1,000 MCG/ML VIAL 1000 MCG IM (09:55)
--- NOTE | 2025-07-23 13:25 | PM.DS ---
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 Diabetes mellitus complication status: without complication Qualified Code(s): E11.9 - Type 2 diabetes mellitus without complications; Z79.4 - nursing home (current) use of insulin Code(s): E11.9 - Type 2 diabetes mellitus without complications Status: Chronic (5) Anxiety: Code(s): F41.9 - Anxiety disorder, unspecified Status: Acute (6) HTN (hypertension): Qualifiers: Hypertension type: primary hypertension Qualified Code(s): I10 - Essential (primary) hypertension Code(s): I10 - Essential (primary) hypertension Status: Acute (7) CAD (coronary artery disease): Qualifiers: Coronary Disease-Associated Artery/Lesion type: [place] artery [place] vs. transplanted heart: [place] heart Associated angina: without angina Qualified Code(s): I25.10 - Atherosclerotic heart disease of [place] coronary artery without angina pectoris Code(s): I25.10 - Atherosclerotic heart disease of [place] coronary artery without angina pectoris Status: Chronic (8) Dyslipidemia: Code(s): E78.5 - Hyperlipidemia, unspecified Status: Acute (9) B12 deficiency: Code(s): E53.8 - Deficiency of other specified B group vitamins Status: Acute (10) Peripheral vascular disease of extremity: Code(s): I73.9 - Peripheral vascular disease, unspecified Status: Acute DS: Summary Hospital Course Reason for hospitalization: 75yo female with an ascending aortic aneurysm, CAD status post CABG, DM, COPD, and SATURNINO who presents the hospital with abdominal pain. Please see H&P for details. Hospital Course: Patient presents with abdominal pain to ED 07/17 and found to have diverticulitis. She was treated with Augmentin and was discharged home but failed outpatient treatment. She returned and was admitted on 07/20. CT Abd/Pelvis with contrast showing fat stranding about the mid and distal sigmoid colon with a few scattered diverticuli. There is segmental asymmetric thickening of the cooley of the mid and distal sigmoid colon. She was started on Zosyn for diverticulitis. General Surgery consulted. IVF started and made NPO. Abd pain better. Clear liquid diet started and diet advanced as tolerated. She has a colonoscopy already scheduled. CT scan showing fibroid uterus with suggestion of thickening of endometrial complex which raises the concern for endometrial cancer. Transvaginal ultrasound was limited but probably uterine fibroids. Endometrium was not well visualized and MR recommended. MRI showing thickened endometrial complex measuring up to 1.6 cm which appears primarily due to nonenhancing fluid, potentially hemorrhage related to several uterine fibroids. Also noted with prominent wall thickening along a significant length of the sigmoid colon with some surrounding inflammatory stranding suggestive of either diverticulitis or focal colitis. These results discussed with patient and plans for her to follow-up with [facility]. She voices understanding and all questions answered. She has a hx of B12 deficiency but no longer on treatment. B12 level here was low at 189. B12 replacement ordered. She did well. She was up ambulating. Discharge abx selection discussed with PharmD ID. Patient overall did well and was able to be discharged on 07/23/25. Discharge instructions discussed and all questions answered. Status at Discharge Cognitive/behavioral status at discharge: stable. Time Spent with Patient Time attestation: Total time spent providing and/or coordinating discharge services: 34 minutes Time spent: Greater than 30 minutes Exam Narrative: AF 97.7 158/88 68 20 96% ra Gen - NARD Chest - CTA bilaterally, nml RR CV - RRR S1/S2 Abd - Soft, NT/ND, Positive BS Ext - Nonpitting pedal edema Psych - Nml mood and affect Skin - Warm and dry DS: Data Data Completed and Pending Labs on day of discharge: Labs from last 24 hours 07/23/25 07/23/25 07/23/25 11:55 07:51 03:58 WBC 5.6 RBC 3.47 L Hgb 10.7 L Hct 31.7 L MCV 91.4 MCH 30.8 MCHC 33.8 RDW 12.9 Plt Count 163 MPV 10.1 Sodium 139 Potassium 3.7 Chloride 109 H Carbon Dioxide 23 Anion Gap 7 BUN 15 Creatinine 0.81 Estim Creat Clear Calc 66 Estimated GFR > 60 Glucose 108 POC Capillary Glucose 105 100 Calcium 8.3 L 07/22/25 07/22/25 19:59 16:43 WBC RBC Hgb Hct MCV MCH MCHC RDW Plt Count MPV Sodium Potassium Chloride Carbon Dioxide Anion Gap BUN Creatinine Estim Creat Clear Calc Estimated GFR Glucose POC Capillary Glucose 95 107 H Calcium Discharge Plan Discharge Attending physician on discharge: Dilshad Mcfadden Consulting providers: Greg Veliz Discharging Clinician: Dilshad Mcfadden Anticipated Discharge Date/Time: 07/23/25 13:33 Patient Disposition: Home Activity: as tolerated Diet: low fiber Discharge Instructions: Low fiber diet as we discussed. Advance to high fiber diet when okay with your doctor. Please complete your antibiotic course even if you are starting to feel well. You will be going home on Augmentin and Flagyl for 1 more week of treatment. Contact your doctor or call 911 and come to the Emergency Room if you have increasing abdominal pain, fevres or other worrisome symptoms. Avoid NSAIDs (ibuprofen, naproxen, Aleve). Tylenol is safe to take. Follow-up with your primary care provider in 1-2 weeks. Please call for appointment. Discuss with your doctor to see if further testing is needed for your adrenal mass as we discussed Follow-up with [facility] provider for further evaluation of the uterine abnormalities as we discussed. Follow-up with GI doctor for your colonoscopy as we discussed. Follow-up with General Surgery in 5 weeks. Please call for an appointment. Follow-up with your vascular surgeon or Turbogenerator Operator in 2-3 weeks for the abnormalities noted by CT scan in the ER on 07/17/25 which showed a 3.9 cm infrarenal abdominal aortic aneurysm and moderate to severe stenosis at the right common iliac artery as we discussed. Thank you for using [facility] for your health care needs. Patient Instructions: Antibiotic Form Patient Language: Vietnamese Stand Alone Forms: General Discharge Information Follow-up/Referrals: Bebeto Figueroa MD [Primary Care Provider, Family Practice] - Call for Appointment Greg Veliz MD [Physician, General Surgery] - Call for Appointment Discharge Medications: New metronidazole 500 mg Tablet 500 mg PO Q8HR Qty: 21 0RF amoxicillin-pot clavulanate 875-125 mg tablet 1 tablet PO Q12H Qty: 14 0RF Continued citalopram 10 mg tablet 10 mg PO DAILY Qty: 90 2RF loratadine [Claritin] 10 mg tablet 10 mg PO DAILY aspirin 81 mg tablet,delayed release (DR/EC) 81 mg PO DAILY nitroglycerin [Nitrolingual] 400 mcg/spray spray,non-aerosol 1 spray translingual Q5M PRN (Reason: chest pain) Qty: 4.9 1RF Rx Instructions: do not exceed 3 doses per episode albuterol sulfate 90 mcg/actuation HFA aerosol inhaler 1 puff inhalation Q4H PRN (Reason: Dyspnea) carvedilol 6.25 mg tablet 6.25 mg PO Q12H Rx Instructions: must administer with a meal/food isosorbide mononitrate 30 mg tablet extended release 24 hr 30 mg PO DAILY fluticasone propionate [Children's Flonase Allergy Rlf] 50 mcg/actuation spray,suspension 2 spray intranasal DAILY PRN (Reason: nasal congestion) Rx Instructions: administer into each nostril celecoxib 200 mg capsule 200 mg PO BID Patient Comments: not taking buspirone 5 mg tablet 5 mg PO BID Qty: 60 5RF epinephrine [EpiPen] 0.3 mg/0.3 mL auto-injector 0.3 mg IM ONCE PRN (Reason: Anaphylaxis) Rx Instructions: as a single dose; may repeat once ezetimibe 10 mg tablet 10 mg PO DAILY Qty: 90 1RF lisinopril 20 mg tablet 20 mg PO DAILY Qty: 90 3RF bupropion HCl 150 mg tablet sustained-release 12 hr See Rx Instructions .ROUTE .COMPLEX Qty: 180 3RF Dose Instruction: TAKE 1 TABLET BY MOUTH TWICE A DAY. NEEDS APPOINTMENT FOR FURTHER REFILLS Rx Instructions: TAKE 1 TABLET BY MOUTH TWICE A DAY. rosuvastatin 10 mg tablet 10 mg PO DAILY Qty: 90 2RF Discontinued vitamin B complex Tablet 1 tablet PO BID Patient Comments: not taking ondansetron 4 mg tablet,disintegrating 4 mg PO Q8H PRN (Reason: nausea and vomiting) Qty: 10 0RF Patient Comments: not taking hydrocodone-acetaminophen 5-325 mg tablet 1 tablet PO Q8H PRN (Reason: pain) Qty: 10 0RF amoxicillin-pot clavulanate 875-125 mg tablet 1 tablet PO Q12H 10 Days Qty: 20 0RF semaglutide 1 mg/dose (4 mg/3 mL) pen injector 1 mg subcut WEEKLY Qty: 3 5RF Patient Comments: not taking sodium,potassium,mag sulfates [Suprep Bowel Prep Kit] 17.5-3.13-1.6 gram recon soln See Rx Instructions PO .COMPLEX Qty: 354 0RF Rx Instructions: Take as directed per written instructions that were emailed Date of admission: 07/21/25 14:08 Primary Care Provider: Bebeto Figueroa Admitting Provider: Fidel Lares Attending physician on admission: Fidel Lares Condition: Stable Hospitalist MIPS Heart Failure (Exclusion) Patient has history of Heart Transplant or Left Ventricular Assistive Device?: No IF YES, STOP HERE Heart Failure (Qualifier) Patient has current or prior documentation of LVEF less than or equal to 40%, or mod/servere depressed LVSF?: No IF NO, STOP HERE
--- NOTE | 2025-07-23 14:11 | P.PNGS_ITS ---
Progress Note: A&P Assessment and Plan (1) Sigmoid diverticulitis: Code(s): K57.32 - Diverticulitis of large intestine without perforation or abscess without bleeding Status: Acute Assessment and Plan: doing well. Home on low-fiber diet. See me in the office in 2 weeks. Explained low-fiber diet to the patient. Subjective Subjective Date/Time Seen: 07/23/25 14:11 Patient reports: no new complaints, feels better, tolerating a regular diet and afebrile Review of Systems Review of Systems: All systems reviewed & are unremarkable except as noted in HPI and below ( HPI) Exam Const: General: comfortable, alert and awake GI: Inspection: non-distended and scaphoid GI Palp: Yes Soft to palpation and No Tenderness to palpation present (GI) Auscultation: normal bowel sounds Objective Data Vital Signs Vital Signs: Vital Signs - 24 hr 07/22/25 19:54 07/22/25 20:00 07/22/25 20:45 Temperature 36.7 C Pulse Rate 57 L 57 L Respiratory Rate 20 Blood Pressure 120/73 Pulse Oximetry 99 Oxygen Delivery Room Air 07/23/25 00:00 07/23/25 05:02 07/23/25 08:00 Temperature 36.5 C 36.5 C Pulse Rate 54 L 59 L Respiratory Rate 20 20 Blood Pressure 140/74 158/88 H Pulse Oximetry 96 96 Oxygen Delivery Room Air 07/23/25 09:51 Temperature Pulse Rate 68 Respiratory Rate Blood Pressure Pulse Oximetry Oxygen Delivery Intake/Output Intake/Output: Intake & Output 07/20/25 07/21/25 07/22/25 07/23/25 23:59 23:59 23:59 23:59 Intake Total 1457.5 3660 3326.7 820 Balance 1457.5 3660 3326.7 820 Meds/Results Medications: Active Medications Generic Name Dose Route Start Last Admin Trade Name Freq PRN Reason Stop Dose Admin Acetaminophen 650 mg 07/20/25 14:34 07/23/25 09:52 Acetaminophen 325 Mg Tablet PO 650 mg Q4H PRN Administration Mild Pain (1-3) or Fever Albuterol 1 puff 07/20/25 20:57 Albuterol Sulfate (*Sp) Aerosol 1 Puff INHALATION Q4H PRN Dyspnea Amoxicillin/Clavulanate Potassium 1 tablet 07/23/25 14:00 Amoxicillin/Clavulanate K 875-125 Mg Tab PO Q12HR LIONEL Aspirin 81 mg 07/21/25 09:00 07/23/25 09:51 Aspirin 81 Mg Enteric Tablet PO 81 mg DAILY LIONEL Administration Bupropion HCl 150 mg 07/20/25 21:00 07/23/25 09:51 Bupropion Hcl Sr (12 Hr) 150 Mg Tab BY MOUTH 150 mg Q12HR LIONEL Administration Buspirone HCl 5 mg 07/20/25 21:10 07/23/25 09:52 Buspirone Hcl 5 Mg Tablet PO 5 mg BID LIONEL Administration Calcium Carbonate 200 mg 07/21/25 13:47 07/22/25 17:53 Calcium Carbonate (Tums) 500 Mg (200 Mg Elemental) PO 200 mg Q6H PRN Administration Indigestion Carvedilol 6.25 mg 07/20/25 21:00 07/23/25 09:51 Carvedilol 6.25 Mg Tablet PO 6.25 mg Q12H LIONEL Administration Celecoxib 200 mg 07/21/25 09:00 07/23/25 09:52 Celecoxib 200 Mg Capsule PO 200 mg BID LIONEL Administration Citalopram Hydrobromide 10 mg 07/21/25 09:00 07/23/25 09:52 Citalopram Hydrobromide 10 Mg Tablet PO 10 mg DAILY LIONEL Administration Cyanocobalamin 1,000 mcg 07/22/25 09:00 07/23/25 09:55 Cyanocobalamin Inj 1,000 Mcg/Ml Vial IM 07/24/25 09:01 1,000 mcg DAILY LIONEL Administration Dextrose 12.5 gm 07/20/25 14:50 Dextrose 50% 25 Gm/50 Ml Syringe IV PUSH PRN PRN Hypoglycemia Protocol Ezetimibe 10 mg 07/21/25 09:00 07/23/25 09:52 Ezetimibe 10 Mg Tablet PO 10 mg DAILY LIONEL Administration Enoxaparin Sodium 30 mg 07/20/25 21:00 07/23/25 09:56 Enoxaparin 30 Mg/0.3 Ml Syringe SUB-Q Not Given Q12HR LIONEL Glucagon 1 mg 07/20/25 14:50 Glucagon For Inj 1 Mg Vial IM PRN PRN Hypoglycemia Protocol Glucose 15 gm 07/20/25 14:50 Glucose Oral Gel 15 Gm Of Glucse In 37.5 Gm Tube PO PRN PRN Hypoglycemia Protocol Dextrose 1,000 mls @ 100 mls/hr 07/20/25 14:50 Dextrose 5% 1,000 Ml IVPB PRN PRN Hypoglycemia Protocol Insulin Aspart 2 - 5 units 07/20/25 17:00 07/23/25 12:08 Insulin Aspart (*Bkc) 100 Units/Ml SUB-Q Not Given TIDWM [facility] Protocol Insulin Aspart 1 - 2 units 07/20/25 21:00 07/22/25 20:07 Insulin Aspart (*Bkc) 100 Units/Ml SUB-Q Not Given HS [facility] Protocol Isosorbide Mononitrate 30 mg 07/21/25 09:00 07/23/25 09:52 Isosorbide Mononitrate 30 Mg Tab.Er.24h PO 30 mg DAILY [facility] Administration Ketorolac Tromethamine 15 mg 07/21/25 13:45 Ketorolac 15 Mg/Ml Vial (*Bkc) IV PUSH Q6H PRN Pain Rated 4-6 Lisinopril 20 mg 07/21/25 09:00 07/23/25 09:52 Lisinopril 20 Mg Tablet PO 20 mg DAILY [facility] Administration Loperamide HCl 2 mg 07/21/25 13:47 07/21/25 21:53 Loperamide Hcl 2 Mg Capsule PO 2 mg PRN PRN Administration Diarrhea Lorazepam 0.5 mg 07/21/25 13:43 07/23/25 05:17 Lorazepam (*Crx) 0.5 Mg Tablet PO 0.5 mg Q6H PRN Administration Anxiety Metronidazole 500 mg 07/23/25 14:00 Metronidazole 500 Mg Tablet PO Q8HR [facility] Morphine Sulfate 2 mg 07/20/25 17:31 Morphine Sulfate (*Crx) 2 Mg/Ml Inj IV PUSH Q2H PRN Pain Rated 7-10 Naloxone HCl 0.1 mg 07/20/25 17:31 Naloxone Hcl 0.4 Mg/Ml Vial IV PUSH Q2M PRN Opiate Reversal Ondansetron HCl 4 mg 07/20/25 17:31 07/21/25 12:25 Ondansetron Inj 4 Mg/2 Ml Vial IV PUSH 4 mg Q4H PRN Administration Nausea And Vomiting Rosuvastatin Calcium 10 mg 07/21/25 09:00 07/23/25 09:52 Rosuvastatin 10 Mg Tablet PO 10 mg DAILY LIONEL Administration Radiology Results: ITS Impressions Abdomen/Pelvis CT 07/20/25 12:53 IMPRESSION: 1. Fat stranding about the mid and distal sigmoid colon with a few scattered diverticuli. There is segmental asymmetric thickening of the cooley of the mid and distal sigmoid colon. The finding are suggestive acute diverticulitis. Recommend follow-up to resolution to exclude an underlying mass. 2. Fibroid uterus with suggestion of thickening of endometrial complex which raises the concern for endometrial cancer with differential including endometrial hyperplasia, polyp or submucosal fibroid. A pelvic ultrasound is recommended. 3. Stable 3.9 x 3.6 cm infrarenal abdominal aortic aneurysm. 4. Cholecystectomy Pelvic/Transvag US 07/20/25 15:43 IMPRESSION: 1. Limited study as above. 2. Right ovary was not visualized. 3. Endometrium was not adequately visualized for evaluation. Uterus is heterogeneous. Consider a pelvic MRI for further assessment. 4. There is a 1.5 x 1.6 x 1.5 cm heterogeneous masslike structure in the posterior body of the uterus possibly a uterine fibroid. 5. There is a 1.4 x 1.5 x 1.7 cm submucosal heterogeneous masslike structure possibly a uterine fibroid in the lower uterine segment. 6. Small amount of nonspecific fluid in the endometrial canal. Pelvis MRI 07/22/25 17:31 IMPRESSION: 1. Thickened endometrial complex measuring up to 1.6 cm which appears primarily due to nonenhancing fluid, potentially hemorrhage related to several uterine fibroids. Could consider hysteroscopy for further evaluation as clinically indicated. 2. Prominent wall thickening along a significant length of the sigmoid colon with some surrounding inflammatory stranding suggestive of either diverticulitis or focal colitis. Labs Labs: Laboratory Results - last 24 hr 07/22/25 07/22/25 07/23/25 16:43 19:59 03:58 WBC 5.6 RBC 3.47 L Hgb 10.7 L Hct 31.7 L MCV 91.4 MCH 30.8 MCHC 33.8 RDW 12.9 Plt Count 163 MPV 10.1 Sodium 139 Potassium 3.7 Chloride 109 H Carbon Dioxide 23 Anion Gap 7 BUN 15 Creatinine 0.81 Estim Creat Clear Calc 66 Estimated GFR > 60 Glucose 108 POC Capillary Glucose 107 H 95 Calcium 8.3 L 07/23/25 07/23/25 07:51 11:55 WBC RBC Hgb Hct MCV MCH MCHC RDW Plt Count MPV Sodium Potassium Chloride Carbon Dioxide Anion Gap BUN Creatinine Estim Creat Clear Calc Estimated GFR Glucose POC Capillary Glucose 100 105 Calcium
== END 2025-07-23 14:17 | disposition home or self-care (01) | DRG 392 ==
LOC: ANHED 14:33 → ANHIMU 15:45 → ANH2MED 17:15
PROVIDERS: Emergency Medicine; Nurse Practitioner Gerontology; Surgery; Admitting Provider General Practice; Emergency Provider Emergency Medicine; PCP Family Medicine; Visit Provider Internal Medicine
DX: K57.32 Diverticulitis of large intestine without perforation or abscess without bleeding (principal); G72.0 Drug-induced myopathy; J96.11 Chronic respiratory failure with hypoxia; I25.10 Atherosclerotic heart disease of native coronary artery without angina pectoris; I10 Essential (primary) hypertension; I71.21 Aneurysm of the ascending aorta, without rupture; J44.9 Chronic obstructive pulmonary disease, unspecified; E11.51 Type 2 diabetes mellitus with diabetic peripheral angiopathy without gangrene; E53.8 Deficiency of other specified B group vitamins; E78.5 Hyperlipidemia, unspecified; D25.9 Leiomyoma of uterus, unspecified; K59.00 Constipation, unspecified; G47.33 Obstructive sleep apnea (adult) (pediatric); T50.995A Adverse effect of other drugs, medicaments and biological substances, initial encounter; F41.9 Anxiety disorder, unspecified; Z79.82 Long term (current) use of aspirin; Z95.1 Presence of aortocoronary bypass graft; Z87.891 Personal history of nicotine dependence
CPT/HCPCS: 36415; 72197; 74177; 76830; 76856; 80048; 80053; 81001; 82607; 82746; 82948; 83036; 83690; 84484; 85025; 85027; 85610; 85730; 93005; 96361; 96365; 96375; 96376; 99285; A9270; A9577; G0378; J1650; J1885; J2405; J2543; J3420; J3480; J7030; Q9967

== ENCOUNTER 2025-08-17 08:01 | Outpatient (CLI) | payer MEDICARE, SELFPAY ==
--- OUTSIDE RECORDS SUMMARY | 2025-08-17 08:05 | XMS_ITS | Clinical Summary ---
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
--- OUTSIDE RECORDS SUMMARY | 2025-08-17 08:05 | XMS_ITS | Clinical Summary ---
Author Organization [facility] [employer] Address [address] [place] [address] Care Team Providers Care Product Specialist Name Role Phone Srikanth Ryan MD Unavailable [phone] Ranjit Knox MD Unavailable [phone] Nancy Albrecht MD Primary Care Provider Source Comments [facility],non-owned Affiliates and Associated Physician Practices is amultiple site organization consisting of ambulatory clinics and hospital sitesin [place], [place], [place] and [place]. This disclosure is being madepursuant to the Care Everywhere program and may not contain all information available regarding this patient. Last updated 18.[facility] Allergies Active Allergy Reactions Criticality Noted Date [...] (Flonase) 50 MCG/ACT nasal sprayIndication s:Nasal Congestion [place] 1 (one) spray into the nose once [...] CREATININE 05/10/20242022, 03/19/2023, 03/19/2023, Additional history exists DEPRESSION SCREENING 11/22/2024 DIABETES - URINE PROTEIN SCREENING 11/22/2024 Respiratory Syncytial Virus (RSV) Vaccine Pt: or over 60 yrs (1 - 1-dose 75+ series) 2025 COVID-19 VACCINE ( - 2023- season) 2025 INFLUENZA VACCINE (#1) 2025 HEPATITIS B [...] this topic Medical Devices Implanted Type Area Stove Fitter Device Identifier Shelf Expiration Date Model / Serial / Lot Cmpnt Fem Kn Rt Cr Cmnt Prm Vngrd Intlk Implanted:Qty: 1 on 06/04/2023 by Keyur Jacobo MD at [facility] Right: Knee [employer] 10/08/2032 [id number] / / [id number] Tray Tib 75mm Kn Cocr I Beam Implanted:Qty: 1 on 06/04/2023 by Keyur Jacobo MD at [facility] Right: Knee [employer] 03/25/2033 [id number] / / [id number] Cmpnt Ptlr Std 28mm 3 Pg Kn Ser A Implanted:Qty: 1 on 06/04/2023 by Keyur Jacobo MD at [facility] Right: Knee [employer] 09/09/2027 [id number] / / [id number] Cmnt Bone Plc R 40gm Grn Implanted:Qty: 1 on 06/04/2023 by Keyur Jacobo MD at [facility] Right: Knee [employer] 10/21/2025 [id number] / / [id number] Brng [id number] Vngrd Arcm Kn Ant Stab Implanted:Qty: 1 on 06/04/2023 by Keyur Jacobo MD at [facility] Right: Knee [employer] 05/22/2026 [id number] / / [id number] Procedures Procedure Name Priority Date/Time Associated Diagnosis Comments HEMOGLOBIN A1C Routine 06/05/2023 12:14 AM CDT Hypertension associated with diabetes COMPREHENSIVE METABOLIC PANEL STAT 05/10/2023 7:42 AM CDT Preoperative examination from Last 3 Months or Most Recently Relevant to Health Maintenance Results * (ABNORMAL) HEMOGLOBIN A1C (06/05/2023 12:14 AM CDT) Hemoglobin A1c 5.7(H) <5.7 % 06/05/2023 12:42 AM CDT [facility] Estimated Average Glucose 117 mg/dL 06/05/2023 12:42 AM CDT [facility] Blood BLOOD SPECIMEN / Unknown Venipuncture / Unknown 06/05/2023 12:14 AM CDT 06/05/2023 12:20 AM CDT Narrative [facility] - 06/05/2023 12:42 AM CDT [...] exceeds 5% in the specimen. The Hdz Comprehensive Advisor assay for the measurement of HbA1c is a National Glycohemoglobin Standardization Program (NGSP) certified method. us Jossie Greer MD LAB - CHEMISTRY ORDERABLES Final Result [facility] [address] [place] [address] * (ABNORMAL) COMPREHENSIVE METABOLIC PANEL (05/10/2023 7:42 AM CDT) Glucose 102 70 - 105 mg/dL 05/10/2023 8:08 AM CDT [facility] Sodium 138 136 - 145 mmol/L 05/10/2023 8:08 AM CDT [facility] Potassium 4.5 3.5 - 5.1 mmol/L 05/10/2023 8:08 AM [facility] Chloride 111(H) 98 - 107 mmol/L 05/10/2023 8:08 AM CDT [facility] CO2 20(L) 23 - 31 mmol/L 05/10/2023 8:08 AM CDT [facility] Calcium 9.6 8.4 - 10.4 mg/dL 05/10/2023 8:08 AM T [facility] Anion Gap 7(L) 8 - 18 mmol/L 05/10/2023 8:08 AM T [facility] BUN 44(H) 9.8 - 20.1 mg/dL 05/10/2023 8:08 AM T [facility] Creatinine 1.28(H) 0.57 - 1.11 mg/dL 05/10/2023 8:08 AM [facility] Alkaline Phosphatase 66 40 - 150 U/L 05/10/2023 8:08 AM CDT [facility] ALT 12 0 - 61 U/L 05/10/2023 8:08 AM CDT [facility] AST 14 5 - 34 U/L 05/10/2023 8:08 AM T [facility] Protein Total 7.4 6.4 - 8.3 gm/dL 05/10/2023 8:08 AM [facility] Albumin 4.4 3.2 - 4.6 gm/dL 05/10/2023 8:08 AM T [facility] Bilirubin Total 0.8 0.2 - 1.2 mg/dL 05/10/2023 8:08 AM [facility] eGFR by CKD-EPI 44(L) >=90 mL/min/1.7 3 m2 05/10/2023 8:08 AM T [facility] Blood BLOOD SPECIMEN / Unknown Venipuncture / Unknown 05/10/2023 7:42 AM CDT 05/10/2023 7:49 AM CDT us Susana Simons MOVIE 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-[employer] 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 CHAIR LAB - CHEMISTRY ORDE ANTHONY Final Result [facility] [address] [place] [address] from Last 3 Months or Most Recently Relevant to Health Maintenance [place] [address] MEDICARE [facility] Advance Directives * Full Code (Latest Code Status on File) Date Activated Date Inactivated Comments 06/04/2023 1:57 PM 06/05/2023 3:31 PM Care Teams Product Specialist Relationship Specialty Start Date End Date Nancy Albrecht MD [address] [place] [address] PCP - General Family Medicine 05/26/23 Srikanth Ryan MD [address] [facility] [address] [place] [address] Cardiovascular Disease 01/21/23 Ranjit Knox MD [address] [place] [id number] Vascular Surgery 05/19/23
--- OUTSIDE RECORDS SUMMARY | 2025-08-17 08:06 | XMS_ITS | Patient Health Record ---
Author Organization [facility] [employer] Address [address] [facility] [address] [address] Care Team Providers Care Corporate Tax Preparer Name Role Phone Vitaly Reddy Unavailable [phone] Reason For Referral No Information Plan Of Treatment No Information
--- OUTSIDE RECORDS SUMMARY | 2025-08-17 08:07 | XMS_ITS | Clinical Summary ---
Author Organization [facility] Care Team Providers Care Java J2Ee Architect Name Role Phone Unavailable Primary Care Provider [...]
--- OUTSIDE RECORDS SUMMARY | 2025-08-17 08:07 | XMS_ITS | Clinical Summary ---
Author Organization [facility] [address] Address [address] [place] [address] Care Team Providers Care Rat Exterminator Name Role Phone Howie Vazquez MD Unavailable [phone] Bebeto Figueroa MD Primary Care Provider Allergies Active Allergy Reactions Criticality Noted Date Comments Codeine Propoxyphene-Acetamino phen Hives,Itching Medium 12/05/2020 Erythromycin Levofloxacin Unknown High 05/28/2008 Oxycodone Oxycodone-Acetaminophe n Other (See comments) Low 12/05/2020 Reaction: Propoxyphene Phrstur-Tfb-Hke Reductase Inhibitors Unknown Low Pt does not [...] 6.25 mg tabletIndication s:Coronary artery disease involving s[place]qualmie coronary artery of s[place]qualmie heart without angina pectoris Take 1 tablet [...] approval. Will continue routine monitoring with local biomedical field service engineer. We will have films placed in our system. 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 Drug intolerance [...] regimen: Wellbutrin, Buspar, Celexa Coronary arteriosclerosis in snoqualmie artery 04/16 Overview (02/26/2017): Coronary artery disease involving s[place]qualmie coronary artery of [place] heart with other form of angina pectoris Preoperative state 04/16/2016 Overview (02/26/2017): Preoperative cardiovascular examination Coronary artery disease invo lving snoqualmie coronary artery of s[place]qual[place] heart without angina pectoris 04/07/2014 Overview (02/26/2017): Coronary artery disease Assessment & Plan (04/15/2023 10:11 PM CDT): LHC on 03/08/23 at [facility] showing severe three vessel snoqualmie disease and patent SVG-ramus and SVG-PDA/PLV, but [...] Encounters Date Type Department Care Team Description 08/07/2025 Telephone [facility] Surgery [address] [place] [address] Medical Office Building [address], [address] [place] [address] Akbar Rosas CMA 07/12/2025 Orders Only [facility] Vascular at [address] [place] [address] Lorena Knox MD Infrarenal abdominal aortic aneurysm (AAA) without rupture (Primary Dx) 07/11/2025 9:15 AM CDT Office Visit [facility] Vascular at [address] [place] [address] Mattie Resendiz NP Mixed diabetic hyperlipidemia associated with type 2 diabetes mellitus (HCC) (Primary Dx); Hypertension associated with diabetes (HCC); Infrarenal abdominal aortic aneurysm (AAA) without rupture 07/02/2025 10:00 AM CDT Ancillary Procedure 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 [address] Abdominal Aortic Duplex Ultrasound Report Patient Name: ALE UPTON M : 1950 Study Date: 07/02/2025 9:55:33 AM Gender: F Enrichment Director: Location: [facility] Ref Provider: LORENA KNOX Quality: Adequate Order Provider: ANANDA,LORENA PROCEDURES: Arterial Report: Duplex ultrasound imaging of [...] MD - 07/04/2025 Vascular & Vein Surgery [address] [place] [address] Abdominal Aortic Duplex Ultrasound Report Patient Name: ALE UPTON M : 1950 Study Date: 07/02/2025 9:55:33 AM Gender: F Enrichment Director: Location: [facility] Ref Provider: LORENA KNOX Quality: Adequate Order [...] POCT lipid panel (08/11/2024 3:35 PM CDT) [facility] Cholesterol, POC 126 mg/dL Comment:GLU = 147 HDL, POC 33 mg/dL Triglycerides, POC 196 mg/dL LDL Cholesterol POC 55 mg/dL Chol/HDL Ratio, POC 1.7 Non-HDL Cholesterol, POC 94 mg/dL Cholesterol Total, POC 126 mg/dL Capillary blood 08/11/2024 3 :35 PM CDT Prince Gutierrez MD POINT OF CARE TEST TOÑITO CRUZ Final Result * (ABNORMAL) eGFR (03/19/2023 5:06 AM CDT) [facility] eGFR 67(L) 90 - 130 mL/min/1. 73 m2 [facility] Comment: Interpretive Data Reference Interval Normal [...] 03/19/2023 5:52 AM CDT us Daria Lopes [facility] LAB BLOOD ORDERABLES Final R esult [facility] Department [place] [address] * (ABNORMAL) Hemoglobin A1c (03/17/2023 10:22 PM CDT) Hgb A1C 5.8(H) 4.0 - 5.6 % [facility] Estimated Average Glucose 120 mg/dL [facility] Comment: The ADA recommends reporting an [...] BLOOD ORDERABLES Final Result [facility] Department [place] [address] from Last 3 Months or Most Recently Relevant to Health Maintenance Insurance MEDICARE MEDICARE [facility] MEDICARE [place] [address] MEDICARE [facility] Advance Directives For more information, please contact: [phone] * Full Code (Latest Code Status on File) Date Activated Date Inactivated Comments 03/17/2023 9:26 PM 03/19/2023 9:42 PM Care Teams Rat Exterminator Relationship Specialty Start Date End Date Bebeto Figueroa MD [address] [place] [address] PCP - General Family Medicine 10/13/23 Howie Vazquez MD Consulting Physician Cardiology 03/19/23
[2025-08-17 18:10] LABS: Hematocrit 39.4 % (37.0-47.0); Hemoglobin 12.6 g/dL (12.0-15.0); Mean Corpuscular HGB Conc 32.0 g/dl (32-36); Mean Corpuscular Hemoglobin 30.4 pg (26-34); Mean Corpuscular Volume 94.9 fl (80-100); Platelet Count Result 192 k/mm3 (150-375); Red Blood Count 4.15 M/mm3 (4.2-5.4); White Blood Count 7.2 K/mm3 (4.5-10.0)
[2025-08-17 18:22] LABS: Add Urine Microscopic? YES; Appearance Urine Turbid (Clear); Glucose Urine UA Negative (Negative); Hemoglobin A1C 6.1 % (<5.7); Leukocyte Esterase Ur 1+ LEU/UL (Negative); Need Manual Microscopic Reviewed; Nitrate Urine Negative (Negative); Non Pathogenic Casts 0-2; Specific Grav Ur 1.027 (1.001-1.035)
[2025-08-17 18:29] LABS: Alanine Aminotransferase 18 U/L (6-35); Albumin Level 4.3 g/dL (3.5-5.1); Alkaline Phosphatase 78 U/L (38-126); Anion Gap 9 mmol/L (4-12); Aspartate Amino Transferase 26 U/L (14-36); Bilirubin,Total 1.0 mg/dL (0.2-1.3); Blood Urea Nitrogen 23 mg/dL (7-17); Calcium 9.2 mg/dL (8.4-10.2); Carbon Dioxide 26 mmol/L (22-30); Chloride 106 mmol/L (98-107); Cholesterol 122 mg/dL (0-200); Estimated Glomerular Filt Rate > 60; Glucose 101 mg/dL (65-110); HDL Direct 25 mg/dL; Potassium 4.1 mmol/L (3.4-5.0); Sodium 141 mmol/L (137-145); Total Protein 7.4 g/dL (6.3-8.2); Triglycerides 194 mg/dL (<150)
[2025-08-17 19:07] LABS: Thyroid Stimulating Hormone 2.710 uIU/mL (0.465-4.680)
[2025-08-17 19:34] LABS: MALB Creatinine Ratio 22.1 mg/g (0-30)
== END 2025-08-17 08:02 | disposition home or self-care (01) ==
LOC: ANHGOSHLAB 08:02
PROVIDERS: PCP Family Medicine; Visit Provider Family Medicine
DX: I25.10 Atherosclerotic heart disease of native coronary artery without angina pectoris (principal); I10 Essential (primary) hypertension; E78.5 Hyperlipidemia, unspecified; E11.9 Type 2 diabetes mellitus without complications; Z79.4 Long term (current) use of insulin
CPT/HCPCS: 36415; 80053; 80061; 81001; 82043; 83036; 84443; 85027

== ENCOUNTER 2025-08-22 00:56 | Day surgery (SDC) | payer MEDICARE, SELFPAY ==
[2025-08-14 14:05] VITALS: BMI 39.3
--- NOTE | 2025-08-14 14:07 | PC.NURSE ---
[facility] has started construction of its new state of the art ER which will open Spring 2026. With this, we anticipate parking may be a challenge for some our surgical patients and families. Parking spaces are limited but are available for all Surgical, obstetrics, and ER patients sharing this lot. If you arrive and find you are having a hard time finding a parking space, please note that we understand the challenges, please drive around the hospital and park near Hospital Entrance 1. When you enter this entrance, you can ask a volunteer to direct or take you back to the surgical waiting area to check in. We appreciate everyone?s understanding of these expected challenges while we build for your future. Report to the Outpatient Waiting Room, entrance under the green pavilion located off [address], at time _0830_ on date _[id number]_. Planned Procedure Time: _1030_.? Time changes happen often and if your time is changed the preop area will call you the afternoon before. - You and your visitor will be asked to self-screen and do not enter if you have any COVID symptoms. Please call surgeon if you need to reschedule. - A mask is optional within the hospital at this time. Patients may have clear liquids (water, carbonated beverages, clear teas, apple juice) until 3 hours prior to surgery with a maximum of 20 ounces. - No food from midnight until time of surgery and no smoking, or chewing tobacco (or any form of nicotine). No chewing gum, candy or mints. Take only the following medications with a SIP of water on the morning of surgery: __Carvidilol, Isorsorbide, Citalopram, Buspirone and Bupropion. Ok to use inhaler that morning also.____ DO NOT STOP ANY OF YOUR OTHER PRESCRIPTION MEDICATIONS PRIOR TO SURGERY EXCEPT THE FOLLOWING Hold all vitamins and supplements for 3 days per anesthesiologist. Medications to discontinue per physician Date to take last dose Please no make-up, nail turkmen, hairspray, perfume, deodorant, or body powder the day of surgery.? No jewelry (including any body piercings) or valuables the day of surgery, leave them at home.? Please take a shower or bath the night before, or the morning of, surgery with an antibacterial soap.? Wear comfortable, loose fitting clothing.? - Jewelry must be removed prior to entering the operating room.? Rings and piercings that are not removed may be cut off. - The hospital will not accept responsibility for valuables.? - Please leave all valuables, including medications, at home the day of surgery. If you are going home after surgery, a licensed airport shuttle driver must drive you home.? - NO public transportation without another adult if you receive anesthesia. - We recommend that an adult stay with you for 24 hours following discharge. - We also recommend that you do not drive, make important decision, drink alcoholic beverages, or take any drugs that were not prescribed by your health care provider for at least 24 hours after your discharge time. Follow any additional instructions given to you from your surgeon. Telephone instructions given to __Adrienne and daughter.___and asked if any additional questions and then verbalized understanding. Patient advised to call surgeon office or pre surgery nurse liaison [phone] if any additional questions.
--- OUTSIDE RECORDS SUMMARY | 2025-08-21 10:52 | XMS_ITS | Encounter Summary ---
Author Organization [facility] Healthcare Address [address] [place] [address] Care Team Providers Care Retail Operations Specialist Name Role Phone Howie Vazquez MD Unavailable [phone] Bebeto Figueroa MD Primary Care Provider Reason for Referral * MRI/CAT/PET Scan (Routine) - Closed Specialty Diagnoses / Procedures Referred By Contac t Referred To Contact Radiology Diagnoses Aneurysm of ascending aorta without rupture Procedures CT Chest WO Contrast Luann Strong NP Phone: tel: fax: [address] [address] Referral ID Status Reason Start Date Expiration Date Visits Re quested Visits Authorized [id number] Closed 08/24/2024 09/23/2025 1 1 Reason for Visit * MRI/CAT/PET Scan (Routine) - Closed Specialty Diagnoses / Procedures Referred By Contbernie hernandez Referred To Contact Radiology Diagnoses Aneurysm of ascending aorta without rupture Procedures CT Chest WO Contrast Luann Strong NP Phone: tel: fax: [address] [address] Referral ID Status Reason Start Date Expiration Date Visits Re quested Visits Authorized [id number] Closed 08/24/2024 09/23/2025 1 1 Encounter Details Date Type Department Care Team (Latest Contact Info) Description 08/21/2025 10:52 AM CDT - 08/21/2025 11:59 PM CDT Hospital Encounter [address] [address] Aneurysm of ascending aorta without rupture Discharge Disposition: Discharge to home or self care Social History Tobacco Use Types Packs/Day Years Used Date Smoking Tobacco: Former Smokeless Tobacco: Never Alcohol Use Standard Drinks/Week Comments No 0 [...] on file 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 Gender Identity Not on file Sexual Orientation Not on file documented as of this encounter Medications at Time of Discharge albuterol (PROVENTIL,VENTOL IN) 90 mcg/actuation inhaler Take as directed 0 0 02/01/2009 aspirin (Adult Low Dose Aspirin) 81 mg enteric coated tablet Take 1 tablet (81 mg total) by mouth daily 10/09/2021 buPROPion SR (WELLBUTRIN SR) 150 mg 12 hr tablet Take 1 tablet (150 mg total) by mouth 2 (two) times a day 01/07/2021 carvediloL (COREG) 6.25 mg tabletIndications :Coronary artery disease involving [place] coronary artery of ione heart without angina pectoris Take 1 tablet (6.25 mg total) by mouth 2 (two) times a day with meals 180 tablet 3 02/12/2025 citalopram (CeleXA) 40 mg tablet take 1 tablet (40MG) by oral route every day 0 01/07/2012 ezetimibe (ZETIA) 10 mg tablet TAKE 1 TABLET(10 MG) BY MOUTH DAILY 90 tablet 2 09/29/2022 isosorbide mononitrate ER (IMDUR) 60 mg 24 hr tablet TAKE 1 TABLET BY MOUTH EVERY DAY 90 tablet 1 06/18/2025 levocetirizine (XYZAL) 5 mg tablet Take 1 tablet (5 mg total) by mouth every evening lisinopriL (PRINIVIL,ZESTRIL ) 20 mg tablet TAKE 1 TABLET(20 MG) BY MOUTH DAILY 90 tablet 2 09/29/2022 nitroglycerin (NITROSTAT) 0.4 mg SL tabletIndications :acute episode of anginal pain Place 1 tablet (0.4 mg total) under the tongue every 5 (five) minutes as needed for chest pain 30 tablet 3 08/11/2024 Ozempic 1 mg/dose (4 mg/3 mL) pen injector injection 02/02/2025 rosuvastatin (CRESTOR) 10 mg tablet Take 1 tablet (10 mg total) by mouth daily 12/12/2024 documented as of this encounter Discharge Disposition Disposition Code Departure Means Destination Discharge to home or self care documented in this encounter Plan of Treatment Pending Results Name Type Priority Associated Diagnoses Date /Time CT Chest WO Contrast Imaging Schedule Routine, Read Routine (OP Routine) Aneurysm of ascending aorta without rupture 08/21/2025 11:15 AM CDT Scheduled Orders Name Type Priority Associated Diagnoses Orde r Schedule CT Chest WO Contrast Imaging Schedule Routine, Read Routine (OP Routine) Aneurysm of ascending aorta without rupture Once for 1 Occurrences starting 08/21/2025 until 08/21/2025 documented as of this encounter Visit Diagnoses Diagnosis Aneurysm of ascending aorta without rupture documented in this encounter Care Teams Retail Operations Specialist Relationship Specialty Start Date End Date Bebeto Figueroa MD [address] [facility] [address] [address] [facility] [address] [place] [address] PCP - General Family Medicine 10/13/23 Howie Vazquez MD Consulting Physician Cardiology 03/19/23 documented as of this encounter
--- OUTSIDE RECORDS SUMMARY | 2025-08-22 02:16 | XMS_ITS | Clinical Summary ---
Author Organization [facility] Address [address] [place] [address] Care Team Providers Care Prosthetist Name Role Phone Unavailable Primary Care Provider [...] of 2) 2000 Dexa Scan (General) 2015 RSV Immunization or 60+ Years (1 - 1-dose 75+ series) 2025 COVID-19 Vaccine ( - 2023-2 5 season) 2025 Influenza Adult (#1) 2025 Meningococcal B Vaccine Aged Out No l onger eligible based on patient's age to complete this topic Meningococcal Vaccine Aged Out No dianne dominic eligible based on patient's age to complete this topic RSV Immunizations Under 20 Months Aged Out No longer eligible based on patient's age to complete this topic
--- OUTSIDE RECORDS SUMMARY | 2025-08-22 02:16 | XMS_ITS | Clinical Summary ---
Author Organization [facility] Care Team Providers Care Customer Sales Specialist Name Role Phone Unavailable Primary Care Provider [...] 2000 Zoster Immunization (1 of 2) 2000 Respiratory Syncytial Virus (RSV) Immunization (Adult) (1 - 1-dose 75+ series) 2025 Influenza Immunization (#1) 2025 SARS-COV-2 Immunization (1 - 2023- season) 2025 Hepatitis B Immunization Aged Out No [...]
--- OUTSIDE RECORDS SUMMARY | 2025-08-22 02:16 | XMS_ITS | Patient Health Record ---
Author Organization [facility] [employer] Address [address] [facility] [address] [address] Care Team Providers Care Film Drying Machine Operator Name Role Phone Vitaly Reddy Unavailable [phone] Reason For Referral No Information Plan Of Treatment No Information
--- OUTSIDE RECORDS SUMMARY | 2025-08-22 02:16 | XMS_ITS | Clinical Summary ---
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
--- OUTSIDE RECORDS SUMMARY | 2025-08-22 02:16 | XMS_ITS | Clinical Summary ---
Author Organization [facility] Address [address] [place] [address] Care Team Providers Care Material Spreader Name Role Phone Srikanth Ryan MD Unavailable [phone] Ranjit Knox MD Unavailable [phone] Nancy Albrecht MD Primary Care Provider Source Comments [facility],non-owned Affiliates and Associated Physician Practices is amultiple site organization consisting of ambulatory clinics and hospital sitesin [place], [place]. This disclosure is being madepursuant to the Care Everywhere program and may not contain all information available regarding this patient. Last updated 18.[facility] Allergies Active Allergy Reactions Criticality Noted [...] (Flonase) 50 MCG/ACT nasal sprayIndication s:Nasal Congestion [place] 1 (one) spray into the nose once [...] this topic Medical Devices Implanted Type Area Personal Lines Agent Device Identifier Shelf Expiration Date Model / Serial / Lot Cmpnt Fem Kn Rt Cr Cmnt Prm Vngrd Intlk Implanted:Qty: 1 on 06/04/2023 by Keyur Jacobo MD at [facility] Right: Knee [employer] 10/08/2032 [id number] / / [id number] Tray Tib 75mm Kn Cocr I Beam Implanted:Qty: 1 on 06/04/2023 by Keyur Jacobo MD at [facility] Right: Knee [employer] 03/25/2033 [id number] / / [id number] Cmpnt Ptlr Std 28mm 3 Pg Kn Ser A Implanted:Qty: 1 on 06/04/2023 by Keyur Jacobo MD at [facility] Right: Knee [employer] 09/09/2027 [id number] / / [id number] Cmnt Bone Plc R 40gm Grn Implanted:Qty: 1 on 06/04/2023 by Keyur Jacobo MD at [facility] Right: Knee [employer] 10/21/2025 [id number] / / [id number] Brng 11gwa97bs Vngrd Arcm Kn Ant Stab Implanted:Qty: 1 on 06/04/2023 by Keyur Jacobo MD at [facility] Right: Knee [employer] 05/22/2026 [id number] / / [id number] Procedures Procedure Name Priority Date/Time Associated Diagnosis Comments HEMOGLOBIN A1C Routine 06/05/2023 12:14 AM CDT Hypertension associated with diabetes COMPREHENSIVE METABOLIC PANEL STAT 05/10/2023 7:42 AM CDT Preoperative examination from Last 3 Months or Most Recently Relevant to Health Maintenance Results * (ABNORMAL) HEMOGLOBIN A1C (06/05/2023 12:14 AM CDT) Hemoglobin A1c 5.7(H) <5.7 % 06/05/2023 12:42 AM CDT [facility] Estimated Average Glucose 117 mg/dL 06/05/2023 12:42 AM CDT [facility] Blood BLOOD SPECIMEN / Unknown Venipuncture / Unknown 06/05/2023 12:14 AM CDT 06/05/2023 12:20 AM CDT Narrative [facility] - 06/05/2023 12:42 AM [...] exceeds 5% in the specimen. The Hdz Dance Teacher assay for the measurement of HbA1c is a National Glycohemoglobin Standardization Program (NGSP) certified method. us Jossie Greer MD LAB - CHEMISTRY ORDERABLES Final Result [facility] [address] [place] [address] * (ABNORMAL) COMPREHENSIVE METABOLIC PANEL (05/10/2023 7:42 AM CDT) Glucose 102 70 - 105 mg/dL 05/10/2023 8:08 AM CDT [facility] Sodium 138 136 - 145 mmol/L 05/10/2023 8:08 AM CDT [facility] Potassium 4.5 3.5 - 5.1 mmol/L 05/10/2023 8:08 AM [facility] Chloride 111(H) 98 - 107 mmol/L 05/10/2023 8:08 AM CDT [facility] CO2 20(L) 23 - 31 mmol/L 05/10/2023 8:08 AM CDT [facility] Calcium 9.6 8.4 - 10.4 mg/dL 05/10/2023 8:08 AM T [facility] Anion Gap 7(L) 8 - 18 mmol/L 05/10/2023 8:08 AM T [facility] BUN 44(H) 9.8 - 20.1 mg/dL 05/10/2023 8:08 AM T [facility] Creatinine 1.28(H) 0.57 - 1.11 mg/dL 05/10/2023 8:08 AM [facility] Alkaline Phosphatase 66 40 - 150 U/L 05/10/2023 8:08 AM CDT [facility] ALT 12 0 - 61 U/L 05/10/2023 8:08 AM CDT [facility] AST 14 5 - 34 U/L 05/10/2023 8:08 AM T [facility] Protein Total 7.4 6.4 - 8.3 gm/dL 05/10/2023 8:08 AM [facility] Albumin 4.4 3.2 - 4.6 gm/dL 05/10/2023 8:08 AM T [facility] Bilirubin Total 0.8 0.2 - 1.2 mg/dL 05/10/2023 8:08 AM [facility] eGFR by CKD-EPI 44(L) >=90 mL/min/1.7 3 m2 05/10/2023 8:08 AM T [facility] Blood BLOOD SPECIMEN / Unknown Venipuncture / Unknown 05/10/2023 7:42 AM CDT 05/10/2023 7:49 AM CDT us Susana Simons CUT OFF SAW OPERATOR PIPE BLANKS-GLASS CUTTER HELPER LAB - CHEMISTRY ORDE ANTHONY Final Result [facility] [address] [place] [address] from Last 3 Months or Most Recently Relevant to Health Maintenance [place] [address] MEDICARE [facility]LY [facility] Advance Directives * Full Code (Latest Code Status on File) Date Activated Date Inactivated Comments 06/04/2023 1:57 PM 06/05/2023 3:31 PM Care Teams Material Spreader Relationship Specialty Start Date End Date Nancy Albrecht MD [address] [place] [address] PCP - General Family Medicine 05/26/23 Srikanth Ryan MD [address] [facility] [address] [place] [address] Cardiovascular Disease 01/21/23 Ranjit Knox MD [address] [place] [phone] Vascular Surgery 05/19/23
--- OUTSIDE RECORDS SUMMARY | 2025-08-22 02:16 | XMS_ITS | Clinical Summary ---
Author Organization [facility] [address] [place] [address] Care Team Providers Care Cherry Dipper Name Role Phone Howie Vazquez MD Unavailable [phone] Bebeto Figueroa MD Primary Care Provider Allergies Active Allergy Reactions Criticality Noted Date Comments Codeine Propoxyphene-Acetamino phen Hives,Itching Medium 12/05/2020 Erythromycin Levofloxacin Unknown High 05/28/2008 Oxycodone Oxycodone-Acetaminophe n Other (See comments) Low 12/05/2020 Reaction: Propoxyphene Fsurrwn-Uhn-Pvk Reductase Inhibitors Unknown Low Pt does not [...] 6.25 mg tabletIndication s:Coronary artery disease involving [place] coronary artery of [place] heart without angina pectoris Take 1 tablet [...] approval. Will continue routine monitoring with local crime investigator special agent. We will have films placed in our system. Body mass index 40.0-44.9, adult (CMS/[facility]) 01/28 Statin myopathy 04/04/2021 Drug intolerance 10/05/2016 [...] regimen: Wellbutrin, Buspar, Celexa Coronary arteriosclerosis in [place] artery 04/16 Overview (02/26/2017): Coronary artery disease involving [place] coronary artery of [place] heart with other form of angina pectoris Preoperative state 04/16/2016 Overview (02/26/2017): Preoperative cardiovascular examination Coronary artery disease invo lving [place] coronary artery of [place] heart without angina pectoris 04/07/2014 Overview (02/26/2017): Coronary artery disease Assessment & Plan (04/15/2023 10:11 PM CDT): LHC on 03/08/23 at [facility] showing severe three vessel [place] disease and patent SVG-ramus and SVG-PDA/PLV, but [...] Encounters Date Type Department Care Team Description 08/21/2025 10:52 AM CDT - 08/21/2025 11:59 PM CDT Hospital Encounter [address] [address] Aneurysm of ascending aorta without rupture Discharge Disposition: Discharge to home or self care 08/17/2025 Telephone [facility] Surgery [address] [place] [address] [address] [place] [phone] Akbar Rosas CMA 08/07/2025 Telephone [facility] Phys[facility] Surgery [address] [place] [address] [address] [place] [phone] Akbar Rosas CMA 07/12/2025 Orders Only [facility] Vascular at [address] [place] [phone] Lorena Knox MD Infrarenal abdominal aortic aneurysm (AAA) without rupture (Primary Dx) 07/11/2025 9:15 AM CDT Office Visit [facility] V[facility] at [address] [place] [phone] Mattie Resendiz NP Mixed diabetic hyperlipidemia associated with type 2 diabetes mellitus (HCC) (Primary Dx); Hypertension associated with diabetes (HCC); Infrarenal abdominal aortic aneurysm (AAA) without rupture 07/02/2025 10:00 AM CDT Ancillary Procedure [facility] Vascular and Vein Surgery at [address] [place] [phone] Infrarenal abdominal aortic aneurysm (AAA) without [...] on file 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 Gender Identity Not on file Sexual Orientation [...] 3:35 PM CDT Coronary artery disease involving [place] coronary artery of [place] heart without angina pectoris EGFR Routine 03/19/2023 5:06 AM CDT HEMOGLOBIN A1C Timed 03/17/2023 10:22 PM CDT from Last 3 Months or Most Recently Relevant to Health Maintenance Results * US Duplex Scan Aorta, IVC Iliac Complete (07/02/2025 10:16 AM CDT) Anatomical Region Laterality Modality Vascular N/A Ultrasound 07/02/2025 9:55 AM CDT Narrative 07/04/2025 8:54 AM CDT Vascular & Vein Surgery [address] [place] [address] Abdominal Aortic Duplex Ultrasound Report Patient Name: ALE UPTON M : 1950 Study Date: 07/02/2025 9:55:33 AM Gender: F Geodetic Computator: Location: [facility] Ref Provider: LORENA KNOX Quality: [...] MD - 07/04/2025 Vascular & Vein Surgery [address] [place] [address] Abdominal Aortic Duplex Ultrasound Report Patient Name: ALE UPTON M : 1950 Study Date: 07/02/2025 9:55:33 AM Gender: F Geodetic Computator: Location: [facility] Provider: LORENA KNOX Quality: Adequate Order Provider: [...] 07/04/2025 8:46:16 AM CDT Lorena Knox MD [facility] PROCEDURES Final Result * POCT lipid panel [...] 67(L) 90 - 130 mL/min/1. 73 m2 [facility] Comment: Interpretive Data Reference Interval Normal >/= [...] 03/19/2023 5:52 AM CDT us [facility] LAB BLOOD ORDERABLES Final R esult [facility] Department [place] [address] * (ABNORMAL) Hemoglobin A1c (03/17/2023 10:22 PM CDT) Hgb A1C 5.8(H) 4.0 - 5.6 % [facility] Estimated Average Glucose 120 mg/dL [facility] Comment: The ADA recommends reporting an estimated [...] MD LAB BLOOD ORDERABLES Final Result [facility] Department [place] [address] from Last 3 Months or Most Recently Relevant to Health Maintenance Insurance MEDICARE MEDICARE BLUE CROSS MEDICARE [place] [address] MEDICARE [facility] Advance Directives For more information, please contact: [phone] * Full Code (Latest Code Status on File) Date Activated Date Inactivated Comments 03/17/2023 9:26 PM 03/19/2023 9:42 PM Care Teams Cherry Dipper Relationship Specialty Start Date End Date Bebeto Figueroa MD [address] [facility] [address] [place] [address] PCP - General Family Medicine 10/13/23 Howie Vazquez MD Consulting Physician Cardiology 03/19/23
--- NOTE | 2025-08-22 08:38 | WPDANESEPPF ---
Anes - Initial Pre Proc Eval Procedure: Operation Date: 08/22/25 10:30 Proposed Procedures p Hysteroscopy, Dilation and Curettage - Rinku Longo MD Date/Time: 08/22/25 08:38 Surgeon: Rinku Longo MD Pre Op Diagnosis: thickened endometrium Patient Data Age: 75 Gender: F Height: 1.63 m Weight: 104 kg Allergies Allergy/AdvReac Type Severity Reaction Status Date / Time codeine Allergy Mild HIVES AND Verified 08/15/25 08:08 FACIAL SWELLING erythromycin base Allergy Mild HIVES Verified 08/15/25 08:08 oxycodone Allergy Mild HIVES Verified 08/15/25 08:08 propoxyphene Allergy Mild DOES NOT Verified 08/15/25 08:08 KNOW levofloxacin Allergy Unknown Unknown Verified 08/15/25 08:08 tramadol Allergy Swelling Verified 08/15/25 08:08 of Lip/Tongue/Throat BEE STINGS Allergy Severe Unknown Uncoded 08/15/25 08:08 Home Medications ?Medication ?Instructions ?Recorded ?Confirmed ?Type aspirin 81 mg tablet,delayed 81 mg PO DAILY 06/13/21 08/15/25 History release loratadine 10 mg tablet (Claritin) 10 mg PO DAILY 06/13/21 08/15/25 History epinephrine 0.3 mg/0.3 mL 0.3 mg IM ONCE PRN Anaphylaxis 03/15/23 08/15/25 History injection, auto-injector (EpiPen) albuterol sulfate 90 mcg/actuation 1 puff inhalation Q4H PRN Dyspnea 03/29/23 08/15/25 History aerosol inhaler carvedilol 6.25 mg tablet 6.25 mg PO Q12H 03/29/23 08/15/25 History isosorbide mononitrate 30 mg 30 mg PO DAILY 03/29/23 08/15/25 History tablet,extended release 24 hr citalopram 10 mg tablet 10 mg PO DAILY #90 tabs 07/25/24 08/15/25 Rx lisinopril 20 mg tablet 20 mg PO DAILY #90 tabs 12/13/24 08/15/25 Rx rosuvastatin 10 mg tablet 10 mg PO DAILY #90 tabs 03/12/25 08/15/25 Rx buspirone 5 mg tablet 5 mg PO BID #60 tabs 04/11/25 08/15/25 Rx bupropion HCl 200 mg tablet,12 hr See Rx Instructions .Route 07/24/25 08/15/25 Rx sustained-release .COMPLEX #60 tabs cyanocobalamin (vitamin B-12) 500 500 mcg PO DAILY 08/14/25 08/15/25 History mcg lozenges (Vitamin B-12) fluticasone propionate 50 1 spray intranasal DAILY 08/14/25 08/15/25 History mcg/actuation nasal spray,suspension (24 Hour Allergy Relief) multivitamin (Daily Multi-Vitamin 1 tablet PO DAILY 08/14/25 08/15/25 History tablet) nitroglycerin 0.4 mg sublingual 0.4 mg sublingual Q5M PRN chest 08/14/25 08/15/25 History tablet pain Patient hx anesthesia problems: none Family hx anesthesia problems: none Results Review: All pre-operative results and documents have been reviewed as part of the pre-operative evaluation. [facility] Past Medical History Medical History Ascending aortic aneurysm AAA (abdominal aortic aneurysm) Asthma History of rheumatic fever Cataract Statin myopathy Vertigo CAD (coronary artery disease) Diabetes mellitus Chronic obstructive pulmonary disease, unspecified Chronic respiratory failure with hypoxia Obstructive sleep apnea (adult) (pediatric) She denies any sleep apnea. Tobacco abuse Surgical History Surgical History H/O colonoscopy History of appendectomy S/P ORIF (open reduction internal fixation) fracture right ankle History of tonsillectomy H/O section History of laparoscopic cholecystectomy Hx of CABG (~2009) 5 vessel CABG Family History Family History Mother Family history of malignant neoplasm Family history of lung cancer Family history of lymphoma Sibling COVID Family history of heart disease in male family member before age 55 Family history of malignant neoplasm Adrenal nodule Family history of diabetes mellitus in first degree relative Adrenal mass Father Family history of primary malignant neoplasm of liver Family history of heart disease in male family member before age 55 Family history of cardiovascular disease Family history of congenital heart disease Hypertension Daughter Adrenal mass Other Diabetes mellitus Social History Social History Social History: Caffeine-coffee occasionally she lives home alone. She is . She has 4 children. 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 Code status full code Smoking packs per day: 1 Smoking cigarettes per day: 20.0 Years smoked: 50 Smoking pack-years: 50.00 Smoking status: Former smoker Tobacco type: cigarettes Second hand tobacco smoke exposure: Yes Smoking end date: 08/14/10 Alcohol intake: never Substance use: never Substance use type: does not use Other substance usage details: topical on knees Lack of Transportation: No Lack of Food: Never True Current Housing: I Have Housing Concerned About Future Housing: No Difficulty Paying Gas/Electric Bills: No Difficulty Paying for Meds: No Currently Unemployed: No Education: Bachelor's Degree Difficulty w/ Childcare or Family Care: No Living arrangements: alone Gender identity (if verbalized by the patient): Female Spiritual care concerns: No Anes - Eval Final PreProcedure Day of Procedure 08/22/25 08:38 Patient weight: morbidly obese Heart: regular rate and rhythm Lungs: clear to auscultation Airway: Mallampati scale class II Neurological: alert and oriented Last oral intake: >/= 8 hours ASA classification: IV Emergent: no Anesthetic plan: proceed Anesthesia type and monitoring: general GIVS and standard monitoring Results Review: All pre-operative results and documents have been reviewed as part of the pre-operative evaluation. Informed Consent: The patient's anesthetic plan and its attendant risks and benefits were discussed with the patient/family/POA. Questions were solicited and answers provided to the satisfaction of the patient/family/POA.
[2025-08-22 08:40] VITALS: BP 148/77; PULSE 65; RESP 16; TEMP 36.5; O2SAT 99
[2025-08-22] MEDS: LACTATED RINGERS 1,000 ML 30 ML IV CONT (08:40)
[2025-08-22] MEDS: ACETAMINOPHEN 500 MG TABLET 1000 MG PO (08:40)
[2025-08-22] MEDS: FAMOTIDINE 20 MG/2 ML VIAL IV PUSH (09:45)
[2025-08-22] MEDS: ONDANSETRON INJ 4 MG/2 ML VIAL IV PUSH (09:45)
--- NOTE | 2025-08-22 09:59 | WPDHPUPDATE1 ---
History and Physical Update Update Date/Time: 08/22/25 09:59 History and Physical has been reviewed, including an updated exam of the patient. There are NO changes in the patient's condition. Risks, benefits, and alternatives have been discussed and questions answered. Patient agrees to proceed with procedure.
--- NOTE | 2025-08-22 10:33 | S_PTH ---
PATIENT: Ale Soto LOC: [facility] U#:[id number] AGE/SX: 75/F ROOM: RE08/22/[address]: Rinku Longo MD : 1950 BED: DIS: 08/22/2025 SPEC #: [id number] RECD: 08/22/25 11:30 STATUS: DAV REQ #: [id number] ASH: 08/22/25 10:[address]: Rinku Longo DEPT: [facility] Surgical RECD BY: Rupali Sheikh ENTERED: 08/22/25 11:30 SP TYPE: Surgical OTHR DR: Bebeto Figueroa MD Tissues: A - Uterine Contents Procedures: Hematoxylin and Eosin Stain Gross and Microscopic Level 4
[2025-08-22 10:49] VITALS: BP 96/59; PULSE 57; RESP 12; O2SAT 94
--- NOTE | 2025-08-22 10:51 | W.PM.PROC2 ---
Procedure Note - Detailed Date of Procedure 08/22/25 Pre-op Diagnosis thickened endometrium Post-op Diagnosis Same Procedure Performed Hysteroscopy D&C with polypectomy Surgeon Rinku Longo MD Anesthesia MAC Indications abnormal uterine bleeding Findings Thin adhesion type tissue/polypoid tissue in the left cornua that was resected using rotational blade. Description of Procedure the patient was taken the operating room. She was prepped and draped in the dorsal lithotomy position after induction of mac anesthesia. A speculum was placed in the vagina. The cervix was grasped with a tenaculum. The cervix was dilated about 1 cm. The hysteroscope was inserted. The intrauterine cavity and endocervix were evaluated. Hysteroscope was withdrawn. A medium-size curette was used to curettage all the surfaces were within the endometrial cavity. the sample was collected on Telfa and sent to pathology. Rotational blade used to remove adhesions/polypoid tissue in the right cornu. The hysteroscope was reinserted and the above findings were noted. Patient tolerated the procedure well. The speculum and tenaculum were removed. She was taken recovery room in stable condition. Sponge lap and needle counts were correct x2. Estimated Blood Loss 40 Drains No Packing No Pathology Yes Complications No immediate complications Condition Stable Disposition PACU
[2025-08-22 11:25] VITALS: BP 129/69; PULSE 54; RESP 20
[2025-08-22 11:35] VITALS: BP 130/73; PULSE 55; RESP 20
== END 2025-08-22 11:48 | disposition home or self-care (01) ==
PROVIDERS: PCP Family Medicine; Visit Provider Obstetrics & Gynecology
PROC: 0U5B8ZZ Destruction of Endometrium, Via Natural or Artificial Opening Endoscopic (ICD-10-PCS; CPT 58563; principal; 2025-08-22 10:30)
DX: R93.89 Abnormal findings on diagnostic imaging of other specified body structures (principal); N84.0 Polyp of corpus uteri; I25.10 Atherosclerotic heart disease of native coronary artery without angina pectoris; E11.9 Type 2 diabetes mellitus without complications; J44.9 Chronic obstructive pulmonary disease, unspecified; J96.11 Chronic respiratory failure with hypoxia; F41.9 Anxiety disorder, unspecified; F32.A Depression, unspecified; E78.00 Pure hypercholesterolemia, unspecified; I51.9 Heart disease, unspecified; E66.01 Morbid (severe) obesity due to excess calories; Z68.39 Body mass index [BMI] 39.0-39.9, adult; Z79.82 Long term (current) use of aspirin; Z79.51 Long term (current) use of inhaled steroids; Z79.891 Long term (current) use of opiate analgesic; Z95.1 Presence of aortocoronary bypass graft; Z90.49 Acquired absence of other specified parts of digestive tract; Z98.890 Other specified postprocedural states; Z87.891 Personal history of nicotine dependence; Z86.79 Personal history of other diseases of the circulatory system; Z80.0 Family history of malignant neoplasm of digestive organs; Z80.1 Family history of malignant neoplasm of trachea, bronchus and lung; Z80.7 Family history of other malignant neoplasms of lymphoid, hematopoietic and related tissues; Z82.49 Family history of ischemic heart disease and other diseases of the circulatory system
CPT/HCPCS: 58558; 88305; A9270; J2003; J2250; J2405; J2704; J3010; J7120

== ENCOUNTER 2025-09-06 00:31 | Day surgery (SDC) | payer MEDICARE, SELFPAY ==
--- NOTE | 2025-08-29 14:17 | PC.NURSE ---
Spoke with patient regarding new procedure date and times. Patient denies any changes to her health history, allergies, or medication. Patient does request new prep instructions to be mailed to her. New instructions sent in the mail. No other questions at this time.
--- OUTSIDE RECORDS SUMMARY | 2025-09-06 00:34 | XMS_ITS | Clinical Summary ---
Author Organization [facility] Address [address] [place] [address] Care Team Providers Care Trust Vault Clerk Name Role Phone Srikanth Ryan MD Unavailable [phone] Ranjit Knox MD Unavailable [phone] Nancy Albrecht MD Primary Care Provider Source Comments [facility],non-owned Affiliates and Associated Physician Practices is amultiple site organization consisting of ambulatory clinics and hospital sitesin [place], [place] and [place]. This disclosure is being madepursuant to the Care Everywhere program and may not contain all information available regarding this patient. Last updated 18.[facility] Allergies Active Allergy Reactions Criticality Noted Date [...] (Flonase) 50 MCG/ACT nasal sprayIndication s:Nasal Congestion Cleaton 1 (one) spray into the nose once [...] No 06/29/2023 OASIS B1300: Health Literacy Answer Wliiam e Recorded Frequency of needing help to [...] this topic Medical Devices Implanted Type Area Mink Farmer Device Identifier Shelf Expiration Date Model / Serial / Lot Cmpnt Fem Kn Rt Cr Cmnt Prm Vngrd Intlk Implanted:Qty: 1 on 06/04/2023 by Keyur Jacobo MD at [facility] Right: Knee [employer] 10/08/2032 [id number] / / [id number] Tray Tib 75mm Kn Cocr I Beam Implanted:Qty: 1 on 06/04/2023 by Keyur Jacobo MD at [facility] Right: Knee [employer] 03/25/2033 [id number] / / [id number] Cmpnt Ptlr Std 28mm 3 Pg Kn Ser A Implanted:Qty: 1 on 06/04/2023 by Keyur Jacobo MD at [facility] Right: Knee [employer] 09/09/2027 [id number] / / [id number] Cmnt Bone Plc R 40gm Grn Implanted:Qty: 1 on 06/04/2023 by Keyur Jacobo MD at [facility] Right: Knee [employer] 10/21/2025 [id number] / / [id number] Brng [id number] Vngrd Arcm Kn Ant Stab Implanted:Qty: 1 on 06/04/2023 by Keyur Jacobo MD at [facility] Right: Knee [employer] 05/22/2026 [id number] / / [id number] Procedures Procedure Name Priority Date/Time Associated Diagnosis Comments HEMOGLOBIN A1C Routine 06/05/2023 12:14 AM CDT Hypertension associated with diabetes COMPREHENSIVE METABOLIC PANEL STAT 05/10/2023 7:42 AM CDT Preoperative examination from Last 3 Months or Most Recently Relevant to Health Maintenance Results * (ABNORMAL) HEMOGLOBIN A1C (06/05/2023 12:14 AM CDT) Hemoglobin A1c 5.7(H) <5.7 % 06/05/2023 12:42 AM CDT [facility] Estimated Average Glucose 117 mg/dL 06/05/2023 12:42 AM CDT [facility] Blood BLOOD SPECIMEN / Unknown Venipuncture / Unknown 06/05/2023 12:14 AM CDT 06/05/2023 12:20 AM CDT Narrative [facility] - 06/05/2023 12:42 AM CDT [...] exceeds 5% in the specimen. The [employer] Analyst assay for the measurement of HbA1c is a National Glycohemoglobin Standardization Program (NGSP) certified method. us Jossie Greer MD LAB - CHEMISTRY ORDERABLES Final Result [facility] [address] [place] [address] * (ABNORMAL) COMPREHENSIVE METABOLIC PANEL (05/10/2023 7:42 AM CDT) Glucose 102 70 - 105 mg/dL 05/10/2023 8:08 AM CDT [facility] Sodium 138 136 - 145 mmol/L 05/10/2023 8:08 AM CDT [facility] Potassium 4.5 3.5 - 5.1 mmol/L 05/10/2023 8:08 AM [facility] Chloride 111(H) 98 - 107 mmol/L 05/10/2023 8:08 AM CDT [facility] CO2 20(L) 23 - 31 mmol/L 05/10/2023 8:08 AM CDT [facility] Calcium 9.6 8.4 - 10.4 mg/dL 05/10/2023 8:08 AM T [facility] Anion Gap 7(L) 8 - 18 mmol/L 05/10/2023 8:08 AM T [facility] BUN 44(H) 9.8 - 20.1 mg/dL 05/10/2023 8:08 AM T [facility] Creatinine 1.28(H) 0.57 - 1.11 mg/dL 05/10/2023 8:08 AM [facility] Alkaline Phosphatase 66 40 - 150 U/L 05/10/2023 8:08 AM CDT [facility] ALT 12 0 - 61 U/L 05/10/2023 8:08 AM CDT [facility] AST 14 5 - 34 U/L 05/10/2023 8:08 AM T [facility] Protein Total 7.4 6.4 - 8.3 gm/dL 05/10/2023 8:08 AM [facility] Albumin 4.4 3.2 - 4.6 gm/dL 05/10/2023 8:08 AM T [facility] Bilirubin Total 0.8 0.2 - 1.2 mg/dL 05/10/2023 8:08 AM [facility] eGFR by CKD-EPI 44(L) >=90 mL/min/1.7 3 m2 05/10/2023 8:08 AM T [facility] Blood BLOOD SPECIMEN / Unknown Venipuncture / Unknown 05/10/2023 7:42 AM CDT 05/10/2023 7:49 AM CDT us Susana Simons CHINCHILLA MACHINE OPERATOR-SCAFFOLDING HELPER LAB - CHEMISTRY ORDE ANTHONY Final Result [facility] [address] [place] [address] from Last 3 Months or Most Recently Relevant to Health Maintenance Insurance MEDICARE ANTHEM ANTHEM SELF PAY NO INSURANCE Member Subscriber Plan / Payer (Ef fective for All Dates) Name:Tiara Upton Member ID:Not on file Relation to Subscriber:Not on file Name:TIARA UPTON Subscriber ID:Not on file (Home) Address: [facility] [place] [address] Payer ID:Not on file Group ID:Not on file Type:Self Pay Address: [place], [place] Advance Directives * Full Code (Latest Code Status on File) Date Activated Date Inactivated Comments 06/04/2023 1:57 PM 06/05/2023 3:31 PM Care Teams Trust Vault Clerk Relationship Specialty Start Date End Date Nancy Albrecht MD [address] [facility]NOTE 3[address] TYSON [address] [place] [address] PCP - General Family Medicine 05/26/23 Srikanth Ryan MD [address] [address] Cardiovascular Disease 01/21/23 Ranjit Knox MD [address] [facility] [address] [place] [id number] Vascular Surgery 05/19/23
--- OUTSIDE RECORDS SUMMARY | 2025-09-06 00:34 | XMS_ITS | Clinical Summary ---
Author Organization [facility] [address] Address [address] [place] [address] Care Team Providers Care Peoplesoft Financials Name Role Phone Howie Vazquez MD Unavailable [phone] Bebeto Figueroa MD Primary Care Provider Allergies Active Allergy Reactions Criticality Noted Date Comments Codeine Propoxyphene-Acetamino phen Hives,Itching Medium 12/05/2020 Erythromycin Levofloxacin Unknown High 05/28/2008 Oxycodone Oxycodone-Acetaminophe n Other (See comments) Low 12/05/2020 Reaction: Propoxyphene Cbrbycv-Fcj-Yjg Reductase Inhibitors Unknown Low Pt does not [...] mg total) by mouth daily 1 Active ezetimibe (ZETIA) 10 mg tablet TAKE 1 [...] 6.25 mg tabletIndication s:Coronary artery disease involving eek coronary artery of eek heart without angina pectoris Take 1 tablet [...] approval. Will continue routine monitoring with local building maintenance worker. We will have films placed in our system. Body mass index 40.0-44.9, adult ([facility]) 01/28 Statin myopathy 04/04/2021 Drug [...] regimen: Wellbutrin, Buspar, Celexa Coronary arteriosclerosis in eek artery 04/16 Overview (02/26/2017): Coronary artery disease involving eek coronary artery of eek heart with other form of angina pectoris Preoperative state 04/16/2016 Overview (02/26/2017): Preoperative cardiovascular examination Coronary artery disease invo lving eek coronary artery of eek heart without angina pectoris 04/07/2014 Overview (02/26/2017): Coronary artery disease Assessment & Plan (04/15/2023 10:11 PM CDT): LHC on 03/08/23 at [facility] showing severe three vessel eek disease and patent SVG-ramus and SVG-PDA/PLV, but [...] Encounters Date Type Department Care Team Description 08/23/2025 10:00 AM CDT Office Visit [facility] Medicine Physicians [facility] Surgery [address] [place] [address] [address] [place] [address] Dwayne Garcia MD Aortic aneurysm without rupture, unspecified portion of aorta (Primary Dx) 08/21/2025 10:52 AM CDT - 08/21/2025 11:59 PM CDT Hospital Encounter [address] [address] Aneurysm of ascending aorta without rupture Discharge Disposition: Discharge to home or self care 08/17/2025 Telephone [facility] Medicine [facility] Surgery [address] [place] [address] [address] [place] [address] Akbar Rosas CMA 08/07/2025 Telephone [facility] Surgery [address] [place] [address] [address] [place] [address] Akbar Rosas CMA 07/12/2025 Orders Only [facility] Vascular at [address] [place] [address] Lorena Knox MD Infrarenal abdominal aortic aneurysm (AAA) without rupture (Primary Dx) 07/11/2025 9:15 AM CDT Office Visit [facility] at [address] [place] [address] Mattie Resendiz NP Mixed diabetic hyperlipidemia associated with type 2 diabetes mellitus (HCC) (Primary Dx); Hypertension associated with diabetes (HCC); Infrarenal abdominal aortic aneurysm (AAA) without rupture 07/02/2025 10:00 AM CDT Ancillary Procedure [facility] Vascular and Vein Surgery at [address] [place] [address] Infrarenal abdominal aortic aneurysm (AAA) without rupture [...] on file 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 Gender Identity Not on file Sexual Orientation Not on file Obstetrics History Last Filed Vital Signs Vital Sign Reading Time Taken Comments Blood Pressure 145/78 08/23/2025 10:27 AM CDT Pulse 68 07/11/2025 9:36 AM CDT Temperature 37 C (98.6 F) 08/23/2025 10:27 AM CDT Respiratory Rate 18 03/19/2023 2:44 PM CDT Oxygen Saturation 94% 08/23/2025 10: 27 AM CDT Inhaled Oxygen Concentration - - Weight 104.9 kg (231 lb 3.2 oz) 025 10:27 AM CDT Height 162.6 cm (5' 4) 08/23/2025 10:2 7 AM CDT Body Mass Index 39.69 08/23/2025 10:27 AM CDT Plan of Treatment Health Maintenance [...] Procedure Name Priority Date/Time Associated Diagnosis Comments CT CHEST WO CONTRAST Schedule Routine, Read Routine (OP Routine) 08/21/2025 11:15 AM CDT Aneurysm of ascending aorta without rupture US DUPLEX SCAN AORTA, IVC ILIAC COMPLETE Schedule Routine, Read Routine (OP Routine) 07/02/2025 10:16 AM CDT Infrarenal abdominal aortic aneurysm (AAA) without rupture POCT LIPID PANEL Routine 08/11/2024 3:35 PM CDT Coronary artery disease involving eek coronary artery of eek heart without angina pectoris EGFR Routine 03/19/2023 5:06 AM CDT HEMOGLOBIN A1C Timed 03/17/2023 10:22 PM CDT from Last 3 Months or Most Recently Relevant to Health Maintenance Results * CT Chest WO Contrast (08/21/2025 11:15 AM CDT) Anatomical Region Laterality Modality Body N/A Computed Tomogra phy 08/23/2025 2:56 PM CDT Narrative 08/23/2025 2:59 PM CDT EXAM DESCRIPTION: CT CHEST WO CONTRAST REASON FOR STUDY: Aortic aneurysm suspected Ascending aneurysm follow up, no chest complaints, agitated TECHNIQUE: CT scan of the chest performed without intravenous contrast using helical scanning technique. Reconstructed coronal and sagittal MPR images reviewed. All images stored on PACS. Automated exposure control was used as a dose optimization technique for this examination. COMPARISON: 08/22/2024 FINDINGS: The sensitivity for detection of solid visceral lesions is diminished without the use of intravenous contrast. LUNGS: No nodules or masses. No pneumonia. Bibasilar dependent atelectasis is apparent. PLEURA: No effusion. No pneumothorax. MEDIASTINUM/JULY: No identified masses or abnormal nodes. HEART: Heart size is normal with no pericardial effusion. CORONARY ARTERY CALCIFICATION: Present VASCULATURE: Atherosclerotic calcification is noted in the thoracic aorta. Aortic measurements as follows: At the level of the sinoatrial junction: 3.9 cm. Mid ascending aorta: 4.3 cm. Proximal aortic arch: 3.9 cm. Mid descending aorta: 3.2 cm. AXILLA: No adenopathy. CHEST WALL: No masses. No subcutaneous air. HARDWARE/LINES/TUBES: None. UPPER ABDOMEN: There is a small hiatal hernia MUSCULOSKELETAL: Wire sternal sutures are consistent with prior Cardiothoracic surgery. OTHER: No other significant abnormality. IMPRESSION: Persistent dilatation of the ascending aorta now measuring 4.3 cm in greatest AP diameter, previously 4.0. THIS IS AN ELECTRONICALLY VERIFIED FINAL REPORT 08/23/2025 2:59 PM - Electronically signed by Arcadio Nunes M.D. BS T: Report ID: [id number] Reading Location: [id number] Procedure Note Arcadio Nunes MD - 08/23/2025 EXAM DESCRIPTION: CT CHEST WO CONTRAST REASON FOR STUDY: Aortic aneurysm suspected Ascending aneurysm follow up, no chest complaints, agitated TECHNIQUE: CT scan of the chest performed without intravenous contrastusing helical scanning technique. Reconstructed coronal and sagittal MPR images reviewed. All images stored on PACS. Automated exposure control was usedas a dose optimization technique for this examination. COMPARISON: 08/22/2024 FINDINGS: The sensitivity for detection of solid visceral lesions is diminished without the use of intravenous contrast. LUNGS: No nodules or masses. No pneumonia. Bibasilar dependentatelectasis is apparent. PLEURA: No effusion. No pneumothorax. MEDIASTINUM/JULY: No identified masses or abnormal nodes. HEART: Heart size is normal with no pericardial effusion. CORONARY ARTERY CALCIFICATION: Present VASCULATURE: Atherosclerotic calcification is noted in the thoracicaorta. Aortic measurements as follows: At the level of the sinoatrial junction: 3.9 cm. Mid ascending aorta: 4.3 cm. Proximal aortic arch: 3.9 cm. Mid descending aorta: 3.2 cm. AXILLA: No adenopathy. CHEST WALL: No masses. No subcutaneous air. HARDWARE/LINES/TUBES: None. UPPER ABDOMEN: There is a small hiatal hernia MUSCULOSKELETAL: Wire sternal sutures are consistent with prior Cardiothoracic surgery. OTHER: No other significant abnormality. IMPRESSION: Persistent dilatation of the ascending aorta now measuring4.3 cm in greatest AP diameter, previously 4.0. THIS IS AN ELECTRONICALLY VERIFIED FINAL REPORT 08/23/2025 2:59 PM - Electronically signed by Arcadio Nunes M.D. BS T: Report ID: [id number] Reading Location: [place] [address] us Luann Strong NP IMG CT PROCEDURES Final Re sult * US Duplex Scan Aorta, IVC Iliac Complete (07/02/2025 10:16 AM CDT) Anatomical Region Laterality Modality Vascular N/A Ultrasound 07/02/2025 9:55 AM CDT Narrative 07/04/2025 8:54 AM CDT Vascular & Vein Surgery [facility] [place] [address] Abdominal Aortic Duplex Ultrasound Report Patient Name: SIDNEYMaryALE M : 1950 Study Date: 07/02/2025 9:55:33 AM Gender: F Transfer Professor: Location: VVSE Ref Provider: LORENA KNOX [...] MD - 07/04/2025 Vascular & Vein Surgery [address] [place] [address] Abdominal Aortic Duplex Ultrasound Report Patient Name: ALE SOTO M : 1950 Study Date: 07/02/2025 9:55:33 AM Gender: F Transfer Professor: Location: VV Ref Provider: LORENA KNXO Quality: Adequate Order Provider: LORENA KNOX PROCEDURES: [...] 07/04/2025 8:46:16 AM CDT Lorena Knox MD [facility] US PROCEDURES Final Result * POCT lipid [...] 67(L) 90 - 130 mL/min/1. 73 m2 [facility] Comment: Interpretive Data Reference Interval [...] 03/19/2023 5:52 AM CDT us Daria Lopes [facility] LAB BLOOD ORDERABLES Final R esult [facility] Department [place] [address] * (ABNORMAL) Hemoglobin A1c (03/17/2023 10:22 PM CDT) Hgb A1C 5.8(H) 4.0 - 5.6 % [facility] Estimated Average Glucose 120 mg/dL [facility] Comment: The ADA recommends reporting an estimated Average Glucose (eAG) with all Hemoglobin A1c results using the equation derived from a study of 507 normal and diabetic adults. Minority populations were underrepresented and children were not included. (Diabetes Care 2020; 43S1): J32-S76). The eAG is not equivalent to a fasting glucose. Blood 03/17/2023 10:2 2 PM CDT 03/17/2023 10:43 PM CDT Anil Meredith MD LAB BLOOD ORDERABLES Final Result [facility] Department [place] [address] from Last 3 Months or Most Recently Relevant to Health Maintenance Insurance MEDICARE MEDICARE [facility] [place] [place] [address] MEDICARE [facility] MEDICARE SUPPLEMENT Advance Directives For more information, please contact: [phone] * Full Code (Latest Code Status on File) Date Activated Date Inactivated Comments 03/17/2023 9:26 PM 03/19/2023 9:42 PM Care Teams [employer] Financ[employer] Relationship Specialty Start Date End Date Bebeto Figueroa MD [address] [facility] [address] [place] [address] PCP - General Family Medicine 10/13/23 Howie Vazquez MD Consulting Physician Cardiology 03/19/23
--- OUTSIDE RECORDS SUMMARY | 2025-09-06 00:34 | XMS_ITS | Clinical Summary ---
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
--- OUTSIDE RECORDS SUMMARY | 2025-09-06 00:35 | XMS_ITS | Patient Health Record ---
Author Organization [facility] [employer] Address [address] [facility] [address] [address] Care Team Providers Care Family And Divorce Legal Assistant Name Role Phone Vitayl Reddy Unavailable [phone] Reason For Referral No Information Plan Of Treatment No Information
--- OUTSIDE RECORDS SUMMARY | 2025-09-06 00:35 | XMS_ITS | Clinical Summary ---
Author Organization [facility] Address [address] [place] [address] Care Team Providers Care Livestock Yard Attendant Name Role Phone Unavailable Primary Care Provider [...]
--- OUTSIDE RECORDS SUMMARY | 2025-09-06 00:35 | XMS_ITS | Clinical Summary ---
Author Organization [facility] Care Team Providers Care Gift Wrapper Name Role Phone Unavailable Primary Care Provider [...]
[2025-09-06 10:30] VITALS: BP 170/87; PULSE 97; RESP 16; TEMP 36.5; O2SAT 98
[2025-09-06] MEDS: LACTATED RINGERS 1,000 ML 150 ML IV CONT (10:38)
--- NOTE | 2025-09-06 10:41 | WPDANESEPPF ---
Anes - Initial Pre Proc Eval Procedure: Operation Date: 09/06/25 11:30 Proposed Procedures p Screening Colonoscopy - Pablo Rodriguez MD s Esophagogastroduodenoscopy EGD - Pablo Rodriguez MD Date/Time: 09/06/25 10:41 Surgeon: Pablo Rodriguez MD Pre Op Diagnosis: Encounter for screening for malignant neoplasm Patient Data Age: 75 Gender: F Height: Weight: 102.2 kg Last Vital Signs Temp 97.7 F 09/06/25 10:30 Pulse 97 09/06/25 10:30 Resp 16 09/06/25 10:30 BP 170/87 H 09/06/25 10:30 Pulse Ox 98 09/06/25 10:30 O2 Del Method Room Air 09/06/25 10:30 Allergies Allergy/AdvReac Type Severity Reaction Status Date / Time codeine Allergy Mild HIVES AND Verified 09/06/25 10:28 FACIAL SWELLING erythromycin base Allergy Mild HIVES Verified 09/06/25 10:28 oxycodone Allergy Mild HIVES Verified 09/06/25 10:28 propoxyphene Allergy Mild DOES NOT Verified 09/06/25 10:28 KNOW levofloxacin Allergy Unknown Unknown Verified 09/06/25 10:28 tramadol Allergy Swelling Verified 09/06/25 10:28 of Lip/Tongue/Throat BEE STINGS Allergy Severe Unknown Uncoded 08/15/25 08:08 Home Medications ?Medication ?Instructions ?Recorded ?Confirmed ?Type aspirin 81 mg tablet,delayed 81 mg PO DAILY 06/13/21 09/06/25 History release loratadine 10 mg tablet (Claritin) 10 mg PO DAILY 06/13/21 09/06/25 History epinephrine 0.3 mg/0.3 mL 0.3 mg IM ONCE PRN Anaphylaxis 03/15/23 08/29/25 History injection, auto-injector (EpiPen) albuterol sulfate 90 mcg/actuation 1 puff inhalation Q4H PRN Dyspnea 03/29/23 08/29/25 History aerosol inhaler carvedilol 6.25 mg tablet 6.25 mg PO Q12H 03/29/23 09/06/25 History isosorbide mononitrate 30 mg 30 mg PO DAILY 03/29/23 09/06/25 History tablet,extended release 24 hr lisinopril 20 mg tablet 20 mg PO DAILY #90 tabs 12/13/24 09/06/25 Rx rosuvastatin 10 mg tablet 10 mg PO DAILY #90 tabs 03/12/25 09/06/25 Rx buspirone 5 mg tablet 5 mg PO BID #60 tabs 04/11/25 09/06/25 Rx bupropion HCl 200 mg tablet,12 hr See Rx Instructions .Route 07/24/25 09/06/25 Rx sustained-release .COMPLEX #60 tabs cyanocobalamin (vitamin B-12) 500 500 mcg PO DAILY 08/14/25 09/06/25 History mcg lozenges (Vitamin B-12) fluticasone propionate 50 1 spray intranasal DAILY 08/14/25 09/06/25 History mcg/actuation nasal spray,suspension (24 Hour Allergy Relief) multivitamin (Daily Multi-Vitamin 1 tablet PO DAILY 08/14/25 09/06/25 History tablet) nitroglycerin 0.4 mg sublingual 0.4 mg sublingual Q5M PRN chest 08/14/25 08/29/25 History tablet pain citalopram 10 mg tablet 10 mg PO DAILY #90 tabs 08/22/25 09/06/25 Rx Patient hx anesthesia problems: none Family hx anesthesia problems: none Results Review: All pre-operative results and documents have been reviewed as part of the pre-operative evaluation. [facility] Past Medical History Medical History Ascending aortic aneurysm AAA (abdominal aortic aneurysm) Asthma History of rheumatic fever Cataract Statin myopathy Vertigo CAD (coronary artery disease) Diabetes mellitus Chronic obstructive pulmonary disease, unspecified Chronic respiratory failure with hypoxia Obstructive sleep apnea (adult) (pediatric) She denies any sleep apnea. Tobacco abuse Surgical History Surgical History H/O colonoscopy History of appendectomy S/P ORIF (open reduction internal fixation) fracture right ankle History of tonsillectomy H/O section History of laparoscopic cholecystectomy Hx of CABG (~2009) 5 vessel CABG Family History Family History Mother Family history of malignant neoplasm Family history of lung cancer Family history of lymphoma Sibling COVID Family history of heart disease in male family member before age 55 Family history of malignant neoplasm Adrenal nodule Family history of diabetes mellitus in first degree relative Adrenal mass Father Family history of primary malignant neoplasm of liver Family history of heart disease in male family member before age 55 Family history of cardiovascular disease Family history of congenital heart disease Hypertension Daughter Adrenal mass Other Diabetes mellitus Social History Social History Social History: Caffeine-coffee occasionally she lives home alone. She is . She has 4 children. 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 Code status full code Smoking packs per day: 1 Smoking cigarettes per day: 20.0 Years smoked: 50 Smoking pack-years: 50.00 Smoking status: Former smoker Tobacco type: cigarettes Second hand tobacco smoke exposure: Yes Smoking end date: 08/14/10 Alcohol intake: never Substance use: never Substance use type: does not use Other substance usage details: topical on knees Lack of Transportation: No Lack of Food: Never True Current Housing: I Have Housing Concerned About Future Housing: No Difficulty Paying Gas/Electric Bills: No Difficulty Paying for Meds: No Currently Unemployed: No Education: Bachelor's Degree Difficulty w/ Childcare or Family Care: No Living arrangements: alone Gender identity (if verbalized by the patient): Female Spiritual care concerns: No Anes - Eval Final PreProcedure Day of Procedure 09/06/25 10:41 Patient weight: obese Heart: regular rate and rhythm Lungs: clear to auscultation Airway: Mallampati scale class II Neurological: alert and oriented Last oral intake: >/= 8 hours ASA classification: III Emergent: no Anesthetic plan: proceed Anesthesia type and monitoring: general GIVS and standard monitoring Results Review: All pre-operative results and documents have been reviewed as part of the pre-operative evaluation. Informed Consent: The patient's anesthetic plan and its attendant risks and benefits were discussed with the patient/family/POA. Questions were solicited and answers provided to the satisfaction of the patient/family/POA.
--- NOTE | 2025-09-06 10:55 | PM.HPGS ---
History of Present Illness History of Present Illness Consent: Risks, benefits, and alternatives have been discussed and questions answered. Patient agrees to proceed with procedure. Chief complaint: Encounter for screening for malignant neoplasm Narrative: Ale Soto is a 75 year old female here for egd and colonoscopy, sister had colon cancer, also belching Review of Systems Review of Systems: All systems reviewed & are unremarkable except as noted in HPI and below PMFSH Past Medical History Medical History (Updated 09/06/25 @ 10:56 by Pablo Rodriguez MD) Family history of colon cancer Belching Ascending aortic aneurysm AAA (abdominal aortic aneurysm) Asthma History of rheumatic fever Cataract Statin myopathy Vertigo CAD (coronary artery disease) Diabetes mellitus Chronic obstructive pulmonary disease, unspecified Chronic respiratory failure with hypoxia Obstructive sleep apnea (adult) (pediatric) She denies any sleep apnea. Tobacco abuse Surgical History Surgical History H/O colonoscopy History of appendectomy S/P ORIF (open reduction internal fixation) fracture right ankle History of tonsillectomy H/O section History of laparoscopic cholecystectomy Hx of CABG (~2009) 5 vessel CABG Family History Family History Mother Family history of malignant neoplasm Family history of lung cancer Family history of lymphoma Sibling COVID Family history of heart disease in male family member before age 55 Family history of malignant neoplasm Adrenal nodule Family history of diabetes mellitus in first degree relative Adrenal mass Father Family history of primary malignant neoplasm of liver Family history of heart disease in male family member before age 55 Family history of cardiovascular disease Family history of congenital heart disease Hypertension Daughter Adrenal mass Other Diabetes mellitus Social History Social History Social History: Caffeine-coffee occasionally she lives home alone. She is . She has 4 children. 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 Code status full code Smoking packs per day: 1 Smoking cigarettes per day: 20.0 Years smoked: 50 Smoking pack-years: 50.00 Smoking status: Former smoker Tobacco type: cigarettes Second hand tobacco smoke exposure: Yes Smoking end date: 08/14/10 Alcohol intake: never Substance use: never Substance use type: does not use Other substance usage details: topical on knees Lack of Transportation: No Lack of Food: Never True Current Housing: I Have Housing Concerned About Future Housing: No Difficulty Paying Gas/Electric Bills: No Difficulty Paying for Meds: No Currently Unemployed: No Education: Bachelor's Degree Difficulty w/ Childcare or Family Care: No Living arrangements: alone Gender identity (if verbalized by the patient): Female Spiritual care concerns: No Meds Home Medications and Allergies Home Medications ?Medication ?Instructions ?Recorded ?Confirmed ?Type aspirin 81 mg tablet,delayed 81 mg PO DAILY 06/13/21 09/06/25 History release loratadine 10 mg tablet (Claritin) 10 mg PO DAILY 06/13/21 09/06/25 History epinephrine 0.3 mg/0.3 mL 0.3 mg IM ONCE PRN Anaphylaxis 03/15/23 08/29/25 History injection, auto-injector (EpiPen) albuterol sulfate 90 mcg/actuation 1 puff inhalation Q4H PRN Dyspnea 03/29/23 08/29/25 History aerosol inhaler carvedilol 6.25 mg tablet 6.25 mg PO Q12H 03/29/23 09/06/25 History isosorbide mononitrate 30 mg 30 mg PO DAILY 03/29/23 09/06/25 History tablet,extended release 24 hr lisinopril 20 mg tablet 20 mg PO DAILY #90 tabs 12/13/24 09/06/25 Rx rosuvastatin 10 mg tablet 10 mg PO DAILY #90 tabs 03/12/25 09/06/25 Rx buspirone 5 mg tablet 5 mg PO BID #60 tabs 04/11/25 09/06/25 Rx bupropion HCl 200 mg tablet,12 hr See Rx Instructions .Route 07/24/25 09/06/25 Rx sustained-release .COMPLEX #60 tabs cyanocobalamin (vitamin B-12) 500 500 mcg PO DAILY 08/14/25 09/06/25 History mcg lozenges (Vitamin B-12) fluticasone propionate 50 1 spray intranasal DAILY 08/14/25 09/06/25 History mcg/actuation nasal spray,suspension (24 Hour Allergy Relief) multivitamin (Daily Multi-Vitamin 1 tablet PO DAILY 08/14/25 09/06/25 History tablet) nitroglycerin 0.4 mg sublingual 0.4 mg sublingual Q5M PRN chest 08/14/25 08/29/25 History tablet pain citalopram 10 mg tablet 10 mg PO DAILY #90 tabs 08/22/25 09/06/25 Rx Allergies Allergy/AdvReac Type Severity Reaction Status Date / Time codeine Allergy Mild HIVES AND Verified 09/06/25 10:28 FACIAL SWELLING erythromycin base Allergy Mild HIVES Verified 09/06/25 10:28 oxycodone Allergy Mild HIVES Verified 09/06/25 10:28 propoxyphene Allergy Mild DOES NOT Verified 09/06/25 10:28 KNOW levofloxacin Allergy Unknown Unknown Verified 09/06/25 10:28 tramadol Allergy Swelling Verified 09/06/25 10:28 of Lip/Tongue/Throat BEE STINGS Allergy Severe Unknown Uncoded 08/15/25 08:08 Vital Signs Vital Signs - 24 hr 09/06/25 10:30 Temperature 97.7 F Pulse Rate 97 Respiratory Rate 16 Blood Pressure 170/87 H Pulse Oximetry 98 Oxygen Delivery Room Air Exam Const: General: comfortable and no acute distress HENMT: Face/Nose/Sinus: Normal nares present Eyes: General: appearance normal, both eyes and all related structures Neck: Neck: no JVD Resp: Auscultation: clear to auscultation bilaterally Cardio: Rate: regular rate Rhythm: regular rhythm GI: Inspection: non-distended GI Palp: Yes Soft to palpation Skin: General skin exam: normal color Extrem: General: normal to inspection Psych: Mental Status: mental status grossly normal Assessment and Plan Assessment and plan (1) Belching: Code(s): R14.2 - Eructation Status: Acute Assessment and Plan: egd (2) Family history of colon cancer: Code(s): Z80.0 - Family history of malignant neoplasm of digestive organs Status: Acute Assessment and Plan: colonoscopy
--- NOTE | 2025-09-06 11:06 | SUR.OPER ---
EGD [id number]. Colonoscopy start time 1106.
--- NOTE | 2025-09-06 11:14 | S_PTH ---
PATIENT: Ale Soto LOC: [facility] Lee#:[id number] AGE/SX: 75/F ROOM: RE09/06/[address]: Pablo Rodriguez MD : 1950 BED: DIS: 09/06/2025 SPEC #: [id number] RECD: 09/06/25 13:28 STATUS: DAV RETab #: [id number] ASH: 09/06/25 11:[address]: Pablo Rodriguez DEPT: [facility] Surgical RECD BY: Rupali Sheikh ENTERED: 09/06/25 13:28 SP TYPE: Surgical OTHR DR: Bebeto Figueroa MD Tissues: A - Gastric Biopsy Procedures: Hematoxylin and Eosin Stain Gross and Microscopic Level 4
[2025-09-06 11:18] VITALS: BP 120/66; PULSE 60; RESP 20; O2SAT 98
[2025-09-06 11:26] VITALS: BP 121/71; PULSE 56; RESP 19; O2SAT 98
[2025-09-06 11:33] VITALS: BP 121/70; PULSE 61; RESP 21; O2SAT 98
[2025-09-06 11:45] VITALS: BP 120/66; PULSE 62; RESP 23; O2SAT 98
[2025-09-06 12:29] LABS: HPYLORIRESULT Negative (Negative)
== END 2025-09-06 11:53 | disposition home or self-care (01) ==
PROVIDERS: PCP Family Medicine; Referring Provider Family Medicine; Visit Provider Internal Medicine Gastroenterology
PROC: 0DJD8ZZ Inspection of Lower Intestinal Tract, Via Natural or Artificial Opening Endoscopic (ICD-10-PCS; CPT 45378; principal; 2025-09-06 11:30)
PROC: 0DJ08ZZ Inspection of Upper Intestinal Tract, Via Natural or Artificial Opening Endoscopic (ICD-10-PCS; CPT 43239; 2025-09-06 11:30)
DX: Z12.11 Encounter for screening for malignant neoplasm of colon (principal); K64.8 Other hemorrhoids; K57.30 Diverticulosis of large intestine without perforation or abscess without bleeding; K21.9 Gastro-esophageal reflux disease without esophagitis; K29.70 Gastritis, unspecified, without bleeding; I25.10 Atherosclerotic heart disease of native coronary artery without angina pectoris; E11.9 Type 2 diabetes mellitus without complications; J44.9 Chronic obstructive pulmonary disease, unspecified; J96.11 Chronic respiratory failure with hypoxia; G47.33 Obstructive sleep apnea (adult) (pediatric); E66.9 Obesity, unspecified; Z68.41 Body mass index [BMI] 40.0-44.9, adult; Z79.82 Long term (current) use of aspirin; Z79.51 Long term (current) use of inhaled steroids; Z98.890 Other specified postprocedural states; Z90.49 Acquired absence of other specified parts of digestive tract; Z95.1 Presence of aortocoronary bypass graft; Z87.891 Personal history of nicotine dependence; Z86.79 Personal history of other diseases of the circulatory system; Z80.0 Family history of malignant neoplasm of digestive organs; Z80.1 Family history of malignant neoplasm of trachea, bronchus and lung; Z80.7 Family history of other malignant neoplasms of lymphoid, hematopoietic and related tissues; Z82.49 Family history of ischemic heart disease and other diseases of the circulatory system
CPT/HCPCS: 43239; G0105; 87081; 88305; J2704; J7120

== ENCOUNTER 2025-11-03 17:40 | Emergency (ER) | payer MEDICARE, SELFPAY ==
[2025-11-03] VITALS (22 sets, daily range): BP systolic 104–152; BP diastolic 67–119; PULSE 59–68; RESP 12–25; TEMP 37.2; O2SAT 91–99
--- NOTE | ~2025-11-03 | XR_ITS ---
EXAMINATION: XR chest 2V, 11/03/2025 18:30 WIRE SPIRAL BINDER HISTORY: cp COMPARISON: No comparisons available. Technique: 2 views obtained. Findings: Mild pulmonary venous congestion. No pneumothorax. Mild cardiomegaly. Mediastinal and hilar contours are within normal limits. Post sternotomy. Impression: Mild CHF Reviewed, dictated and finalized at location P. SPIRAL BINDER Impression: Mild CHF
--- NOTE | 2025-11-03 17:41 | ECG_ITS ---
Test Date: 2025-11-03 17:46:26 Measurements Intervals Sebastian Rate: 64 P: 57 DC: 166 QRS: -7 QRSD: 148 T: 86 QT: 450 QTc: 468 Interpretive Statements SINUS RHYTHM RIGHT BUNDLE BRANCH BLOCK MODERATE T-WAVE ABNORMALITY, CONSIDER ANTEROLATERAL ISCHEMIA BASELINE ARTIFACT- I, II, III, AVR, AVL, AVF, V6 ABNORMAL ECG Compared to ECG 07/21/2025 12:36:14 T-wave abnormality now present Possible ischemia now present Electronically Signed On 11-03-2025 19:52:52 HOME MANAGER by Jimbo Balderas D.O.
--- OUTSIDE RECORDS SUMMARY | 2025-11-03 17:41 | XMS_ITS | Clinical Summary ---
Author Organization [facility] Care Team Providers Care Circus Artist Name Role Phone Unavailable Primary Care Provider [...]
--- OUTSIDE RECORDS SUMMARY | 2025-11-03 17:41 | XMS_ITS | Clinical Summary ---
Author Organization [facility] Address [address] [place] [address] Care Team Providers Care Truck Sales Representative Name Role Phone Unavailable Primary Care Provider [...] 75+ series) 2025 COVID-19 Vaccine ( - 2024-2 6 season) 2025 Influenza Adult (#1) 2025 Hepatitis A Vaccines Aged Out No long er eligible based on patient's age to complete this topic Meningococcal B Vaccine Aged Out No l onger eligible based on patient's age to complete this topic Meningococcal Vaccine Aged Out No dianne dominic eligible based on patient's age to complete this topic RSV Immunizations Under 20 Months Aged Out No longer eligible based on patient's age to complete this topic
--- OUTSIDE RECORDS SUMMARY | 2025-11-03 17:41 | XMS_ITS | Patient Health Record ---
Author Organization [facility] Address [address] [facility] [address] [address] Care Team Providers Care Paint Grinder Name Role Phone Vitaly Reddy Unavailable [phone] Reason For Referral No Information Plan Of Treatment No Information
--- OUTSIDE RECORDS SUMMARY | 2025-11-03 17:41 | XMS_ITS | Clinical Summary ---
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
--- OUTSIDE RECORDS SUMMARY | 2025-11-03 17:42 | XMS_ITS | Clinical Summary ---
Author Organization [facility] [address] Address [address] [place] [address] Care Team Providers Care Cold Storage Superintendent Name Role Phone Howie Vazquez MD Unavailable [phone] Bebeto Figueroa MD Primary Care Provider Allergies Active Allergy Reactions Criticality Noted Date Comments Codeine Propoxyphene-Acetamino phen Hives,Itching Medium 12/05/2020 Erythromycin Levofloxacin Unknown High 05/28/2008 Oxycodone Oxycodone-Acetaminophe n Other (See comments) Low 12/05/2020 Reaction: Propoxyphene Gzrsiax-Fko-Trk Reductase Inhibitors Unknown Low Pt does not recall specifically and is not sure if she had issues. Streptomycin Unknown High 05/28/2008 Venom-Honey Bee Vision changes Medium 12/05/2020 Medications citalopram (CeleXA) 40 mg tablet take 1 tablet (40MG) by oral route every day 0 2 Active albuterol (PROVENTIL,PATSY DYAN) 90 mcg/actuation inhaler Take as directed 0 0 9 Active aspirin (Adult Low Dose Aspirin) 81 [...] mg total) by mouth every evening Active rosuvastatin (CRESTOR) 10 mg tablet Take 1 tablet (10 mg total) by mouth daily 5 Active carvediloL (COREG) 6.25 mg tabletIndication s:Coronary artery disease involving kobuk coronary artery of kobuk heart without angina pectoris Take 1 tablet [...] approval. Will continue routine monitoring with local glove maker. We will have films placed in our system. Body mass index 40.0-44.9, adult ([facility]) 01/28 Statin myopathy 04/04/2021 Drug [...] regimen: Wellbutrin, Buspar, Celexa Coronary arteriosclerosis in kobuk artery 04/16 Overview (02/26/2017): Coronary artery disease involving kobuk coronary artery of kobuk heart with other form of angina pectoris Preoperative state 04/16/2016 Overview (02/26/2017): Preoperative cardiovascular examination Coronary artery disease invo lving kobuk coronary artery of kobuk heart without angina pectoris 04/07/2014 Overview (02/26/2017): Coronary artery disease Assessment & Plan (04/15/2023 10:11 PM CDT): LHC on 03/08/23 at [facility] showing severe three vessel kobuk disease and patent SVG-ramus and SVG-PDA/PLV, but [...] -Unable to cannulate all grafts on recent C -Will need to obtain coronary angiograms from [...] Dyslipidemia associated with type 2 diabetes mellitus ([facility]) 10/05/2016 10/09/2021 Overview (02/26/2017): DM type 2 with diabetic dyslipidemia Encounters Date Type Department Care Team Description 09/21/2025 1:00 PM CDT Office Visit [facility] Card[facility] [address] [place] [id number] Mayra Puga NP Coronary artery disease involving kobuk coronary artery of kobuk heart without angina pectoris (Primary Dx); Mixed diabetic hyperlipidemia associated with type 2 diabetes mellitus (HCC); Statin myopathy; Infrarenal abdominal aortic aneurysm (AAA) without rupture; Body mass index 40.0-44.9, adult (CMS/HCC) (HCC); Severe obesity (HCC) 08/23/2025 10:00 AM CDT Office Visit [facility] [address] [place] [address] [address] [place] [address] Dwayne Garcia MD Aortic aneurysm without rupture, unspecified portion of aorta (Primary Dx) 08/21/2025 10:52 AM CDT - 08/21/2025 11:59 PM CDT Hospital Encounter [facility][Note 3] [address] [place] [address] Aneurysm of ascending aorta without rupture Discharge Disposition: Discharge to home or self care 08/17/2025 Telephone [facility] [address] [place] [address] [address] [place] [address] Akbar Rosas CMA 08/07/2025 Telephone [facility] [address] [place] [address] [address] [place] [address] Akbar Rosas CMA from Last 3 Months Surgical History Surgery [...] on file 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 Gender Identity Not on file Sexual Orientation Not on file Last Filed Vital Signs Vital Sign Reading Time Taken Comments Blood Pressure 118/64 09/21/2025 1:03 PM CDT Pulse 67 09/21/2025 1:03 PM CDT Temperature 37 C (98.6 F) 08/23/2025 10:27 AM CDT Respiratory Rate 18 03/19/2023 2:44 PM CDT Oxygen Saturation 96% 09/21/2025 1:03 PM CDT Inhaled Oxygen Concentration - - Weight 104.1 kg (229 lb 8 oz) 09/21/2025 1:03 PM CDT Height 160 cm (5' 3) 09/21/2025 1:03 PM CDT Body Mass Index 40.65 09/21/2025 1:03 PM CDT Plan of Treatment Health Maintenance Due [...] CDT Aneurysm of ascending aorta without rupture POCT LIPID PANEL Routine 08/11/2024 3:35 PM CDT Coronary artery disease involving kobuk coronary artery of kobuk heart without angina pectoris EGFR Routine 03/19/2023 [...] Arcadio Nunes M.D. BS T: Report ID: [id number] Reading Location: [id number] Procedure Note Arcadio Nunes MD - 08/23/2025 [...] Arcadio Nunes M.D. BS T: Report ID: [id number] Reading Location: [place] [address] Luann Strong NP IMG CT PROCEDURES Final Re sult * POCT lipid panel (08/11/2024 3:35 PM CDT) Cholesterol, POC 126 mg/dL Comment:GLU = 147 HDL, POC 33 mg/dL Triglycerides, POC 196 mg/dL LDL Cholesterol POC 55 mg/dL Chol/HDL Ratio, POC 1.7 Non-HDL Cholesterol, POC 94 mg/dL Cholesterol Total, POC 126 mg/dL Capillary blood 08/11/2024 3 :35 PM CDT Pirnce Gutierrez MD POINT OF CARE TEST ORDE ANTHONY Final Result * (ABNORMAL) eGFR (03/19/2023 5:06 AM CDT) eGFR 67(L) 90 - 130 mL/min/1. [address] [facility] Comment: Interpretive Data Reference Interval [...] of Race in Diagnosing Kidney Disease, JASN 202). The CKD-EPI equation should not be used for patients with unstable renal function and has not been validated in children and those over 70. Current interpretive data was last reviewed 2021. Blood 03/19/2023 5:06 AM CDT 03/19/2023 5:52 AM CDT Daria Lopes DNP LAB BLOOD ORDERABLES Final R esult Performing Organization Address [facility] de Phone Number [facility] [place] [address] * (ABNORMAL) Hemoglobin A1c (03/17/2023 10:22 PM CDT) Hgb A1C 5.8(H) 4.0 - 5.6 % [facility] Estimated Average Glucose 120 mg/dL [facility] Comment: The ADA recommends reporting an [...] Meredith MD LAB BLOOD ORDERABLES Final Result Performing Organization Address [facility] de Phone Number [facility] [place] [address] from Last 3 Months or Most Recently Relevant to Health Maintenance [place] [place] [address] MEDICARE MEDICARE Member Subscriber Plan / Payer ( fective 2011-Present) Name:Ale Soto Member ID:[id number] Relation to Subscriber:Self Name:Ale Soto Subscriber ID:[id number] Payer ID:[id number] Group ID:Not on file Type:MEDICARE TRADITIONAL Address: [place] [phone] [facility] MEDICARE SUPPLEMENT MEDICARE [facility] MEDICARE SUPPLEMENT Advance Directives For more information, please contact: [phone] * Full Code (Latest Code Status on File) Date Activated Date Inactivated Comments 03/17/2023 9:26 PM 03/19/2023 9:42 PM Care Teams Cold Storage Superintendent Relationship Specialty Start Date End Date Bebeto Figueroa MD [address] [facility] [address] [place] [address] PCP - General Family Medicine 10/13/23 Howie Vazquez MD Consulting Physician Cardiology 03/19/23
[2025-11-03] MEDS: ASPIRIN 81 MG CHEWABLE TABLET 324 MG PO (18:02)
[2025-11-03] MEDS: MORPHINE SULFATE (*CRX) 4 MG/ML INJ 2 MG IV PUSH (18:03)
[2025-11-03] MEDS: NITROGLYCERIN SL 0.4 MG TABLET SUBLINGUAL (18:03)
[2025-11-03 18:05] LABS: Hematocrit 41.1 % (37.0-47.0); Hemoglobin 13.6 g/dL (12.0-15.0); Immature Granulocyte Percent A 1.0 % (0-0.5); Lymphocytes Absolute Auto 1.83 K/mm3 (0.9-3.2); Mean Corpuscular HGB Conc 33.1 g/dl (32-36); Mean Corpuscular Hemoglobin 30.4 pg (26-34); Mean Corpuscular Volume 91.7 fl (80-100); Nucleated Red Blood Cells Absolute Auto 0.000 K/mm3 (0.0-0.012); Nucleated Red Blood Cells Perc 0.0 % (0.0-0.2); Platelet Count Result 186 k/mm3 (150-375); Red Blood Count 4.48 M/mm3 (4.2-5.4); White Blood Count 6.1 K/mm3 (4.5-10.0)
--- OUTSIDE RECORDS SUMMARY | 2025-11-03 18:08 | XMS_ITS | Clinical Summary ---
Author Organization [facility] [address] Address [address] [place] [address] Care Team Providers Care Fur Cutting Machine Operator Name Role Phone Howie Vazquez MD Unavailable [phone] Bebeto Figueroa MD Primary Care Provider Allergies Active Allergy Reactions Criticality Noted Date Comments Codeine Propoxyphene-Acetamino phen Hives,Itching Medium 12/05/2020 Erythromycin Levofloxacin Unknown High 05/28/2008 Oxycodone Oxycodone-Acetaminophe n Other (See comments) Low 12/05/2020 Reaction: Propoxyphene Nbalgoo-Evb-Imy Reductase Inhibitors Unknown Low Pt does not [...] 6.25 mg tabletIndication s:Coronary artery disease involving benton coronary artery of benton heart without angina pectoris Take 1 tablet [...] approval. Will continue routine monitoring with local air quality chemist. We will have films placed in our system. Body mass index 40.0-44.9, adult ([facility]) 01/28 Statin myopathy 04/04/2021 Drug intolerance [...] regimen: Wellbutrin, Buspar, Celexa Coronary arteriosclerosis in benton artery 04/16 Overview (02/26/2017): Coronary artery disease involving benton coronary artery of benton heart with other form of angina pectoris Preoperative state 04/16/2016 Overview (02/26/2017): Preoperative cardiovascular examination Coronary artery disease invo lving benton coronary artery of benton heart without angina pectoris 04/07/2014 Overview (02/26/2017): Coronary artery disease Assessment & Plan (04/15/2023 10:11 PM CDT): LHC on 03/08/23 at [facility] showing severe three vessel benton disease and patent SVG-ramus and SVG-PDA/PLV, but [...] Dyslipidemia associated with type 2 diabetes mellitus ([facility]) 10/05/2016 10/09/2021 Overview (02/26/2017): DM type 2 with diabetic dyslipidemia Encounters Date Type Department Care Team Description 09/21/2025 1:00 PM CDT Office Visit [facility] [address] [place] [id number] Mayra Puga NP Coronary artery disease involving benton coronary artery of benton heart without angina pectoris (Primary Dx); Mixed diabetic hyperlipidemia associated with type 2 diabetes mellitus (HCC); Statin myopathy; Infrarenal abdominal aortic aneurysm (AAA) without rupture; Body mass index 40.0-44.9, adult (CMS/HCC) (HCC); Severe obesity (HCC) 08/23/2025 10:00 AM CDT Office Visit [facility] [address] [place] [address] [address] [place] [address] Dwayne Garcia MD Aortic aneurysm without rupture, unspecified portion of aorta (Primary Dx) 08/21/2025 10:52 AM CDT - 08/21/2025 11:59 PM CDT Hospital Encounter [facility] [address] [place] [address] Aneurysm of ascending aorta without rupture Discharge Disposition: Discharge to home or self care 08/17/2025 Telephone [facility] Surgery [address] [place] [address] [address] [place] [address] Akbar Rosas CMA 08/07/2025 Telephone [facility] Surgery [address] [place] [address] [address] [place] [address] Akbar Rosas CMA from Last [...] on file 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 BS T: Report ID: [id number] Reading Location: [id number] Procedure Note Arcadio Nunes MD - 08/23/2025 [...] Arcadio Nunes M.D. BS T: Report ID: [id number] Reading Location: [place] [address] Luann Strong NP IMG CT PROCEDURES Final [...] Prince Gutierrez MD POINT OF CARE TEST ORDE ANTHONY Final Result * (ABNORMAL) eGFR (03/19/2023 5:06 AM CDT) eGFR 67(L) 90 - 130 mL/min/1. 73 m2 [facility] Comment: Interpretive Data Reference Interval Normal >/= [...] ORDERABLES Final R esult Performing Organization Address [facility] de Phone Number [place] [address] * (ABNORMAL) Hemoglobin A1c (03/17/2023 10:22 PM CDT) Hgb A1C 5.8(H) 4.0 - 5.6 % [facility] Estimated Average Glucose 120 mg/dL [facility] Comment: The ADA recommends reporting an estimated [...] BLOOD ORDERABLES Final Result Performing Organization Address [facility] de Phone Number [place] [address] from Last 3 Months or Most Recently Relevant to Health Maintenance [place] [place] [address] MEDICARE MEDICARE Member Subscriber Plan / Payer ( fective 2011-Present) Name:Ale Soto Member ID:[id number] Relation to Subscriber:Self Name:Ale oSto Subscriber ID:[id number] Payer ID:[id number] Group ID:Not on file Type:MEDICARE TRADITIONAL Address: [place] [id number] [facility] MEDICARE SUPPLEMENT MEDICARE [facility] MEDICARE SUPPLEMENT Advance Directives For more information, please contact: [phone] * Full Code (Latest Code Status on File) Date Activated Date Inactivated Comments 03/17/2023 9:26 PM 03/19/2023 9:42 PM Care Teams Fur Cutting Machine Operator Relationship Specialty Start Date End Date Bebeto Figueroa MD [address] [facility] [address] [place] [address] PCP - General Family Medicine 10/13/23 Howie Vazquez MD Consulting Physician Cardiology 03/19/23
--- OUTSIDE RECORDS SUMMARY | 2025-11-03 18:08 | XMS_ITS | Clinical Summary ---
Author Organization [facility] Care Team Providers Care Lens Cleaner Name Role Phone Unavailable Primary Care Provider [...]
--- OUTSIDE RECORDS SUMMARY | 2025-11-03 18:08 | XMS_ITS | Clinical Summary ---
Author Organization [facility] Address [address] [place] [address] Care Team Providers Care Cigar Brander Name Role Phone Unavailable Primary Care Provider [...]
--- OUTSIDE RECORDS SUMMARY | 2025-11-03 18:08 | XMS_ITS | Clinical Summary ---
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
[2025-11-03 18:15] LABS: INR 1.0; Prothrombin Time 13.6 Seconds (11.1-14.7)
[2025-11-03 18:16] LABS: Partial Thromboplastin Time 25.2 Seconds (22.3-36.8)
[2025-11-03 18:18] LABS: Alanine Aminotransferase 20 U/L (6-35); Albumin Level 4.6 g/dL (3.5-5.1); Alkaline Phosphatase 72 U/L (38-126); Anion Gap 9 mmol/L (4-12); Aspartate Amino Transferase 26 U/L (14-36); Bilirubin,Total 1.2 mg/dL (0.2-1.3); Blood Urea Nitrogen 15 mg/dL (7-17); Calcium 9.8 mg/dL (8.4-10.2); Carbon Dioxide 22 mmol/L (22-30); Chloride 111 mmol/L (98-107); Estimated CRCL calculation 60 ml/min; Estimated Glomerular Filt Rate > 60; Glucose 129 mg/dL (65-110); Lipase 86 U/L (23-300); Potassium 4.0 mmol/L (3.4-5.0); Sodium 142 mmol/L (137-145); Total Protein 8.1 g/dL (6.3-8.2)
--- NOTE | 2025-11-03 18:27 | ED.GENADULT ---
HPI - General Adult General Chief complaint: Chest Pain <Dilshad Woodall MD - Last Filed: 11/03/25 20:03> Stated complaint: cp <Dilshad Woodall MD - Last Filed: 11/03/25 20:03> Time Seen by Provider: 11/03/25 17:44 <Dilshad Woodall MD - Last Filed: 11/03/25 20:03> History of Present Illness HPI narrative: patient is a 75-year-old female who presents emergency department with chief complaint of chest pain. Patient reports that she has had prior history of cardiac bypass and reports that yesterday around 1:00 p.m. she started having pain in her chest patient states the pain has been continual since yesterday reports that it was unrelieved with nitroglycerin <Dilshad Woodall MD - Last Filed: 11/03/25 20:03> Related Data Home medications: Home Medications ?Medication ?Instructions ?Recorded ?Confirmed ?Last Taken ?Type aspirin 81 mg tablet,delayed 81 mg PO DAILY 06/13/21 09/18/25 09/05/25 History release loratadine 10 mg tablet (Claritin) 10 mg PO DAILY 06/13/21 09/18/25 09/05/25 History epinephrine 0.3 mg/0.3 mL 0.3 mg IM ONCE PRN Anaphylaxis 03/15/23 09/18/25 Unknown History injection, auto-injector (EpiPen) albuterol sulfate 90 mcg/actuation 1 puff inhalation Q4H PRN Dyspnea 03/29/23 09/18/25 Unknown History aerosol inhaler carvedilol 6.25 mg tablet 6.25 mg PO Q12H 03/29/23 09/18/25 09/05/25 History isosorbide mononitrate 30 mg 30 mg PO DAILY 03/29/23 09/18/25 09/05/25 History tablet,extended release 24 hr cyanocobalamin (vitamin B-12) 500 500 mcg PO DAILY 08/14/25 09/18/25 09/05/25 History mcg lozenges (Vitamin B-12) fluticasone propionate 50 1 spray intranasal DAILY 08/14/25 09/18/25 09/05/25 History mcg/actuation nasal spray,suspension (24 Hour Allergy Relief) multivitamin (Daily Multi-Vitamin 1 tablet PO DAILY 08/14/25 09/18/25 09/05/25 History tablet) nitroglycerin 0.4 mg sublingual 0.4 mg sublingual Q5M PRN chest 08/14/25 09/18/25 Unknown History tablet pain Bifidobacterium combo no.9 1 cell PO .qd 09/17/25 09/18/25 Unknown History billion cell capsule,delayed release (Adult 50 Plus Probiotic Etta) <Dilshad Woodall MD - Last Filed: 11/03/25 20:03> Allergies/adverse reactions: Allergies Allergy/AdvReac Type Severity Reaction Status Date / Time codeine Allergy Mild HIVES AND Verified 09/17/25 09:14 FACIAL SWELLING erythromycin base Allergy Mild HIVES Verified 09/17/25 09:14 oxycodone Allergy Mild HIVES Verified 09/17/25 09:14 propoxyphene Allergy Mild DOES NOT Verified 09/17/25 09:14 KNOW levofloxacin Allergy Unknown Unknown Verified 09/17/25 09:14 tramadol Allergy Swelling Verified 09/17/25 09:14 of Lip/Tongue/Throat BEE STINGS Allergy Severe Unknown Uncoded 09/17/25 09:14 <Dilshad Woodall MD - Last Filed: 11/03/25 20:03> Review of Systems Review of Systems: A 10 system review of systems was completed on the patient and is negative except for what is stated in the HPI. Nursing and ancillary documentation was reviewed. <Dilshad Woodall MD - Last Filed: 11/03/25 20:03> [facility] Past Medical History Medical History: Medical History Family history of colon cancer Belching Ascending aortic aneurysm AAA (abdominal aortic aneurysm) Asthma History of rheumatic fever Cataract Statin myopathy Vertigo CAD (coronary artery disease) Diabetes mellitus Chronic obstructive pulmonary disease, unspecified Chronic respiratory failure with hypoxia Obstructive sleep apnea (adult) (pediatric) She denies any sleep apnea. Tobacco abuse <Dilshad Woodall MD - Last Filed: 11/03/25 20:03> Surgical History Surgical History: Surgical History H/O colonoscopy History of appendectomy S/P ORIF (open reduction internal fixation) fracture right ankle History of tonsillectomy H/O section History of laparoscopic cholecystectomy Hx of CABG (~2009) 5 vessel CABG <Dilshad Woodall MD - Last Filed: 11/03/25 20:03> Family History Family History: Family History Mother Family history of malignant neoplasm Family history of lung cancer Family history of lymphoma Sibling COVID Family history of heart disease in male family member before age 55 Family history of malignant neoplasm Adrenal nodule Family history of diabetes mellitus in first degree relative Adrenal mass Father Family history of primary malignant neoplasm of liver Family history of heart disease in male family member before age 55 Family history of cardiovascular disease Family history of congenital heart disease Hypertension Daughter Adrenal mass Other Diabetes mellitus <Dilshad Woodall MD - Last Filed: 11/03/25 20:03> Social History Social History: Social History Social History: Caffeine-coffee occasionally she lives home alone. She is . She has 4 children. 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 Code status full code Smoking packs per day: 1 Smoking cigarettes per day: 20.0 Years smoked: 50 Smoking pack-years: 50.00 Smoking status: Former smoker Tobacco type: cigarettes Second hand tobacco smoke exposure: Yes Smoking end date: 08/14/10 Alcohol intake: never Substance use: never Substance use type: does not use Other substance usage details: topical on knees Lack of Transportation: No Lack of Food: Never True Current Housing: I Have Housing Concerned About Future Housing: No Difficulty Paying Gas/Electric Bills: No Difficulty Paying for Meds: No Currently Unemployed: No Education: Bachelor's Degree Difficulty w/ Childcare or Family Care: No Living arrangements: alone Gender identity (if verbalized by the patient): Female Spiritual care concerns: No <Dilshad Woodall MD - Last Filed: 11/03/25 20:03> Course Course Emergency Course: patient care signed over pending 3 hour troponin and plan for discharge home. Patient has no chest pain at this time. Delta troponin negative. EKG is unremarkable chronic right bundle. No signs of acute ischemic changes. Has cardiology that she can follow-up with. Safe for discharge given return precautions. <Tanner Carl MD - Last Filed: 11/04/25 04:32> Vital Signs Vital signs: Vital Signs Temperature 37.2 C 11/03/25 17:47 Pulse Rate 67 11/03/25 17:47 Respiratory Rate 20 11/03/25 17:47 Blood Pressure 152/119 H 11/03/25 17:47 Pulse Oximetry 99 11/03/25 17:47 Oxygen Delivery Room Air 11/03/25 17:47 Temperature 37.2 C 11/03/25 19:05 Pulse Rate 68 11/03/25 21:29 Respiratory Rate 22 H 11/03/25 21:29 Blood Pressure 147/84 H 11/03/25 21:29 Pulse Oximetry 96 11/03/25 21:29 Oxygen Delivery Room Air 11/03/25 17:55 <Dilshad Woodall MD - Last Filed: 11/03/25 20:03> Vital Signs Temperature 37.2 C 11/03/25 17:47 Pulse Rate 67 11/03/25 17:47 Respiratory Rate 20 11/03/25 17:47 Blood Pressure 152/119 H 11/03/25 17:47 Pulse Oximetry 99 11/03/25 17:47 Oxygen Delivery Room Air 11/03/25 17:47 Temperature 37.2 C 11/03/25 19:05 Pulse Rate 68 11/03/25 21:29 Respiratory Rate 22 H 11/03/25 21:29 Blood Pressure 147/84 H 11/03/25 21:29 Pulse Oximetry 96 11/03/25 21:29 Oxygen Delivery Room Air 11/03/25 17:55 <Tanner Carl MD - Last Filed: 11/04/25 04:32> MDM MDM Narrative Medical decision making narrative: initial EKG showed no acute ischemic changes. Initial troponin was negative chest x-ray showed mild CHF BNP was 363 plan will be to repeat the patient's troponin at the 3 hour daljit and if the patient is asymptomatic and troponin is negative the patient could follow-up with cardiology as an outpatient <Dilshad Woodall MD - Last Filed: 11/03/25 20:03> Differential Diagnosis Differential Diagnosis: atypical chest pain, noncardiac chest pain, ACS, <Dilshad Woodall MD - Last Filed: 11/03/25 20:03> Lab Data Result diagrams: 11/03/25 17:57 11/03/25 17:57 <Dilshad Woodall MD - Last Filed: 11/03/25 20:03> Labs: Lab Results 11/03/25 11/03/25 Range/Units 17:57 20:45 WBC 6.1 (4.5-10.0) K/mm3 RBC 4.48 (4.2-5.4) M/mm3 Hgb 13.6 (12.0-15.0) g/dL Hct 41.1 (37.0-47.0) % MCV 91.7 (80-100) fl MCH 30.4 (26-34) pg MCHC 33.1 (32-36) g/dl RDW 13.5 (11.5-14.5) % Plt Count 186 (150-375) k/mm3 MPV 9.6 (7.4-10.4) fl Immature Gran % (Auto) 1.0 H (0-0.5) % Neut % (Auto) 57.8 (45.5-73.1) % Lymph % (Auto) 29.8 (18.3-44.2) % [place] % (Auto) 7.3 (2.6-8.5) % Eos % (Auto) 3.3 (0-4.4) % Baso % (Auto) 0.8 (0.2-1.2) % Lymph # (Auto) 1.83 (0.9-3.2) K/mm3 [place] # (Auto) 0.5 (0.1-0.6) K/mm3 Eos # (Auto) 0.2 (0-0.3) K/mm3 Baso # (Auto) 0.1 (0.0-0.1) K/mm3 Abs Immat Gran (auto) 0.06 H (0.00-0.031) K/mm3 Absolute Neuts (auto) 3.6 (1.3-6.7) K/mm3 Absolute Nucleated RBC 0.000 (0.0-0.012) K/mm3 Nucleated RBC % 0.0 (0.0-0.2) % PT 13.6 (11.1-14.7) Seconds INR 1.0 APTT 25.2 (22.3-36.8) Seconds Sodium 142 (137-145) mmol/L Potassium 4.0 (3.4-5.0) mmol/L Chloride 111 H (98-107) mmol/L Carbon Dioxide 22 (22-30) mmol/L Anion Gap 9 (4-12) mmol/L BUN 15 D (7-17) mg/dL Creatinine 0.83 (0.7-1.0) mg/dL Estim Creat Clear Calc 60 ml/min Estimated GFR > 60 (59 - ) Glucose 129 H (65-110) mg/dL Calcium 9.8 (8.4-10.2) mg/dL Total Bilirubin 1.2 (0.2-1.3) mg/dL AST 26 (14-36) U/L ALT 20 (6-35) U/L Alkaline Phosphatase 72 (38-126) U/L Troponin I < 0.012 < 0.012 (0.000-0.034) ng/mL NT-Pro-B Natriuret Pep 363 H (19.9-100) pg/mL Total Protein 8.1 (6.3-8.2) g/dL Albumin 4.6 (3.5-5.1) g/dL Lipase 86 (23-300) U/L <Dilshad Woodall MD - Last Filed: 11/03/25 20:03> Lab Results 11/03/25 11/03/25 Range/Units 17:57 20:45 WBC 6.1 (4.5-10.0) K/mm3 RBC 4.48 (4.2-5.4) M/mm3 Hgb 13.6 (12.0-15.0) g/dL Hct 41.1 (37.0-47.0) % MCV 91.7 (80-100) fl MCH 30.4 (26-34) pg MCHC 33.1 (32-36) g/dl RDW 13.5 (11.5-14.5) % Plt Count 186 (150-375) k/mm3 MPV 9.6 (7.4-10.4) fl Immature Gran % (Auto) 1.0 H (0-0.5) % Neut % (Auto) 57.8 (45.5-73.1) % Lymph % (Auto) 29.8 (18.3-44.2) % [place] % (Auto) 7.3 (2.6-8.5) % Eos % (Auto) 3.3 (0-4.4) % Baso % (Auto) 0.8 (0.2-1.2) % Lymph # (Auto) 1.83 (0.9-3.2) K/mm3 [place] # (Auto) 0.5 (0.1-0.6) K/mm3 Eos # (Auto) 0.2 (0-0.3) K/mm3 Baso # (Auto) 0.1 (0.0-0.1) K/mm3 Abs Immat Gran (auto) 0.06 H (0.00-0.031) K/mm3 Absolute Neuts (auto) 3.6 (1.3-6.7) K/mm3 Absolute Nucleated RBC 0.000 (0.0-0.012) K/mm3 Nucleated RBC % 0.0 (0.0-0.2) % PT 13.6 (11.1-14.7) Seconds INR 1.0 APTT 25.2 (22.3-36.8) Seconds Sodium 142 (137-145) mmol/L Potassium 4.0 (3.4-5.0) mmol/L Chloride 111 H (98-107) mmol/L Carbon Dioxide 22 (22-30) mmol/L Anion Gap 9 (4-12) mmol/L BUN 15 D (7-17) mg/dL Creatinine 0.83 (0.7-1.0) mg/dL Estim Creat Clear Calc 60 ml/min Estimated GFR > 60 (59 - ) Glucose 129 H (65-110) mg/dL Calcium 9.8 (8.4-10.2) mg/dL Total Bilirubin 1.2 (0.2-1.3) mg/dL AST 26 (14-36) U/L ALT 20 (6-35) U/L Alkaline Phosphatase 72 (38-126) U/L Troponin I < 0.012 < 0.012 (0.000-0.034) ng/mL NT-Pro-B Natriuret Pep 363 H (19.9-100) pg/mL Total Protein 8.1 (6.3-8.2) g/dL Albumin 4.6 (3.5-5.1) g/dL Lipase 86 (23-300) U/L <Tanner Carl MD - Last Filed: 11/04/25 04:32> Imaging Data Radiologist's impression: ITS Impressions Chest X-Ray 11/03/25 18:42 Impression: Mild CHF <Dilshad Woodall MD - Last Filed: 11/03/25 20:03> ITS Impressions Chest X-Ray 11/03/25 18:42 Impression: Mild CHF <Tanner Carl MD - Last Filed: 11/04/25 04:32> Discharge Plan Discharge Clinical Impression: Chest pain <Dilshad Woodall MD - Last Filed: 11/03/25 20:03> Patient Disposition: Still a Patient <Dilshad Woodall MD - Last Filed: 11/03/25 20:03> Condition: Stable <Dilshad Woodall MD - Last Filed: 11/03/25 20:03> Instructions: Chest Pain (ED) <Dilshad Woodall MD - Last Filed: 11/03/25 20:03> Additional Instructions: please follow-up with your research nutritionist if your symptoms worsen please return to the emergency department <Dilshad Woodall MD - Last Filed: 11/03/25 20:03> Patient Language: Sinhala <Dilshad Woodall MD - Last Filed: 11/03/25 20:03> Prescriptions: No Action loratadine [Claritin] 10 mg tablet 10 mg PO DAILY aspirin 81 mg tablet,delayed release (DR/EC) 81 mg PO DAILY albuterol sulfate 90 mcg/actuation HFA aerosol inhaler 1 puff inhalation Q4H PRN (Reason: Dyspnea) carvedilol 6.25 mg tablet 6.25 mg PO Q12H Rx Instructions: must administer with a meal/food isosorbide mononitrate 30 mg tablet extended release 24 hr 30 mg PO DAILY Adult 50 Plus Probiotic Etta 1 billion cell capsule,delayed release(DR/EC) PO .qd pantoprazole 40 mg tablet,delayed release (DR/EC) 40 mg PO QAM Qty: 30 5RF nitroglycerin 0.4 mg tablet, sublingual 0.4 mg sublingual Q5M PRN (Reason: chest pain) cyanocobalamin (vitamin B-12) [Vitamin B-12] 500 mcg lozenge 500 mcg PO DAILY fluticasone propionate [24 Hour Allergy Relief] 50 mcg/actuation spray,suspension 1 spray intranasal DAILY Rx Instructions: administer into each nostril multivitamin [Daily Multi-Vitamin] Tablet 1 tablet PO DAILY epinephrine [EpiPen] 0.3 mg/0.3 mL auto-injector 0.3 mg IM ONCE PRN (Reason: Anaphylaxis) Rx Instructions: as a single dose; may repeat once lisinopril 20 mg tablet 20 mg PO DAILY Qty: 90 3RF rosuvastatin 10 mg tablet 10 mg PO DAILY Qty: 90 2RF citalopram 10 mg tablet 10 mg PO DAILY Qty: 90 2RF buspirone 5 mg tablet See Rx Instructions .ROUTE .COMPLEX Qty: 180 1RF Dose Instruction: 5 MG ORALLY TWICE A DAY Rx Instructions: 5 MG ORALLY TWICE A DAY bupropion HCl 200 mg tablet sustained-release 12 hr See Rx Instructions .ROUTE .COMPLEX Qty: 60 3RF Dose Instruction: TAKE 1 TABLET BY MOUTH TWICE A DAY. NEEDS APPOINTMENT FOR FURTHER REFILLS Rx Instructions: TAKE 1 TABLET BY MOUTH TWICE A DAY. <Dilshad Woodall MD - Last Filed: 11/03/25 20:03> Follow-up/Referrals: Bebeto Figueroa MD [Primary Care Provider, Family Practice] <Dilshad Woodall MD - Last Filed: 11/03/25 20:03> Time of Disposition: 21:25 <Dilshad Woodall MD - Last Filed: 11/03/25 20:03> 21:25 <Tanner Carl MD - Last Filed: 11/04/25 04:32>
[2025-11-03 18:29] LABS: Troponin I < 0.012 ng/mL (0.000-0.034)
--- NOTE | 2025-11-03 18:29 | ECG_ITS ---
Test Date: 2025-11-03 18:26:43 Measurements Intervals [place] Rate: 63 P: 180 PA: 331 QRS: -3 QRSD: 149 T: 98 QT: 465 QTc: 477 Interpretive Statements SINUS RHYTHM RIGHT BUNDLE BRANCH BLOCK MODERATE T-WAVE ABNORMALITY, CONSIDER ANTEROLATERAL ISCHEMIA BASELINE ARTIFACT- I, II, III, AVR, AVL, AVF, V1-V6 ABNORMAL ECG Compared to ECG 11/03/2025 17:46:26 NO SIGNIFICANT CHANGE Electronically Signed On 11-03-2025 19:54:31 CONTROL SUPERVISOR by Jimbo Balderas D.O.
--- NOTE | 2025-11-03 19:15 | PC.NURSE ---
Report received from FELICITAS Cosby. Assumed care of patient at this time.
[2025-11-03 19:26] LABS: NT Pro B Type Natriuretic Pept 363 pg/mL (19.9-100)
--- NOTE | 2025-11-03 20:40 | ECG_ITS ---
Test Date: 2025-11-03 20:53:46 Measurements Intervals [place] Rate: 65 P: 14 SD: 192 QRS: -16 QRSD: 147 T: 38 QT: 455 QTc: 475 Interpretive Statements SINUS RHYTHM RIGHT BUNDLE BRANCH BLOCK MODERATE T-WAVE ABNORMALITY, CONSIDER ANTEROLATERAL ISCHEMIA ABNORMAL ECG Compared to ECG 11/03/2025 18:26:43 No significant changes Electronically Signed On 11-04-2025 09:10:07 BRINE MAKER by Jimbo Balderas D.O.
[2025-11-03 21:16] LABS: Troponin I < 0.012 ng/mL (0.000-0.034)
== END 2025-11-03 21:29 | disposition home or self-care (01) ==
PROVIDERS: Emergency Provider Emergency Medicine; PCP Family Medicine
DX: R07.9 Chest pain, unspecified (principal); I25.10 Atherosclerotic heart disease of native coronary artery without angina pectoris; J44.9 Chronic obstructive pulmonary disease, unspecified; J96.11 Chronic respiratory failure with hypoxia; E11.9 Type 2 diabetes mellitus without complications; G47.33 Obstructive sleep apnea (adult) (pediatric); Z95.1 Presence of aortocoronary bypass graft; Z87.891 Personal history of nicotine dependence; Z90.49 Acquired absence of other specified parts of digestive tract; Z79.82 Long term (current) use of aspirin; Z79.899 Other long term (current) drug therapy; I45.10 Unspecified right bundle-branch block; R94.31 Abnormal electrocardiogram [ECG] [EKG]; I50.9 Heart failure, unspecified
CPT/HCPCS: 36415; 71046; 80053; 83690; 83880; 84484; 85025; 85610; 85730; 93005; 96374; 99284; A9270; J2270